=== PATIENT | male | born 1950 | race Caucasian/White ===

== ENCOUNTER 2016-12-16 10:12 | Inpatient (IN) ==
[~2016-12-16 10:12] MED LIST: fentaNYL 100 MCG PATCH TD SCH
[2016-12-16] MEDS ORDERED: ZOLPIDEM 5 MG TABLET PO PRN (10:14)
[2016-12-16] MEDS ORDERED: ACETAMINOPHEN 325 MG TABLET PO PRN (10:14)
[2016-12-16] MEDS ORDERED: HYDROmorphone 2 MG/ML SYRINGE IV PRN (10:14)
[2016-12-16] MEDS ORDERED: PROMETHAZINE 25 MG/ML VIAL IV PRN (10:14)
[2016-12-16] MEDS ORDERED: IMIPENEM/CILASTATIN SODIUM 1,000 MG in 0.9 % SODIUM CHLORIDE 250 ML IV SCH (10:45)
[2016-12-16] MEDS: 0.9 % SODIUM CHLORIDE 1,000 ML IV SCH ×2 (14:10→21:51)
[2016-12-16] MEDS: metroNIDAZOLE 500 MG/100 ML BAG IV SCH ×3 (14:10→23:56)
[2016-12-16] MEDS: 0.9 % SODIUM CHLORIDE 10 ML SYRINGE IV SCH ×2 (14:11→23:50)
[2016-12-16 14:41] LABS: ALT/SGPT < 5 U/l (0-40); Albumin 2.7 gm/dL (3.2-5.2); Albumin/Globulin Ratio 0.8 (1.0-2.3); Alkaline Phosphatase 94 U/L (39-117); Blood Urea Nitrogen 60 mg/dl (8-23); Magnesium 2.5 mg/dL (1.6-2.5); Phosphorous 3.6 mg/dL (2.7-4.5)
[2016-12-16] MEDS: IMIPENEM/CILASTATIN SODIUM 500 MG in 0.9 % SODIUM CHLORIDE 100 ML IV SCH ×2 (15:19→22:20)
[2016-12-16] MEDS ORDERED: POTASSIUM CHLORIDE 20 MEQ TABLET PO SCH (17:30)
[2016-12-16] MEDS ORDERED: 0.9 % SODIUM CHLORIDE 10 ML SYRINGE IV PRN (18:06)
[2016-12-16 18:42] LABS: Basophils # (Auto) 0 K/mcL (0.0-0.3); Basophils % (Auto) 0 % (0.0-2.0); Eosinophils # (Auto) 0.4 K/mcL (0.0-0.7); Eosinophils % (Auto) 1.8 % (0.0-7.0); Granulocytes % (Auto) 90.9 % (38.0-78.0); Lymphocytes # (Auto) 1.1 K/mcL (1.5-4.8); Lymphocytes % (Auto) 4.8 % (15.5-49.0); Mean Cell Volume 80.2 fL (80.0-100.0); Mean Corpuscular HGB Conc 30.8 g/dL (31.0-36.0); Mean Corpuscular Hemoglobin 24.7 pg (26.0-34.0); Monocytes # (Auto) 0.5 K/mcL (0.1-0.9); Monocytes % (Auto) 2.5 % (1.0-9.0); Platelet Count 481 K/mcL (140-440); RBC 2.65 M/mcL (4.50-5.90); Red Cell Distribution Width 21.1 % (11.5-14.5)
[2016-12-16] MEDS ORDERED: 0.9 % SODIUM CHLORIDE 250 ML IV SCH (18:45)
[2016-12-16] MEDS: CYCLOBENZAPRINE 10 MG TABLET PO SCH (19:51)
[2016-12-16] MEDS: CARBIDOPA/LEVODOPA 25/100 TABLET PO SCH (19:52)
[2016-12-16] MEDS: GABAPENTIN 300 MG CAPSULE PO SCH (19:53)
[2016-12-16] MEDS ORDERED: [UNRECOGNIZED DRUG - OTHER] SC PRN (20:00)
[2016-12-16] MEDS ORDERED: MIRTAZAPINE 15 MG TABLET PO SCH (21:00)
[2016-12-16] MEDS ORDERED: TOPIRAMATE 100 MG TABLET PO SCH (21:00)
[2016-12-16] MEDS ORDERED: ATENOLOL 50 MG TABLET PO SCH (21:00)
[2016-12-16] MEDS ORDERED: clonazePAM 1 MG TABLET PO SCH (21:00)
[2016-12-16] MEDS: AMANTADINE HCL 100 MG CAPSULE PO SCH (21:53)
[2016-12-16] MEDS ORDERED: POTASSIUM CHLORIDE 40 MEQ in DEXTROSE 5% IN WATER 500 ML IV ONE (22:29)
[2016-12-16] MEDS: DEXTROSE 5%-1/2NS W/20MEQ KCL 1,000 ML IV SCH (22:55)
[2016-12-16] MEDS: POTASSIUM CHLORIDE 20 MEQ TABLET PO SCH (23:50)
[2016-12-17] MEDS ORDERED: POTASSIUM CHLORIDE 20 MEQ/10 ML VIAL IV ONE (01:16)
[2016-12-17] MEDS ORDERED: POTASSIUM CHLORIDE IV SCH (06:28)
[2016-12-17] MEDS ORDERED: SODIUM CHLORIDE 0.9% IV SCH (06:28)
[2016-12-17] MEDS: DEXTROSE 5%-1/2NS W/20MEQ KCL 1,000 ML IV SCH ×2 (06:53→13:07)
--- NOTE | 2016-12-17 07:15 | Internal Medicine Consult Note ---
Medical - CN: HPI - Data of Consult Patient: new to practice Consult date: 12/17/16 Requesting Physician: [Dr. Herve Azul, general surgery] Primary Care Provider: [Leta Azul, nurse practitioner] Family Provider: [f_Tin Family Provider] - Consult Narrative Reason for consult: preop evaluation, hypokalemia,multiple medical problems History of present illness: Mr. 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 the patient reports he has had a steady decline for about one year now. He has been suffering with fatigue and weight loss of about 30-40 pounds over the last 3-6 months. He said about 6 months ago he was treated for melanoma on his face and had follow-up for that During that follow- up they found that he was anemic, and then found that he had guaiac positive stool. He then underwent colonoscopy and endoscopythat were apparently unrevealing. He has noticed gradually worsening dyspnea with exertion over the last several months, and in October said he had gross hematuria. That apparently triggered a referral which led to a cystoscopy at which time they found that he had not only blood but also stool in his urine Subsequent testing did confirm that he had a small bowel abscess, which had eroded into thebladder so that he now has a fistula. He was seen for follow-up in Dr. Azul' s office yesterday, and looked terrible and pale and weak, so was admitted for further workup and treatment. laboratory evaluation last night did show severe hypokalemia. he patient believes he was taking daily hydrochlorothiazide at home. He admits his diet is been very poor and that he has not had much of an appetite lately. However, he also admits that he generally has a very poor diet, and much prefers foods such as hot dogs and chili to anything even remotely involving fruits or vegetables or healthy proteins. Otherwise, the patient denies recent fever or chills, headaches or dizziness, new eye or ear symptoms. He has not had a sore throat or cough.he denies chest pain or palpitations, significant abdominal pain, heartburn, nausea or vomiting , and initially denied any diarrhea or constipation However,he then admitted that he has been having bloody stools for the last several days at home. Nursing staff also notes bloody stools since arrival here. -He did receive 3 units of packed red blood cells last night, as he is also quite severely anemic. -he has had Parkinson's disease for about 16 years and is managed by a neurologist. He is on a very complicated regimen for that. 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 To control that pain he does take both a fentanyl patch and subcutaneous morphine. -He also has chronic migraines, which appear to be treated with Topamax and Frova. -He also was previously diagnosed with sleep apnea, but refuses to wear CPAP. He used to be a heavy snorer, but notes he does not snore anymore since he has lost all the weight. [facility] Medical History melanoma, 2016. 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 Hypersomnia (Chronic) Insomnia (Chronic) Migraine (Chronic) Parkinson disease since about 1999 Restless leg syndrome (Chronic) Right carpal tunnel syndrome (Chronic) Shortness of breath (Chronic) Sleep apnea (Chronic) Sleep apnea, obstructive which is not currently treated. Testosterone deficiency (Chronic) Tremor (Chronic) Urgency incontinence (Chronic) Surgical History Amputation of left hand (Chronic) H/O hand surgery (Chronic) History of appendectomy (Chronic) History of back surgery (Chronic) History of carpal tunnel surgery of right wrist (Chronic) History of lumbar surgery (Chronic) L4-5 - 2011, Dr. Garcia History of mandibular surgery (Chronic) Hx of colonoscopy (Chronic 05/05/09) Dr. Shoemaker Hx of hernia repair (Chronic) Hx of surgical procedure (Chronic) Right femur cadaver graft Hx of tonsillectomy (Chronic) Malignant melanoma (Chronic) Left scalp - 2012 S/P Botox injection (Chronic) Dr. Demattos home Medication List: amantadine HCl 100 mg PO BID apomorphine (APOKYN) 0.3 mL Sub-Q Q2H PRN atenolol 25 mg PO QHS carbidopa-levodopa 25-100 mg (Sinemet) 2 tabs PO QID cephalexin (Keflex) 500 mg PO Q12H 10 days clonazepam 1 mg PO QHS cyanocobalamin (vitamin B-12) Sub-Q cyclobenzaprine 10 mg PO BID fenofibrate micronized 134 mg PO QHS fentanyl (Duragesic) 1 patch Transdermal Q48H ferrous sulfate (FeroSul) 325 mg PO QDAY frovatriptan (Frova) 2.5 mg PO ONCE gabapentin 300 mg PO QID hydrochlorothiazide PO .QD levothyroxine (Levoxyl) 100 mcg PO QAM lubiprostone (Amitiza) 24 mcg PO BID methylnaltrexone (Relistor) mg PO mirabegron ER (Myrbetriq) 50 mg (2 x 25 mg) PO Q24H mirtazapine 15 mg PO QHS omeprazole 20 mg PO BID oxycodone-acetaminophen 5-325 mg (Percocet) 1 tab PO .Q6-8H PRN potassium chloride ER 10 mEq PO QDAY rasagiline (Azilect) 1 mg PO QDAY rotigotine (Neupro) 4 mg Transdermal Q24H tadalafil (Cialis) 5 mg PO ONCE tamsulosin (Flomax) 0.8 mg PO QDAY testosterone (Androderm) 4 mg Transdermal QDAY topiramate (Topamax) 100 mg PO QPM current medication list: flagyl 500 mg IV every 6 hours, mipenemIV every 8 hours , Tylenol, amantadine,morphine, atenolol, Sinemet, Klonopin, Flexeril, IV fluids , Lovenox, Duragesic patch, gabapentin, IV heparin flush, Dilaudid, Synthroid Myrbetriq, Protonix, potassium by mouth and IV, Phenergan, Azilect, neupro patch , Topamax, Ambien Allergies/Adverse Reactions Penicillins Adverse Reaction (Mild, Verified 12/16/16 11:23) Nausea Family History Mother , 09/27 Pneumonia Other Heart problem Social History marital status: occupational status: disabled smoking status: Never smoker alcohol intake frequency: does not drink CC: [f_Reg Attending Provider] Medical - CN: Meds Home Medications Medication Instructions Recorded Confirmed Type amantadine HCl 100 mg tablet 100 mg PO BID tab 01/22/16 12/16/16 History atenolol 25 mg tablet 25 mg PO QHS tab 01/22/16 12/16/16 History carbidopa 25 mg-levodopa 100 mg 2 tab PO QID 01/22/16 12/16/16 History tablet clonazepam 1 mg tablet 1 mg PO QHS 01/22/16 12/16/16 History fenofibrate micronized 134 mg 134 mg PO QHS cap 01/22/16 12/16/16 History capsule fentanyl 100 mcg/hr transdermal 1 patch TRANSDERMA Q48H patch 01/22/16 History patch frovatriptan 2.5 mg tablet 2.5 mg PO ONCE 01/22/16 12/16/16 History gabapentin 300 mg capsule 300 mg PO QID cap 01/22/16 12/16/16 History levothyroxine 100 mcg tablet 100 mcg PO QAM tab 01/22/16 12/16/16 History lubiprostone 24 mcg capsule 24 mcg PO BID 01/22/16 12/16/16 History oxycodone-acetaminophen 5 mg-325 1 tab PO .Q6-8H PRN tab 01/22/16 12/16/16 History mg tablet rasagiline 1 mg tablet 1 mg PO QDAY 01/22/16 12/16/16 History rotigotine 4 mg/24 hour 4 mg TRANSDERMA Q24H patch 01/22/16 12/16/16 History transdermal 24 hour patch topiramate 100 mg tablet 100 mg PO QPM tab 01/22/16 12/16/16 History hydrochlorothiazide PO .QD 10/30/16 12/16/16 History Omeprazole 20 mg PO BID 12/16/16 12/16/16 History apomorphine 10 mg/mL subcutaneous 0.3 ml SUB-Q Q2H PRN ml 12/16/16 12/16/16 History cartridge cyanocobalamin (vitamin B-12) SUB-Q 12/16/16 12/16/16 History cyclobenzaprine 10 mg tablet 10 mg PO BID tab 12/16/16 12/16/16 History ferrous sulfate 325 mg (65 mg 325 mg PO QDAY 12/16/16 12/16/16 History iron) tablet methylnaltrexone 150 mg tablet mg PO 12/16/16 12/16/16 History mirtazapine 15 mg tablet 15 mg PO QHS 12/16/16 12/16/16 History potassium chloride ER 10 mEq 10 meq PO QDAY 12/16/16 12/16/16 History capsule,extended release tamsulosin 0.4 mg capsule 0.8 mg PO QDAY 12/16/16 12/16/16 History testosterone 4 mg/24 hr 4 mg TRANSDERMA QDAY 12/16/16 12/16/16 History transdermal 24 hour patch Allergies Allergy/AdvReac Type Severity Reaction Status Date / Time Penicillins AdvReac Mild Nausea Verified 12/16/16 11:23 Medical - CN: Exam - Constitutional Vitals: Temp Pulse Resp BP Pulse Ox 98.4 F 62 18 130/67 95 12/17/16 04:50 12/17/16 04:50 12/17/16 03:15 12/17/16 04:50 12/17/16 02:59 Exam: on exam, he is a rather frail-appearing white male in no acute distress, but appearing somewhat older than his stated age. Head: Normocephalic, atraumatic. eyes: Pupils are pinpoint, EOMI, anicteric. ears: TMs and canals are clear. Pharynx:Teeth are in fair condition, he does have upper and lower bridges in place. Pharynx is clear. Neck:Appears fairly supple, without obvious lymphadenopathy, thyromegaly JVD. He does have a soft bruit over the right carotid artery system.Cardiac exam: Shows regular rate and rhythm, without obvious murmurs, rubs, gallops. Lungs: Are clear to auscultation, without obvious rales, rhonchi, wheezes. Abdomen: Is soft, without obvious masses. Bowel sounds are active. Abdomen is not particularly tender.Pierce catheter is in place, and draining brownish urine with at least one visible blood clot. Extremities: Show no significant cyanosis, clubbing, edema.Neurologic: The patient does have a notable resting tremor, but otherwise voice is fairly normal , and he seems to have minimal rigidity today. he appears alert and oriented, and otherwise neuro exam is grossly nonfocal. Medical - CN: Result - Labs CBC & Chem 7: 12/17/16 08:27 12/17/16 10:45 Labs: Short CBC 12/16/16 Range/Units 17:55 WBC 22.1 H (4.5-11.0) K/mcL Hgb 6.6 L* (13.5-16.5) g/dL Hct 21.3 L (41.0-55.0) % Plt Count 481 H (140-440) K/mcL BMP 12/16/16 13:10 Sodium 147 H Potassium 2.0 L* Chloride 113 H Carbon Dioxide 15 L BUN 60 H Creatinine 1.2 Glucose 82 Calcium 8.6 Liver Function 12/16/16 Range/Units 13:10 Total Bilirubin 0.3 (0.0-1.0) mg/dL AST 7 (0-37) U/l ALT < 5 (0-40) U/l Alkaline Phosphatase 94 (39-117) U/L Albumin 2.7 L (3.2-5.2) gm/dL Follow-up CBC this morning, shows white blood cell count of 20,000, hemoglobin 8.9, hematocrit 28, platelets 419,000.CBC differential shows91% granulocytes, with absolute granulocyte count of 18,000 which is down from 20 yesterday. hemistry panel from this morning shows potassium has risen to 2.6, with elevated chloride of 116, low serum bicarbonate of 14, improved to be when of 48 , with creatinine of 1.2 glucose 127, calcium 8.1, phosphorus low at 2.3 LDH is elevated at 253, albumin is low at 2.5 next TSH was normal at 1.6 Lactic acid was normal at 0.9. urinalysis from Novemberhowed color green, pH 6, specific gravity 1.020, 300 mg of protein, trace ketones, large leukocyte esterase, negative nitrites, large RBCs blood culture from last night showing no growth so far chest x-ray from this morning shows mild cardiomegaly without signs of CHF. There is also prominent hiatal hernia. echocardiogram is pending. CT scan from December 12, 2016: Shows an enterovesical fistula with possible 8 cm abscess in the right false pelvis which communicates with the right dome of the bladder. Also noted was a solitary 5 mm stone in the gallbladder. There are also tiny stones noted in the right kidney. Follow-up images with oral contrast did show a large 12 cm thick-walled cavity in the right false pelvis communicating with the urinary bladder dome, with a 3 cm fistula opening. This cavity also communicates with multiple loops of small bowel. Medical - CN: A/P (1) Hypokalemia due to loss of potassium Status: Acute (2) Iron deficiency anemia Status: Acute (3) Dehydration Status: Acute (4) Enterovesical fistula Status: Acute (5) History of sarcoma Problem details: Right femur, 1993 Status: Resolved (6) Insomnia Status: Chronic (7) Malignant melanoma Problem details: Left scalp - 2011 Status: Resolved (8) Migraine Status: Chronic (9) Restless leg syndrome Status: Chronic (10) Sleep apnea Status: Chronic (11) Testosterone deficiency Status: Chronic - Narrative A/P Narrative: #1. GI. -small bowel-bladder abscess with fistula. etiology of this is currently uncertain. Surgical correction by Dr. Azul is planned sometime in the next day or 2. -continue with current empiric IV antibiotics. -GERD. Protonix IV started. #2. Ongoing fatigue and weight loss, -this may be multifactorial, including his ongoing Parkinson'sissues, but the majority of his symptoms are almost certainly related to his current bowel and bladder issues. -he also has a history of 2 different malignancies so there is certainly concern for underlying malignancy with this process as well. -is nutritional status appears very poor, and I've asked the area mechanic to visit with the patient and make recommendations. #3. Fluids and nutrition. Severe hypokalemia. This is most likely due to recent poor by mouth intake in addition to ongoing ingestion of HCTZ. -HCTZ has been held. Patient is receiving both IV and oral potassium replacement. -it would probably be prudent to place him on telemetry, just to monitor for any cardiac arrhythmias. -continue IV fluid hydration for apparent dehydration. Work on improving his oral nutrition. #4. neurologic. - Parkinson's disease. e is on a very complicated medical regimen. I will try to touch base with his neurologist, to see if his regimen could be simplified at all during the perioperative period. -history of migraines. continue with Topamax and when necessary Frova. -Restless leg syndrome. continue Klonopin and gabapentin. at some point he might also need an iron supplement, given his anemia, as I deficiency can definitely aggravate this syndrome. #4.obstructive sleep apnea.patient reports this as a previous diagnosis, but it is likely that this is either much improved or resolved since his significant weight loss. We can certainly monitor her overnight oximetry. #5. History of generalized anxiety disorder. -Continue Klonopin, and use when necessary Ativan as needed. #6. . -It sounds like the patient has a long history of urinary symptoms, and is currently maintained on Flomax as well as Myrbetriq. We could touch base with Dr. Hawkins to see if these could be held while the patient has a Pierce catheter in place, during the perioperative period, again to simplify his medical regimen. #7.reported testosterone deficiency. He is maintained on testosterone transdermal patch. This increases his risk of cardiac events and stroke and DVT. however, since he is on this chronically, it might help during the rehabilitation period to help him rebuild his muscle mass. 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 Continuefentanyl patch and supplemental morphine. #9. Hypothyroidism. Continue levothyroxine. #10. Hyperlipidemia. I think the fenofibrate could be held during the perioperative period. #11. Surgical risk. This patient is certainly at moderate to high risk of complications during the perioperative period, given hiscomplicated underlying disease processes and complicated medical regimen. Fortunately, he has no documented history of coronary disease Echocardiogram was ordered by Dr. Azul and we can certainly review that preop as well. -continue with DVT prophylaxis with heparin or Lovenox, and encourage ambulation as he is able. -continue atenolol during the perioperative period. 312. Hematologic. This patient does present with severe anemia, presumably due to his current GI process. He has been transfused, and this will need to be monitored closely. So far this visit has taken approximately 80 minutes, to review the patient's extensive past medical records,review his case with staff, interview and examine him, and write his notes and orders.
[2016-12-17] MEDS ORDERED: PANTOPRAZOLE 40 MG VIAL IV SCH (07:30)
[2016-12-17] MEDS: metroNIDAZOLE 500 MG/100 ML BAG IV SCH ×4 (07:57→23:24)
[2016-12-17] MEDS: 0.9 % SODIUM CHLORIDE 10 ML SYRINGE IV SCH ×4 (08:00→22:08)
--- NOTE | 2016-12-17 08:23 | XRay Report ---
CLINICAL INFORMATION: Hypoxia TECHNIQUE: AP portable upright chest x-ray COMPARISON: Previous examination dated 05/01/2015 FINDINGS: No acute or focal pulmonary parenchymal infiltrate. No parenchymal mass. There is cardiomegaly. No pulmonary congestion or pulmonary edema. There is a prominent hiatal hernia. No acute abnormality or significant interval change IMPRESSION: No acute abnormality. Interpreted and Authenticated by: Miguel Angel Solis 12/17/16
[2016-12-17] MEDS ORDERED: ENOXAPARIN 40 MG/0.4 ML SYRINGE SQ SCH (09:00)
[2016-12-17] MEDS ORDERED: ROTIGOTINE 8 MG TOPICAL SCH (09:00)
[2016-12-17] MEDS ORDERED: LEVOTHYROXINE 100 MCG TABLET PO SCH (09:00)
[2016-12-17] MEDS ORDERED: ROTIGOTINE 4 MG TOPICAL SCH (09:00)
[2016-12-17] MEDS: POTASSIUM CHLORIDE 20 MEQ TABLET PO SCH ×3 (09:07→17:03)
[2016-12-17] MEDS: CYCLOBENZAPRINE 10 MG TABLET PO SCH (09:08)
[2016-12-17] MEDS: CARBIDOPA/LEVODOPA 25/100 TABLET PO SCH ×4 (09:08→21:30)
[2016-12-17] MEDS: GABAPENTIN 300 MG CAPSULE PO SCH ×4 (09:08→21:29)
[2016-12-17] MEDS: IMIPENEM/CILASTATIN SODIUM 500 MG in 0.9 % SODIUM CHLORIDE 100 ML IV SCH ×3 (09:10→21:32)
[2016-12-17 09:48] LABS: Basophils # (Auto) 0 K/mcL (0.0-0.3); Basophils % (Auto) 0 % (0.0-2.0); Eosinophils # (Auto) 0.2 K/mcL (0.0-0.7); Eosinophils % (Auto) 1.2 % (0.0-7.0); Granulocytes % (Auto) 91.9 % (38.0-78.0); Lymphocytes # (Auto) 0.8 K/mcL (1.5-4.8); Lymphocytes % (Auto) 3.9 % (15.5-49.0); Mean Cell Volume 83.4 fL (80.0-100.0); Mean Corpuscular HGB Conc 31.7 g/dL (31.0-36.0); Mean Corpuscular Hemoglobin 26.4 pg (26.0-34.0); Monocytes # (Auto) 0.6 K/mcL (0.1-0.9); Platelet Count 419 K/mcL (140-440); RBC 3.36 M/mcL (4.50-5.90); Red Cell Distribution Width 19.5 % (11.5-14.5)
[2016-12-17] MEDS ORDERED: 0.9 % SODIUM CHLORIDE 250 ML IV SCH ×2 (11:30→19:23)
[2016-12-17 11:59] LABS: ALT/SGPT < 5 U/l (0-40); Albumin 2.5 gm/dL (3.2-5.2); Albumin/Globulin Ratio 0.8 (1.0-2.3); Alkaline Phosphatase 98 U/L (39-117); Bilirubin,Direct 0.3 mg/dL (0.0-0.3); Blood Urea Nitrogen 48 mg/dl (8-23); Gamma Glutamyl Transpeptidase 25 U/L (8-61); Magnesium 2.3 mg/dL (1.6-2.5); Phosphorous 2.3 mg/dL (2.7-4.5); Uric Acid 3.2 mg/dL (2.5-8.0)
[2016-12-17] MEDS ORDERED: POTASSIUM CHLORIDE 40 MEQ in DEXTROSE 5% IN WATER 500 ML IV ONE (12:08)
[2016-12-17] MEDS: AMANTADINE HCL 100 MG CAPSULE PO SCH ×3 (12:11→21:27)
[2016-12-17] MEDS: Mirabegron [Myrbetriq] 50 MG PO SCH ×2 (12:14→13:17)
[2016-12-17] MEDS: Rasagiline Mesylate [Azilect] 1 MG PO SCH ×2 (12:14→13:16)
--- NOTE | 2016-12-17 15:54 | General Surgery Progress Note ---
Subjective Patient reports: feels better, still having pain, tolerating liquids well, bowel movement, diarrhea, nausea, afebrile Narrative: Note initiated : 12/17/16 at 3:52 pm Service Date, if different from initiated Date: [] Patient: Tripp Melo 66 y/o M admitted on 12/16/16 for Bowel Abscess, Bladder Fistula. Chief Complaint: [patient states that he feels better and stronger. He still has suprapubic and right lower quadrant pain. He still has large volume diarrhea and bloody urine. His posttransfusion hemoglobin was 8.9. His PICC line has not been placed but should be done today. We'll plan on TPN S institution prior to operative therapy.] Objective Temp Pulse Resp BP Pulse Ox 97.7 F 59 L 20 120/70 97 12/17/16 12:15 12/17/16 12:15 12/17/16 12:15 12/17/16 12:15 12/17/16 12:15 - Additional Data Intake & Output - Last 24 hours: Intake & Output 12/15/16 12/16/16 12/17/16 12/18/16 05:59 05:59 05:59 05:59 Intake Total 1400 / 1400 1525 / 1525 Output Total 351 / 351 Balance 1049 / 1049 1525 / 1525 Weight 145 lb 145 lb - General physical appearance moderate distress, moderate pain, chronically ill - Eyes PERRL - ENT no congestion - Neck no venous distension - Respiratory clear to auscultation - Cardiovascular Cardiovascular exam: Present: normal rate and rhythm, RRR, +S1, +S2 - Abdomen tender, bowel sounds, distended (leisa distended abdomen with fullness in the suprapubic and right lower quadrant; good active bowel sounds) - Integumentary no rash, no growths, no abnormal pigmentation - Neurologic normal sensation - Psychiatric oriented to time, oriented to person, oriented to place, speech is normal, memory intact - Labs 12/17/16 08:27 12/17/16 10:45 Diabetes panel 12/17/16 Range/Units 10:45 Sodium 145 (133-145) mmol/L Potassium 2.6 L* (3.3-5.1) mmol/L Chloride 116 H (96-108) mmol/L Carbon Dioxide 14 L (22-30) mmol/L BUN 48 H (8-23) mg/dl Creatinine 1.2 (0.7-1.2) mg/dl Glucose 127 H (70-105) mg/dL Calcium 8.1 L (8.6-10.4) mg/dl AST 7 (0-37) U/l ALT < 5 (0-40) U/l Alkaline Phosphatase 98 (39-117) U/L Total Protein 5.5 L (5.9-8.4) gm/dL Albumin 2.5 L (3.2-5.2) gm/dL Triglycerides 111 (<150) mg/dl Calcium panel 12/17/16 Range/Units 10:45 Calcium 8.1 L (8.6-10.4) mg/dl Phosphorus 2.3 L (2.7-4.5) mg/dL Albumin 2.5 L (3.2-5.2) gm/dL Pituitary panel 12/17/16 Range/Units 10:45 Sodium 145 (133-145) mmol/L Potassium 2.6 L* (3.3-5.1) mmol/L Chloride 116 H (96-108) mmol/L Carbon Dioxide 14 L (22-30) mmol/L BUN 48 H (8-23) mg/dl Creatinine 1.2 (0.7-1.2) mg/dl Glucose 127 H (70-105) mg/dL Calcium 8.1 L (8.6-10.4) mg/dl Adrenal panel 12/17/16 Range/Units 10:45 Sodium 145 (133-145) mmol/L Potassium 2.6 L* (3.3-5.1) mmol/L Chloride 116 H (96-108) mmol/L Carbon Dioxide 14 L (22-30) mmol/L BUN 48 H (8-23) mg/dl Creatinine 1.2 (0.7-1.2) mg/dl Glucose 127 H (70-105) mg/dL Calcium 8.1 L (8.6-10.4) mg/dl Total Bilirubin 0.6 (0.0-1.0) mg/dL AST 7 (0-37) U/l ALT < 5 (0-40) U/l Alkaline Phosphatase 98 (39-117) U/L Total Protein 5.5 L (5.9-8.4) gm/dL Albumin 2.5 L (3.2-5.2) gm/dL Medical - PN: A/P - Time Spent With Patient Total time spent is greater than 50% in coordination of care (as documented) at patient's floor/unit and/or counseling patient: (1) Enterovesical fistula Status: Acute Assessment and plan: we'll continue to correct potassium transfusion will continue TPN will be instituted tomorrow Current Visit: No (2) Dehydration Status: Acute Current Visit: Yes (3) Hypokalemia due to loss of potassium Status: Acute Current Visit: Yes (4) Iron deficiency anemia Status: Acute Current Visit: Yes (5) Anemia Status: Chronic Current Visit: No (6) Parkinson disease Status: Chronic Current Visit: No (7) Sleep apnea, obstructive Status: Chronic Current Visit: No
--- NOTE | 2016-12-17 16:58 | XRay Report ---
CLINICAL INFORMATION: Right-sided PICC line placement TECHNIQUE: Upright AP portable chest x-ray COMPARISON: Previous examination dated 12/17/2016 FINDINGS: Right-sided PICC line with its tip in the proximal right atrium. Mild cardiomegaly, unchanged. No evidence for congestive heart failure. No focal infiltrate. IMPRESSION: Right-sided PICC line with its tip in the proximal right atrium. Interpreted and Authenticated by: Miguel Angel Solis 12/17/16
[2016-12-17] MEDS ORDERED: 0.9 % SODIUM CHLORIDE 10 ML SYRINGE IV PRN ×3 (17:13→19:23)
[2016-12-17] MEDS ORDERED: ACETAMINOPHEN 325 MG TABLET PO PRN (19:23)
[2016-12-17] MEDS ORDERED: LORazepam 2 MG/ML VIAL IV PRN (19:23)
[2016-12-17] MEDS ORDERED: [UNRECOGNIZED DRUG - OTHER] SC PRN (19:23)
[2016-12-17] MEDS ORDERED: HYDROmorphone 2 MG/ML SYRINGE ONE (20:30)
[2016-12-17] MEDS: clonazePAM 1 MG TABLET PO SCH (21:28)
[2016-12-17] MEDS: MIRTAZAPINE 15 MG TABLET PO SCH (21:29)
[2016-12-17] MEDS: ATENOLOL 50 MG TABLET PO SCH (21:30)
[2016-12-17] MEDS: TOPIRAMATE 100 MG TABLET PO SCH (21:31)
[2016-12-17 23:00] LABS: Basophils # (Auto) 0 K/mcL (0.0-0.3); Basophils % (Auto) 0.2 % (0.0-2.0); Eosinophils # (Auto) 0 K/mcL (0.0-0.7); Eosinophils % (Auto) 0.2 % (0.0-7.0); Granulocytes % (Auto) 91.8 % (38.0-78.0); Lymphocytes % (Auto) 5.3 % (15.5-49.0); Mean Cell Volume 82.5 fL (80.0-100.0); Mean Corpuscular HGB Conc 32.4 g/dL (31.0-36.0); Mean Corpuscular Hemoglobin 26.7 pg (26.0-34.0); Monocytes # (Auto) 0.5 K/mcL (0.1-0.9); Monocytes % (Auto) 2.5 % (1.0-9.0); Platelet Count 438 K/mcL (140-440); RBC 3.88 M/mcL (4.50-5.90); Red Cell Distribution Width 18.1 % (11.5-14.5)
[2016-12-17 23:23] LABS: Blood Urea Nitrogen 33 mg/dl (8-23)
[2016-12-18] MEDS: DEXTROSE 5%-1/2NS W/20MEQ KCL 1,000 ML IV SCH ×4 (01:42→17:47)
[2016-12-18] MEDS: HYDROmorphone 2 MG/ML SYRINGE IV PRN ×3 (04:28→17:18)
[2016-12-18] MEDS: 0.9 % SODIUM CHLORIDE 10 ML SYRINGE IV SCH ×5 (04:29→23:29)
[2016-12-18] MEDS: IMIPENEM/CILASTATIN SODIUM 500 MG in 0.9 % SODIUM CHLORIDE 100 ML IV SCH ×3 (05:03→22:00)
[2016-12-18] MEDS: metroNIDAZOLE 500 MG/100 ML BAG IV SCH ×4 (05:03→23:30)
[2016-12-18 06:34] LABS: Basophils # (Auto) 0 K/mcL (0.0-0.3); Basophils % (Auto) 0 % (0.0-2.0); Eosinophils # (Auto) 0.2 K/mcL (0.0-0.7); Eosinophils % (Auto) 1.2 % (0.0-7.0); Granulocytes % (Auto) 92.2 % (38.0-78.0); Lymphocytes # (Auto) 0.7 K/mcL (1.5-4.8); Lymphocytes % (Auto) 4.2 % (15.5-49.0); Mean Cell Volume 83.6 fL (80.0-100.0); Mean Corpuscular HGB Conc 31.9 g/dL (31.0-36.0); Mean Corpuscular Hemoglobin 26.6 pg (26.0-34.0); Monocytes # (Auto) 0.4 K/mcL (0.1-0.9); Monocytes % (Auto) 2.4 % (1.0-9.0); Platelet Count 378 K/mcL (140-440); RBC 3.67 M/mcL (4.50-5.90)
[2016-12-18 07:12] LABS: ALT/SGPT < 5 U/l (0-40); Albumin 2.6 gm/dL (3.2-5.2); Albumin/Globulin Ratio 1.1 (1.0-2.3); Alkaline Phosphatase 89 U/L (39-117); Bilirubin,Direct 0.4 mg/dL (0.0-0.3); Blood Urea Nitrogen 28 mg/dl (8-23); Gamma Glutamyl Transpeptidase 28 U/L (8-61); Magnesium 2.2 mg/dL (1.6-2.5); Uric Acid 2.5 mg/dL (2.5-8.0)
[2016-12-18] MEDS ORDERED: POTASSIUM CHLORIDE 20 MEQ TABLET PO SCH (08:00)
[2016-12-18] MEDS: CYCLOBENZAPRINE 10 MG TABLET PO PRN (08:07)
[2016-12-18] MEDS: PANTOPRAZOLE 40 MG VIAL IV SCH (08:08)
[2016-12-18] MEDS: CARBIDOPA/LEVODOPA 25/100 TABLET PO SCH ×4 (08:08→20:45)
[2016-12-18] MEDS: AMANTADINE HCL 100 MG CAPSULE PO SCH ×2 (08:09→20:43)
[2016-12-18] MEDS: Rasagiline Mesylate [Azilect] 1 MG PO SCH (08:09)
[2016-12-18] MEDS: GABAPENTIN 300 MG CAPSULE PO SCH ×4 (08:10→20:44)
[2016-12-18] MEDS: LEVOTHYROXINE 100 MCG TABLET PO SCH (08:11)
[2016-12-18] MEDS: ROTIGOTINE 8 MG TOPICAL SCH (08:11)
[2016-12-18] MEDS: ROTIGOTINE 4 MG TOPICAL SCH (08:16)
[2016-12-18] MEDS ORDERED: ENOXAPARIN 40 MG/0.4 ML SYRINGE SQ SCH (09:00)
[2016-12-18] MEDS: POTASSIUM CHLORIDE 10 MEQ TABLET PO SCH ×2 (09:31→13:09)
[2016-12-18] MEDS ORDERED: fentaNYL 100 MCG PATCH TD SCH (10:00)
--- NOTE | 2016-12-18 10:40 | Internal Med Progress Note ---
Medical - PN: Subj Patient information: Note initiated : 12/18/16 at 10:40 am Service Date, if different from initiated Date: [] Patient: Tripp Melo 66 y/o M admitted on 12/16/16 for Bowel Abscess, Bladder Fistula. Interval history: December 17, 2016:Reason for consult: preop evaluation, hypokalemia,multiple medical problems History of present illness: Mr. 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 the patient reports he has had a steady decline for about one year now. He has been suffering with fatigue and weight loss of about 30-40 pounds over the last 3-6 months. He said about 6 months ago he was treated for melanoma on his face and had follow-up for that During that follow- up they found that he was anemic, and then found that he had guaiac positive stool. He then underwent colonoscopy and endoscopy that were apparently unrevealing. He has noticed gradually worsening dyspnea with exertion over the last several months, and in October said he had gross hematuria. That apparently triggered a referral which led to a cystoscopy at which time they found that he had not only blood but also stool in his urine Subsequent testing did confirm that he had a small bowel abscess, which had eroded into thebladder so that he now has a fistula. He was seen for follow-up in Dr. Azul' s office yesterday, and looked terrible and pale and weak, so was admitted for further workup and treatment. laboratory evaluation last night did show severe hypokalemia. he patient believes he was taking daily hydrochlorothiazide at home. He admits his diet is been very poor and that he has not had much of an appetite lately. However, he also admits that he generally has a very poor diet, and much prefers foods such as hot dogs and chili to anything even remotely involving fruits or vegetables or healthy proteins. Otherwise, the patient denies recent fever or chills, headaches or dizziness, new eye or ear symptoms. He has not had a sore throat or cough.he denies chest pain or palpitations, significant abdominal pain, heartburn, nausea or vomiting , and initially denied any diarrhea or constipation However,he then admitted that he has been having bloody stools for the last several days at home. Nursing staff also notes bloody stools since arrival here. -He did receive 3 units of packed red blood cells last night, as he is also quite severely anemic. -he has had Parkinson's disease for about 16 years and is managed by a neurologist. He is on a very complicated regimen for that. 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 To control that pain he does take both a fentanyl patch and subcutaneous morphine. -He also has chronic migraines, which appear to be treated with Topamax and Frova. -He also was previously diagnosed with sleep apnea, but refuses to wear CPAP. He used to be a heavy snorer, but notes he does not snore anymore since he has lost all the weight. December 18, 2016: Today,the patient notes that he seems to be having more abdominal cramping and discomfort. He feels like he has more gas.e have started him on breeze nutritional supplements, but he says he just does not like the taste at this point. Dr. Azul has asked for a PICC line to be placed, and would like to start TPN during the period. otherwise, the patient denies fever or chills, chest pain or palpitations or shortness of breath, nausea or vomiting. He continues to have blood-tinged stools and dark urine - Constitutional Vitals: Vital Signs Temp Pulse Resp BP Pulse Ox 98.4 F 70 20 163/79 98 12/18/16 07:10 12/18/16 08:00 12/18/16 08:00 12/18/16 07:10 12/18/16 07:10 Period Temp Pulse Resp BP Sys/Lerma Pulse Ox Last 24 Hr 97.5 F-98.8 F 59-70 16-20 120-163/70-99 94-100 Intake and Output 12/17/16 12/18/16 12/18/16 21:59 05:59 13:59 Intake Total 1365 / 1365 1600 / 1600 1200 / 1200 Output Total 1350 / 1350 1225 / 1225 Balance 375 / 375 1200 / 1200 Weight 146 lb 12.8 oz Intake & Output: Intake & Output 12/17/16 12/18/16 12/18/16 21:59 05:59 13:59 Intake Total 1365 / 1365 1600 / 1600 1200 / 1200 Output Total 1350 / 1350 1225 / 1225 Balance 15 / 15 375 / 375 1200 / 1200 Weight 146 lb 12.8 oz Intake: IV 1400 / 1400 960 / 960 Dextrose 5%-1/2Ns W/20Meq 1000 / 1000 960 / 960 KCl 1,000 ml @ 125 mls/ hr IV .Q8H [facility] Rx#: [id number] Sodium Chloride 0.9% 100 200 / 200 ml @ 100 mls/hr IV Q8H [facility] with Primaxin 500 mg Rx#:[id number] Oral 390 / 390 200 / 200 240 / 240 Blood Product 325 / 325 Packed Cells 650 / 650 Output: Urine Catheter Amount 1350 / 1350 1075 / 1075 Stool 150 / 150 Other: # Bowel Movements 1 1 Exam: on exam, he is sitting up in a chair. He grimaces a bit on his abdomen is touched. Otherwise he is in no acute distress. Neck is supple without obvious JVD. Cardiac exam shows regular rate and rhythm. Lungs: Clear to auscultation. Abdomen:Somewhat distended, and quite tender. There is some guarding. Bowel sounds are active. Pierce continues to drain dark, stool-stained urine. Extremities show no significant edema. Neurologic: The patient does have a mild resting tremor, but otherwise his exam is grossly nonfocal. Medical - PN: Obj Da - Labs CBC & Chem 7: 12/18/16 04:10 12/18/16 04:10 Labs: Abnormal Lab Results 12/18/16 12/18/16 12/17/16 04:10 04:10 22:35 WBC 17.2 H RBC 3.67 L Hgb 9.8 L Hct 30.7 L MCH MCHC RDW 19.0 H Plt Count Gran % 92.2 H Lymph % (Auto) 4.2 L Gran # 15.9 H Lymph # 0.7 L ESR Sodium 149 H Potassium Chloride 119 H 116 H Carbon Dioxide 16 L 14 L Anion Gap BUN 28 H 33 H Glucose Calcium 7.9 L 8.1 L Phosphorus 2.0 L Direct Bilirubin 0.4 H Lactate Dehydrogenase NT-Pro-B Natriuret Pep Total Protein 4.9 L Albumin 2.6 L Albumin/Globulin Ratio 12/17/16 12/17/16 12/17/16 22:35 10:45 08:27 WBC 18.8 H 20.2 H RBC 3.88 L 3.36 L Hgb 10.4 L 8.9 L Hct 32.0 L 28.0 L MCH MCHC RDW 18.1 H 19.5 H Plt Count Gran % 91.8 H 91.9 H Lymph % (Auto) 5.3 L 3.9 L Gran # 17.2 H 18.5 H Lymph # 1.0 L 0.8 L ESR Sodium Potassium 2.6 L* Chloride 116 H Carbon Dioxide 14 L Anion Gap BUN 48 H Glucose 127 H Calcium 8.1 L Phosphorus 2.3 L Direct Bilirubin Lactate Dehydrogenase 253 H NT-Pro-B Natriuret Pep Total Protein 5.5 L Albumin 2.5 L Albumin/Globulin Ratio 0.8 L 12/16/16 12/16/16 12/16/16 17:55 13:10 13:10 WBC 22.1 H RBC 2.65 L Hgb 6.6 L* Hct 21.3 L MCH 24.7 L MCHC 30.8 L RDW 21.1 H Plt Count 481 H Gran % 90.9 H Lymph % (Auto) 4.8 L Gran # 20.1 H Lymph # 1.1 L ESR > 120 H Sodium 147 H Potassium 2.0 L* Chloride 113 H Carbon Dioxide 15 L Anion Gap 19.0 H BUN 60 H Glucose Calcium Phosphorus Direct Bilirubin Lactate Dehydrogenase NT-Pro-B Natriuret Pep 2133.0 H Total Protein Albumin 2.7 L Albumin/Globulin Ratio 0.8 L December 162016: TSH was normal at 1.6 Lactic acid was normal at 0.9. urinalysis from Novemberhowed color green, pH 6, specific gravity 1.020, 300 mg of protein, trace ketones, large leukocyte esterase, negative nitrites, large RBCs blood culture from last night showing no growth so far chest x-ray from this morning shows mild cardiomegaly without signs of CHF. There is also prominent hiatal hernia. echocardiogram is pending. EKG shows sinus rhythm at a rate of 65, with left ventricular strain pattern, but no acute ST-T changes. CT scan from December 12, 2016: Shows an enterovesical fistula with possible 8 cm abscess in the right false pelvis which communicates with the right dome of the bladder. Also noted was a solitary 5 mm stone in the gallbladder. There are also tiny stones noted in the right kidney. Follow-up images with oral contrast did show a large 12 cm thick-walled cavity in the right false pelvis communicating with the urinary bladder dome, with a 3 cm fistula opening. This cavity also communicates with multiple loops of small bowel. Meds: Medications Acetaminophen (Tylenol) 650 mg PO Q6HP PRN PRN Reason: PAIN/FEVER > 101 Amantadine HCl (Amantadine) 100 mg PO BID [facility] Last Admin: 12/18/16 08:09 Dose: 100 mg Atenolol (Tenormin) 25 mg PO QHS [facility] Last Admin: 12/17/16 21:30 Dose: 25 mg Carbidopa/Levodopa (Sinemet 25/100) 2 tab PO QID [facility] Last Admin: 12/18/16 08:08 Dose: 2 tab Clonazepam (Klonopin) 1 mg PO QHS [facility] Last Admin: 12/17/16 21:28 Dose: 1 mg Cyclobenzaprine HCl (Flexeril) 10 mg PO BIDP PRN PRN Reason: Muscle Spasm Last Admin: 12/18/16 08:07 Dose: 10 mg Enoxaparin Sodium (Lovenox) 40 mg SQ DAILY [facility] Last Admin: 12/18/16 08:05 Dose: 40 mg Fentanyl (Duragesic) 100 mcg TD Q48H [facility] Last Admin: 12/18/16 08:28 Dose: 100 mcg Gabapentin (Neurontin) 300 mg PO QID [facility] Last Admin: 12/18/16 08:10 Dose: 300 mg Heparin Sodium (Porcine) (Heparin Flush) 2 ml IV Q12 [facility] Last Admin: 12/18/16 08:27 Dose: 2 ml Hydromorphone HCl (Dilaudid) 1 mg IV Q2HP PRN PRN Reason: Pain Last Admin: 12/18/16 10:22 Dose: 1 mg Potassium Chloride/Dextrose/Sod Cl (Dextrose 5%-1/2ns W/20meq Kcl) 1,000 mls @ 125 mls/hr IV .Q8H [facility] Last Admin: 12/18/16 09:23 Dose: 125 mls/hr Imipenem/Cilastatin Sodium 500 (mg/ Sodium Chloride) 100 mls @ 100 mls/hr IV Q8H [facility] Last Infusion: 12/18/16 05:56 Dose: Infused Metronidazole (Flagyl) 500 mg in 100 mls @ 100 mls/hr IV Q6H [facility] Last Infusion: 12/18/16 05:55 Dose: Infused Levothyroxine Sodium (Synthroid) 100 mcg PO QAMAC [facility] Last Admin: 12/18/16 08:11 Dose: 100 mcg Lorazepam (Ativan) 0.5 mg IV Q4-6HP PRN PRN Reason: ANXIETY/SEDATION Mirtazapine (Remeron) 15 mg PO QHS [facility] Last Admin: 12/17/16 21:29 Dose: 15 mg Pantoprazole Sodium (Protonix) [facility] Last Admin: 12/18/16 08:08 Dose: 40 mg Apomorphine (Apokyn) (10mg/Ml) 0.3 dose SC Q2HP PRN PRN Reason: Tremors Rasagiline Mesylate ([Azilect] 1 Mg) 1 dose PO DAILY [facility] Last Admin: 12/18/16 08:09 Dose: 1 dose Rotigotine [Neupro] (4 Mg Patch) 1 dose TOPICAL DAILY [facility] Last Admin: 12/18/16 08:16 Dose: 1 dose Rotigotine [Neupro] (8 Mg Patch) 1 dose TOPICAL DAILY [facility] Last Admin: 12/18/16 08:11 Dose: 1 dose Potassium Chloride (Kdur) 40 meq PO TIDCC [facility] Stop: 12/18/16 13:01 Last Admin: 12/18/16 09:31 Dose: 40 meq Sodium Chloride (Saline Flush) 10 ml IV UD PRN PRN Reason: FLUSH Sodium Chloride (Saline Flush) 10 ml IV UD PRN PRN Reason: FLUSH Sodium Chloride (Saline Flush) 10 ml IV Q8 [facility] Last Admin: 12/18/16 04:29 Dose: 10 ml Topiramate (Topamax) 100 mg PO QPM [facility] Last Admin: 12/17/16 21:31 Dose: 100 mg Medical - PN: A/P - Time Spent With Patient Total time spent is greater than 50% in coordination of care (as documented) at patient's floor/unit and/or counseling patient: (1) Hypokalemia due to loss of potassium Status: Acute Current Visit: Yes (2) Iron deficiency anemia Status: Acute Current Visit: Yes (3) Dehydration Status: Acute Current Visit: Yes (4) Enterovesical fistula Status: Acute Current Visit: No (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 GI. -small bowel-bladder abscess with fistula. etiology of this is currently uncertain. Surgical correction by Dr. Azul is planned sometime in the next day or 2. -continue with current empiric IV antibiotics. -GERD. Protonix IV started. #2. Ongoing fatigue and weight loss, -this may be multifactorial, including his ongoing Parkinson's issues, but the majority of his symptoms are almost certainly related to his current bowel and bladder issues. -he also has a history of 2 different malignancies so there is certainly concern for underlying malignancy with this process as well. -his nutritional status appears very poor, and I've asked the customer advisor to visit with the patient and make recommendations. it is not clear if the patient is able to take in enough calories to support his needs at this time. -I spoke with the customer advisor again this afternoon,and she tried a different supplement with him, but the patient is really reluctant to take in much of that either. I did go ahead and put in orders for TPN, and the customer advisor is aware. He will need nutritional support either way, postop, given his very poor nutritional status #3. Fluids and nutrition. Severe hypokalemia. This is most likely due to recent poor by mouth intake in addition to ongoing ingestion of HCTZ. -this has improved. -continue IV fluid hydration for apparent dehydration. Work on improving his nutrition. #4. neurologic. - Parkinson's disease. e is on a very complicated medical regimen. I spoke with his neurologist, Dr. Sylvia Basilio, nd reviewed his Parkinson's meds. She would like him to continue with the neupro patch, and says that he can certainly use the subcutaneous apomorphine up to 5 times a day for any uncontrolled Parkinson symptoms. We should resume his oral Sinemet as soon as he is able to take by mouth meds. Other than these, if he is not taking oral meds, we will have to hold his rasagiline, mirtazapine, Flexeril, Sinemet, amantadine. -history of migraines. continue with Topamax and when necessary Frova, but these will also need to be held when he is nothing by mouth. . -Restless leg syndrome. continue Klonopin and gabapentin. at some point he might also need an iron supplement, given his anemia, as I deficiency can definitely aggravate this syndrome.If he cannot take these oral meds, we can use IV Ativan to help bridge the gap. #4.obstructive sleep apnea.patient reports this as a previous diagnosis, but it is likely that this is either much improved or resolved since his significant weight loss. We can certainly monitor her overnight oximetry. #5. History of generalized anxiety disorder. -Continue Klonopin, and use when necessary Ativan as needed. #6. . -It sounds like the patient has a long history of urinary symptoms, and is currently maintained on Flomax as well as Myrbetriq. -Dr. Hawkins did okay holding these 2 medications. #7.reported testosterone deficiency. He is maintained on testosterone transdermal patch. This increases his risk of cardiac events and stroke and DVT. however, since he is on this chronically, it might help during the rehabilitation period to help him rebuild his muscle mass. 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 Continue fentanyl patch and supplemental morphine, Dilaudid, or oxycodone.. #9. Hypothyroidism. Continue levothyroxine. #10. Hyperlipidemia. I think the fenofibrate could be held during the perioperative period. #11. Surgical risk. This patient is certainly at moderate to high risk of complications during the perioperative period, given his complicated underlying disease processes and complicated medical regimen. Fortunately, he has no documented history of coronary disease Echocardiogram was ordered by Dr. Azul and we can certainly review that preop as well. -continue with DVT prophylaxis with heparin or Lovenox, and encourage ambulation as he is able. -continue atenolol during the perioperative period. #12. Hematologic. This patient does present with severe anemia, presumably due to his current GI process. He has been transfused, and this will need to be monitored closely. approximately 35 minutes is spent so far today, reviewing test results, interviewing and examining the patient, reviewing his case with staff and with neurology and the customer advisor, and writing orders. Medical - PN: Qual - Stroke Symptom Onset Unknown: No - VTE Deep Vein Thrombosis/Pulmonary Embolism Present on Admission: No
[2016-12-18] MEDS ORDERED: TPN PER PHARMACY PO ONE (14:48)
--- NOTE | 2016-12-18 15:40 | General Surgery Progress Note ---
Subjective Patient reports: feels better, pain is less, tolerating liquids well, flatus, bowel movement, diarrhea, afebrile Narrative: Note initiated : 12/18/16 at 3:35 pm Service Date, if different from initiated Date: [] Patient: Tripp Melo 66 y/o M admitted on 12/16/16 for Bowel Abscess, Bladder Fistula. Chief Complaint: [the patient is doing much better. He looks strongerand is more alert. Hehad some pain this morningbut has less pain at this time. He still has diarrhea but this is less since his Pierce catheter was inserted. He still has significant stool in his urine. His potassium is stable at 3.7 his BUN is 28 AND HIS CREATININE IS 1. His hemoglobin remains stable. Hopefully his TPN will be started today.] Objective Temp Pulse Resp BP Pulse Ox 98.4 F 70 16 163/79 97 12/18/16 07:10 12/18/16 08:00 12/18/16 12:12 12/18/16 07:10 12/18/16 12:12 - Additional Data Intake & Output - Last 24 hours: Intake & Output 12/16/16 12/17/16 12/18/16 12/19/16 05:59 05:59 05:59 05:59 Intake Total 1400 / 1400 4590 / 4590 1480 / 1480 Output Total 351 / 351 2575 / 2575 Balance 1049 / 1049 2014 1480 / 1480 Weight 145 lb 146 lb 12.8 oz 146 lb 12.8 oz - General physical appearance no distress, moderate pain, chronically ill - Eyes PERRL - ENT no congestion - Neck no venous distension - Respiratory normal expansion, normal respiratory effort, clear to auscultation - Cardiovascular Cardiovascular exam: Present: normal rate and rhythm, RRR, +S1, +S2. Absent: JVD - Abdomen tender, bowel sounds, guarding, distended (abdomen is distended but he has good active bowel sounds and is passing flatus. He has tenderness in the right lower quadrant and suprapubic area with guarding) - Integumentary no rash, no growths, no abnormal pigmentation - Psychiatric oriented to time, oriented to person, oriented to place, speech is normal, memory intact - Labs 12/18/16 04:10 12/18/16 04:10 Diabetes panel 12/17/16 12/18/16 Range/Units 22:35 04:10 Sodium 144 149 H (133-145) mmol/L Potassium 3.7 3.7 (3.3-5.1) mmol/L Chloride 116 H 119 H (96-108) mmol/L Carbon Dioxide 14 L 16 L (22-30) mmol/L BUN 33 H 28 H (8-23) mg/dl Creatinine 1.0 1.0 (0.7-1.2) mg/dl Glucose 104 105 (70-105) mg/dL Calcium 8.1 L 7.9 L (8.6-10.4) mg/dl AST < 5 (0-37) U/l ALT < 5 (0-40) U/l Alkaline Phosphatase 89 (39-117) U/L Total Protein 4.9 L (5.9-8.4) gm/dL Albumin 2.6 L (3.2-5.2) gm/dL Triglycerides 89 (<150) mg/dl Calcium panel 12/17/16 12/18/16 Range/Units 22:35 04:10 Calcium 8.1 L 7.9 L (8.6-10.4) mg/dl Phosphorus 2.0 L (2.7-4.5) mg/dL Albumin 2.6 L (3.2-5.2) gm/dL Pituitary panel 12/17/16 12/18/16 Range/Units 22:35 04:10 Sodium 144 149 H (133-145) mmol/L Potassium 3.7 3.7 (3.3-5.1) mmol/L Chloride 116 H 119 H (96-108) mmol/L Carbon Dioxide 14 L 16 L (22-30) mmol/L BUN 33 H 28 H (8-23) mg/dl Creatinine 1.0 1.0 (0.7-1.2) mg/dl Glucose 104 105 (70-105) mg/dL Calcium 8.1 L 7.9 L (8.6-10.4) mg/dl Adrenal panel 12/17/16 12/18/16 Range/Units 22:35 04:10 Sodium 144 149 H (133-145) mmol/L Potassium 3.7 3.7 (3.3-5.1) mmol/L Chloride 116 H 119 H (96-108) mmol/L Carbon Dioxide 14 L 16 L (22-30) mmol/L BUN 33 H 28 H (8-23) mg/dl Creatinine 1.0 1.0 (0.7-1.2) mg/dl Glucose 104 105 (70-105) mg/dL Calcium 8.1 L 7.9 L (8.6-10.4) mg/dl Total Bilirubin 0.7 (0.0-1.0) mg/dL AST < 5 (0-37) U/l ALT < 5 (0-40) U/l Alkaline Phosphatase 89 (39-117) U/L Total Protein 4.9 L (5.9-8.4) gm/dL Albumin 2.6 L (3.2-5.2) gm/dL Medical - PN: A/P - Time Spent With Patient Total time spent is greater than 50% in coordination of care (as documented) at patient's floor/unit and/or counseling patient: (1) Enterovesical fistula Status: Acute Assessment and plan: tPN will be instituted We'll continue antibiotic support We'll make plans for operative therapy tentatively on Friday. Current Visit: No (2) Dehydration Status: Acute Current Visit: Yes (3) Hypokalemia due to loss of potassium Status: Acute Current Visit: Yes (4) Iron deficiency anemia Status: Acute Current Visit: Yes (5) Anemia Status: Chronic Current Visit: No (6) Parkinson disease Status: Chronic Current Visit: No (7) Sleep apnea, obstructive Status: Chronic Current Visit: No
[2016-12-18] MEDS ORDERED: FAT EMULSION 20% 250 ML IV SCH (16:00)
[2016-12-18] MEDS ORDERED: CALCIUM GLUCONATE 5 MEQ, MAGNESIUM SULFATE 8.12 MEQ, SODIUM CHLORIDE 20 MEQ, POTASSIUM ... IV SCH (17:00)
[2016-12-18 18:03] LABS: ALT/SGPT < 5 U/l (0-40); Albumin 2.6 gm/dL (3.2-5.2); Albumin/Globulin Ratio 0.9 (1.0-2.3); Alkaline Phosphatase 106 U/L (39-117); Bilirubin,Direct 0.3 mg/dL (0.0-0.3); Blood Urea Nitrogen 22 mg/dl (8-23); Gamma Glutamyl Transpeptidase 35 U/L (8-61); Magnesium 2.1 mg/dL (1.6-2.5); Phosphorous 1.6 mg/dL (2.7-4.5); Uric Acid 2.2 mg/dL (2.5-8.0)
[2016-12-18] MEDS: clonazePAM 1 MG TABLET PO SCH (20:44)
[2016-12-18] MEDS: MIRTAZAPINE 15 MG TABLET PO SCH (20:45)
[2016-12-18] MEDS: TOPIRAMATE 100 MG TABLET PO SCH (20:45)
[2016-12-18] MEDS: ATENOLOL 50 MG TABLET PO SCH (20:45)
[2016-12-18] MEDS: NEUTRA PHOS 1 PACKET PO SCH (20:45)
[2016-12-19] MEDS: HYDROmorphone 2 MG/ML SYRINGE IV PRN ×3 (02:53→22:52)
[2016-12-19] MEDS: DEXTROSE 5%-1/2NS W/20MEQ KCL 1,000 ML IV SCH (02:57)
[2016-12-19] MEDS: IMIPENEM/CILASTATIN SODIUM 500 MG in 0.9 % SODIUM CHLORIDE 100 ML IV SCH ×3 (05:10→22:29)
[2016-12-19] MEDS: metroNIDAZOLE 500 MG/100 ML BAG IV SCH ×4 (05:11→23:58)
[2016-12-19] MEDS: 0.9 % SODIUM CHLORIDE 10 ML SYRINGE IV SCH ×3 (05:11→21:27)
[2016-12-19 06:57] LABS: Basophils # (Auto) 0 K/mcL (0.0-0.3); Basophils % (Auto) 0.1 % (0.0-2.0); Eosinophils # (Auto) 0.3 K/mcL (0.0-0.7); Eosinophils % (Auto) 1.5 % (0.0-7.0); Granulocytes % (Auto) 90.5 % (38.0-78.0); Lymphocytes % (Auto) 5.7 % (15.5-49.0); Mean Cell Volume 84.1 fL (80.0-100.0); Mean Corpuscular HGB Conc 31.4 g/dL (31.0-36.0); Mean Corpuscular Hemoglobin 26.4 pg (26.0-34.0); Monocytes # (Auto) 0.4 K/mcL (0.1-0.9); Monocytes % (Auto) 2.2 % (1.0-9.0); Platelet Count 338 K/mcL (140-440); RBC 3.69 M/mcL (4.50-5.90)
[2016-12-19] MEDS: CYCLOBENZAPRINE 10 MG TABLET PO PRN (07:00)
[2016-12-19] MEDS: PANTOPRAZOLE 40 MG VIAL IV SCH (07:00)
[2016-12-19] MEDS: CARBIDOPA/LEVODOPA 25/100 TABLET PO SCH ×4 (07:01→21:29)
[2016-12-19] MEDS: LEVOTHYROXINE 100 MCG TABLET PO SCH (07:04)
[2016-12-19] MEDS ORDERED: PANTOPRAZOLE 40 MG VIAL IV SCH (07:30)
[2016-12-19 07:45] LABS: ALT/SGPT < 5 U/l (0-40); Albumin 2.6 gm/dL (3.2-5.2); Albumin/Globulin Ratio 1.2 (1.0-2.3); Alkaline Phosphatase 98 U/L (39-117); Bilirubin,Direct 0.3 mg/dL (0.0-0.3); Blood Urea Nitrogen 20 mg/dl (8-23); Gamma Glutamyl Transpeptidase 41 U/L (8-61); Magnesium 2.1 mg/dL (1.6-2.5); Uric Acid 1.7 mg/dL (2.5-8.0)
[2016-12-19] MEDS: Rasagiline Mesylate [Azilect] 1 MG PO SCH (07:45)
[2016-12-19] MEDS: ROTIGOTINE 8 MG TOPICAL SCH (07:45)
[2016-12-19] MEDS: ROTIGOTINE 4 MG TOPICAL SCH (07:45)
[2016-12-19] MEDS: AMANTADINE HCL 100 MG CAPSULE PO SCH ×2 (07:46→21:29)
[2016-12-19] MEDS: NEUTRA PHOS 1 PACKET PO SCH ×2 (07:55→21:28)
[2016-12-19] MEDS: GABAPENTIN 300 MG CAPSULE PO SCH ×3 (07:55→21:29)
[2016-12-19] MEDS ORDERED: DEXTROSE 5%-1/2NS W/20MEQ KCL 1,000 ML IV SCH (09:09)
--- NOTE | 2016-12-19 09:27 | XRay Report ---
CLINICAL INFORMATION: Dyspnea TECHNIQUE: AP portable semiupright chest x-ray COMPARISON: 12/17/2016, 05/01/2015 FINDINGS: No change in right-sided PICC line with its tip in the right atrium. There is cardiomegaly. Pulmonary vascularity is prominent, consistent with pulmonary congestion. No definite pulmonary edema. No focal parenchymal infiltrate or consolidation. No detectable pleural effusion. IMPRESSION: Cardiomegaly and probable pulmonary congestion Interpreted and Authenticated by: Miguel Angel Solis 12/19/16
--- NOTE | 2016-12-19 11:08 | Internal Med Progress Note ---
Medical - PN: Subj Patient information: Note initiated : 12/19/16 at 11:08 am Service Date, if different from initiated Date: [] Patient: Tripp Melo 66 y/o M admitted on 12/16/16 for Bowel Abscess, Bladder Fistula. Chief Complaint: [] Interval history: December 17, 2016:Reason for consult: preop evaluation, hypokalemia,multiple medical problems History of present illness: Mr. 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 the patient reports he has had a steady decline for about one year now. He has been suffering with fatigue and weight loss of about 30-40 pounds over the last 3-6 months. He said about 6 months ago he was treated for melanoma on his face and had follow-up for that During that follow- up they found that he was anemic, and then found that he had guaiac positive stool. He then underwent colonoscopy and endoscopy that were apparently unrevealing. He has noticed gradually worsening dyspnea with exertion over the last several months, and in October said he had gross hematuria. That apparently triggered a referral which led to a cystoscopy at which time they found that he had not only blood but also stool in his urine Subsequent testing did confirm that he had a small bowel abscess, which had eroded into thebladder so that he now has a fistula. He was seen for follow-up in Dr. Azul' s office yesterday, and looked terrible and pale and weak, so was admitted for further workup and treatment. laboratory evaluation last night did show severe hypokalemia. he patient believes he was taking daily hydrochlorothiazide at home. He admits his diet is been very poor and that he has not had much of an appetite lately. However, he also admits that he generally has a very poor diet, and much prefers foods such as hot dogs and chili to anything even remotely involving fruits or vegetables or healthy proteins. Otherwise, the patient denies recent fever or chills, headaches or dizziness, new eye or ear symptoms. He has not had a sore throat or cough.he denies chest pain or palpitations, significant abdominal pain, heartburn, nausea or vomiting , and initially denied any diarrhea or constipation However,he then admitted that he has been having bloody stools for the last several days at home. Nursing staff also notes bloody stools since arrival here. -He did receive 3 units of packed red blood cells last night, as he is also quite severely anemic. -he has had Parkinson's disease for about 16 years and is managed by a neurologist. He is on a very complicated regimen for that. 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 To control that pain he does take both a fentanyl patch and subcutaneous morphine. -He also has chronic migraines, which appear to be treated with Topamax and Frova. -He also was previously diagnosed with sleep apnea, but refuses to wear CPAP. He used to be a heavy snorer, but notes he does not snore anymore since he has lost all the weight. December 18, 2016: Today,the patient notes that he seems to be having more abdominal cramping and discomfort. He feels like he has more gas.e have started him on breeze nutritional supplements, but he says he just does not like the taste at this point. Dr. Azul has asked for a PICC line to be placed, and would like to start TPN during the period. otherwise, the patient denies fever or chills, chest pain or palpitations or shortness of breath, nausea or vomiting. He continues to have blood-tinged stools and dark urine December 19: today,the patient notes he is still having abdominal pain, mainly towards the right groin area. This is crampy in nature. Nursing staff also called me earlier today to say that the patient was starting to sound a little bit wet,and he had a congested cough, and O2 saturations were a bit lower.he did feel a bit short of breath. chest x-ray did suggest pulmonary vascular congestion. otherwise, he states he is just tired. He denies overt fever or chills, chest pain or palpitations,nausea or vomiting. He continues to have loose blood and mucous stools at times, and continues to have stool contaminating his urine in his Pierce catheter. TPN was started last night. ursing also reports that he has had nonsustained runs of V. tach with activity.May also feel he is getting a bit discouraged by his condition. - Constitutional Vitals: Vital Signs Temp Pulse Resp BP Pulse Ox 98.7 F 65 24 177/83 94 12/19/16 07:56 12/19/16 08:00 12/19/16 08:00 12/19/16 07:56 12/19/16 11:08 Period Temp Pulse Resp BP Sys/Lerma Pulse Ox Last 24 Hr 98.4 F-99.5 F 65-79 14-24 110-177/77-85 94-98 Intake and Output 12/18/16 12/19/16 12/19/16 21:59 05:59 13:59 Intake Total 1580 / 1580 1910 / 1910 230 / 230 Output Total 800 / 800 1300 / 1300 300 / 300 Balance 780 / 780 610 / 610 -70 / -70 Weight 154 lb 12.8 oz Intake & Output: Intake & Output 12/18/16 12/19/16 12/19/16 21:59 05:59 13:59 Intake Total 1580 / 1580 1910 / 1910 230 / 230 Output Total 800 / 800 1300 / 1300 300 / 300 Balance 780 / 780 610 / 610 -70 / -70 Weight 154 lb 12.8 oz Intake: IV 1200 / 1200 1550 / 1550 200 / 200 Dextrose 5%-1/2Ns W/20Meq 1000 / 1000 1000 / 1000 KCl 1,000 ml @ 125 mls/ hr IV .Q8H [facility] Rx#: [id number] Intralipid 20% 250 ml @ 250 / 250 25 mls/hr IV MoWeFr@1600 [facility] Rx#:[id number] Sodium Chloride 0.9% 100 100 / 100 100 / 100 100 / 100 ml @ 100 mls/hr IV Q8H [facility] with Primaxin 500 mg Rx#:[id number] Oral 380 / 380 360 / 360 30 / 30 Output: Urine Catheter Amount 800 / 800 700 / 700 Stool 600 / 600 300 / 300 Other: Meal Breakfast Percent of Meal Consumed Refused Feeding Ability Independent # Bowel Movements 3 Exam: n exam, he is lying in bed nearly flat, and does not appear dyspneic. cardiac exam shows regular rate and rhythm. Lung exam does show few scattered crackles, without significant wheezing. There is no sensory muscle use. Abdomen is soft, but still quite tender, especially in the right lower quadrant area. There is some guarding, but no obvious rebound. Extremities: Show no significant edema. Medical - PN: Obj Da - Labs CBC & Chem 7: 01/26/17 04:20 12/19/16 04:20 Labs: Abnormal Lab Results 12/19/16 12/19/16 12/18/16 04:20 04:20 18:54 WBC 16.9 H RBC 3.69 L Hgb 9.8 L Hct 31.0 L MCH MCHC RDW 19.0 H Plt Count Gran % 90.5 H Lymph % (Auto) 5.7 L Gran # 15.3 H Lymph # 1.0 L ESR Sodium 148 H Potassium Chloride 120 H Carbon Dioxide 16 L Anion Gap BUN Glucose Uric Acid 1.7 L Calcium 7.8 L Phosphorus 2.0 L Direct Bilirubin Lactate Dehydrogenase 253 H NT-Pro-B Natriuret Pep Total Protein 4.7 L Albumin 2.6 L Globulin 2.1 L Albumin/Globulin Ratio Prealbumin 10.2 L 12/18/16 12/18/16 12/18/16 15:02 04:10 04:10 WBC 17.2 H RBC 3.67 L Hgb 9.8 L Hct 30.7 L MCH MCHC RDW 19.0 H Plt Count Gran % 92.2 H Lymph % (Auto) 4.2 L Gran # 15.9 H Lymph # 0.7 L ESR Sodium 149 H Potassium Chloride 116 H 119 H Carbon Dioxide 16 L 16 L Anion Gap BUN 28 H Glucose 113 H Uric Acid 2.2 L Calcium 8.0 L 7.9 L Phosphorus 1.6 L 2.0 L Direct Bilirubin 0.4 H Lactate Dehydrogenase 254 H NT-Pro-B Natriuret Pep Total Protein 5.5 L 4.9 L Albumin 2.6 L 2.6 L Globulin Albumin/Globulin Ratio 0.9 L Prealbumin 12/17/16 12/17/16 12/17/16 22:35 22:35 10:45 WBC 18.8 H RBC 3.88 L Hgb 10.4 L Hct 32.0 L MCH MCHC RDW 18.1 H Plt Count Gran % 91.8 H Lymph % (Auto) 5.3 L Gran # 17.2 H Lymph # 1.0 L ESR Sodium Potassium 2.6 L* Chloride 116 H 116 H Carbon Dioxide 14 L 14 L Anion Gap BUN 33 H 48 H Glucose 127 H Uric Acid Calcium 8.1 L 8.1 L Phosphorus 2.3 L Direct Bilirubin Lactate Dehydrogenase 253 H NT-Pro-B Natriuret Pep Total Protein 5.5 L Albumin 2.5 L Globulin Albumin/Globulin Ratio 0.8 L Prealbumin 12/17/16 12/16/16 12/16/16 08:27 17:55 13:10 WBC 20.2 H 22.1 H RBC 3.36 L 2.65 L Hgb 8.9 L 6.6 L* Hct 28.0 L 21.3 L MCH 24.7 L MCHC 30.8 L RDW 19.5 H 21.1 H Plt Count 481 H Gran % 91.9 H 90.9 H Lymph % (Auto) 3.9 L 4.8 L Gran # 18.5 H 20.1 H Lymph # 0.8 L 1.1 L ESR Sodium 147 H Potassium 2.0 L* Chloride 113 H Carbon Dioxide 15 L Anion Gap 19.0 H BUN 60 H Glucose Uric Acid Calcium Phosphorus Direct Bilirubin Lactate Dehydrogenase NT-Pro-B Natriuret Pep 2133.0 H Total Protein Albumin 2.7 L Globulin Albumin/Globulin Ratio 0.8 L Prealbumin 12/16/16 13:10 WBC RBC Hgb Hct MCH MCHC RDW Plt Count Gran % Lymph % (Auto) Gran # Lymph # ESR > 120 H Sodium Potassium Chloride Carbon Dioxide Anion Gap BUN Glucose Uric Acid Calcium Phosphorus Direct Bilirubin Lactate Dehydrogenase NT-Pro-B Natriuret Pep Total Protein Albumin Globulin Albumin/Globulin Ratio Prealbumin December 19: Chest x-ray shows cardiomegaly with prominent pulmonary vasculature consistent with congestion. December 16-2016: TSH was normal at 1.6 Lactic acid was normal at 0.9. urinalysis from Novemberhowed color green, pH 6, specific gravity 1.020, 300 mg of protein, trace ketones, large leukocyte esterase, negative nitrites, large RBCs blood culture from last night showing no growth so far chest x-ray from this morning shows mild cardiomegaly without signs of CHF. There is also prominent hiatal hernia. echocardiogram is pending. EKG shows sinus rhythm at a rate of 65, with left ventricular strain pattern, but no acute ST-T changes. CT scan from December 12, 2016: Shows an enterovesical fistula with possible 8 cm abscess in the right false pelvis which communicates with the right dome of the bladder. Also noted was a solitary 5 mm stone in the gallbladder. There are also tiny stones noted in the right kidney. Follow-up images with oral contrast did show a large 12 cm thick-walled cavity in the right false pelvis communicating with the urinary bladder dome, with a 3 cm fistula opening. This cavity also communicates with multiple loops of small bowel. Meds: Medications Acetaminophen (Tylenol) 650 mg PO Q6HP PRN PRN Reason: PAIN/FEVER > 101 Amantadine HCl (Amantadine) 100 mg PO BID [facility] Last Admin: 12/19/16 07:46 Dose: 100 mg Atenolol (Tenormin) 25 mg PO QHS [facility] Last Admin: 12/18/16 20:45 Dose: 25 mg Carbidopa/Levodopa (Sinemet 25/100) 2 tab PO QID [facility] Last Admin: 12/19/16 07:01 Dose: 2 tab Clonazepam (Klonopin) 1 mg PO QHS [facility] Last Admin: 12/18/16 20:44 Dose: 1 mg Cyclobenzaprine HCl (Flexeril) 10 mg PO BIDP PRN PRN Reason: Muscle Spasm Last Admin: 12/19/16 07:00 Dose: 10 mg Diagnostic Test (Pha) (Accu-Chek) 1 each FS Q6 [facility] PRN Reason: Protocol Stop: 12/19/16 12:01 Last Admin: 12/19/16 05:34 Dose: 1 each Diagnostic Test (Pha) (Accu-Chek) 1 each FS DAILY [facility] PRN Reason: Protocol Fentanyl (Duragesic) 100 mcg TD Q48H [facility] Last Admin: 12/18/16 08:28 Dose: 100 mcg Gabapentin (Neurontin) 300 mg PO QID [facility] Last Admin: 12/19/16 07:55 Dose: 300 mg Heparin Sodium (Porcine) (Heparin Flush) 2 ml IV Q12 [facility] Last Admin: 12/19/16 08:01 Dose: 2 ml Hydromorphone HCl (Dilaudid) 1 mg IV Q2HP PRN PRN Reason: Pain Last Admin: 12/19/16 07:52 Dose: 1 mg Imipenem/Cilastatin Sodium 500 (mg/ Sodium Chloride) 100 mls @ 100 mls/hr IV Q8H [facility] Last Infusion: 12/19/16 06:05 Dose: Infused Metronidazole (Flagyl) 500 mg in 100 mls @ 100 mls/hr IV Q6H [facility] Last Infusion: 12/19/16 06:06 Dose: Infused Fat Emulsion Intravenous (Intralipid 20%) 250 mls @ 25 mls/hr IV MoWeFr@1600 [facility] Last Infusion: 12/19/16 03:30 Dose: Infused Calcium Gluconate 5 meq/Magnesium Sulfate 8.12 meq/Sodium Chloride 20 meq/ Potassium Phosphate 20 meq/Multivitamins/Minerals 10 ml/Selenium 60 mcg/ Amino Acids 1,033.7981 mls @ 50 mls/hr IV DAILY@1700 [facility] Last Admin: 12/18/16 17:33 Dose: 25 mls/hr Potassium Chloride/Dextrose/Sod Cl (Dextrose 5%-1/2ns W/20meq Kcl) 1,000 mls @ 50 mls/hr IV .Q20H [facility] Levothyroxine Sodium (Synthroid) 100 mcg PO QAMAC [facility] Last Admin: 12/19/16 07:04 Dose: 100 mcg Lorazepam (Ativan) 0.5 mg IV Q4-6HP PRN PRN Reason: ANXIETY/SEDATION Mirtazapine (Remeron) 15 mg PO QHS [facility] Last Admin: 12/18/16 20:45 Dose: 15 mg Pantoprazole Sodium (Protonix) 40 mg IV QAMAC [facility] Last Admin: 12/19/16 08:01 Dose: 40 mg Apomorphine (Apokyn) (10mg/Ml) 0.3 dose SC Q2HP PRN PRN Reason: Tremors Rasagiline Mesylate ([Azilect] 1 Mg) 1 dose PO DAILY [facility] Last Admin: 12/19/16 07:45 Dose: 1 dose Rotigotine [Neupro] (4 Mg Patch) 1 dose TOPICAL DAILY [facility] Last Admin: 12/19/16 07:45 Dose: 1 dose Rotigotine [Neupro] (8 Mg Patch) 1 dose TOPICAL DAILY [facility] Last Admin: 12/19/16 07:45 Dose: 1 dose Potassium/Phosphorus/Sodium (Neutra Phos) 1 packet PO BID [facility] Last Admin: 12/19/16 07:55 Dose: 1 packet Sodium Chloride (Saline Flush) 10 ml IV UD PRN PRN Reason: FLUSH Sodium Chloride (Saline Flush) 10 ml IV UD PRN PRN Reason: FLUSH Sodium Chloride (Saline Flush) 10 ml IV Q8 [facility] Last Admin: 12/19/16 05:11 Dose: 10 ml Topiramate (Topamax) 100 mg PO QPM [facility] Last Admin: 12/18/16 20:45 Dose: 100 mg Medical - PN: A/P - Time Spent With Patient Total time spent is greater than 50% in coordination of care (as documented) at patient's floor/unit and/or counseling patient: (1) Hypokalemia due to loss of potassium Status: Acute Current Visit: Yes (2) Iron deficiency anemia Status: Acute Current Visit: Yes (3) Dehydration Status: Acute Current Visit: Yes (4) Enterovesical fistula Status: Acute Current Visit: No (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 GI. -small bowel-bladder abscess with fistula. etiology of this is currently uncertain. Surgical correction by Dr. Azul is planned sometime in the next A few days. -continue with current empiric IV antibiotics. -GERD. Protonix IV started. #2. Pulmonary. -Patient did develop a bit of respiratory distress today. He may be getting a bit volume overloaded. Now that he is on TPN, and is still on a clear liquid diet, I will discontinue his other IV fluids. -echocardiogram report is still pending. #3. Ongoing fatigue and weight loss, -this may be multifactorial, including his ongoing Parkinson's issues, but the majority of his symptoms are almost certainly related to his current bowel and bladder issues. -he also has a history of 2 different malignancies so there is certainly concern for underlying malignancy with this process as well. -his nutritional status appears very poor, and he is now started on TPN, with the help of nutrition and pharmacy. #4. Fluids and nutrition. Severe hypokalemia. This is most likely due to recent poor by mouth intake in addition to ongoing ingestion of HCTZ. Resolved. #5. neurologic. - Parkinson's disease. he is on a very complicated medical regimen. I spoke with his neurologist, Dr. Sylvia Basilio, . She would like him to continue with the neupro patch, and says that he can certainly use the subcutaneous apomorphine up to 5 times a day for any uncontrolled Parkinson symptoms. We should resume his oral Sinemet as soon as he is able to take by mouth meds. Other than these, if he is not taking oral meds, we will have to hold his rasagiline, mirtazapine, Flexeril, Sinemet, amantadine. -history of migraines. continue with Topamax and when necessary Frova, but these will also need to be held when he is nothing by mouth. . -Restless leg syndrome. continue Klonopin and gabapentin. at some point he might also need an iron supplement, given his anemia, as I deficiency can definitely aggravate this syndrome.If he cannot take these oral meds, we can use IV Ativan to help bridge the gap. #6.obstructive sleep apnea.patient reports this as a previous diagnosis, but it is likely that this is either much improved or resolved since his significant weight loss. We can certainly monitor her overnight oximetry. #7. History of generalized anxiety disorder. -Continue Klonopin, and use when necessary Ativan as needed. #8. . -It sounds like the patient has a long history of urinary symptoms, and is currently maintained on Flomax as well as Myrbetriq. -Dr. Hawkins did okay holding these 2 medications. #9.reported testosterone deficiency. He is maintained on testosterone transdermal patch. This increases his risk of cardiac events and stroke and DVT. however, since he is on this chronically, it might help during the rehabilitation period to help him rebuild his muscle mass. 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 Continue fentanyl patch and supplemental morphine, Dilaudid, or oxycodone.. #11. Hypothyroidism. Continue levothyroxine. #12. Hyperlipidemia. I think the fenofibrate could be held during the perioperative period. #13. Surgical risk. This patient is certainly at moderate to high risk of complications during the perioperative period, given his complicated underlying disease processes and complicated medical regimen. Fortunately, he has no documented history of coronary disease Echocardiogram was ordered by Dr. Azul and we can certainly review that preop as well. -continue with DVT prophylaxis with heparin or Lovenox, and encourage ambulation as he is able. -continue atenolol during the perioperative period. #14. Hematologic. This patient does present with severe anemia, presumably due to his current GI process. He has been transfused, and this will need to be monitored closely. approximately 35 minutes has been spent so far today, reviewing patient's test results, interviewing and examining him, reviewing plan of care with nursing staff, and then following up on his shortness of breath. Medical - PN: Qual - Stroke Symptom Onset Unknown: No - VTE Deep Vein Thrombosis/Pulmonary Embolism Present on Admission: No
[2016-12-19] MEDS ORDERED: POTASSIUM PHOSPHATE IV SCH (16:00)
[2016-12-19] MEDS ORDERED: MAGNESIUM SULFATE IV SCH (16:00)
[2016-12-19] MEDS ORDERED: CALCIUM GLUCONATE IV SCH (16:00)
[2016-12-19] MEDS ORDERED: MVI IV SCH (16:00)
[2016-12-19] MEDS ORDERED: [UNRECOGNIZED DRUG - OTHER] IV SCH (16:00)
[2016-12-19] MEDS ORDERED: POTASSIUM PHOSPHATE 40 MEQ in DEXTROSE 5% IN WATER 500 ML IV ONE ×2 (16:44→17:31)
[2016-12-19] MEDS ORDERED: MAGNESIUM SULFATE 32.48 MEQ in DEXTROSE 5% IN WATER 50 ML IV ONE ×2 (16:45→17:31)
--- NOTE | 2016-12-19 17:03 | General Surgery Progress Note ---
Subjective Patient reports: feels better, still having pain, pain is less, tolerating liquids well, flatus, bowel movement, diarrhea, afebrile Narrative: Note initiated : 12/19/16 at 5:00 pm Service Date, if different from initiated Date: [] Patient: Tripp Melo 66 y/o M admitted on 12/16/16 for Bowel Abscess, Bladder Fistula. Chief Complaint: [patient looks clinically better. He states that he feels better but still has suprapubic pain and pain in his right lower quadrant. This is not unanticipated. He has some shortness of breath earlier but that has resolved. He is having multiple liquid bowel movements which is related to his connection of his GI tract to his bowel. He does not have nausea or vomiting. His white count is slowly resolving. His electrolytes have almost normalized. TPN has been instituted and is now running at 50 cc an hour with intralipids every other day.] Objective Temp Pulse Resp BP Pulse Ox 98.1 F 64 20 165/79 98 12/19/16 16:53 12/19/16 12:00 12/19/16 16:53 12/19/16 16:53 12/19/16 16:53 - Additional Data Intake & Output - Last 24 hours: Intake & Output 12/17/16 12/18/16 12/19/16 12/20/16 05:59 05:59 05:59 05:59 Intake Total 1400 / 1400 4590 / 4590 4690 / 4690 430 / 430 Output Total 351 / 351 2575 / 2575 2100 / 2100 875 / 875 Balance 1049 / 1049 2014 / 2014 2590 / 2590 -445 / -445 Weight 145 lb 146 lb 12.8 oz 154 lb 12.8 oz - General physical appearance moderate distress - Eyes PERRL - ENT no congestion - Neck no venous distension - Respiratory clear to auscultation (no rales or wheezes hear) - Cardiovascular Cardiovascular exam: Present: normal rate and rhythm, +S1, +S2, tachycardia. Absent: JVD - Abdomen tender, guarding, distended (distended abdomen with tenderness and right lower quadrant and suprapubic region unchanged from previous exam.) - Neurologic other (movement is slightly more rigid abdomen on previous days but this is not unanticipated) - Psychiatric oriented to time, oriented to person, oriented to place, speech is normal, memory intact - Labs 12/19/16 04:20 12/19/16 04:20 Diabetes panel 12/18/16 12/19/16 Range/Units 15:02 04:20 Sodium 144 148 H (133-145) mmol/L Potassium 4.5 4.2 (3.3-5.1) mmol/L Chloride 116 H 120 H (96-108) mmol/L Carbon Dioxide 16 L 16 L (22-30) mmol/L BUN 22 20 (8-23) mg/dl Creatinine 0.9 0.9 (0.7-1.2) mg/dl Glucose 113 H 104 (70-105) mg/dL Calcium 8.0 L 7.8 L (8.6-10.4) mg/dl AST 7 8 (0-37) U/l ALT < 5 < 5 (0-40) U/l Alkaline Phosphatase 106 98 (39-117) U/L Total Protein 5.5 L 4.7 L (5.9-8.4) gm/dL Albumin 2.6 L 2.6 L (3.2-5.2) gm/dL Triglycerides 75 84 (<150) mg/dl Calcium panel 12/18/16 12/19/16 Range/Units 15:02 04:20 Calcium 8.0 L 7.8 L (8.6-10.4) mg/dl Phosphorus 1.6 L 2.0 L (2.7-4.5) mg/dL Albumin 2.6 L 2.6 L (3.2-5.2) gm/dL Pituitary panel 12/18/16 12/19/16 Range/Units 15:02 04:20 Sodium 144 148 H (133-145) mmol/L Potassium 4.5 4.2 (3.3-5.1) mmol/L Chloride 116 H 120 H (96-108) mmol/L Carbon Dioxide 16 L 16 L (22-30) mmol/L BUN 22 20 (8-23) mg/dl Creatinine 0.9 0.9 (0.7-1.2) mg/dl Glucose 113 H 104 (70-105) mg/dL Calcium 8.0 L 7.8 L (8.6-10.4) mg/dl Adrenal panel 12/18/16 12/19/16 Range/Units 15:02 04:20 Sodium 144 148 H (133-145) mmol/L Potassium 4.5 4.2 (3.3-5.1) mmol/L Chloride 116 H 120 H (96-108) mmol/L Carbon Dioxide 16 L 16 L (22-30) mmol/L BUN 22 20 (8-23) mg/dl Creatinine 0.9 0.9 (0.7-1.2) mg/dl Glucose 113 H 104 (70-105) mg/dL Calcium 8.0 L 7.8 L (8.6-10.4) mg/dl Total Bilirubin 0.6 0.5 (0.0-1.0) mg/dL AST 7 8 (0-37) U/l ALT < 5 < 5 (0-40) U/l Alkaline Phosphatase 106 98 (39-117) U/L Total Protein 5.5 L 4.7 L (5.9-8.4) gm/dL Albumin 2.6 L 2.6 L (3.2-5.2) gm/dL Medical - PN: A/P - Time Spent With Patient Total time spent is greater than 50% in coordination of care (as documented) at patient's floor/unit and/or counseling patient: (1) Enterovesical fistula Status: Acute Assessment and plan: tPN has been instituted Hematocrit is stable White blood count is trending down Electrolytes have essentially been corrected Still anticipate operative therapy on Friday if he continues to improve.. Current Visit: No (2) Dehydration Status: Acute Current Visit: Yes (3) Hypokalemia due to loss of potassium Status: Acute Current Visit: Yes (4) Iron deficiency anemia Status: Acute Current Visit: Yes (5) Anemia Status: Chronic Current Visit: No (6) Parkinson disease Status: Chronic Current Visit: No (7) Sleep apnea, obstructive Status: Chronic Current Visit: No
[2016-12-19] MEDS ORDERED: CYCLOBENZAPRINE 10 MG TABLET PO PRN (17:31)
[2016-12-19] MEDS ORDERED: LORazepam 2 MG/ML VIAL IV PRN (17:31)
[2016-12-19] MEDS ORDERED: [UNRECOGNIZED DRUG - OTHER] SC PRN (17:31)
[2016-12-19] MEDS ORDERED: ACETAMINOPHEN 325 MG TABLET PO PRN (17:31)
[2016-12-19] MEDS ORDERED: 0.9 % SODIUM CHLORIDE 10 ML SYRINGE IV PRN ×2 (17:31)
[2016-12-19] MEDS ORDERED: TPN PER PHARMACY PO ONE (17:31)
[2016-12-19] MEDS: TOPIRAMATE 100 MG TABLET PO SCH (21:30)
[2016-12-19] MEDS: ATENOLOL 50 MG TABLET PO SCH (21:30)
[2016-12-19] MEDS: clonazePAM 1 MG TABLET PO SCH (21:31)
[2016-12-19] MEDS: MIRTAZAPINE 15 MG TABLET PO SCH (21:31)
[2016-12-20] MEDS: CARBIDOPA/LEVODOPA 25/100 TABLET PO SCH ×5 (02:31→21:19)
[2016-12-20] MEDS: GABAPENTIN 300 MG CAPSULE PO SCH ×5 (02:31→21:17)
[2016-12-20] MEDS: IMIPENEM/CILASTATIN SODIUM 500 MG in 0.9 % SODIUM CHLORIDE 100 ML IV SCH ×3 (05:11→21:26)
[2016-12-20] MEDS: 0.9 % SODIUM CHLORIDE 10 ML SYRINGE IV SCH ×3 (05:42→21:27)
[2016-12-20] MEDS: metroNIDAZOLE 500 MG/100 ML BAG IV SCH ×3 (05:51→18:01)
[2016-12-20] MEDS: HYDROmorphone 2 MG/ML SYRINGE IV PRN ×4 (06:57→21:15)
[2016-12-20] MEDS: LEVOTHYROXINE 100 MCG TABLET PO SCH (07:03)
[2016-12-20] MEDS: PANTOPRAZOLE 40 MG VIAL IV SCH (07:03)
[2016-12-20 07:12] LABS: Basophils # (Auto) 0 K/mcL (0.0-0.3); Basophils % (Auto) 0.2 % (0.0-2.0); Eosinophils # (Auto) 0.2 K/mcL (0.0-0.7); Eosinophils % (Auto) 1.2 % (0.0-7.0); Granulocytes % (Auto) 90.5 % (38.0-78.0); Lymphocytes # (Auto) 0.9 K/mcL (1.5-4.8); Lymphocytes % (Auto) 5.7 % (15.5-49.0); Mean Cell Volume 83.6 fL (80.0-100.0); Mean Corpuscular Hemoglobin 26.8 pg (26.0-34.0); Monocytes # (Auto) 0.4 K/mcL (0.1-0.9); Monocytes % (Auto) 2.4 % (1.0-9.0); Platelet Count 277 K/mcL (140-440); RBC 3.96 M/mcL (4.50-5.90); Red Cell Distribution Width 20.3 % (11.5-14.5)
--- NOTE | 2016-12-20 07:47 | XRay Report ---
CLINICAL INFORMATION: Abdominal abscess TECHNIQUE: AP portable semiupright chest x-ray COMPARISON: 12/18/2016, 12/17/2016, 05/01/2015 FINDINGS: No change in right-sided PICC line with its tip in the right atrium. Persistent mild cardiomegaly. Pulmonary vascularity remains prominent consistent with pulmonary congestion. No pulmonary edema. There is mild density in the left retrocardiac region. This is probably related to hiatal hernia. Mild left lower lobe atelectasis or infiltrate is possible. IMPRESSION: 1. Mild cardiomegaly and probable pulmonary congestion. 2. No definite pulmonary edema. No acute infiltrate. Interpreted and Authenticated by: Miguel Angel Solis 12/20/16
[2016-12-20 07:51] LABS: ALT/SGPT < 5 U/l (0-40); Albumin 2.7 gm/dL (3.2-5.2); Albumin/Globulin Ratio 1.2 (1.0-2.3); Alkaline Phosphatase 104 U/L (39-117); Bilirubin,Direct 0.4 mg/dL (0.0-0.3); Blood Urea Nitrogen 17 mg/dl (8-23); Gamma Glutamyl Transpeptidase 47 U/L (8-61); Magnesium 2.2 mg/dL (1.6-2.5); Phosphorous 2.2 mg/dL (2.7-4.5); Uric Acid 1.1 mg/dL (2.5-8.0)
[2016-12-20 08:40] LABS: Creatine Kinase MB 6.2 ng/ml (0-4.9)
[2016-12-20 08:45] LABS: Creatine Kinase 58 IU/L (24-195)
[2016-12-20] MEDS: RASAGILINE MESYLATE 1 MG PO SCH (09:21)
[2016-12-20] MEDS: AMANTADINE HCL 100 MG CAPSULE PO SCH ×2 (09:21→21:16)
[2016-12-20] MEDS: ROTIGOTINE 4 MG TOPICAL SCH (09:22)
[2016-12-20] MEDS: ROTIGOTINE 8 MG TOPICAL SCH (09:23)
[2016-12-20] MEDS: NEUTRA PHOS 1 PACKET PO SCH ×2 (09:23→21:16)
[2016-12-20] MEDS: fentaNYL 100 MCG PATCH TD SCH (09:23)
--- NOTE | 2016-12-20 11:36 | Internal Med Progress Note ---
Medical - PN: Subj Patient information: Note initiated : 12/20/16 at 11:36 am Service Date, if different from initiated Date: [] Patient: Tripp Melo 66 y/o M admitted on 12/16/16 for Bowel Abscess, Bladder Fistula. Chief Complaint: [] Interval history: December 17, 2016:Reason for consult: preop evaluation, hypokalemia,multiple medical problems History of present illness: Mr. 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 the patient reports he has had a steady decline for about one year now. He has been suffering with fatigue and weight loss of about 30-40 pounds over the last 3-6 months. He said about 6 months ago he was treated for melanoma on his face and had follow-up for that During that follow- up they found that he was anemic, and then found that he had guaiac positive stool. He then underwent colonoscopy and endoscopy that were apparently unrevealing. He has noticed gradually worsening dyspnea with exertion over the last several months, and in October said he had gross hematuria. That apparently triggered a referral which led to a cystoscopy at which time they found that he had not only blood but also stool in his urine Subsequent testing did confirm that he had a small bowel abscess, which had eroded into thebladder so that he now has a fistula. He was seen for follow-up in Dr. Azul' s office yesterday, and looked terrible and pale and weak, so was admitted for further workup and treatment. laboratory evaluation last night did show severe hypokalemia. he patient believes he was taking daily hydrochlorothiazide at home. He admits his diet is been very poor and that he has not had much of an appetite lately. However, he also admits that he generally has a very poor diet, and much prefers foods such as hot dogs and chili to anything even remotely involving fruits or vegetables or healthy proteins. Otherwise, the patient denies recent fever or chills, headaches or dizziness, new eye or ear symptoms. He has not had a sore throat or cough.he denies chest pain or palpitations, significant abdominal pain, heartburn, nausea or vomiting , and initially denied any diarrhea or constipation However,he then admitted that he has been having bloody stools for the last several days at home. Nursing staff also notes bloody stools since arrival here. -He did receive 3 units of packed red blood cells last night, as he is also quite severely anemic. -he has had Parkinson's disease for about 16 years and is managed by a neurologist. He is on a very complicated regimen for that. 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 To control that pain he does take both a fentanyl patch and subcutaneous morphine. -He also has chronic migraines, which appear to be treated with Topamax and Frova. -He also was previously diagnosed with sleep apnea, but refuses to wear CPAP. He used to be a heavy snorer, but notes he does not snore anymore since he has lost all the weight. December 18, 2016: Today,the patient notes that he seems to be having more abdominal cramping and discomfort. He feels like he has more gas.e have started him on breeze nutritional supplements, but he says he just does not like the taste at this point. Dr. Azul has asked for a PICC line to be placed, and would like to start TPN during the period. otherwise, the patient denies fever or chills, chest pain or palpitations or shortness of breath, nausea or vomiting. He continues to have blood-tinged stools and dark urine December 19: today,the patient notes he is still having abdominal pain, mainly towards the right groin area. This is crampy in nature. Nursing staff also called me earlier today to say that the patient was starting to sound a little bit wet,and he had a congested cough, and O2 saturations were a bit lower.he did feel a bit short of breath. chest x-ray did suggest pulmonary vascular congestion. otherwise, he states he is just tired. He denies overt fever or chills, chest pain or palpitations,nausea or vomiting. He continues to have loose blood and mucous stools at times, and continues to have stool contaminating his urine in his Pierce catheter. TPN was started last night. ursing also reports that he has had nonsustained runs of V. tach with activity.May also feel he is getting a bit discouraged by his condition. December 20: his morning, I was called to see the patient because he was complaining of left-sided chest pain. He did not appear to be in any acute distress, and denied any radiation of the pain, nausea or diaphoresis, shortness of breath. On exam he actually had fairly pinpoint tenderness next to the left nipple. He describes the pain as sharp and pinching in nature. EKG did not show any acute changes. Troponin was negative. Later in the morning, he said he was feeling fine again. He denies fever or chills,recurrent chest pain or palpitations. He continues to have moderate abdominal discomfort, which is positional. He continues to have mild dyspnea with any exertion, but is mostly staying in bed. He still has his Pirece catheter in, which is still draining fecal stained urine. - Constitutional Vitals: Vital Signs Temp Pulse Resp BP Pulse Ox 98.1 F 68 28 H 159/82 96 12/20/16 06:49 12/20/16 07:17 12/20/16 07:17 12/20/16 06:49 12/20/16 07:17 Period Temp Pulse Resp BP Sys/Lerma Pulse Ox Last 24 Hr 98.1 F-99.4 F 59-68 18-28 136-173/77-88 95-100 Intake and Output 12/19/16 12/20/16 12/20/16 21:59 05:59 13:59 Intake Total 420 / 420 300 / 300 Output Total 725 / 725 2024 1000 / 1000 Balance -305 / -305 -1725 / -1725 -1000 / -1000 Weight 149 lb 8 oz 149 lb 8 oz Patient Weight 12/21/16 05:59 Weight 149 lb 8 oz Intake & Output: Intake & Output 12/19/16 12/20/16 12/20/16 21:59 05:59 13:59 Intake Total 420 / 420 300 / 300 Output Total 725 / 725 2024 1000 / 1000 Balance -305 / -305 -1725 / -1725 -1000 / -1000 Weight 149 lb 8 oz 149 lb 8 oz Intake: IV 100 / 100 200 / 200 Sodium Chloride 0.9% 100 100 / 100 ml @ 100 mls/hr IV Q8H DARWIN with Primaxin 500 mg Rx#:[id number] Oral 320 / 320 100 / 100 Output: Urine Catheter Amount 275 / 275 1925 / 1925 1000 / 1000 Stool 450 / 450 100 / 100 Other: # Bowel Movements 1 Exam: on exam,he is in no acute distress. Neck is supple without obvious JVD. Cardiac exam shows regular rate and rhythm. lungs: Are fairly clear, a few scattered crackles. No wheezing is noted. Abdomen: Is soft, but continues to be moderately tender. Bowel sounds are active. Extremities: Show no significant edema. Neurologic exam is grossly nonfocal. Medical - PN: Obj Da - Labs CBC & Chem 7: 12/20/16 05:46 12/20/16 05:46 Labs: Abnormal Lab Results 12/20/16 12/20/16 12/20/16 07:35 07:35 05:46 WBC RBC Hgb Hct RDW Gran % Lymph % (Auto) Gran # Lymph # D-Dimer 1.72 H Sodium 146 H Potassium Chloride 117 H Carbon Dioxide 16 L BUN Glucose Uric Acid 1.1 L Calcium 7.9 L Phosphorus 2.2 L Direct Bilirubin 0.4 H Lactate Dehydrogenase 313 H CK-MB (CK-2) 6.2 H Total Protein 5.0 L Albumin 2.7 L Globulin Albumin/Globulin Ratio Prealbumin 12/20/16 12/19/16 12/19/16 05:46 04:20 04:20 WBC 16.0 H 16.9 H RBC 3.96 L 3.69 L Hgb 10.6 L 9.8 L Hct 33.1 L 31.0 L RDW 20.3 H 19.0 H Gran % 90.5 H 90.5 H Lymph % (Auto) 5.7 L 5.7 L Gran # 14.5 H 15.3 H Lymph # 0.9 L 1.0 L D-Dimer Sodium 148 H Potassium Chloride 120 H Carbon Dioxide 16 L BUN Glucose Uric Acid 1.7 L Calcium 7.8 L Phosphorus 2.0 L Direct Bilirubin Lactate Dehydrogenase 253 H CK-MB (CK-2) Total Protein 4.7 L Albumin 2.6 L Globulin 2.1 L Albumin/Globulin Ratio Prealbumin 12/18/16 12/18/16 12/18/16 18:54 15:02 04:10 WBC RBC Hgb Hct RDW Gran % Lymph % (Auto) Gran # Lymph # D-Dimer Sodium 149 H Potassium Chloride 116 H 119 H Carbon Dioxide 16 L 16 L BUN 28 H Glucose 113 H Uric Acid 2.2 L Calcium 8.0 L 7.9 L Phosphorus 1.6 L 2.0 L Direct Bilirubin 0.4 H Lactate Dehydrogenase 254 H CK-MB (CK-2) Total Protein 5.5 L 4.9 L Albumin 2.6 L 2.6 L Globulin Albumin/Globulin Ratio 0.9 L Prealbumin 10.2 L 12/18/16 12/17/16 12/17/16 04:10 22:35 22:35 WBC 17.2 H 18.8 H RBC 3.67 L 3.88 L Hgb 9.8 L 10.4 L Hct 30.7 L 32.0 L RDW 19.0 H 18.1 H Gran % 92.2 H 91.8 H Lymph % (Auto) 4.2 L 5.3 L Gran # 15.9 H 17.2 H Lymph # 0.7 L 1.0 L D-Dimer Sodium Potassium Chloride 116 H Carbon Dioxide 14 L BUN 33 H Glucose Uric Acid Calcium 8.1 L Phosphorus Direct Bilirubin Lactate Dehydrogenase CK-MB (CK-2) Total Protein Albumin Globulin Albumin/Globulin Ratio Prealbumin 12/17/16 10:45 WBC RBC Hgb Hct RDW Gran % Lymph % (Auto) Gran # Lymph # D-Dimer Sodium Potassium 2.6 L* Chloride 116 H Carbon Dioxide 14 L BUN 48 H Glucose 127 H Uric Acid Calcium 8.1 L Phosphorus 2.3 L Direct Bilirubin Lactate Dehydrogenase 253 H CK-MB (CK-2) Total Protein 5.5 L Albumin 2.5 L Globulin Albumin/Globulin Ratio 0.8 L Prealbumin December 20: CT angiogram of the chest, was negative for PE. There are bilateral patchy pulmonary infiltrates consistent with pneumonia. There are also bilateral pleural effusions, and a large hiatal hernia. eKG shows sinus rhythm at a rate of 65, with somewhat low voltage. Otherwise, there are no acute appearing ST T changes. troponin is normal at less than 0.01. December 19: Chest x-ray shows cardiomegaly with prominent pulmonary vasculature consistent with congestion. December 162016: TSH was normal at 1.6 Lactic acid was normal at 0.9. urinalysis from Novemberhowed color green, pH 6, specific gravity 1.020, 300 mg of protein, trace ketones, large leukocyte esterase, negative nitrites, large RBCs blood culture from last night showing no growth so far chest x-ray from this morning shows mild cardiomegaly without signs of CHF. There is also prominent hiatal hernia. echocardiogram is pending. EKG shows sinus rhythm at a rate of 65, with left ventricular strain pattern, but no acute ST-T changes. CT scan from December 12, 2016: Shows an enterovesical fistula with possible 8 cm abscess in the right false pelvis which communicates with the right dome of the bladder. Also noted was a solitary 5 mm stone in the gallbladder. There are also tiny stones noted in the right kidney. Follow-up images with oral contrast did show a large 12 cm thick-walled cavity in the right false pelvis communicating with the urinary bladder dome, with a 3 cm fistula opening. This cavity also communicates with multiple loops of small bowel. Meds: Medications Acetaminophen (Tylenol) 650 mg PO Q6HP PRN PRN Reason: PAIN/FEVER > 101 Amantadine HCl (Amantadine) 100 mg PO BID [facility] Last Admin: 12/20/16 09:21 Dose: 100 mg Atenolol (Tenormin) 25 mg PO QHS [facility] Last Admin: 12/19/16 21:30 Dose: 25 mg Carbidopa/Levodopa (Sinemet 25/100) 2 tab PO QID [facility] Last Admin: 12/20/16 09:21 Dose: 2 tab Clonazepam (Klonopin) 1 mg PO QHS [facility] Last Admin: 12/19/16 21:31 Dose: 1 mg Cyclobenzaprine HCl (Flexeril) 10 mg PO BIDP PRN PRN Reason: Muscle Spasm Diagnostic Test (Pha) (Accu-Chek) 1 each FS DAILY [facility] PRN Reason: Protocol Last Admin: 12/20/16 09:22 Dose: 1 each Fentanyl (Duragesic) 100 mcg TD Q48H [facility] Last Admin: 12/20/16 09:23 Dose: 100 mcg Gabapentin (Neurontin) 300 mg PO QID [facility] Last Admin: 12/20/16 09:22 Dose: 300 mg Heparin Sodium (Porcine) (Heparin Flush) 2 ml IV Q12 [facility] Last Admin: 12/20/16 10:01 Dose: 2 ml Hydromorphone HCl (Dilaudid) 1 mg IV Q2HP PRN PRN Reason: Pain Last Admin: 12/20/16 10:08 Dose: 1 mg Fat Emulsion Intravenous (Intralipid 20%) 250 mls @ 25 mls/hr IV [id number] [facility] Imipenem/Cilastatin Sodium 500 (mg/ Sodium Chloride) 100 mls @ 100 mls/hr IV Q8H [facility] Last Admin: 12/20/16 05:11 Dose: 100 mls/hr Metronidazole (Flagyl) 500 mg in 100 mls @ 100 mls/hr IV Q6H [facility] Last Admin: 12/20/16 05:51 Dose: 100 mls/hr Calcium Gluconate 10 meq/Magnesium Sulfate 16.24 meq/Potassium Phosphate 60 meq/ Multivitamins/Minerals 10 ml/Selenium 60 mcg/ Amino Acids 2,050.6417 mls @ 70 mls/hr IV Q24H [facility] Levothyroxine Sodium (Synthroid) 100 mcg PO QAMAC [facility] Last Admin: 12/20/16 07:03 Dose: 100 mcg Lorazepam (Ativan) 0.5 mg IV Q4-6HP PRN PRN Reason: ANXIETY/SEDATION Mirtazapine (Remeron) 15 mg PO QHS [facility] Last Admin: 12/19/16 21:31 Dose: 15 mg Pantoprazole Sodium (Protonix) 40 mg IV QAMAC [facility] Last Admin: 12/20/16 07:03 Dose: 40 mg Apomorphine (Apokyn) (10mg/Ml) 0.3 dose SC Q2HP PRN PRN Reason: Tremors Rasagiline Mesylate ([Azilect] 1 Mg Tab) 1 dose PO DAILY [facility] Last Admin: 12/20/16 09:21 Dose: 1 dose Rotigotine [Neupro] (4 Mg Patch) 1 dose TOPICAL DAILY [facility] Last Admin: 12/20/16 09:22 Dose: 1 dose Rotigotine [Neupro] (8 Mg Patch) 1 dose TOPICAL DAILY [facility] Last Admin: 12/20/16 09:23 Dose: 1 dose Potassium/Phosphorus/Sodium (Neutra Phos) 1 packet PO BID [facility] Last Admin: 12/20/16 09:23 Dose: 1 packet Sodium Chloride (Saline Flush) 10 ml IV UD PRN PRN Reason: FLUSH Sodium Chloride (Saline Flush) 10 ml IV Q8 [facility] Last Admin: 12/20/16 05:42 Dose: 10 ml Topiramate (Topamax) 100 mg PO QPM [facility] Last Admin: 12/19/16 21:30 Dose: 100 mg Medical - PN: A/P - Time Spent With Patient Total time spent is greater than 50% in coordination of care (as documented) at patient's floor/unit and/or counseling patient: (1) Hypokalemia due to loss of potassium Status: Acute Current Visit: Yes (2) Iron deficiency anemia Status: Acute Current Visit: Yes (3) Dehydration Status: Acute Current Visit: Yes (4) Enterovesical fistula Status: Acute Current Visit: No (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 GI. -small bowel-bladder abscess with fistula. etiology of this is currently uncertain. Surgical correction by Dr. Azul is planned sometime in the next A few days. -continue with current empiric IV antibiotics. -GERD. Protonix IV started. #2. Pulmonary. -Patient did develop a bit of respiratory distress yesterday. He may have been getting a bit volume overloaded. TPN was continued, but other IV fluids were stopped. -patient did have an episode of chest pain today, which appears noncardiac. CT of the chest is more suggestive of pneumonia than of PE. . The patient may be having some episodes of silent aspiration. He is currently taking in very little by mouth. -continue imipenem plus metronidazole. I think I will add vancomycin, just to be sure we are not missing a community-acquired MRSA-type pneumonia, given his debilitated state.. -echocardiogram report is still pending. #3. Ongoing fatigue and weight loss, -this may be multifactorial, including his ongoing Parkinson's issues, but the majority of his symptoms are almost certainly related to his current bowel and bladder issues. -he also has a history of 2 different malignancies so there is certainly concern for underlying malignancy with this process as well. -his nutritional status appears very poor, and he is now started on TPN, with the help of nutrition and pharmacy. #4. Fluids and nutrition. Severe hypokalemia. This is most likely due to recent poor by mouth intake in addition to ongoing ingestion of HCTZ. Resolved. #5. neurologic. - Parkinson's disease. he is on a very complicated medical regimen. I spoke with his neurologist, Dr. Sylvia Basilio, . She would like him to continue with the neupro patch, and says that he can certainly use the subcutaneous apomorphine up to 5 times a day for any uncontrolled Parkinson symptoms. We should resume his oral Sinemet as soon as he is able to take by mouth meds. Other than these, if he is not taking oral meds, we will have to hold his rasagiline, mirtazapine, Flexeril, Sinemet, amantadine. -history of migraines. continue with Topamax and when necessary Frova, but these will also need to be held when he is nothing by mouth. . -Restless leg syndrome. continue Klonopin and gabapentin. at some point he might also need an iron supplement, given his anemia, as I deficiency can definitely aggravate this syndrome.If he cannot take these oral meds, we can use IV Ativan to help bridge the gap. #6.obstructive sleep apnea.patient reports this as a previous diagnosis, but it is likely that this is either much improved or resolved since his significant weight loss. We can certainly monitor her overnight oximetry. #7. History of generalized anxiety disorder. -Continue Klonopin, and use when necessary Ativan as needed. #8. . -It sounds like the patient has a long history of urinary symptoms, and is currently maintained on Flomax as well as Myrbetriq. -Dr. Hawkins did okay holding these 2 medications. #9.reported testosterone deficiency. He is maintained on testosterone transdermal patch. This increases his risk of cardiac events and stroke and DVT. however, since he is on this chronically, it might help during the rehabilitation period to help him rebuild his muscle mass. 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 Continue fentanyl patch and supplemental morphine, Dilaudid, or oxycodone.. #11. Hypothyroidism. Continue levothyroxine. #12. Hyperlipidemia. I think the fenofibrate could be held during the perioperative period. #13. Surgical risk. This patient is certainly at moderate to high risk of complications during the perioperative period, given his complicated underlying disease processes and complicated medical regimen. Fortunately, he has no documented history of coronary disease Echocardiogram was ordered by Dr. Azul and we can certainly review that preop as well. -continue with DVT prophylaxis with heparin or Lovenox, and encourage ambulation as he is able. -continue atenolol during the perioperative period. #14. Hematologic. This patient does present with severe anemia, presumably due to his current GI process. He has been transfused, and this will need to be monitored closely. approximately 35 minutes has been spent so far today, reviewing patient's test results, interviewing and examining him, reviewing plan of care with nursing staff, and then following up on his shortness of breath. Medical - PN: Qual - Stroke Symptom Onset Unknown: No - VTE Deep Vein Thrombosis/Pulmonary Embolism Present on Admission: No
[2016-12-20] MEDS ORDERED: MVI IV SCH (12:00)
[2016-12-20] MEDS ORDERED: CALCIUM GLUCONATE IV SCH ×2 (12:00)
[2016-12-20] MEDS ORDERED: POTASSIUM PHOSPHATE IV SCH ×2 (12:00)
[2016-12-20] MEDS ORDERED: [UNRECOGNIZED DRUG - OTHER] IV SCH (12:00)
[2016-12-20] MEDS ORDERED: [UNRECOGNIZED DRUG - OTHER] IV SCH (12:00)
[2016-12-20] MEDS ORDERED: MAGNESIUM SULFATE IV SCH ×2 (12:00)
[2016-12-20] MEDS ORDERED: IOPAMIDOL 100 ML BOTTLE IV ONE (14:02)
--- NOTE | 2016-12-20 14:10 | General Surgery Progress Note ---
Subjective Patient reports: feels better, pain is less, tolerating liquids well, flatus, bowel movement, diarrhea Narrative: Note initiated : 12/20/16 at 2:07 pm Service Date, if different from initiated Date: [] Patient: Tripp Melo 66 y/o M admitted on 12/16/16 for Bowel Abscess, Bladder Fistula. Chief Complaint: [PATIENT CONTINUES TO IMPROVE. hE IS MUCH MORE JOVIAL TODAY AND IS QUITE TALKATIVE. hE HAD SOME LEFT SIDED PECTORAL PINCHING TYPE PAIN EARLIER TODAY. hE HAS HAD CARDIAC PANEL DONE WHICH IS NEGATIVE AND HE JUST COMPLETED A CTA OF HIS CHEST AND THE RESULTS ARE PENDING. hE HAS NOT HAD ANY SHORTNESS OF BREATH AND HIS o2 SATS ON ROOM [id number] hIS ABDOMINAL PAIN IS [place] HE DOES HAVE SOME GASEOUS DISTENTION. tHERE HAS CHANGE IN THE FECULENT DRAINAGE IN HIS URINE AND HE IS STILL HAVING DIARRHEA. hIS ELECTROLYTES ARE NORMAL EXCEPT FOR LOW PHOSPHORUS. hIS WHITE BLOOD COUNT CONTINUES TO TREND DOWNWARD.] Objective Temp Pulse Resp BP Pulse Ox 98.1 F 58 L 24 153/77 94 12/20/16 11:52 12/20/16 11:52 12/20/16 11:52 12/20/16 11:52 12/20/16 11:52 - Additional Data Intake & Output - Last 24 hours: Intake & Output 12/18/16 12/19/16 12/20/16 12/21/16 05:59 05:59 05:59 05:59 Intake Total 4590 / 4590 4690 / 4690 950 / 950 100 / 100 Output Total 2575 / 2575 2099 / 2099 3050 / 3050 1000 / 1000 Balance 2014 2590 / 2590 -2100 / -2100 -900 / -900 Weight 146 lb 12.8 oz 154 lb 12.8 oz 149 lb 8 oz 149 lb 8 oz - General physical appearance moderate distress, moderate pain, chronically ill - Eyes PERRL - ENT no congestion - Neck no venous distension - Respiratory normal respiratory effort, clear to auscultation - Cardiovascular Cardiovascular exam: Present: normal rate and rhythm, RRR, +S1, +S2 (20). Absent: JVD - Abdomen tender, bowel sounds, distended (MILD DISTENTION WITH LESS TENDERNESS THAN ON YESTERDAY ESPECIALLY IN THE RIGHT LOWER QUADRANT AND SUPRAPUBIC AREA. fULLNESS IN THE RIGHT LOWER QUADRANT IS LESS.) - Integumentary no rash, no growths, no abnormal pigmentation - Psychiatric oriented to time, oriented to person, oriented to place, speech is normal, memory intact - Labs 12/20/16 05:46 12/20/16 05:46 Diabetes panel 12/20/16 Range/Units 05:46 Sodium 146 H (133-145) mmol/L Potassium 4.0 (3.3-5.1) mmol/L Chloride 117 H (96-108) mmol/L Carbon Dioxide 16 L (22-30) mmol/L BUN 17 (8-23) mg/dl Creatinine 0.8 (0.7-1.2) mg/dl Glucose 101 (70-105) mg/dL Calcium 7.9 L (8.6-10.4) mg/dl AST 10 (0-37) U/l ALT < 5 (0-40) U/l Alkaline Phosphatase 104 (39-117) U/L Total Protein 5.0 L (5.9-8.4) gm/dL Albumin 2.7 L (3.2-5.2) gm/dL Triglycerides 61 (<150) mg/dl Calcium panel 12/20/16 Range/Units 05:46 Calcium 7.9 L (8.6-10.4) mg/dl Phosphorus 2.2 L (2.7-4.5) mg/dL Albumin 2.7 L (3.2-5.2) gm/dL Pituitary panel 12/20/16 Range/Units 05:46 Sodium 146 H (133-145) mmol/L Potassium 4.0 (3.3-5.1) mmol/L Chloride 117 H (96-108) mmol/L Carbon Dioxide 16 L (22-30) mmol/L BUN 17 (8-23) mg/dl Creatinine 0.8 (0.7-1.2) mg/dl Glucose 101 (70-105) mg/dL Calcium 7.9 L (8.6-10.4) mg/dl Adrenal panel 12/20/16 Range/Units 05:46 Sodium 146 H (133-145) mmol/L Potassium 4.0 (3.3-5.1) mmol/L Chloride 117 H (96-108) mmol/L Carbon Dioxide 16 L (22-30) mmol/L BUN 17 (8-23) mg/dl Creatinine 0.8 (0.7-1.2) mg/dl Glucose 101 (70-105) mg/dL Calcium 7.9 L (8.6-10.4) mg/dl Total Bilirubin 0.7 (0.0-1.0) mg/dL AST 10 (0-37) U/l ALT < 5 (0-40) U/l Alkaline Phosphatase 104 (39-117) U/L Total Protein 5.0 L (5.9-8.4) gm/dL Albumin 2.7 L (3.2-5.2) gm/dL Medical - PN: A/P - Time Spent With Patient Total time spent is greater than 50% in coordination of care (as documented) at patient's floor/unit and/or counseling patient: (1) Enterovesical fistula Status: Acute Assessment and plan: tPN has been instituted Hematocrit is stable White blood count is trending down Electrolytes have essentially been corrected Still anticipate operative therapy on Friday if he continues to improve.. Current Visit: No (2) Dehydration Status: Acute Current Visit: Yes (3) Hypokalemia due to loss of potassium Status: Acute Current Visit: Yes (4) Iron deficiency anemia Status: Acute Current Visit: Yes (5) Anemia Status: Chronic Current Visit: No (6) Parkinson disease Status: Chronic Current Visit: No (7) Sleep apnea, obstructive Status: Chronic Current Visit: No
--- NOTE | 2016-12-20 14:15 | Cat Scan Report ---
CLINICAL INFORMATION: Abdominal abscess. Fever. COMPARISON: Chest x-rays dated 12/20/2015, 12/19/2015, 12/17/2015 TECHNIQUE: Axial images obtained through the chest. 80 mL intravenous contrast administration was administered, and scanning was performed during pulmonary arterial phase. Sagittally and coronally reformatted images were obtained. MIP reformatted images. FINDINGS: Moderate bilateral pleural effusions. These appear to be largely free flowing effusions. No definite loculation. Bilateral dependent lower lobe parenchymal density which is probably atelectasis. There are patchy infiltrates bilaterally. These are predominantly the upper lobes. Some small densities are peripherally based but without cavitation. There are some central focal patchy infiltrates as well. Appearance is consistent with pneumonia. Main pulmonary artery, right pulmonary artery, left pulmonary artery are negative. No lobar, segmental, or subsegmental abnormalities. Negative examination for pulmonary embolism. No hilar or mediastinal pathologic adenopathy. There are small nonspecific mediastinal lymph nodes. No axillary or supraclavicular adenopathy. Images to the upper abdomen are negative. There is a large everett hernia. No pericardial fluid. No thoracic compression deformities. IMPRESSION: 1. Negative pulmonary CTA 2. Bilateral patchy pulmonary parenchymal infiltrates consistent with pneumonia. 3. Bilateral pleural effusions 4. Large hiatal hernia. Interpreted and Authenticated by: Miguel Angel Solis 12/20/16
[2016-12-20] MEDS ORDERED: FAT EMULSION 20% 250 ML IV SCH (16:00)
[2016-12-20] MEDS ORDERED: VANCOMYCIN PER PHARMACY IV ONE (19:37)
[2016-12-20] MEDS ORDERED: VANCOMYCIN 500 MG VIAL ONE (20:52)
[2016-12-20] MEDS: MIRTAZAPINE 15 MG TABLET PO SCH (21:17)
[2016-12-20] MEDS: ATENOLOL 50 MG TABLET PO SCH (21:17)
[2016-12-20] MEDS: clonazePAM 1 MG TABLET PO SCH (21:19)
[2016-12-20] MEDS: VANCOMYCIN 1,000 MG in 0.9 % SODIUM CHLORIDE 250 ML IV SCH (21:20)
[2016-12-20] MEDS: TOPIRAMATE 100 MG TABLET PO SCH (21:26)
[2016-12-21] MEDS: metroNIDAZOLE 500 MG/100 ML BAG IV SCH ×5 (00:08→23:54)
[2016-12-21] MEDS: IMIPENEM/CILASTATIN SODIUM 500 MG in 0.9 % SODIUM CHLORIDE 100 ML IV SCH ×3 (05:15→22:30)
[2016-12-21] MEDS: 0.9 % SODIUM CHLORIDE 10 ML SYRINGE IV SCH ×3 (05:15→20:36)
[2016-12-21 06:54] LABS: Basophils # (Auto) 0 K/mcL (0.0-0.3); Basophils % (Auto) 0.1 % (0.0-2.0); Eosinophils # (Auto) 0.4 K/mcL (0.0-0.7); Eosinophils % (Auto) 2.5 % (0.0-7.0); Granulocytes % (Auto) 87.4 % (38.0-78.0); Lymphocytes # (Auto) 0.9 K/mcL (1.5-4.8); Mean Cell Volume 83.7 fL (80.0-100.0); Mean Corpuscular HGB Conc 31.9 g/dL (31.0-36.0); Mean Corpuscular Hemoglobin 26.7 pg (26.0-34.0); Monocytes # (Auto) 0.6 K/mcL (0.1-0.9); Platelet Count 248 K/mcL (140-440); RBC 3.99 M/mcL (4.50-5.90); Red Cell Distribution Width 20.3 % (11.5-14.5)
[2016-12-21 07:04] LABS: ALT/SGPT < 5 U/l (0-40); Albumin 2.6 gm/dL (3.2-5.2); Albumin/Globulin Ratio 1.1 (1.0-2.3); Alkaline Phosphatase 104 U/L (39-117); Bilirubin,Direct 0.3 mg/dL (0.0-0.3); Blood Urea Nitrogen 14 mg/dl (8-23); Gamma Glutamyl Transpeptidase 56 U/L (8-61); Magnesium 2.3 mg/dL (1.6-2.5); Phosphorous 2.4 mg/dL (2.7-4.5); Uric Acid 0.9 mg/dL (2.5-8.0)
[2016-12-21] MEDS: PANTOPRAZOLE 40 MG VIAL IV SCH (07:53)
[2016-12-21] MEDS: LEVOTHYROXINE 100 MCG TABLET PO SCH (07:53)
[2016-12-21] MEDS: NEUTRA PHOS 1 PACKET PO SCH ×2 (10:24→20:33)
[2016-12-21] MEDS: GABAPENTIN 300 MG CAPSULE PO SCH ×4 (10:24→20:33)
[2016-12-21] MEDS: VANCOMYCIN 1,000 MG in 0.9 % SODIUM CHLORIDE 250 ML IV SCH ×2 (10:25→20:33)
[2016-12-21] MEDS: RASAGILINE MESYLATE 1 MG PO SCH (10:25)
[2016-12-21] MEDS: ROTIGOTINE 4 MG TOPICAL SCH (10:25)
[2016-12-21] MEDS: ROTIGOTINE 8 MG TOPICAL SCH (10:25)
[2016-12-21] MEDS: CARBIDOPA/LEVODOPA 25/100 TABLET PO SCH ×4 (10:25→20:34)
[2016-12-21] MEDS ORDERED: POTASSIUM PHOSPHATE 40 MEQ in DEXTROSE 5% IN WATER 500 ML IV ONE (11:00)
--- NOTE | 2016-12-21 11:54 | General Surgery Progress Note ---
Subjective Patient reports: feels better, pain is less, tolerating liquids well, flatus, bowel movement, diarrhea, afebrile Narrative: Note initiated : 12/21/16 at 11:51 am Service Date, if different from initiated Date: [] Patient: Tripp Melo 66 y/o M admitted on 12/16/16 for Bowel Abscess, Bladder Fistula. Chief Complaint: [patient continues to do well. He does not have any shortness of breath chest pain or cough. He does not have any dyspnea. He is able to lie flat without difficulty. He states that he feels stronger. He does not have nausea or vomiting. His pain is much better and he has not required as much narcotics. The CTA of the chest was negative for pulmonary embolus. I discussed the need for operative therapy on Friday and at this time I will proceed.] Objective Temp Pulse Resp BP Pulse Ox 98.1 F 75 20 145/85 98 12/21/16 08:24 12/21/16 08:24 12/21/16 08:24 12/21/16 08:24 12/21/16 08:24 - Additional Data Intake & Output - Last 24 hours: Intake & Output 12/19/16 12/20/16 12/21/16 12/22/16 05:59 05:59 05:59 05:59 Intake Total 4690 / 4690 950 / 950 1037 / 1037 Output Total 2099 / 2099 3050 / 3050 3575 / 3575 Balance 2590 / 2590 -2100 / -2100 -2538 / -2538 Weight 154 lb 12.8 oz 149 lb 8 oz 153 lb 8 oz - General physical appearance no distress, moderate pain, chronically ill - Eyes PERRL - ENT no congestion - Neck no venous distension - Respiratory normal expansion, normal respiratory effort, clear to auscultation - Cardiovascular Cardiovascular exam: Present: normal rate and rhythm, RRR, +S1, +S2. Absent: JVD, tachycardia - Abdomen tender, bowel sounds, guarding, distended (abdomen is soft, mildly distended. Tenderness in right lower quadrantand suprapubic area is much less. He has less guarding. He has good active bowel sounds.) - Integumentary no rash - Psychiatric oriented to time, oriented to person, oriented to place, speech is normal, memory intact - Labs 12/21/16 05:16 12/21/16 05:15 Diabetes panel 12/21/16 Range/Units 05:15 Sodium 143 (133-145) mmol/L Potassium 3.7 (3.3-5.1) mmol/L Chloride 111 H (96-108) mmol/L Carbon Dioxide 17 L (22-30) mmol/L BUN 14 (8-23) mg/dl Creatinine 0.7 (0.7-1.2) mg/dl Glucose 106 H (70-105) mg/dL Calcium 7.6 L (8.6-10.4) mg/dl AST 11 (0-37) U/l ALT < 5 (0-40) U/l Alkaline Phosphatase 104 (39-117) U/L Total Protein 4.9 L (5.9-8.4) gm/dL Albumin 2.6 L (3.2-5.2) gm/dL Triglycerides 82 (<150) mg/dl Calcium panel 12/21/16 Range/Units 05:15 Calcium 7.6 L (8.6-10.4) mg/dl Phosphorus 2.4 L (2.7-4.5) mg/dL Albumin 2.6 L (3.2-5.2) gm/dL Pituitary panel 12/21/16 Range/Units 05:15 Sodium 143 (133-145) mmol/L Potassium 3.7 (3.3-5.1) mmol/L Chloride 111 H (96-108) mmol/L Carbon Dioxide 17 L (22-30) mmol/L BUN 14 (8-23) mg/dl Creatinine 0.7 (0.7-1.2) mg/dl Glucose 106 H (70-105) mg/dL Calcium 7.6 L (8.6-10.4) mg/dl Adrenal panel 12/21/16 Range/Units 05:15 Sodium 143 (133-145) mmol/L Potassium 3.7 (3.3-5.1) mmol/L Chloride 111 H (96-108) mmol/L Carbon Dioxide 17 L (22-30) mmol/L BUN 14 (8-23) mg/dl Creatinine 0.7 (0.7-1.2) mg/dl Glucose 106 H (70-105) mg/dL Calcium 7.6 L (8.6-10.4) mg/dl Total Bilirubin 0.5 (0.0-1.0) mg/dL AST 11 (0-37) U/l ALT < 5 (0-40) U/l Alkaline Phosphatase 104 (39-117) U/L Total Protein 4.9 L (5.9-8.4) gm/dL Albumin 2.6 L (3.2-5.2) gm/dL Medical - PN: A/P - Time Spent With Patient Total time spent is greater than 50% in coordination of care (as documented) at patient's floor/unit and/or counseling patient: (1) Enterovesical fistula Status: Acute Assessment and plan: Hematocrit is stable White blood count is trending down Electrolytes have essentially been corrected Still anticipate operative therapy on Friday if he continues to improve.. Current Visit: No (2) Dehydration Status: Acute Current Visit: Yes (3) Hypokalemia due to loss of potassium Status: Acute Current Visit: Yes (4) Iron deficiency anemia Status: Acute Current Visit: Yes (5) Anemia Status: Chronic Current Visit: No (6) Parkinson disease Status: Chronic Current Visit: No (7) Sleep apnea, obstructive Status: Chronic Current Visit: No
[2016-12-21] MEDS ORDERED: [UNRECOGNIZED DRUG - OTHER] IV SCH (12:00)
[2016-12-21] MEDS ORDERED: MAGNESIUM SULFATE IV SCH (12:00)
[2016-12-21] MEDS ORDERED: POTASSIUM PHOSPHATE IV SCH (12:00)
[2016-12-21] MEDS ORDERED: CALCIUM GLUCONATE IV SCH (12:00)
[2016-12-21] MEDS: AMANTADINE HCL 100 MG CAPSULE PO SCH ×2 (13:21→15:18)
--- NOTE | 2016-12-21 13:49 | Internal Med Progress Note ---
Medical - PN: Subj Patient information: Note initiated : 12/21/16 at 1:49 pm Service Date, if different from initiated Date: [] Patient: Tripp Melo 66 y/o M admitted on 12/16/16 for Bowel Abscess, Bladder Fistula. Chief Complaint: [] Interval history: December 17, 2016:Reason for consult: preop evaluation, hypokalemia,multiple medical problems History of present illness: Mr. 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 the patient reports he has had a steady decline for about one year now. He has been suffering with fatigue and weight loss of about 30-40 pounds over the last 3-6 months. He said about 6 months ago he was treated for melanoma on his face and had follow-up for that During that follow- up they found that he was anemic, and then found that he had guaiac positive stool. He then underwent colonoscopy and endoscopy that were apparently unrevealing. He has noticed gradually worsening dyspnea with exertion over the last several months, and in October said he had gross hematuria. That apparently triggered a referral which led to a cystoscopy at which time they found that he had not only blood but also stool in his urine Subsequent testing did confirm that he had a small bowel abscess, which had eroded into the bladder so that he now has a fistula. He was seen for follow-up in Dr. Azul 's office yesterday, and looked terrible and pale and weak, so was admitted for further workup and treatment. laboratory evaluation last night did show severe hypokalemia. he patient believes he was taking daily hydrochlorothiazide at home. He admits his diet is been very poor and that he has not had much of an appetite lately. However, he also admits that he generally has a very poor diet, and much prefers foods such as hot dogs and chili to anything even remotely involving fruits or vegetables or healthy proteins. Otherwise, the patient denies recent fever or chills, headaches or dizziness, new eye or ear symptoms. He has not had a sore throat or cough.he denies chest pain or palpitations, significant abdominal pain, heartburn, nausea or vomiting , and initially denied any diarrhea or constipation However,he then admitted that he has been having bloody stools for the last several days at home. Nursing staff also notes bloody stools since arrival here. -He did receive 3 units of packed red blood cells last night, as he is also quite severely anemic. -he has had Parkinson's disease for about 16 years and is managed by a neurologist. He is on a very complicated regimen for that. 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 To control that pain he does take both a fentanyl patch and subcutaneous morphine. -He also has chronic migraines, which appear to be treated with Topamax and Frova. -He also was previously diagnosed with sleep apnea, but refuses to wear CPAP. He used to be a heavy snorer, but notes he does not snore anymore since he has lost all the weight. December 18, 2016: Today,the patient notes that he seems to be having more abdominal cramping and discomfort. He feels like he has more gas.e have started him on breeze nutritional supplements, but he says he just does not like the taste at this point. Dr. Azul has asked for a PICC line to be placed, and would like to start TPN during the period. otherwise, the patient denies fever or chills, chest pain or palpitations or shortness of breath, nausea or vomiting. He continues to have blood-tinged stools and dark urine December 19: today,the patient notes he is still having abdominal pain, mainly towards the right groin area. This is crampy in nature. Nursing staff also called me earlier today to say that the patient was starting to sound a little bit wet,and he had a congested cough, and O2 saturations were a bit lower.he did feel a bit short of breath. chest x-ray did suggest pulmonary vascular congestion. otherwise, he states he is just tired. He denies overt fever or chills, chest pain or palpitations,nausea or vomiting. He continues to have loose blood and mucous stools at times, and continues to have stool contaminating his urine in his Pierce catheter. TPN was started last night. ursing also reports that he has had nonsustained runs of V. tach with activity.May also feel he is getting a bit discouraged by his condition. December 20: his morning, I was called to see the patient because he was complaining of left-sided chest pain. He did not appear to be in any acute distress, and denied any radiation of the pain, nausea or diaphoresis, shortness of breath. On exam he actually had fairly pinpoint tenderness next to the left nipple. He describes the pain as sharp and pinching in nature. EKG did not show any acute changes. Troponin was negative. Later in the morning, he said he was feeling fine again. He denies fever or chills,recurrent chest pain or palpitations. He continues to have moderate abdominal discomfort, which is positional. He continues to have mild dyspnea with any exertion, but is mostly staying in bed. He still has his Pierce catheter in, which is still draining fecal stained urine. December 21: Today, the patient notes she is feeling okay. He is having less abdominal pain. he does admit, though, that he is feeling quite discouraged, by feeling so poorly for so long. He worries about how the surgery will go. Otherwise, he denies subjective fever or chills, chest pain or shortness of breath, nausea or vomiting constipation, dysuria. - Constitutional Vitals: Vital Signs Temp Pulse Resp BP Pulse Ox 973.7 F H 67 19 160/91 97 12/21/16 12:00 12/21/16 12:00 12/21/16 12:00 12/21/16 12:00 12/21/16 12:00 Period Temp Pulse Resp BP Sys/Lerma Pulse Ox Last 24 Hr 97.7 F-973.7 F 60-75 19-20 145-168/78-91 94-100 Intake and Output 12/20/16 12/21/16 12/21/16 21:59 05:59 13:59 Intake Total 437 / 437 300 / 300 Output Total 1350 / 1350 1225 / 1225 Balance -913 / -913 -925 / -925 Weight 153 lb 8 oz Intake & Output: Intake & Output 12/20/16 12/21/16 12/21/16 21:59 05:59 13:59 Intake Total 437 / 437 300 / 300 Output Total 1350 / 1350 1225 / 1225 Balance -913 / -913 -925 / -925 Weight 153 lb 8 oz Intake: IV 200 / 200 200 / 200 Sodium Chloride 0.9% 100 100 / 100 100 / 100 ml @ 100 mls/hr IV Q8H DARWIN with Primaxin 500 mg Rx#:[id number] Oral 237 / 237 100 / 100 Output: Urine Catheter Amount 1350 / 1350 1225 / 1225 Other: Meal Dinner Percent of Meal Consumed 50% Feeding Ability Assist with Tray Set Up # Bowel Movements 1 Exam: on exam, he is in no acute distress, but he does have a rather depressed affect. Neck is supple, without obvious JVD. Cardiac exam shows regular rate and rhythm. Lungs are clear to auscultation. Abdomen is soft with minimal tenderness. Extremities show no edema. Medical - PN: Obj Da - Labs CBC & Chem 7: 12/21/16 05:16 12/21/16 05:15 Labs: Abnormal Lab Results 12/21/16 12/21/16 12/21/16 05:16 05:15 05:15 WBC 15.5 H RBC 3.99 L Hgb 10.6 L Hct 33.4 L RDW 20.3 H Gran % 87.4 H Lymph % (Auto) 6.0 L Gran # 13.5 H Lymph # 0.9 L D-Dimer Sodium Chloride 111 H Carbon Dioxide 17 L Glucose 106 H Uric Acid 0.9 L Calcium 7.6 L Phosphorus 2.4 L Direct Bilirubin Lactate Dehydrogenase 276 H CK-MB (CK-2) Total Protein 4.9 L Albumin 2.6 L Globulin Albumin/Globulin Ratio Prealbumin 12.0 L 12/20/16 12/20/16 12/20/16 07:35 07:35 05:46 WBC RBC Hgb Hct RDW Gran % Lymph % (Auto) Gran # Lymph # D-Dimer 1.72 H Sodium 146 H Chloride 117 H Carbon Dioxide 16 L Glucose Uric Acid 1.1 L Calcium 7.9 L Phosphorus 2.2 L Direct Bilirubin 0.4 H Lactate Dehydrogenase 313 H CK-MB (CK-2) 6.2 H Total Protein 5.0 L Albumin 2.7 L Globulin Albumin/Globulin Ratio Prealbumin 12/20/16 12/19/16 12/19/16 05:46 04:20 04:20 WBC 16.0 H 16.9 H RBC 3.96 L 3.69 L Hgb 10.6 L 9.8 L Hct 33.1 L 31.0 L RDW 20.3 H 19.0 H Gran % 90.5 H 90.5 H Lymph % (Auto) 5.7 L 5.7 L Gran # 14.5 H 15.3 H Lymph # 0.9 L 1.0 L D-Dimer Sodium 148 H Chloride 120 H Carbon Dioxide 16 L Glucose Uric Acid 1.7 L Calcium 7.8 L Phosphorus 2.0 L Direct Bilirubin Lactate Dehydrogenase 253 H CK-MB (CK-2) Total Protein 4.7 L Albumin 2.6 L Globulin 2.1 L Albumin/Globulin Ratio Prealbumin 12/18/16 12/18/16 18:54 15:02 WBC RBC Hgb Hct RDW Gran % Lymph % (Auto) Gran # Lymph # D-Dimer Sodium Chloride 116 H Carbon Dioxide 16 L Glucose 113 H Uric Acid 2.2 L Calcium 8.0 L Phosphorus 1.6 L Direct Bilirubin Lactate Dehydrogenase 254 H CK-MB (CK-2) Total Protein 5.5 L Albumin 2.6 L Globulin Albumin/Globulin Ratio 0.9 L Prealbumin 10.2 L December 20: CT angiogram of the chest, was negative for PE. There are bilateral patchy pulmonary infiltrates consistent with pneumonia. There are also bilateral pleural effusions, and a large hiatal hernia. eKG shows sinus rhythm at a rate of 65, with somewhat low voltage. Otherwise, there are no acute appearing ST T changes. troponin is normal at less than 0.01. December 19: Chest x-ray shows cardiomegaly with prominent pulmonary vasculature consistent with congestion. December 162016: TSH was normal at 1.6 Lactic acid was normal at 0.9. urinalysis from Novemberhowed color green, pH 6, specific gravity 1.020, 300 mg of protein, trace ketones, large leukocyte esterase, negative nitrites, large RBCs blood culture from last night showing no growth so far chest x-ray from this morning shows mild cardiomegaly without signs of CHF. There is also prominent hiatal hernia. echocardiogram is pending. EKG shows sinus rhythm at a rate of 65, with left ventricular strain pattern, but no acute ST-T changes. CT scan from December 12, 2016: Shows an enterovesical fistula with possible 8 cm abscess in the right false pelvis which communicates with the right dome of the bladder. Also noted was a solitary 5 mm stone in the gallbladder. There are also tiny stones noted in the right kidney. Follow-up images with oral contrast did show a large 12 cm thick-walled cavity in the right false pelvis communicating with the urinary bladder dome, with a 3 cm fistula opening. This cavity also communicates with multiple loops of small bowel. Meds: Medications Acetaminophen (Tylenol) 650 mg PO Q6HP PRN PRN Reason: PAIN/FEVER > 101 Amantadine HCl (Amantadine) 100 mg PO BID [facility] Last Admin: 12/20/16 21:16 Dose: 100 mg Atenolol (Tenormin) 25 mg PO QHS [facility] Last Admin: 12/20/16 21:17 Dose: 25 mg Carbidopa/Levodopa (Sinemet 25/100) 2 tab PO QID [facility] Last Admin: 12/21/16 13:21 Dose: 2 tab Clonazepam (Klonopin) 1 mg PO QHS [facility] Last Admin: 12/20/16 21:19 Dose: 1 mg Cyclobenzaprine HCl (Flexeril) 10 mg PO BIDP PRN PRN Reason: Muscle Spasm Diagnostic Test (Pha) (Accu-Chek) 1 each FS DAILY [facility] PRN Reason: Protocol Last Admin: 12/21/16 10:24 Dose: 1 each Fentanyl (Duragesic) 100 mcg TD Q48H [facility] Last Admin: 12/20/16 09:23 Dose: 100 mcg Gabapentin (Neurontin) 300 mg PO QID [facility] Last Admin: 12/21/16 13:21 Dose: 300 mg Heparin Sodium (Porcine) (Heparin Flush) 2 ml IV Q12 [facility] Last Admin: 12/21/16 08:00 Dose: 2 ml Hydromorphone HCl (Dilaudid) 1 mg IV Q2HP PRN PRN Reason: Pain Last Admin: 12/20/16 21:15 Dose: 1 mg Fat Emulsion Intravenous (Intralipid 20%) 250 mls @ 25 mls/hr IV [id number] [facility] Last Admin: 12/20/16 16:51 Dose: 25 mls/hr Imipenem/Cilastatin Sodium 500 (mg/ Sodium Chloride) 100 mls @ 100 mls/hr IV Q8H [facility] Last Admin: 12/21/16 05:15 Dose: 100 mls/hr Metronidazole (Flagyl) 500 mg in 100 mls @ 100 mls/hr IV Q6H [facility] Last Admin: 12/21/16 05:14 Dose: 100 mls/hr Vancomycin HCl 1,000 mg/ (Sodium Chloride) 250 mls @ 250 mls/hr IV Q12 [facility] Last Admin: 12/21/16 10:25 Dose: 250 mls/hr Potassium Phosphate 40 meq/ (Dextrose) 509.0909 mls @ 127.273 mls/hr IV ONCE ONE Stop: 12/21/16 14:59 Last Admin: 12/21/16 11:26 Dose: 127.273 mls/hr Calcium Gluconate 10 meq/Magnesium Sulfate 16.24 meq/Potassium Phosphate 40 meq/ Multivitamins/Minerals 10 ml/Selenium 60 mcg/ Amino Acids 2,046.0962 mls @ 70 mls/hr IV Q24H [facility] Last Admin: 12/21/16 13:18 Dose: 70 mls/hr Levothyroxine Sodium (Synthroid) 100 mcg PO QAMAC [facility] Last Admin: 12/21/16 07:53 Dose: 100 mcg Lorazepam (Ativan) 0.5 mg IV Q4-6HP PRN PRN Reason: ANXIETY/SEDATION Mirtazapine (Remeron) 15 mg PO QHS [facility] Last Admin: 12/20/16 21:17 Dose: 15 mg Pantoprazole Sodium (Protonix) 40 mg IV QAMAC [facility] Last Admin: 12/21/16 07:53 Dose: 40 mg Apomorphine (Apokyn) (10mg/Ml) 0.3 dose SC Q2HP PRN PRN Reason: Tremors Rasagiline Mesylate ([Azilect] 1 Mg Tab) 1 dose PO DAILY [facility] Last Admin: 12/21/16 10:25 Dose: 1 dose Rotigotine [Neupro] (4 Mg Patch) 1 dose TOPICAL DAILY [facility] Last Admin: 12/21/16 10:25 Dose: 1 dose Rotigotine [Neupro] (8 Mg Patch) 1 dose TOPICAL DAILY [facility] Last Admin: 12/21/16 10:25 Dose: 1 dose Potassium/Phosphorus/Sodium (Neutra Phos) 1 packet PO BID [facility] Last Admin: 12/21/16 10:24 Dose: 1 packet Sodium Chloride (Saline Flush) 10 ml IV UD PRN PRN Reason: FLUSH Sodium Chloride (Saline Flush) 10 ml IV Q8 [facility] Last Admin: 12/21/16 05:15 Dose: 10 ml Topiramate (Topamax) 100 mg PO QPM [facility] Last Admin: 12/20/16 21:26 Dose: 100 mg Vancomycin HCl (Vancomycin Per Pharmacy) 1 order IV ONCE ONE Stop: 12/20/16 19:38 Last Admin: 12/20/16 20:29 Dose: Not Given Medical - PN: A/P - Time Spent With Patient Total time spent is greater than 50% in coordination of care (as documented) at patient's floor/unit and/or counseling patient: (1) Hypokalemia due to loss of potassium Status: Acute Current Visit: Yes (2) Iron deficiency anemia Status: Acute Current Visit: Yes (3) Dehydration Status: Acute Current Visit: Yes (4) Enterovesical fistula Status: Acute Current Visit: No (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 GI. -small bowel-bladder abscess with fistula. etiology of this is currently uncertain. Surgical correction by Dr. Azul is planned sometime in the next few days. -continue with current empiric IV antibiotics. -GERD. Protonix IV started. #2. Pulmonary. -Patient did develop a bit of respiratory distress yesterday. He may have been getting a bit volume overloaded. TPN was continued, but other IV fluids were stopped. -patient did have an episode of chest pain , which appears noncardiac. CT of the chest is more suggestive of pneumonia than of PE. . The patient may be having some episodes of silent aspiration. He is currently taking in very little by mouth. -continue imipenem plus metronidazole. vancomycin was added, just to be sure we are not missing a community-acquired MRSA-type pneumonia, given his debilitated state.. -echocardiogram report is still pending. #3. Ongoing fatigue and weight loss, -this may be multifactorial, including his ongoing Parkinson's issues, but the majority of his symptoms are almost certainly related to his current bowel and bladder issues. -he also has a history of 2 different malignancies so there is certainly concern for underlying malignancy with this process as well. -his nutritional status appears very poor, and he is now started on TPN, with the help of nutrition and pharmacy. #4. Fluids and nutrition. Severe hypokalemia. This is most likely due to recent poor by mouth intake in addition to ongoing ingestion of HCTZ. Resolved. #5. neurologic. - Parkinson's disease. he is on a very complicated medical regimen. I spoke with his neurologist, Dr. Sylvia Basilio, . She would like him to continue with the neupro patch, and says that he can certainly use the subcutaneous apomorphine up to 5 times a day for any uncontrolled Parkinson symptoms. We should resume his oral Sinemet as soon as he is able to take by mouth meds. Other than these, if he is not taking oral meds, we will have to hold his rasagiline, mirtazapine, Flexeril, Sinemet, amantadine. -history of migraines. continue with Topamax and when necessary Frova, but these will also need to be held when he is nothing by mouth. . -Restless leg syndrome. continue Klonopin and gabapentin. at some point he might also need an iron supplement, given his anemia, as I deficiency can definitely aggravate this syndrome.If he cannot take these oral meds, we can use IV Ativan to help bridge the gap. #6.obstructive sleep apnea.patient reports this as a previous diagnosis, but it is likely that this is either much improved or resolved since his significant weight loss. We can certainly monitor her overnight oximetry. #7. History of generalized anxiety disorder. -Continue Klonopin, and use when necessary Ativan as needed. -i do think he is showing signs of depression as well. It might be worthwhile adding an SSRI to his regimen. #8. . -It sounds like the patient has a long history of urinary symptoms, and is currently maintained on Flomax as well as Myrbetriq. -Dr. Hawkins did okay holding these 2 medications. #9.reported testosterone deficiency. He is maintained on testosterone transdermal patch. This increases his risk of cardiac events and stroke and DVT. however, since he is on this chronically, it might help during the rehabilitation period to help him rebuild his muscle mass. 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 Continue fentanyl patch and supplemental morphine, Dilaudid, or oxycodone.. #11. Hypothyroidism. Continue levothyroxine. #12. Hyperlipidemia. I think the fenofibrate could be held during the perioperative period. #13. Surgical risk. This patient is certainly at moderate to high risk of complications during the perioperative period, given his complicated underlying disease processes and complicated medical regimen. Fortunately, he has no documented history of coronary disease Echocardiogram was ordered by Dr. Azul and we can certainly review that preop as well. -continue with DVT prophylaxis with heparin or Lovenox, and encourage ambulation as he is able. -continue atenolol during the perioperative period. #14. Hematologic. This patient does present with severe anemia, presumably due to his current GI process. He has been transfused, and this will need to be monitored closely. approximately 25 minutes was spent today, meeting with the patient, reviewing test results, examining him, and writing orders. Medical - PN: Qual - Stroke Symptom Onset Unknown: No - VTE Deep Vein Thrombosis/Pulmonary Embolism Present on Admission: No
[2016-12-21] MEDS: ATENOLOL 50 MG TABLET PO SCH (20:33)
[2016-12-21] MEDS: TOPIRAMATE 100 MG TABLET PO SCH (20:34)
[2016-12-21] MEDS: clonazePAM 1 MG TABLET PO SCH (20:34)
[2016-12-21] MEDS: MIRTAZAPINE 15 MG TABLET PO SCH (20:34)
[2016-12-22] MEDS: AMANTADINE HCL 100 MG CAPSULE PO SCH ×3 (00:23→21:22)
[2016-12-22] MEDS: HYDROmorphone 2 MG/ML SYRINGE IV PRN (04:09)
[2016-12-22] MEDS: 0.9 % SODIUM CHLORIDE 10 ML SYRINGE IV SCH ×3 (04:09→21:34)
[2016-12-22] MEDS: metroNIDAZOLE 500 MG/100 ML BAG IV SCH ×4 (05:29→23:46)
[2016-12-22 06:44] LABS: ALT/SGPT < 5 U/l (0-40); Albumin 2.2 gm/dL (3.2-5.2); Albumin/Globulin Ratio 0.7 (1.0-2.3); Alkaline Phosphatase 121 U/L (39-117); Bilirubin,Direct 0.2 mg/dL (0.0-0.3); Blood Urea Nitrogen 24 mg/dl (8-23); Gamma Glutamyl Transpeptidase 69 U/L (8-61); Magnesium 2.3 mg/dL (1.6-2.5); Uric Acid 0.9 mg/dL (2.5-8.0)
[2016-12-22] MEDS: IMIPENEM/CILASTATIN SODIUM 500 MG in 0.9 % SODIUM CHLORIDE 100 ML IV SCH ×3 (06:57→21:20)
[2016-12-22] MEDS: LEVOTHYROXINE 100 MCG TABLET PO SCH (08:09)
[2016-12-22] MEDS: PANTOPRAZOLE 40 MG VIAL IV SCH (08:09)
[2016-12-22] MEDS ORDERED: MAGNESIUM CITRATE 300 ML ORAL.SOL PO SCH (09:00)
[2016-12-22] MEDS: fentaNYL 100 MCG PATCH TD SCH (10:00)
[2016-12-22] MEDS: NEUTRA PHOS 1 PACKET PO SCH ×2 (10:01→21:20)
[2016-12-22] MEDS: VANCOMYCIN 1,000 MG in 0.9 % SODIUM CHLORIDE 250 ML IV SCH ×2 (10:01→21:20)
[2016-12-22] MEDS: GABAPENTIN 300 MG CAPSULE PO SCH ×4 (10:01→21:22)
[2016-12-22] MEDS: CARBIDOPA/LEVODOPA 25/100 TABLET PO SCH ×4 (10:02→21:22)
[2016-12-22] MEDS: ROTIGOTINE 8 MG TOPICAL SCH (10:02)
[2016-12-22] MEDS: ROTIGOTINE 4 MG TOPICAL SCH (10:02)
[2016-12-22] MEDS: RASAGILINE MESYLATE 1 MG PO SCH (10:03)
[2016-12-22] MEDS ORDERED: 0.9 % SODIUM CHLORIDE 250 ML IV SCH (10:45)
--- NOTE | 2016-12-22 10:46 | General Surgery Progress Note ---
Subjective Patient reports: feels better, pain is less, tolerating liquids well, flatus, bowel movement, afebrile Narrative: Note initiated : 12/22/16 at 10:43 am Service Date, if different from initiated Date: [] Patient: Tripp Melo 66 y/o M admitted on 12/16/16 for Bowel Abscess, Bladder Fistula. Chief Complaint: [ patient feels much better. he has less pain. no nausea or vomiting. he is afebrile. he is having less pain. ] Objective Temp Pulse Resp BP Pulse Ox 97.8 F 60 20 142/78 92 12/22/16 08:00 12/22/16 09:25 12/22/16 09:25 12/22/16 08:00 12/22/16 09:25 - Additional Data Intake & Output - Last 24 hours: Intake & Output 12/20/16 12/21/16 12/22/16 12/23/16 05:59 05:59 05:59 05:59 Intake Total 950 / 950 1037 / 1037 1580 / 1580 Output Total 3050 / 3050 3575 / 3575 875 / 875 Balance -2100 / -2100 -2538 / -2538 705 / 705 Weight 149 lb 8 oz 153 lb 8 oz 153 lb 8 oz - General physical appearance no distress - Eyes PERRL - ENT no congestion - Neck no venous distension - Respiratory clear to auscultation - Cardiovascular Cardiovascular exam: Present: normal rate and rhythm, RRR, +S1, +S2. Absent: JVD, tachycardia - Abdomen soft, non tender, bowel sounds, distended (abdomen is much softer; he has good active bowel sounds; there is no tenderness in suprapubic or right upper quadrant today. He has much less guarding..) - Integumentary no rash, no growths, no abnormal pigmentation - Psychiatric oriented to time, oriented to person, oriented to place, speech is normal, memory intact - Labs 12/21/16 05:16 12/22/16 03:57 Diabetes panel 12/22/16 Range/Units 03:57 Sodium 142 (133-145) mmol/L Potassium 3.7 (3.3-5.1) mmol/L Chloride 113 H (96-108) mmol/L Carbon Dioxide 16 L (22-30) mmol/L BUN 24 H (8-23) mg/dl Creatinine 0.7 (0.7-1.2) mg/dl Glucose 91 (70-105) mg/dL Calcium 7.9 L (8.6-10.4) mg/dl AST 14 (0-37) U/l ALT < 5 (0-40) U/l Alkaline Phosphatase 121 H (39-117) U/L Total Protein 5.4 L (5.9-8.4) gm/dL Albumin 2.2 L (3.2-5.2) gm/dL Triglycerides 38 (<150) mg/dl Calcium panel 12/22/16 Range/Units 03:57 Calcium 7.9 L (8.6-10.4) mg/dl Phosphorus 3.0 (2.7-4.5) mg/dL Albumin 2.2 L (3.2-5.2) gm/dL Pituitary panel 12/22/16 Range/Units 03:57 Sodium 142 (133-145) mmol/L Potassium 3.7 (3.3-5.1) mmol/L Chloride 113 H (96-108) mmol/L Carbon Dioxide 16 L (22-30) mmol/L BUN 24 H (8-23) mg/dl Creatinine 0.7 (0.7-1.2) mg/dl Glucose 91 (70-105) mg/dL Calcium 7.9 L (8.6-10.4) mg/dl Adrenal panel 12/22/16 Range/Units 03:57 Sodium 142 (133-145) mmol/L Potassium 3.7 (3.3-5.1) mmol/L Chloride 113 H (96-108) mmol/L Carbon Dioxide 16 L (22-30) mmol/L BUN 24 H (8-23) mg/dl Creatinine 0.7 (0.7-1.2) mg/dl Glucose 91 (70-105) mg/dL Calcium 7.9 L (8.6-10.4) mg/dl Total Bilirubin 0.5 (0.0-1.0) mg/dL AST 14 (0-37) U/l ALT < 5 (0-40) U/l Alkaline Phosphatase 121 H (39-117) U/L Total Protein 5.4 L (5.9-8.4) gm/dL Albumin 2.2 L (3.2-5.2) gm/dL Medical - PN: A/P - Time Spent With Patient Total time spent is greater than 50% in coordination of care (as documented) at patient's floor/unit and/or counseling patient: (1) Enterovesical fistula Status: Acute Assessment and plan: Hematocrit is stable White blood count is trending down Electrolytes have essentially been corrected patient will be scheduled for operative exploration in the morning... Current Visit: No (2) Dehydration Status: Acute Current Visit: Yes (3) Hypokalemia due to loss of potassium Status: Acute Current Visit: Yes (4) Iron deficiency anemia Status: Acute Current Visit: Yes (5) Anemia Status: Chronic Current Visit: No (6) Parkinson disease Status: Chronic Current Visit: No (7) Sleep apnea, obstructive Status: Chronic Current Visit: No
[2016-12-22] MEDS ORDERED: LORazepam 2 MG/ML VIAL IV PRN (11:00)
[2016-12-22] MEDS ORDERED: MAGNESIUM CITRATE 300 ML ORAL.SOL PO ONE (11:00)
[2016-12-22 11:48] LABS: Basophils # (Auto) 0 K/mcL (0.0-0.3); Basophils % (Auto) 0.1 % (0.0-2.0); Eosinophils # (Auto) 0.3 K/mcL (0.0-0.7); Eosinophils % (Auto) 1.9 % (0.0-7.0); Granulocytes % (Auto) 89.3 % (38.0-78.0); Lymphocytes # (Auto) 0.8 K/mcL (1.5-4.8); Lymphocytes % (Auto) 5.1 % (15.5-49.0); Mean Corpuscular Hemoglobin 26.3 pg (26.0-34.0); Monocytes # (Auto) 0.6 K/mcL (0.1-0.9); Monocytes % (Auto) 3.6 % (1.0-9.0); Platelet Count 305 K/mcL (140-440); RBC 4.53 M/mcL (4.50-5.90); Red Cell Distribution Width 20.3 % (11.5-14.5)
[2016-12-22] MEDS ORDERED: CALCIUM GLUCONATE IV SCH (12:00)
[2016-12-22] MEDS ORDERED: MAGNESIUM SULFATE IV SCH (12:00)
[2016-12-22] MEDS ORDERED: [UNRECOGNIZED DRUG - OTHER] IV SCH (12:00)
[2016-12-22] MEDS ORDERED: POTASSIUM PHOSPHATE IV SCH (12:00)
--- NOTE | 2016-12-22 13:37 | Internal Med Progress Note ---
Medical - PN: Subj Patient information: Note initiated : 12/22/16 at 1:37 pm Service Date, if different from initiated Date: [] Patient: Tripp Melo 66 y/o M admitted on 12/16/16 for Bowel Abscess, Bladder Fistula. Chief Complaint: [] Interval history: December 17, 2016:Reason for consult: preop evaluation, hypokalemia,multiple medical problems History of present illness: Mr. 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 the patient reports he has had a steady decline for about one year now. He has been suffering with fatigue and weight loss of about 30-40 pounds over the last 3-6 months. He said about 6 months ago he was treated for melanoma on his face and had follow-up for that During that follow- up they found that he was anemic, and then found that he had guaiac positive stool. He then underwent colonoscopy and endoscopy that were apparently unrevealing. He has noticed gradually worsening dyspnea with exertion over the last several months, and in October said he had gross hematuria. That apparently triggered a referral which led to a cystoscopy at which time they found that he had not only blood but also stool in his urine Subsequent testing did confirm that he had a small bowel abscess, which had eroded into the bladder so that he now has a fistula. He was seen for follow-up in Dr. Azul 's office yesterday, and looked terrible and pale and weak, so was admitted for further workup and treatment. laboratory evaluation last night did show severe hypokalemia. he patient believes he was taking daily hydrochlorothiazide at home. He admits his diet is been very poor and that he has not had much of an appetite lately. However, he also admits that he generally has a very poor diet, and much prefers foods such as hot dogs and chili to anything even remotely involving fruits or vegetables or healthy proteins. Otherwise, the patient denies recent fever or chills, headaches or dizziness, new eye or ear symptoms. He has not had a sore throat or cough.he denies chest pain or palpitations, significant abdominal pain, heartburn, nausea or vomiting , and initially denied any diarrhea or constipation However,he then admitted that he has been having bloody stools for the last several days at home. Nursing staff also notes bloody stools since arrival here. -He did receive 3 units of packed red blood cells last night, as he is also quite severely anemic. -he has had Parkinson's disease for about 16 years and is managed by a neurologist. He is on a very complicated regimen for that. 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 To control that pain he does take both a fentanyl patch and subcutaneous morphine. -He also has chronic migraines, which appear to be treated with Topamax and Frova. -He also was previously diagnosed with sleep apnea, but refuses to wear CPAP. He used to be a heavy snorer, but notes he does not snore anymore since he has lost all the weight. December 18, 2016: Today,the patient notes that he seems to be having more abdominal cramping and discomfort. He feels like he has more gas.e have started him on breeze nutritional supplements, but he says he just does not like the taste at this point. Dr. Azul has asked for a PICC line to be placed, and would like to start TPN during the period. otherwise, the patient denies fever or chills, chest pain or palpitations or shortness of breath, nausea or vomiting. He continues to have blood-tinged stools and dark urine December 19: today,the patient notes he is still having abdominal pain, mainly towards the right groin area. This is crampy in nature. Nursing staff also called me earlier today to say that the patient was starting to sound a little bit wet,and he had a congested cough, and O2 saturations were a bit lower.he did feel a bit short of breath. chest x-ray did suggest pulmonary vascular congestion. otherwise, he states he is just tired. He denies overt fever or chills, chest pain or palpitations,nausea or vomiting. He continues to have loose blood and mucous stools at times, and continues to have stool contaminating his urine in his Pierce catheter. TPN was started last night. ursing also reports that he has had nonsustained runs of V. tach with activity.May also feel he is getting a bit discouraged by his condition. December 20: his morning, I was called to see the patient because he was complaining of left-sided chest pain. He did not appear to be in any acute distress, and denied any radiation of the pain, nausea or diaphoresis, shortness of breath. On exam he actually had fairly pinpoint tenderness next to the left nipple. He describes the pain as sharp and pinching in nature. EKG did not show any acute changes. Troponin was negative. Later in the morning, he said he was feeling fine again. He denies fever or chills,recurrent chest pain or palpitations. He continues to have moderate abdominal discomfort, which is positional. He continues to have mild dyspnea with any exertion, but is mostly staying in bed. He still has his Pierce catheter in, which is still draining fecal stained urine. December 21: Today, the patient notes she is feeling okay. He is having less abdominal pain. he does admit, though, that he is feeling quite discouraged, by feeling so poorly for so long. He worries about how the surgery will go. Otherwise, he denies subjective fever or chills, chest pain or shortness of breath, nausea or vomiting constipation, dysuria. December 22: The patient has no particular complaints today. His abdominal discomfort overall is improving. He denies subjective fever or chills, chest pain or shortness of breath, significant abdominal pain, nausea or vomiting, or significant bloody stools. Pierce catheter remains in place. - Constitutional Vitals: Vital Signs Temp Pulse Resp BP Pulse Ox 98.1 F 62 16 138/82 97 12/22/16 12:00 12/22/16 12:00 12/22/16 12:00 12/22/16 12:00 12/22/16 12:00 Period Temp Pulse Resp BP Sys/Lerma Pulse Ox Last 24 Hr 97.3 F-98.2 F 56-77 16-22 136-158/78-96 90-98 Intake and Output 12/21/16 12/22/16 12/22/16 21:59 05:59 13:59 Intake Total 830 / 830 200 / 200 100 / 100 Output Total 675 / 675 Balance 830 / 830 -475 / -475 100 / 100 Weight 153 lb 8 oz Intake & Output: Intake & Output 12/21/16 12/22/16 12/22/16 21:59 05:59 13:59 Intake Total 830 / 830 200 / 200 100 / 100 Output Total 675 / 675 Balance 830 / 830 -475 / -475 100 / 100 Weight 153 lb 8 oz Intake: IV 450 / 450 200 / 200 100 / 100 Sodium Chloride 0.9% 100 100 / 100 100 / 100 ml @ 100 mls/hr IV Q8H DARWIN with Primaxin 500 mg Rx#:[id number] Sodium Chloride 0.9% 250 250 / 250 ml @ 250 mls/hr IV Q12 DARWIN with Vancomycin 1,000 mg Rx#:[id number] Oral 380 / 380 Output: Urine Catheter Amount 675 / 675 Other: Meal Lunch Percent of Meal Consumed 25% # Bowel Movements 1 Exam: on exam, he is in no acute distress. Neck is supple, without obvious JVD. Cardiac exam shows regular rate and rhythm. Lungs are clear to auscultation. Abdomen is soft with minimal tenderness. Extremities show no edema. Medical - PN: Obj Da - Labs CBC & Chem 7: 12/22/16 10:54 12/22/16 03:57 Labs: Abnormal Lab Results 12/22/16 12/22/16 12/22/16 10:54 03:57 03:57 WBC 16.1 H RBC Hgb 11.9 L Hct 38.5 L RDW 20.3 H Gran % 89.3 H Lymph % (Auto) 5.1 L Gran # 14.4 H Lymph # 0.8 L D-Dimer Sodium Chloride 113 H Carbon Dioxide 16 L BUN 24 H Glucose Uric Acid 0.9 L Calcium 7.9 L Phosphorus Direct Bilirubin GGT 69 H Alkaline Phosphatase 121 H Lactate Dehydrogenase 263 H CK-MB (CK-2) Total Protein 5.4 L Albumin 2.2 L Albumin/Globulin Ratio 0.7 L Prealbumin 12.0 L 12/21/16 12/21/16 12/21/16 05:16 05:15 05:15 WBC 15.5 H RBC 3.99 L Hgb 10.6 L Hct 33.4 L RDW 20.3 H Gran % 87.4 H Lymph % (Auto) 6.0 L Gran # 13.5 H Lymph # 0.9 L D-Dimer Sodium Chloride 111 H Carbon Dioxide 17 L BUN Glucose 106 H Uric Acid 0.9 L Calcium 7.6 L Phosphorus 2.4 L Direct Bilirubin GGT Alkaline Phosphatase Lactate Dehydrogenase 276 H CK-MB (CK-2) Total Protein 4.9 L Albumin 2.6 L Albumin/Globulin Ratio Prealbumin 12.0 L 12/20/16 12/20/16 12/20/16 07:35 07:35 05:46 WBC RBC Hgb Hct RDW Gran % Lymph % (Auto) Gran # Lymph # D-Dimer 1.72 H Sodium 146 H Chloride 117 H Carbon Dioxide 16 L BUN Glucose Uric Acid 1.1 L Calcium 7.9 L Phosphorus 2.2 L Direct Bilirubin 0.4 H GGT Alkaline Phosphatase Lactate Dehydrogenase 313 H CK-MB (CK-2) 6.2 H Total Protein 5.0 L Albumin 2.7 L Albumin/Globulin Ratio Prealbumin 12/20/16 05:46 WBC 16.0 H RBC 3.96 L Hgb 10.6 L Hct 33.1 L RDW 20.3 H Gran % 90.5 H Lymph % (Auto) 5.7 L Gran # 14.5 H Lymph # 0.9 L D-Dimer Sodium Chloride Carbon Dioxide BUN Glucose Uric Acid Calcium Phosphorus Direct Bilirubin GGT Alkaline Phosphatase Lactate Dehydrogenase CK-MB (CK-2) Total Protein Albumin Albumin/Globulin Ratio Prealbumin December 20: CT angiogram of the chest, was negative for PE. There are bilateral patchy pulmonary infiltrates consistent with pneumonia. There are also bilateral pleural effusions, and a large hiatal hernia. eKG shows sinus rhythm at a rate of 65, with somewhat low voltage. Otherwise, there are no acute appearing ST T changes. troponin is normal at less than 0.01. December 19: Chest x-ray shows cardiomegaly with prominent pulmonary vasculature consistent with congestion. December 162016: TSH was normal at 1.6 Lactic acid was normal at 0.9. urinalysis from Novemberhowed color green, pH 6, specific gravity 1.020, 300 mg of protein, trace ketones, large leukocyte esterase, negative nitrites, large RBCs blood culture from last night showing no growth so far chest x-ray from this morning shows mild cardiomegaly without signs of CHF. There is also prominent hiatal hernia. echocardiogram is pending. EKG shows sinus rhythm at a rate of 65, with left ventricular strain pattern, but no acute ST-T changes. CT scan from December 12, 2016: Shows an enterovesical fistula with possible 8 cm abscess in the right false pelvis which communicates with the right dome of the bladder. Also noted was a solitary 5 mm stone in the gallbladder. There are also tiny stones noted in the right kidney. Follow-up images with oral contrast did show a large 12 cm thick-walled cavity in the right false pelvis communicating with the urinary bladder dome, with a 3 cm fistula opening. This cavity also communicates with multiple loops of small bowel. Meds: Medications Acetaminophen (Tylenol) 650 mg PO Q6HP PRN PRN Reason: PAIN/FEVER > 101 Amantadine HCl (Amantadine) 100 mg PO BID [facility] Last Admin: 12/22/16 10:02 Dose: 100 mg Atenolol (Tenormin) 25 mg PO QHS [facility] Last Admin: 12/21/16 20:33 Dose: 25 mg Carbidopa/Levodopa (Sinemet 25/100) 2 tab PO QID [facility] Last Admin: 12/22/16 12:40 Dose: 2 tab Clonazepam (Klonopin) 1 mg PO QHS [facility] Last Admin: 12/21/16 20:34 Dose: 1 mg Cyclobenzaprine HCl (Flexeril) 10 mg PO BIDP PRN PRN Reason: Muscle Spasm Diagnostic Test (Pha) (Accu-Chek) 1 each FS DAILY [facility] PRN Reason: Protocol Last Admin: 12/22/16 10:03 Dose: 1 each Fentanyl (Duragesic) 100 mcg TD Q48H [facility] Last Admin: 12/22/16 10:00 Dose: 100 mcg Gabapentin (Neurontin) 300 mg PO QID [facility] Last Admin: 12/22/16 12:41 Dose: 300 mg Heparin Sodium (Porcine) (Heparin Flush) 2 ml IV Q12 [facility] Last Admin: 12/22/16 10:02 Dose: 2 ml Hydromorphone HCl (Dilaudid) 1 mg IV Q2HP PRN PRN Reason: Pain Last Admin: 12/22/16 04:09 Dose: 1 mg Fat Emulsion Intravenous (Intralipid 20%) 250 mls @ 25 mls/hr IV [id number] [facility] Last Admin: 12/20/16 16:51 Dose: 25 mls/hr Imipenem/Cilastatin Sodium 500 (mg/ Sodium Chloride) 100 mls @ 100 mls/hr IV Q8H [facility] Last Admin: 12/22/16 06:57 Dose: 100 mls/hr Metronidazole (Flagyl) 500 mg in 100 mls @ 100 mls/hr IV Q6H [facility] Last Admin: 12/22/16 12:41 Dose: 100 mls/hr Vancomycin HCl 1,000 mg/ (Sodium Chloride) 250 mls @ 250 mls/hr IV Q12 [facility] Last Admin: 12/22/16 10:01 Dose: 250 mls/hr Sodium Chloride (Sodium Chloride 0.9%) 250 mls @ 20 mls/hr IV .[id number] [facility] Stop: 12/22/16 23:14 Last Admin: 12/22/16 11:49 Dose: 20 mls/hr Calcium Gluconate 10 meq/Magnesium Sulfate 16.24 meq/Potassium Phosphate 60 meq/ Multivitamins/Minerals 10 ml/Selenium 60 mcg/ Amino Acids 2,050.6417 mls @ 70 mls/hr IV Q24H [facility] Last Admin: 12/22/16 12:34 Dose: 70 mls/hr Levothyroxine Sodium (Synthroid) 100 mcg PO QAMAC [facility] Last Admin: 12/22/16 08:09 Dose: 100 mcg Lorazepam (Ativan) 0.5 mg IV Q4-6HP PRN PRN Reason: ANXIETY/SEDATION Mirtazapine (Remeron) 15 mg PO QHS [facility] Last Admin: 12/21/16 20:34 Dose: 15 mg Pantoprazole Sodium ([facility]tonix) [facility] Admin: 12/22/16 08:09 Dose: 40 mg Apomorphine (Apokyn) (10mg/Ml) 0.3 dose SC Q2HP PRN PRN Reason: Tremors Rasagiline Mesylate ([Azilect] 1 Mg Tab) 1 dose PO DAILY [facility] Last Admin: 12/22/16 10:03 Dose: 1 dose Rotigotine [Neupro] (4 Mg Patch) 1 dose TOPICAL DAILY [facility] Last Admin: 12/22/16 10:02 Dose: 1 dose Rotigotine [Neupro] (8 Mg Patch) 1 dose TOPICAL DAILY [facility] Last Admin: 12/22/16 10:02 Dose: 1 dose Potassium/Phosphorus/Sodium (Neutra Phos) 1 packet PO BID [facility] Last Admin: 12/22/16 10:01 Dose: 1 packet Sodium Chloride (Saline Flush) 10 ml IV UD PRN PRN Reason: FLUSH Sodium Chloride (Saline Flush) 10 ml IV Q8 [facility] Last Admin: 12/22/16 13:08 Dose: 10 ml Topiramate (Topamax) 100 mg PO QPM [facility] Last Admin: 12/21/16 20:34 Dose: 100 mg Medical - PN: A/P - Time Spent With Patient Total time spent is greater than 50% in coordination of care (as documented) at patient's floor/unit and/or counseling patient: (1) Hypokalemia due to loss of potassium Status: Acute Current Visit: Yes (2) Iron deficiency anemia Status: Acute Current Visit: Yes (3) Dehydration Status: Acute Current Visit: Yes (4) Enterovesical fistula Status: Acute Current Visit: No (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 GI. -small bowel-bladder abscess with fistula. etiology of this is currently uncertain. Surgical correction by Dr. Azul is planned sometime in the next few days. -continue with current empiric IV antibiotics. -White blood cell count is a bit higher today. Continue to follow. -GERD. Protonix IV started. #2. Pulmonary. -Patient did develop a bit of respiratory distress recently. He may have been getting a bit volume overloaded. TPN was continued, but other IV fluids were stopped. -patient did have an episode of chest pain , which appears noncardiac. CT of the chest is more suggestive of pneumonia than of PE. . The patient may be having some episodes of silent aspiration. He is currently taking in very little by mouth. -continue imipenem plus metronidazole. vancomycin was added, just to be sure we are not missing a community-acquired MRSA-type pneumonia, given his debilitated state.. -echocardiogram report is finally available. This shows overall normal appearance of the heart, with left ventricular ejection fraction of 65%. There is mild aortic root dilation noted, and mild mitral regurgitation. #3. Ongoing fatigue and weight loss, -this may be multifactorial, including his ongoing Parkinson's issues, but the majority of his symptoms are almost certainly related to his current bowel and bladder issues. -he also has a history of 2 different malignancies so there is certainly concern for underlying malignancy with this process as well. -his nutritional status appears very poor, and he is now started on TPN, with the help of nutrition and pharmacy. #4. Fluids and nutrition. Severe hypokalemia. This is most likely due to recent poor by mouth intake in addition to ongoing ingestion of HCTZ. Resolved. -total serum calcium is quite low, but this corrects to normal, when the very low albumin is considered. #5. neurologic. - Parkinson's disease. he is on a very complicated medical regimen. I spoke with his neurologist, Dr. Sylvia Basilio, . She would like him to continue with the neupro patch, and says that he can certainly use the subcutaneous apomorphine up to 5 times a day for any uncontrolled Parkinson symptoms. We should resume his oral Sinemet as soon as he is able to take by mouth meds. Other than these, if he is not taking oral meds, we will have to hold his rasagiline, mirtazapine, Flexeril, Sinemet, amantadine. -history of migraines. continue with Topamax and when necessary Frova, but these will also need to be held when he is nothing by mouth. . -Restless leg syndrome. continue Klonopin and gabapentin. at some point he might also need an iron supplement, given his anemia, as I deficiency can definitely aggravate this syndrome.If he cannot take these oral meds, we can use IV Ativan to help bridge the gap. #6.obstructive sleep apnea.patient reports this as a previous diagnosis, but it is likely that this is either much improved or resolved since his significant weight loss. We can certainly monitor her overnight oximetry. #7. History of generalized anxiety disorder. -Continue Klonopin, and use when necessary Ativan as needed. -i do think he is showing signs of depression as well. It might be worthwhile adding an SSRI to his regimen. #8. . -It sounds like the patient has a long history of urinary symptoms, and is currently maintained on Flomax as well as Myrbetriq. -Dr. Hawkins did okay holding these 2 medications. #9.reported testosterone deficiency. He is maintained on testosterone transdermal patch. This increases his risk of cardiac events and stroke and DVT. however, since he is on this chronically, it might help during the rehabilitation period to help him rebuild his muscle mass. 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 Continue fentanyl patch and supplemental morphine, Dilaudid, or oxycodone.. #11. Hypothyroidism. Continue levothyroxine. #12. Hyperlipidemia. I think the fenofibrate could be held during the perioperative period. #13. Surgical risk. This patient is certainly at moderate to high risk of complications during the perioperative period, given his complicated underlying disease processes and complicated medical regimen. Fortunately, he has no documented history of coronary disease Echocardiogram was ordered by Dr. Azul and this looks fine. -continue with DVT prophylaxis with heparin or Lovenox, and encourage ambulation as he is able. -continue atenolol during the perioperative period. #14. Hematologic. This patient does present with severe anemia, presumably due to his current GI process. He has been transfused, and this will need to be monitored closely. approximately 20 minutes was spent today, meeting with the patient, reviewing test results, examining him, and writing orders. Medical - PN: Qual - Stroke Symptom Onset Unknown: No - VTE Deep Vein Thrombosis/Pulmonary Embolism Present on Admission: No
[2016-12-22] MEDS: ATENOLOL 50 MG TABLET PO SCH (21:21)
[2016-12-22] MEDS: clonazePAM 1 MG TABLET PO SCH (21:21)
[2016-12-22] MEDS: TOPIRAMATE 100 MG TABLET PO SCH (21:22)
[2016-12-22] MEDS: MIRTAZAPINE 15 MG TABLET PO SCH (21:22)
[2016-12-23] MEDS: metroNIDAZOLE 500 MG/100 ML BAG IV SCH ×3 (05:20→18:44)
[2016-12-23] MEDS: 0.9 % SODIUM CHLORIDE 10 ML SYRINGE IV SCH ×2 (05:21→22:21)
[2016-12-23] MEDS: IMIPENEM/CILASTATIN SODIUM 500 MG in 0.9 % SODIUM CHLORIDE 100 ML IV SCH ×3 (05:21→22:21)
[2016-12-23] MEDS: PANTOPRAZOLE 40 MG VIAL IV SCH (07:25)
[2016-12-23] MEDS: LEVOTHYROXINE 100 MCG TABLET PO SCH (07:33)
[2016-12-23] MEDS: AMANTADINE HCL 100 MG CAPSULE PO SCH (09:05)
[2016-12-23] MEDS: NEUTRA PHOS 1 PACKET PO SCH (09:05)
[2016-12-23] MEDS: GABAPENTIN 300 MG CAPSULE PO SCH (09:05)
[2016-12-23] MEDS: RASAGILINE MESYLATE 1 MG PO SCH (09:05)
[2016-12-23] MEDS: CARBIDOPA/LEVODOPA 25/100 TABLET PO SCH (09:06)
--- NOTE | 2016-12-23 09:14 | Echocardiogram Report ---
ECHOCARDIOGRAM: 2-D and M-mode echocardiography with cardiac Doppler and color flow imaging were performed with a [employer] A[employer]io MX. Indication is preoperative bladder fistula and bowel abscess. A diagnostic M-mode tracing could not be obtained. Overall size of the RA, RV and LV appeared normal as did LV wall thickness and systolic performance. Estimated ejection fraction is 65%. The LA appeared borderline enlarged. The aortic root appeared mildly dilated, 4.0 cm diameter. The aortic valve appeared trileaflet and normal. Maximal instantaneous aortic outflow systolic velocity was high normal at 1.8 m/second. Aortic regurgitation, probably mild (1+), was demonstrated. The mitral and tricuspid valves appeared unremarkable. Doppler interrogation of LV inflow disclosed normal ''e'' wave dominance and normal early diastolic deceleration time. Mitral regurgitation, probably mild (1+), was noted. Pulmonary venous interrogation disclosed slightly ''s'' wave dominance. The pulmonic valve was not visualized. Pulmonary artery acceleration time appeared normal. There was no evidence for pulmonic stenosis. Pulmonic regurgitation, probably trivial, and tricuspid regurgitation, probably mild (1+), were demonstrated. No intracardiac shunting was appreciated. There was no evidence for pericardial effusion. The IVC was of normal diameter and showed normal respiratory variation. Calculated estimate of PA systolic pressure is normal at 30 mmHg. Sinus bradycardia, rate 50, was present. CONCLUSION:Mild aortic root dilatation/aortic regurgitation, probably mild (1+). Mitral regurgitation, probably mild (1+), with borderline LA enlargement. (See accompanying M-mode and Doppler reports for quantitation.) ECHOCARDIOGRAPHY M-MODE CALCULATIONS: HT: 66'' WT: 144 BSA: 1.74 m2 NORMALS AORTA: AORTIC ROOT 4.0 2.0-3.7 cm LEFT ATRIUM 4.0 1.9-4.0 cm MITRAL VALVE: EXCURSION 2.3 1.9-2.7 cm EPSS 1.2 <0.5 cm LT VENTRICLE: LVID (ED) -- 3.5-5.7 cm LVID (ES) -- SEPTAL THICKNESS -- 0.6-1.1 cm SEPTAL EXCURSION -- 0.3-0.8 cm LVPW THICKNESS -- 0.6-1.1 cm LVPW EXCURSION -- 0.9-1.4 cm MINOR AXIS FS -- 25%-40% RT VENTRICLE: RVID (ED) -- 0.9-2.6 cm(up to 3cm if LLD) QUALITATIVE DOPPLER FLOW STUDIES MITRAL VALVE MR, probably mild (1+) AORTIC VALVE AR, probably mild (1+) TRICUSPID VALVE TR, probably mild (1+) PULMONIC VALVE TX, probably trivial QUANTITATIVE DOPPLER FLOW STUDIES SAMPLE SITES VELOCITIES PEAK PRESSURE VALVE AREA and/or VALVE WINDOW (PEAK,M/SEC) DROP (GRADIENT) PRESSURE HALF-TIME MV (Diastole) 0.8 0.5 -- -- MV (Systole) 4.0 -- -- AO (Diastole) 4.2 -- 628 msec AO (Systole) 1.8 -- -- TV (Systole) 2.5 -- -- PV (Systole) 0.75 -- -- PV (Diastole) 0.8 LWG:ti Job ID: [id number] Doc ID: [id number] Bry Man MD
[2016-12-23 11:14] LABS: ALT/SGPT 6 U/l (0-40); Albumin 2.5 gm/dL (3.2-5.2); Albumin/Globulin Ratio 0.8 (1.0-2.3); Alkaline Phosphatase 146 U/L (39-117); Bilirubin,Direct < 0.2 mg/dL (0.0-0.3); Blood Urea Nitrogen 26 mg/dl (8-23); Gamma Glutamyl Transpeptidase 82 U/L (8-61); Magnesium 2.6 mg/dL (1.6-2.5); Phosphorous 2.2 mg/dL (2.7-4.5); Uric Acid 1.1 mg/dL (2.5-8.0)
[2016-12-23] MEDS ORDERED: LIDOCAINE HCL/PF 100 MG/5 ML SYRINGE IV ONE (11:25)
[2016-12-23] MEDS ORDERED: PROPOFOL 200 MG/20 ML VIAL IV ONE (11:25)
[2016-12-23] MEDS ORDERED: NEOSTIGMINE 1 MG/ML VIAL IV ONE (11:25)
[2016-12-23] MEDS ORDERED: HETASTARCH 6% 500 ML BAG IV ONE (11:25)
[2016-12-23] MEDS ORDERED: fentaNYL 250 MCG/5 ML VIAL IV ONE (11:25)
[2016-12-23] MEDS ORDERED: SUCCINYLCHOLINE 20 MG/ML ML IV ONE (11:25)
[2016-12-23] MEDS ORDERED: DEXAMETHASONE 10 MG/ML VIAL IV ONE (11:25)
[2016-12-23] MEDS ORDERED: MIDAZOLAM 5 MG/5 ML VIAL IV ONE (11:25)
[2016-12-23] MEDS ORDERED: ONDANSETRON 4 MG/2 ML VIAL IV ONE (11:25)
[2016-12-23] MEDS ORDERED: ROCURONIUM 10 MG/ML ML IV ONE (11:25)
[2016-12-23] MEDS ORDERED: GLYCOPYRROLATE 0.2 MG/ML VIAL IV ONE (11:25)
[2016-12-23] MEDS ORDERED: MAGNESIUM SULFATE IV SCH ×3 (12:00→16:00)
[2016-12-23] MEDS ORDERED: MVI IV SCH ×3 (12:00→16:00)
[2016-12-23] MEDS ORDERED: CALCIUM GLUCONATE IV SCH ×3 (12:00→16:00)
[2016-12-23] MEDS ORDERED: POTASSIUM PHOSPHATE IV SCH ×3 (12:00→16:00)
[2016-12-23] MEDS ORDERED: [UNRECOGNIZED DRUG - OTHER] IV SCH (12:00)
[2016-12-23] MEDS ORDERED: [UNRECOGNIZED DRUG - OTHER] IV SCH ×2 (12:00→16:00)
[2016-12-23] MEDS ORDERED: IPRATROPIUM/ALBUTEROL 3 ML AMPUL.NEB NEB PRN (13:34)
[2016-12-23] MEDS ORDERED: ePHEDrine 50 MG/ML AMPUL IV PRN (13:34)
[2016-12-23] MEDS ORDERED: METHOCARBAMOL 1,000 MG/10 ML VIAL IV PRN (13:34)
[2016-12-23] MEDS ORDERED: NALOXONE HCL 0.4 MG/ML VIAL IV PRN (13:34)
[2016-12-23] MEDS ORDERED: MEPERIDINE 25 MG/ML SYRINGE IV PRN (13:34)
[2016-12-23] MEDS ORDERED: ATROPINE SULFATE 0.4 MG/ML VIAL IV PRN (13:34)
[2016-12-23] MEDS ORDERED: FLUMAZENIL 0.1 MG/ML ML IV PRN (13:34)
[2016-12-23] MEDS ORDERED: HYDROmorphone 2 MG/ML SYRINGE IV PRN (13:34)
[2016-12-23] MEDS ORDERED: BENZOCAINE/MENTHOL 1 LOZENGE PO PRN (13:34)
[2016-12-23] MEDS ORDERED: diphenhydrAMINE 50 MG/ML VIAL IV PRN (13:34)
[2016-12-23] MEDS ORDERED: PROMETHAZINE 25 MG/ML VIAL IV PRN (13:34)
[2016-12-23] MEDS ORDERED: METOPROLOL TARTRATE 5 MG/5 ML VIAL IV PRN (13:34)
[2016-12-23] MEDS ORDERED: ONDANSETRON 4 MG/2 ML VIAL IV PRN (13:34)
[2016-12-23] MEDS ORDERED: BACITRACIN 50,000 UNIT VIAL IR ONE (13:41)
[2016-12-23] MEDS ORDERED: LACTATED RINGERS 1,000 ML IV SCH (13:45)
--- NOTE | 2016-12-23 13:56 | Brief Operative Note ---
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 Complications: none Surgeon: Jim Azul Chemical Pumper: Hebert Hawkins Estimated blood loss (cc): 150 Specimens Removed/Pathology: other (small bowel loops with tumor; bladder wall with fistulous tract) Condition: stable Disposition: PACU
[2016-12-23] MEDS ORDERED: [UNRECOGNIZED DRUG - OTHER] SC PRN (14:26)
[2016-12-23] MEDS ORDERED: LORazepam 2 MG/ML VIAL IV PRN (14:26)
[2016-12-23] MEDS: fentaNYL 100 MCG/2 ML VIAL IV PRN ×3 (14:37→14:56)
[2016-12-23] MEDS: 0.9 % SODIUM CHLORIDE 1,000 ML IV SCH (15:30)
[2016-12-23] MEDS: VANCOMYCIN 1,000 MG in 0.9 % SODIUM CHLORIDE 250 ML IV SCH (15:38)
[2016-12-23] MEDS: HYDROmorphone 2 MG/ML SYRINGE IV PRN ×4 (16:02→22:22)
[2016-12-23] MEDS: FAT EMULSION 20% 250 ML IV SCH (16:14)
[2016-12-23] MEDS: DIAZEPAM 10 MG/2 ML SYRINGE IV SCH ×2 (16:20→20:04)
--- NOTE | 2016-12-23 18:20 | Internal Med Progress Note ---
Medical - PN: Subj Patient information: Note initiated : 12/23/16 at 6:18 pm Service Date, if different from initiated Date: [] Patient: Tripp Melo 66 y/o M admitted on 12/16/16 for Bowel Abscess, Bladder Fistula. Chief Complaint: [] Interval history: December 17, 2016:Reason for consult: preop evaluation, hypokalemia,multiple medical problems History of present illness: Mr. 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 the patient reports he has had a steady decline for about one year now. He has been suffering with fatigue and weight loss of about 30-40 pounds over the last 3-6 months. He said about 6 months ago he was treated for melanoma on his face and had follow-up for that During that follow- up they found that he was anemic, and then found that he had guaiac positive stool. He then underwent colonoscopy and endoscopy that were apparently unrevealing. He has noticed gradually worsening dyspnea with exertion over the last several months, and in October said he had gross hematuria. That apparently triggered a referral which led to a cystoscopy at which time they found that he had not only blood but also stool in his urine Subsequent testing did confirm that he had a small bowel abscess, which had eroded into the bladder so that he now has a fistula. He was seen for follow-up in Dr. Azul 's office yesterday, and looked terrible and pale and weak, so was admitted for further workup and treatment. laboratory evaluation last night did show severe hypokalemia. he patient believes he was taking daily hydrochlorothiazide at home. He admits his diet is been very poor and that he has not had much of an appetite lately. However, he also admits that he generally has a very poor diet, and much prefers foods such as hot dogs and chili to anything even remotely involving fruits or vegetables or healthy proteins. Otherwise, the patient denies recent fever or chills, headaches or dizziness, new eye or ear symptoms. He has not had a sore throat or cough.he denies chest pain or palpitations, significant abdominal pain, heartburn, nausea or vomiting , and initially denied any diarrhea or constipation However,he then admitted that he has been having bloody stools for the last several days at home. Nursing staff also notes bloody stools since arrival here. -He did receive 3 units of packed red blood cells last night, as he is also quite severely anemic. -he has had Parkinson's disease for about 16 years and is managed by a neurologist. He is on a very complicated regimen for that. 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 To control that pain he does take both a fentanyl patch and subcutaneous morphine. -He also has chronic migraines, which appear to be treated with Topamax and Frova. -He also was previously diagnosed with sleep apnea, but refuses to wear CPAP. He used to be a heavy snorer, but notes he does not snore anymore since he has lost all the weight. December 18, 2016: Today,the patient notes that he seems to be having more abdominal cramping and discomfort. He feels like he has more gas.e have started him on breeze nutritional supplements, but he says he just does not like the taste at this point. Dr. Azul has asked for a PICC line to be placed, and would like to start TPN during the period. otherwise, the patient denies fever or chills, chest pain or palpitations or shortness of breath, nausea or vomiting. He continues to have blood-tinged stools and dark urine December 19: today,the patient notes he is still having abdominal pain, mainly towards the right groin area. This is crampy in nature. Nursing staff also called me earlier today to say that the patient was starting to sound a little bit wet,and he had a congested cough, and O2 saturations were a bit lower.he did feel a bit short of breath. chest x-ray did suggest pulmonary vascular congestion. otherwise, he states he is just tired. He denies overt fever or chills, chest pain or palpitations,nausea or vomiting. He continues to have loose blood and mucous stools at times, and continues to have stool contaminating his urine in his Pierce catheter. TPN was started last night. ursing also reports that he has had nonsustained runs of V. tach with activity.May also feel he is getting a bit discouraged by his condition. December 20: his morning, I was called to see the patient because he was complaining of left-sided chest pain. He did not appear to be in any acute distress, and denied any radiation of the pain, nausea or diaphoresis, shortness of breath. On exam he actually had fairly pinpoint tenderness next to the left nipple. He describes the pain as sharp and pinching in nature. EKG did not show any acute changes. Troponin was negative. Later in the morning, he said he was feeling fine again. He denies fever or chills,recurrent chest pain or palpitations. He continues to have moderate abdominal discomfort, which is positional. He continues to have mild dyspnea with any exertion, but is mostly staying in bed. He still has his Pierce catheter in, which is still draining fecal stained urine. December 21: Today, the patient notes she is feeling okay. He is having less abdominal pain. he does admit, though, that he is feeling quite discouraged, by feeling so poorly for so long. He worries about how the surgery will go. Otherwise, he denies subjective fever or chills, chest pain or shortness of breath, nausea or vomiting constipation, dysuria. December 22: The patient has no particular complaints today. His abdominal discomfort overall is improving. He denies subjective fever or chills, chest pain or shortness of breath, significant abdominal pain, nausea or vomiting, or significant bloody stools. Pierce catheter remains in place. December 23: the patient is now status post small bowel resection and bladder repair. e is a bit groggy, and says he feels "rough", but denies significant pain currently. He denies current chest pain or trouble breathing. Abdomen feels a bit bloated. Apparently a malignant neoplasm was found at surgery, eroding through the small bowel into the bladder. - Constitutional Vitals: Vital Signs Temp Pulse Resp BP Pulse Ox 98.6 F 82 20 153/91 100 12/23/16 16:15 12/23/16 15:31 12/23/16 18:14 12/23/16 18:14 12/23/16 18:14 Period Temp Pulse Resp BP Sys/Lerma Pulse Ox Last 24 Hr 97.2 F-98.9 F 70-88 18-27 136-175/62-98 96-100 Intake and Output 12/23/16 12/23/16 12/23/16 05:59 13:59 21:59 Intake Total 300 / 300 3450 / 3450 Output Total 1999 2600 / 2600 Balance -1700 / -1700 850 / 850 Intake & Output: Intake & Output 12/23/16 12/23/16 12/23/16 05:59 13:59 21:59 Intake Total 300 / 300 3450 / 3450 Output Total 1999 2600 / 2600 Balance -1700 / -1700 850 / 850 Intake: IV 200 / 200 2750 / 2750 Sodium Chloride 0.9% 100 100 / 100 100 / 100 ml @ 100 mls/hr IV Q8 DARWIN with Primaxin 500 mg Rx# :[id number] Sodium Chloride 0.9% 250 250 / 250 ml @ 250 mls/hr IV Q12 DARWIN with Vancomycin 1,000 mg Rx#:[id number] Oral 100 / 100 IV - Manual Only 700 / 700 Output: Urine Catheter Amount 1999 2200 / 2200 Estimated Blood Loss 400 / 400 Other: # Bowel Movements 0 Exam: cardiac exam shows regular rate and rhythm. Lungs sound clear. Abdomen is fairly soft. Incision is clean and dry. NG tube and Pierce catheter are in place. He is having brisk urine output. Extremities show no significant edema. Neurologic: Although sleepy, the patient appears oriented and answers questions appropriately. No significant tremor is seen at this time. Medical - PN: Obj Da - Labs CBC & Chem 7: 12/22/16 10:54 12/23/16 07:35 Labs: Abnormal Lab Results 12/23/16 12/23/16 12/23/16 07:35 05:55 05:55 WBC RBC Hgb Hct RDW Gran % Lymph % (Auto) Gran # Lymph # PT 16.7 H INR 1.3 H Sodium 146 H Chloride 115 H Carbon Dioxide 15 L BUN 26 H Glucose Uric Acid 1.1 L Calcium 8.0 L Phosphorus 2.2 L Magnesium 2.6 H GGT 82 H Alkaline Phosphatase 146 H Lactate Dehydrogenase 301 H Total Protein 5.8 L Albumin 2.5 L Albumin/Globulin Ratio 0.8 L Prealbumin 14.7 L 12/22/16 12/22/16 12/22/16 10:54 03:57 03:57 WBC 16.1 H RBC Hgb 11.9 L Hct 38.5 L RDW 20.3 H Gran % 89.3 H Lymph % (Auto) 5.1 L Gran # 14.4 H Lymph # 0.8 L PT INR Sodium Chloride 113 H Carbon Dioxide 16 L BUN 24 H Glucose Uric Acid 0.9 L Calcium 7.9 L Phosphorus Magnesium GGT 69 H Alkaline Phosphatase 121 H Lactate Dehydrogenase 263 H Total Protein 5.4 L Albumin 2.2 L Albumin/Globulin Ratio 0.7 L Prealbumin 12.0 L 12/21/16 12/21/16 12/21/16 05:16 05:15 05:15 WBC 15.5 H RBC 3.99 L Hgb 10.6 L Hct 33.4 L RDW 20.3 H Gran % 87.4 H Lymph % (Auto) 6.0 L Gran # 13.5 H Lymph # 0.9 L PT INR Sodium Chloride 111 H Carbon Dioxide 17 L BUN Glucose 106 H Uric Acid 0.9 L Calcium 7.6 L Phosphorus 2.4 L Magnesium GGT Alkaline Phosphatase Lactate Dehydrogenase 276 H Total Protein 4.9 L Albumin 2.6 L Albumin/Globulin Ratio Prealbumin 12.0 L December 20: - -CT angiogram of the chest, was negative for PE. There are bilateral patchy pulmonary infiltrates consistent with pneumonia. There are also bilateral pleural effusions, and a large hiatal hernia. -eKG shows sinus rhythm at a rate of 65, with somewhat low voltage. Otherwise, there are no acute appearing ST T changes. -troponin is normal at less than 0.01. December 19: -Chest x-ray shows cardiomegaly with prominent pulmonary vasculature consistent with congestion. December 162016: -TSH was normal at 1.6 -Lactic acid was normal at 0.9. -urinalysis from Novemberhowed color green, pH 6, specific gravity 1.020, 300 mg of protein, trace ketones, large leukocyte esterase, negative nitrites, large RBCs -blood culture from last night showing no growth so far -chest x-ray from this morning shows mild cardiomegaly without signs of CHF. There is also prominent hiatal hernia. -EKG shows sinus rhythm at a rate of 65, with left ventricular strain pattern, but no acute ST-T changes. -CT scan from December 12, 2016: Shows an enterovesical fistula with possible 8 cm abscess in the right false pelvis which communicates with the right dome of the bladder. Also noted was a solitary 5 mm stone in the gallbladder. There are also tiny stones noted in the right kidney. Follow-up images with oral contrast did show a large 12 cm thick-walled cavity in the right false pelvis communicating with the urinary bladder dome, with a 3 cm fistula opening. This cavity also communicates with multiple loops of small bowel. Meds: Medications Diagnostic Test (Pha) (Accu-Chek) 1 each FS DAILY DARWIN PRN Reason: Protocol Diazepam (Valium) 5 mg IV Q4 [facility] Last Admin: 12/23/16 16:20 Dose: 5 mg Fentanyl (Duragesic) 100 mcg TD Q48H [facility] Heparin Sodium (Porcine) (Heparin Flush) 2 ml IV Q12 [facility]ARWIN Hydromorphone HCl (Dilaudid) 1 mg IV Q2HP PRN PRN Reason: Pain Last Admin: 12/23/16 17:27 Dose: 1 mg Fat Emulsion Intravenous (Intralipid 20%) 250 mls @ 25 mls/hr IV [id number] [facility] Last Admin: 12/23/16 16:14 Dose: 25 mls/hr Imipenem/Cilastatin Sodium 500 (mg/ Sodium Chloride) 100 mls @ 100 mls/hr IV Q8 [facility] Last Infusion: 12/23/16 17:41 Dose: Infused Vancomycin HCl 1,000 mg/ (Sodium Chloride) 250 mls @ 250 mls/hr IV Q12 [facility] Last Infusion: 12/23/16 17:47 Dose: Infused Metronidazole (Flagyl) 500 mg in 100 mls @ 100 mls/hr IV Q6 [facility] Last Infusion: 12/23/16 17:40 Dose: Infused Sodium Chloride (Sodium Chloride 0.9%) 1,000 mls @ 125 mls/hr IV .Q8H [facility] Last Admin: 12/23/16 15:30 Dose: 125 mls/hr Calcium Gluconate 10 meq/Magnesium Sulfate 8.12 meq/Potassium Phosphate 70 meq/ Multivitamins/Minerals 10 ml/Selenium 60 mcg/ Amino Acids 2,050.9144 mls @ 70 mls/hr IV Q24H [facility] Last Admin: 12/23/16 16:15 Dose: 70 mls/hr Acetaminophen (Ofirmev) 1,000 mg in 100 mls @ 200 mls/hr IV Q6H PRN PRN Reason: Pain Levothyroxine Sodium (Synthroid) 50 mcg IV QAMAC [facility]ARWIN Lorazepam (Ativan) 0.5 mg IV Q4-6HP PRN PRN Reason: ANXIETY/SEDATION Metoprolol Tartrate (Lopressor) 5 mg IV Q4HP PRN PRN Reason: Tachyarrhythmias Pantoprazole Sodium (Protonix) 40 mg IV QAMAC DARWIN Apomorphine (Apokyn) (10mg/Ml) 0.3 dose SC Q2HP PRN PRN Reason: Tremors Rotigotine [Neupro] (4 Mg Patch) 1 dose TOPICAL DAILY DARWIN Rotigotine [Neupro] (8 Mg Patch) 1 dose TOPICAL DAILY DARWIN Sodium Chloride (Saline Flush) 10 ml IV UD PRN PRN Reason: FLUSH Sodium Chloride (Saline Flush) 10 ml IV Q8 [facility] Medical - PN: A/P - Time Spent With Patient Total time spent is greater than 50% in coordination of care (as documented) at patient's floor/unit and/or counseling patient: (1) Hypokalemia due to loss of potassium Status: Acute Current Visit: Yes (2) Iron deficiency anemia Status: Acute Current Visit: Yes (3) Dehydration Status: Acute Current Visit: Yes (4) Enterovesical fistula Status: Acute Current Visit: No (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 GI. -small bowel-bladder abscess with fistula. etiology of this is currently uncertain. it appears there was a malignant tumor, causing this problem. The patient is now postop, and currently vital signs look very good. He has good urine output. -continue with current empiric IV antibiotics. -GERD. Protonix IV started. #2. Pulmonary. -Patient did develop a bit of respiratory distress recently. He may have been getting a bit volume overloaded. TPN was continued, but other IV fluids were stopped. we will need to follow this closely postop. -patient did have an episode of chest pain , which appears noncardiac. CT of the chest is more suggestive of pneumonia than of PE. . The patient may be having some episodes of silent aspiration. He is currently taking in very little by mouth. -continue imipenem plus metronidazole. vancomycin was added, just to be sure we are not missing a community-acquired MRSA-type pneumonia, given his debilitated state.. -echocardiogram report is finally available. This shows overall normal appearance of the heart, with left ventricular ejection fraction of 65%. There is mild aortic root dilation noted, and mild mitral regurgitation. #3. Ongoing fatigue and weight loss, -this may be multifactorial, including his ongoing Parkinson's issues, but the majority of his symptoms are almost certainly related to his current bowel and bladder issues. -he also has a history of 2 different malignancies and now, apparently has a bowel malignancy as well. -his nutritional status appears very poor, and he is now started on TPN, with the help of nutrition and pharmacy. #4. Fluids and nutrition. Severe hypokalemia. This is most likely due to recent poor by mouth intake in addition to ongoing ingestion of HCTZ. Resolved. -total serum calcium is quite low, but this corrects to normal, when the very low albumin is considered. #5. neurologic. - Parkinson's disease. he is on a very complicated medical regimen. I spoke with his neurologist, Dr. Sylvia Basilio, . She would like him to continue with the neupro patch, and says that he can certainly use the subcutaneous apomorphine up to 5 times a day for any uncontrolled Parkinson symptoms. We should resume his oral Sinemet as soon as he is able to take by mouth meds. Other than these, if he is not taking oral meds, we will have to hold his rasagiline, mirtazapine, Flexeril, Sinemet, amantadine. -history of migraines. continue with Topamax and when necessary Frova, but these will also need to be held when he is nothing by mouth. . -Restless leg syndrome. continue Klonopin and gabapentin. at some point he might also need an iron supplement, given his anemia, as I deficiency can definitely aggravate this syndrome.If he cannot take these oral meds, we can use IV Ativan to help bridge the gap. -I see that scheduled IV Valium was ordered postop. I would think IV Ativan would be easier to titrate, and it is shorter acting, so there is less chance of overdose. I will touch base with Dr. Azul to see what he prefers. #6.obstructive sleep apnea.patient reports this as a previous diagnosis, but it is likely that this is either much improved or resolved since his significant weight loss. We have not seen signs of this during this admission. #7. History of generalized anxiety disorder. -Continue Klonopin, and use when necessary Ativan as needed. -i do think he is showing signs of depression as well. It might be worthwhile adding an SSRI to his regimen. #8. . -It sounds like the patient has a long history of urinary symptoms, and is currently maintained on Flomax as well as Myrbetriq. -Dr. Hawkins did okay holding these 2 medications. #9.reported testosterone deficiency. He is maintained on testosterone transdermal patch. This increases his risk of cardiac events and stroke and DVT. however, since he is on this chronically, it might help during the rehabilitation period to help him rebuild his muscle mass. 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 Continue fentanyl patch and supplemental morphine, Dilaudid, or oxycodone.. #11. Hypothyroidism. Continue levothyroxine. #12. Hyperlipidemia. I think the fenofibrate could be held during the perioperative period. #13. Surgical risk. This patient is certainly at moderate to high risk of complications during the perioperative period, given his complicated underlying disease processes and complicated medical regimen. Fortunately, he has no documented history of coronary disease Echocardiogram was ordered by Dr. Azul and this looks fine. -continue with DVT prophylaxis with heparin or Lovenox, and encourage ambulation as he is able. -continue atenolol during the perioperative period. #14. Hematologic. This patient does present with severe anemia, presumably due to his current GI process. He has been transfused, and this will need to be monitored closely. approximately 30 minutes was spent reviewing the patient's chart today reviewing test results, interviewing and examining him, reviewing plan of care with staff, as well as Dr. Azul. Medical - PN: Qual - Stroke Symptom Onset Unknown: No - VTE Deep Vein Thrombosis/Pulmonary Embolism Present on Admission: No
[2016-12-24] MEDS: DIAZEPAM 10 MG/2 ML SYRINGE IV SCH ×7 (00:10→23:48)
[2016-12-24] MEDS: metroNIDAZOLE 500 MG/100 ML BAG IV SCH ×6 (00:10→23:49)
[2016-12-24] MEDS: VANCOMYCIN 1,000 MG in 0.9 % SODIUM CHLORIDE 250 ML IV SCH ×3 (00:11→21:45)
[2016-12-24] MEDS: HYDROmorphone 2 MG/ML SYRINGE IV PRN ×2 (00:29→06:44)
[2016-12-24] MEDS: ACETAMINOPHEN 1,000 MG/100 ML BOTTLE IV PRN ×2 (00:35→07:40)
[2016-12-24] MEDS: 0.9 % SODIUM CHLORIDE 1,000 ML IV SCH ×3 (02:29→17:26)
[2016-12-24] MEDS: IMIPENEM/CILASTATIN SODIUM 500 MG in 0.9 % SODIUM CHLORIDE 100 ML IV SCH ×3 (05:35→22:00)
[2016-12-24] MEDS: 0.9 % SODIUM CHLORIDE 10 ML SYRINGE IV SCH ×6 (05:35→22:00)
[2016-12-24 07:27] LABS: ALT/SGPT 11 U/l (0-40); Albumin 2.1 gm/dL (3.2-5.2); Albumin/Globulin Ratio 0.8 (1.0-2.3); Alkaline Phosphatase 104 U/L (39-117); Bilirubin,Direct 0.2 mg/dL (0.0-0.3); Blood Urea Nitrogen 16 mg/dl (8-23); Gamma Glutamyl Transpeptidase 53 U/L (8-61); Magnesium 2.1 mg/dL (1.6-2.5); Phosphorous 2.4 mg/dL (2.7-4.5)
[2016-12-24] MEDS: LEVOTHYROXINE 100 MCG VIAL IV SCH (08:01)
[2016-12-24] MEDS: PANTOPRAZOLE 40 MG VIAL IV SCH (08:02)
[2016-12-24] MEDS: ROTIGOTINE 8 MG TOPICAL SCH (08:12)
[2016-12-24] MEDS: ROTIGOTINE 4 MG TOPICAL SCH (08:12)
[2016-12-24] MEDS: HYDROmorphone 2 MG/ML SYRINGE IM PRN ×4 (09:10→22:05)
[2016-12-24] MEDS: fentaNYL 100 MCG PATCH TD SCH (11:10)
--- NOTE | 2016-12-24 11:44 | Internal Med Progress Note ---
Medical - PN: Subj Patient information: Note initiated : 12/24/16 at 11:39 am Service Date, if different from initiated Date: [] Patient: Tripp Melo 66 y/o M admitted on 12/16/16 for Bowel Abscess, Bladder Fistula. Chief Complaint: [] Interval history: December 17, 2016:Reason for consult: preop evaluation, hypokalemia,multiple medical problems History of present illness: Mr. 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 the patient reports he has had a steady decline for about one year now. He has been suffering with fatigue and weight loss of about 30-40 pounds over the last 3-6 months. He said about 6 months ago he was treated for melanoma on his face and had follow-up for that During that follow- up they found that he was anemic, and then found that he had guaiac positive stool. He then underwent colonoscopy and endoscopy that were apparently unrevealing. He has noticed gradually worsening dyspnea with exertion over the last several months, and in October said he had gross hematuria. That apparently triggered a referral which led to a cystoscopy at which time they found that he had not only blood but also stool in his urine Subsequent testing did confirm that he had a small bowel abscess, which had eroded into the bladder so that he now has a fistula. He was seen for follow-up in Dr. Azul 's office yesterday, and looked terrible and pale and weak, so was admitted for further workup and treatment. laboratory evaluation last night did show severe hypokalemia. he patient believes he was taking daily hydrochlorothiazide at home. He admits his diet is been very poor and that he has not had much of an appetite lately. However, he also admits that he generally has a very poor diet, and much prefers foods such as hot dogs and chili to anything even remotely involving fruits or vegetables or healthy proteins. Otherwise, the patient denies recent fever or chills, headaches or dizziness, new eye or ear symptoms. He has not had a sore throat or cough.he denies chest pain or palpitations, significant abdominal pain, heartburn, nausea or vomiting , and initially denied any diarrhea or constipation However,he then admitted that he has been having bloody stools for the last several days at home. Nursing staff also notes bloody stools since arrival here. -He did receive 3 units of packed red blood cells last night, as he is also quite severely anemic. -he has had Parkinson's disease for about 16 years and is managed by a neurologist. He is on a very complicated regimen for that. 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 To control that pain he does take both a fentanyl patch and subcutaneous morphine. -He also has chronic migraines, which appear to be treated with Topamax and Frova. -He also was previously diagnosed with sleep apnea, but refuses to wear CPAP. He used to be a heavy snorer, but notes he does not snore anymore since he has lost all the weight. December 18, 2016: Today,the patient notes that he seems to be having more abdominal cramping and discomfort. He feels like he has more gas.e have started him on breeze nutritional supplements, but he says he just does not like the taste at this point. Dr. Azul has asked for a PICC line to be placed, and would like to start TPN during the period. otherwise, the patient denies fever or chills, chest pain or palpitations or shortness of breath, nausea or vomiting. He continues to have blood-tinged stools and dark urine December 19: today,the patient notes he is still having abdominal pain, mainly towards the right groin area. This is crampy in nature. Nursing staff also called me earlier today to say that the patient was starting to sound a little bit wet,and he had a congested cough, and O2 saturations were a bit lower.he did feel a bit short of breath. chest x-ray did suggest pulmonary vascular congestion. otherwise, he states he is just tired. He denies overt fever or chills, chest pain or palpitations,nausea or vomiting. He continues to have loose blood and mucous stools at times, and continues to have stool contaminating his urine in his Pierce catheter. TPN was started last night. ursing also reports that he has had nonsustained runs of V. tach with activity.May also feel he is getting a bit discouraged by his condition. December 20: his morning, I was called to see the patient because he was complaining of left-sided chest pain. He did not appear to be in any acute distress, and denied any radiation of the pain, nausea or diaphoresis, shortness of breath. On exam he actually had fairly pinpoint tenderness next to the left nipple. He describes the pain as sharp and pinching in nature. EKG did not show any acute changes. Troponin was negative. Later in the morning, he said he was feeling fine again. He denies fever or chills,recurrent chest pain or palpitations. He continues to have moderate abdominal discomfort, which is positional. He continues to have mild dyspnea with any exertion, but is mostly staying in bed. He still has his Pierce catheter in, which is still draining fecal stained urine. December 21: Today, the patient notes she is feeling okay. He is having less abdominal pain. he does admit, though, that he is feeling quite discouraged, by feeling so poorly for so long. He worries about how the surgery will go. Otherwise, he denies subjective fever or chills, chest pain or shortness of breath, nausea or vomiting constipation, dysuria. December 22: The patient has no particular complaints today. His abdominal discomfort overall is improving. He denies subjective fever or chills, chest pain or shortness of breath, significant abdominal pain, nausea or vomiting, or significant bloody stools. Pierce catheter remains in place. December 23: the patient is now status post small bowel resection and bladder repair. e is a bit groggy, and says he feels "rough", but denies significant pain currently. He denies current chest pain or trouble breathing. Abdomen feels a bit bloated. Apparently a malignant neoplasm was found at surgery, eroding through the small bowel into the bladder. 12/24- patient seen in room post operative day 1. No overnight events. NG tube draining bilious output. No telemetry events. No concerns per staff. Complains of significant abdominal pain around the incision site. However alert lucid and responding verbal commands. Foleys draining clear urine. On TPN. IV fluids lowered from 125 an hour to TKO. - Constitutional Vitals: Vital Signs Temp Pulse Resp BP Pulse Ox 99.6 F 94 H 20 138/86 96 12/24/16 04:00 12/24/16 08:00 12/24/16 10:00 12/24/16 10:00 12/24/16 10:00 Period Temp Pulse Resp BP Sys/Lerma Pulse Ox Last 24 Hr 97.3 F-100.9 F 81-101 18-27 136-161/78-98 95-100 Intake and Output 12/23/16 12/24/16 12/24/16 21:59 05:59 13:59 Intake Total 3550 / 3550 1800 / 1800 998 / 998 Output Total 2600 / 2600 3350 / 3350 Balance 950 / 950 -1550 / -1550 998 / 998 Weight 143 lb 9.6 oz 143 lb 9.6 oz Intake & Output: Intake & Output 12/23/16 12/24/16 12/24/16 21:59 05:59 13:59 Intake Total 3550 / 3550 1800 / 1800 998 / 998 Output Total 2600 / 2600 3350 / 3350 Balance 950 / 950 -1550 / -1550 998 / 998 Weight 143 lb 9.6 oz 143 lb 9.6 oz Intake: IV 2850 / 2850 1800 / 1800 998 / 998 Sodium Chloride 0.9% 1, 1000 / 1000 698 / 698 000 ml @ 125 mls/hr IV . Q8H [facility] Rx#:[id number] OFIRMEV 1,000 mg In 100 100 / 100 100 / 100 ml @ 200 mls/hr IV Q6H PRN Rx#:[id number] Intralipid 20% 250 ml @ 250 / 250 25 mls/hr IV [id number]@1600 [facility] Rx#:[id number] Sodium Chloride 0.9% 100 100 / 100 100 / 100 100 / 100 ml @ 100 mls/hr IV Q8 [facility] with Primaxin 500 mg Rx# :[id number] Sodium Chloride 0.9% 250 250 / 250 250 / 250 ml @ 250 mls/hr IV Q12 [facility] with Vancomycin 1,000 mg Rx#:[id number] IV - Manual Only 700 / 700 Output: Gastric Drainage 150 / 150 Right Nare 150 / 150 Urine Catheter Amount 2200 / 2200 3200 / 3200 Estimated Blood Loss 400 / 400 Other: # Bowel Movements 0 General appearance: moderate distress Exam: abdominal pain around the incision site nonlabored breathing no telemetry events Foleys draining clear urine Medical - PN: Obj Da - Labs CBC & Chem 7: 01/29/17 10:54 12/24/16 03:55 Labs: Abnormal Lab Results 12/24/16 12/23/16 12/23/16 03:55 07:35 05:55 WBC Hgb Hct RDW Gran % Lymph % (Auto) Gran # Lymph # PT 16.7 H INR 1.3 H Sodium 146 H Potassium 3.1 L Chloride 115 H Carbon Dioxide 17 L 15 L BUN 26 H Creatinine 0.6 L Glucose 144 H Uric Acid 1.0 L 1.1 L Calcium 7.4 L 8.0 L Phosphorus 2.4 L 2.2 L Magnesium 2.6 H GGT 82 H Alkaline Phosphatase 146 H Lactate Dehydrogenase 287 H 301 H Total Protein 4.8 L 5.8 L Albumin 2.1 L 2.5 L Albumin/Globulin Ratio 0.8 L 0.8 L Prealbumin 12/23/16 12/22/16 12/22/16 05:55 10:54 03:57 WBC 16.1 H Hgb 11.9 L Hct 38.5 L RDW 20.3 H Gran % 89.3 H Lymph % (Auto) 5.1 L Gran # 14.4 H Lymph # 0.8 L PT INR Sodium Potassium Chloride 113 H Carbon Dioxide 16 L BUN 24 H Creatinine Glucose Uric Acid 0.9 L Calcium 7.9 L Phosphorus Magnesium GGT 69 H Alkaline Phosphatase 121 H Lactate Dehydrogenase 263 H Total Protein 5.4 L Albumin 2.2 L Albumin/Globulin Ratio 0.7 L Prealbumin 14.7 L 12/22/16 03:57 WBC Hgb Hct RDW Gran % Lymph % (Auto) Gran # Lymph # PT INR Sodium Potassium Chloride Carbon Dioxide BUN Creatinine Glucose Uric Acid Calcium Phosphorus Magnesium GGT Alkaline Phosphatase Lactate Dehydrogenase Total Protein Albumin Albumin/Globulin Ratio Prealbumin 12.0 L Meds: Medications Diagnostic Test (Pha) (Accu-Chek) 1 each FS DAILY [facility] PRN Reason: Protocol Last Admin: 12/24/16 09:17 Dose: 1 each Diazepam (Valium) 5 mg IV Q4 [facility] Last Admin: 12/24/16 08:03 Dose: 5 mg Fentanyl (Duragesic) 100 mcg TD Q48H [facility] Last Admin: 12/24/16 11:10 Dose: 100 mcg Heparin Sodium (Porcine) (Heparin Flush) 2 ml IV Q12 [facility] Last Admin: 12/24/16 08:02 Dose: 2 ml Hydromorphone HCl (Dilaudid) 2 mg IM Q2HP PRN PRN Reason: Pain Last Admin: 12/24/16 09:10 Dose: 2 mcg Fat Emulsion Intravenous (Intralipid 20%) 250 mls @ 25 mls/hr IV [id number] [facility] Last Infusion: 12/24/16 02:34 Dose: Infused Imipenem/Cilastatin Sodium 500 (mg/ Sodium Chloride) 100 mls @ 100 mls/hr IV Q8 [facility] Last Infusion: 12/24/16 08:04 Dose: Infused Vancomycin HCl 1,000 mg/ (Sodium Chloride) 250 mls @ 250 mls/hr IV Q12 [facility] Last Admin: 12/24/16 10:05 Dose: 250 mls/hr Metronidazole (Flagyl) 500 mg in 100 mls @ 100 mls/hr IV Q6 [facility] Last Infusion: 12/24/16 06:45 Dose: Infused Sodium Chloride (Sodium Chloride 0.9%) 1,000 mls @ 125 mls/hr IV .Q8H [facility] Last Admin: 12/24/16 08:04 Dose: 125 mls/hr Calcium Gluconate 10 meq/Magnesium Sulfate 8.12 meq/Potassium Phosphate 70 meq/ Multivitamins/Minerals 10 ml/Selenium 60 mcg/ Amino Acids 2,050.9144 mls @ 70 mls/hr IV Q24H [facility] Stop: 12/24/16 15:59 Last Admin: 12/23/16 16:15 Dose: 70 mls/hr Acetaminophen (Ofirmev) 1,000 mg in 100 mls @ 200 mls/hr IV Q6H PRN PRN Reason: Pain Last Infusion: 12/24/16 08:13 Dose: Infused Calcium Gluconate 10 meq/Magnesium Sulfate 8.12 meq/Potassium Phosphate 80 meq/ Multivitamins/Minerals 10 ml/Selenium 60 mcg/ Sodium Phosphate 10 mmol/ Potassium Acetate 20 meq/ Amino Acids 2,066.5204 mls @ 70 mls/hr IV Q24H [facility] Levothyroxine Sodium (Synthroid) 50 mcg IV QAMAC [facility] Last Admin: 12/24/16 08:01 Dose: 50 mcg Lorazepam (Ativan) 0.5 mg IV Q4-6HP PRN PRN Reason: ANXIETY/SEDATION Last Admin: 12/24/16 00:31 Dose: 0.5 mg Metoclopramide HCl (Reglan) 10 mg IV Q6 [facility] Metoprolol Tartrate (Lopressor) 5 mg IV Q4HP PRN PRN Reason: Tachyarrhythmias Pantoprazole Sodium (Protonix) 40 mg IV QAMAC [facility] Last Admin: 12/24/16 08:02 Dose: 40 mg Apomorphine (Apokyn) (10mg/Ml) 0.3 dose SC Q2HP PRN PRN Reason: Tremors Rotigotine [Neupro] (4 Mg Patch) 1 dose TOPICAL DAILY [facility] Last Admin: 12/24/16 08:12 Dose: 1 dose Rotigotine [Neupro] (8 Mg Patch) 1 dose TOPICAL DAILY [facility] Last Admin: 12/24/16 08:12 Dose: 1 dose Sodium Chloride (Saline Flush) 10 ml IV UD PRN PRN Reason: FLUSH Sodium Chloride (Saline Flush) 10 ml IV Q8 [facility] Last Admin: 12/24/16 08:03 Dose: 10 ml Medical - PN: A/P - Time Spent With Patient Total time spent is greater than 50% in coordination of care (as documented) at patient's floor/unit and/or counseling patient: 25 - 35 minutes (1) Enterovesical fistula Status: Acute Assessment and plan: * Enterovesical fistula-postop day 1. Managed by surgery * Abdominal abscess managed by surgery * Postop pain management manage per surgery * nutrition-on TPN as per surgery Hospitalist consult * Hypokalemia on replacement * Parkinson's disease-restart on home meds once able to take orally * History of migraine -oral meds on hold until able to resume by mouth * Generalized anxiety disorder-use IV benzodiazepines as needed * Hypothymism * Hyperlipidemia * Severe anemia-Status post transfusion-hemoglobin 11.9 plan * Postop management as per surgery * pre-existing medical condition management on IV meds. * Oral meds to resume once patient able to take orally Current Visit: No Medical - PN: Qual - Stroke Symptom Onset Unknown: No - VTE Deep Vein Thrombosis/Pulmonary Embolism Present on Admission: No
[2016-12-24 12:46] LABS: Magnesium 2.4 mg/dL (1.6-2.5)
[2016-12-24] MEDS: METOCLOPRAMIDE 10 MG/2 ML VIAL IV SCH ×3 (13:43→23:52)
[2016-12-24 14:12] LABS: Phosphorous 2.6 mg/dL (2.7-4.5)
[2016-12-24] MEDS ORDERED: POTASSIUM PHOSPHATE IV SCH (16:00)
[2016-12-24] MEDS ORDERED: CALCIUM GLUCONATE IV SCH (16:00)
[2016-12-24] MEDS ORDERED: [UNRECOGNIZED DRUG - OTHER] IV SCH (16:00)
[2016-12-24] MEDS ORDERED: MVI IV SCH (16:00)
[2016-12-24] MEDS ORDERED: MAGNESIUM SULFATE IV SCH (16:00)
--- NOTE | 2016-12-24 16:27 | General Surgery Progress Note ---
Subjective Patient reports: still having pain, no flatus, no bowel movement, fever Narrative: Note initiated : 12/24/16 at 4:20 pm Service Date, if different from initiated Date: [] Patient: Tripp Melo 66 y/o M admitted on 12/16/16 for Bowel Abscess, Bladder Fistula. Chief Complaint: [ PATIENT HAS HAD A FAIR DAY. HIS MAJOR DIFFICULTY IS PAIN CONTROL. HE IS RECEIVING 2MM DILAUDID Q2H WITH MINIMAL RELIEF EVEN THOUGH HE ALSO HAS ON 100MCG FENTANYL PATCH. HE HAS HAD SOME FEVER AND SWEATS. HIS URINE IS CLEAR EXCEPT FOR SLIGHT BLOOD TINGE.] Objective Temp Pulse Resp BP Pulse Ox 100.4 F H 78 20 152/82 99 12/24/16 15:59 12/24/16 14:00 12/24/16 15:59 12/24/16 15:59 12/24/16 15:59 - Additional Data Intake & Output - Last 24 hours: Intake & Output 12/22/16 12/23/16 12/24/16 12/25/16 05:59 05:59 05:59 05:59 Intake Total 1580 / 1580 2030 / 2030 5450 / 5450 1248 / 1248 Output Total 875 / 875 3525 / 3525 5950 / 5950 2600 / 2600 Balance 705 / 705 -1495 / -1495 -500 / -500 -1352 / -1352 Weight 153 lb 8 oz 153 lb 143 lb 9.6 oz 143 lb 9.6 oz - General physical appearance moderate distress, moderate pain, chronically ill - Eyes PERRL - ENT no congestion - Neck no venous distension - Respiratory clear to auscultation, other (MILDSPLINTING WITH DEEP INSPIRATION) - Cardiovascular Cardiovascular exam: Present: RRR, +S1, +S2, tachycardia - Abdomen tender, distended (ABDOMEN IS MILDLY DISTENDED WITH FEW ACTIVE BOWEL SOUNDS; INCISION LOOKS GOOD WITHOUT DRAINAGE.) - Integumentary no rash - Neurologic normal coordination, normal sensation - Psychiatric oriented to time, oriented to person, oriented to place, speech is normal, memory intact - Labs 12/22/16 10:54 12/24/16 03:55 Diabetes panel 12/24/16 Range/Units 03:55 Sodium 138 (133-145) mmol/L Potassium 3.1 L (3.3-5.1) mmol/L Chloride 108 (96-108) mmol/L Carbon Dioxide 17 L (22-30) mmol/L BUN 16 (8-23) mg/dl Creatinine 0.6 L (0.7-1.2) mg/dl Glucose 144 H (70-105) mg/dL Calcium 7.4 L (8.6-10.4) mg/dl AST 12 (0-37) U/l ALT 11 (0-40) U/l Alkaline Phosphatase 104 (39-117) U/L Total Protein 4.8 L (5.9-8.4) gm/dL Albumin 2.1 L (3.2-5.2) gm/dL Triglycerides 47 (<150) mg/dl Calcium panel 12/24/16 12/24/16 12/24/16 Range/Units 03:55 11:02 13:08 Calcium 7.4 L (8.6-10.4) mg/dl Phosphorus 2.4 L TNP 2.6 L (2.7-4.5) mg/dL Albumin 2.1 L (3.2-5.2) gm/dL Pituitary panel 12/24/16 Range/Units 03:55 Sodium 138 (133-145) mmol/L Potassium 3.1 L (3.3-5.1) mmol/L Chloride 108 (96-108) mmol/L Carbon Dioxide 17 L (22-30) mmol/L BUN 16 (8-23) mg/dl Creatinine 0.6 L (0.7-1.2) mg/dl Glucose 144 H (70-105) mg/dL Calcium 7.4 L (8.6-10.4) mg/dl Adrenal panel 12/24/16 Range/Units 03:55 Sodium 138 (133-145) mmol/L Potassium 3.1 L (3.3-5.1) mmol/L Chloride 108 (96-108) mmol/L Carbon Dioxide 17 L (22-30) mmol/L BUN 16 (8-23) mg/dl Creatinine 0.6 L (0.7-1.2) mg/dl Glucose 144 H (70-105) mg/dL Calcium 7.4 L (8.6-10.4) mg/dl Total Bilirubin 0.5 (0.0-1.0) mg/dL AST 12 (0-37) U/l ALT 11 (0-40) U/l Alkaline Phosphatase 104 (39-117) U/L Total Protein 4.8 L (5.9-8.4) gm/dL Albumin 2.1 L (3.2-5.2) gm/dL Medical - PN: A/P - Time Spent With Patient Total time spent is greater than 50% in coordination of care (as documented) at patient's floor/unit and/or counseling patient: (1) Enterovesical fistula Status: Acute Assessment and plan: PATIENT IS STABLE WILL CONTINUE ON PRESENT THERAPY .. Current Visit: No (2) Dehydration Status: Resolved Current Visit: Yes (3) Hypokalemia due to loss of potassium Status: Resolved Current Visit: Yes (4) Iron deficiency anemia Status: Acute Current Visit: Yes (5) Anemia Status: Chronic Current Visit: No (6) Parkinson disease Status: Chronic Current Visit: No (7) Sleep apnea, obstructive Status: Chronic Current Visit: No
--- NOTE | 2016-12-24 17:10 | Operative Note ---
DATE OF OPERATION: 12/23/2016 PREOPERATIVE DIAGNOSIS: Small bowel abscess with bladder fistula. 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 PROCEDURE: Excision of small bowel abscess and fistulas with excision of posterior wall of bladder. SURGEON: Jim Azul MD. SPE[employer]CH [employer] TEACHER SURGEON: Hebert Hawkins MD. FINDINGS: Infiltrating malignant neoplasm of small bowel with involvement of multiple small bowel loops and erosion of entire posterior wall of the bladder without involvement of the trigone area. DESCRIPTION OF PROCEDURE: Under general anesthesia, the patient's abdomen was prepped and draped in the sterile field. A timeout procedure was carried out as per protocol. A midline incision was made. Upon entering the abdomen a large, hard mass was found in the right lower quadrant and extended to the posterior wall of the bladder. The incision was extended to get better visualization. Palpation revealed that the large abscess cavity revealed multiple loops of terminal ileum that were densely infiltrated with neoplastic tissue. The primary process appeared to be small bowel wall. It was possible to dissect some of the loops of bowel off of the mass. However, with the dense adherence of the mass to the bladder it was felt that the only way to mobilize it was going to be to fractionate the inflamed infiltrating mass from the posterior wall of the bladder. The infiltrating neoplasm was soft and using finger fractionation I was able to separate the abscess cavity and the small bowel loops from the posterior wall of the bladder. The posterior wall of the bladder was totally eroded. Once this was done, a moderate amount of small bowel contents spilled into the pelvis. This was suctioned free and irrigated. Further inspection confirmed that in order to resect the mass that I would have to sacrifice about 2-1/2 to 3 feet of bowel loops. I divided the mesentery about 3 inches proximal to the mass and divided the ascending colon about midway between cecum and hepatic flexure. This division was done with Contour stapler. The mesentery was then serially clamped and divided taking care to remove as much of the tissue as possible. Some of the tissue was sent for frozen section. 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 It did not appear to be a primary adenocarcinoma. Once the bowel mass was excised, vessels were controlled with double ligatures of 2-0 silk. More irrigation was carried out to try to remove all of the small bowel contents. Once this was done, the abdomen was packed off and the Bookwalter retractor was placed. At that time Dr. Hawkins resected the posterior bladder wall with good margin circumferentially and did a primary two-layered closure with 2-0 Vicryl. This will be dictated in another report. Once this was done, further irrigation was carried out until all visible small bowel contents were removed. The subhepatic and subphrenic spaces were also suctioned. The bowel was then pulled into the operative field and a [id number] terminal ileum to ascending colon anastomosis was carried out using a TIM 50 stapler and a TA 60 stapler. The staple line was oversewn using running locking 3-0 Prolene. The mesenteric defect was closed with running 2-0 Monocryl. The anastomosis was widely patent and did not have any tension on the staple line. Irrigation was carried out once more. Sponge, needle, instrument and blade counts were verified as correct. A nasogastric tube was positioned in the stomach by palpation. The fascia was closed with running #1 Prolene. Subcutaneous tissue was irrigated with Bacitracin solution with a brush and then re-irrigated with more Bacitracin solution. The subcutaneous fat was closed with 2-0 Monocryl. Skin was closed with taye. The patient tolerated the procedure well. He was awakened without difficulty. He did not have any hemodynamic difficulties during the procedure. Dressing was placed. He was transferred to a bed and taken to the postanesthetic care unit in stable, satisfactory condition. LCS:padmini Job ID: [id number] Doc ID: [id number] Jim Azul M.D.
[2016-12-24 17:27] LABS: Mean Cell Volume 83.3 fL (80.0-100.0); Mean Corpuscular HGB Conc 31.8 g/dL (31.0-36.0); Mean Corpuscular Hemoglobin 26.5 pg (26.0-34.0); Platelet Count 257 K/mcL (140-440); RBC 3.67 M/mcL (4.50-5.90); Red Cell Distribution Width 20.4 % (11.5-14.5)
[2016-12-24 17:59] LABS: Anisocytosis 1+ (NONE SEEN); Lymphocytes % 3 % (15-49); Monocytes % (Manual) 2 % (1-9); Platelet Estimate NORMAL (NORMAL); RBC Morphology ABNORM (NORMAL); Segmented Neutrophils % 95 % (38-78)
[2016-12-25] MEDS: HYDROmorphone 2 MG/ML SYRINGE IM PRN ×5 (02:04→22:32)
[2016-12-25] MEDS: DIAZEPAM 10 MG/2 ML SYRINGE IV SCH ×5 (03:50→21:27)
[2016-12-25] MEDS: 0.9 % SODIUM CHLORIDE 10 ML SYRINGE IV PRN (03:50)
[2016-12-25] MEDS: 0.9 % SODIUM CHLORIDE 1,000 ML IV SCH ×2 (05:05→17:35)
[2016-12-25] MEDS: METOCLOPRAMIDE 10 MG/2 ML VIAL IV SCH ×3 (05:09→21:26)
[2016-12-25] MEDS: metroNIDAZOLE 500 MG/100 ML BAG IV SCH ×4 (05:09→23:59)
[2016-12-25] MEDS: IMIPENEM/CILASTATIN SODIUM 500 MG in 0.9 % SODIUM CHLORIDE 100 ML IV SCH ×3 (05:09→21:52)
[2016-12-25] MEDS: 0.9 % SODIUM CHLORIDE 10 ML SYRINGE IV SCH ×4 (05:10→22:12)
[2016-12-25] MEDS: PANTOPRAZOLE 40 MG VIAL IV SCH (06:52)
[2016-12-25] MEDS: LEVOTHYROXINE 100 MCG VIAL IV SCH (06:53)
[2016-12-25] MEDS: METOPROLOL TARTRATE 5 MG/5 ML VIAL IV PRN (06:56)
[2016-12-25 07:06] LABS: ALT/SGPT 10 U/l (0-40); Albumin/Globulin Ratio 0.7 (1.0-2.3); Alkaline Phosphatase 106 U/L (39-117); Bilirubin,Direct 0.3 mg/dL (0.0-0.3); Blood Urea Nitrogen 13 mg/dl (8-23); Gamma Glutamyl Transpeptidase 57 U/L (8-61); Magnesium 2.1 mg/dL (1.6-2.5); Phosphorous 2.6 mg/dL (2.7-4.5); Uric Acid 0.9 mg/dL (2.5-8.0)
--- NOTE | 2016-12-25 08:39 | XRay Report ---
CLINICAL INFORMATION: History of intra-abdominal abscess and enterovesical fistula. Postoperative abdomen TECHNIQUE: AP supine and left lateral decubitus abdomen COMPARISON: Preoperative CT scan dated 12/12/2016 FINDINGS: Skin taye in a vertical pelvic incision. There are surgical clips in the lower abdomen and pelvis There is gas within small and large bowel. There is prominent bowel and the upper abdomen. Bowel gas pattern is nonspecific. Appearance is not typical of mechanical small bowel obstruction. Mild postsurgical ileus is likely. Left lateral decubitus view is suboptimal. There is probable mild pneumoperitoneum. This is an unremarkable finding in this postoperative abdomen. There is no biliary or portal venous gas. No pneumatosis. IMPRESSION: 1. Probable mild postoperative pneumoperitoneum 2. Nonspecific bowel gas pattern. Mild postsurgical ileus suspected Interpreted and Authenticated by: Miguel Angel Solis 12/25/16
[2016-12-25] MEDS: VANCOMYCIN 1,000 MG in 0.9 % SODIUM CHLORIDE 250 ML IV SCH ×2 (09:15→21:29)
[2016-12-25] MEDS ORDERED: 0.9 % SODIUM CHLORIDE 250 ML IV SCH (10:15)
[2016-12-25] MEDS ORDERED: POTASSIUM PHOSPHATE 40 MEQ in DEXTROSE 5% IN WATER 500 ML IV ONE (13:29)
--- NOTE | 2016-12-25 14:14 | Internal Med Progress Note ---
Medical - PN: Subj Patient information: Note initiated : 12/25/16 at 2:11 pm Service Date, if different from initiated Date: [] Patient: Tripp Melo 66 y/o M admitted on 12/16/16 for Bowel Abscess, Bladder Fistula. Chief Complaint: [] Interval history: History of present illness: Mr. 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 the patient reports he has had a steady decline for about one year now. He has been suffering with fatigue and weight loss of about 30-40 pounds over the last 3-6 months. He said about 6 months ago he was treated for melanoma on his face and had follow-up for that During that follow- up they found that he was anemic, and then found that he had guaiac positive stool. He then underwent colonoscopy and endoscopy that were apparently unrevealing. He has noticed gradually worsening dyspnea with exertion over the last several months, and in October said he had gross hematuria. That apparently triggered a referral which led to a cystoscopy at which time they found that he had not only blood but also stool in his urine Subsequent testing did confirm that he had a small bowel abscess, which had eroded into the bladder so that he now has a fistula. He was seen for follow-up in Dr. Azul 's office yesterday, and looked terrible and pale and weak, so was admitted for further workup and treatment. laboratory evaluation last night did show severe hypokalemia. he patient believes he was taking daily hydrochlorothiazide at home. He admits his diet is been very poor and that he has not had much of an appetite lately. However, he also admits that he generally has a very poor diet, and much prefers foods such as hot dogs and chili to anything even remotely involving fruits or vegetables or healthy proteins. Otherwise, the patient denies recent fever or chills, headaches or dizziness, new eye or ear symptoms. He has not had a sore throat or cough.he denies chest pain or palpitations, significant abdominal pain, heartburn, nausea or vomiting , and initially denied any diarrhea or constipation However,he then admitted that he has been having bloody stools for the last several days at home. Nursing staff also notes bloody stools since arrival here. -He did receive 3 units of packed red blood cells last night, as he is also quite severely anemic. -he has had Parkinson's disease for about 16 years and is managed by a neurologist. He is on a very complicated regimen for that. 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 To control that pain he does take both a fentanyl patch and subcutaneous morphine. -He also has chronic migraines, which appear to be treated with Topamax and Frova. -He also was previously diagnosed with sleep apnea, but refuses to wear CPAP. He used to be a heavy snorer, but notes he does not snore anymore since he has lost all the weight. December 18, 2016: Today,the patient notes that he seems to be having more abdominal cramping and discomfort. He feels like he has more gas.e have started him on breeze nutritional supplements, but he says he just does not like the taste at this point. Dr. zAul has asked for a PICC line to be placed, and would like to start TPN during the period. otherwise, the patient denies fever or chills, chest pain or palpitations or shortness of breath, nausea or vomiting. He continues to have blood-tinged stools and dark urine December 19: today,the patient notes he is still having abdominal pain, mainly towards the right groin area. This is crampy in nature. Nursing staff also called me earlier today to say that the patient was starting to sound a little bit wet,and he had a congested cough, and O2 saturations were a bit lower.he did feel a bit short of breath. chest x-ray did suggest pulmonary vascular congestion. otherwise, he states he is just tired. He denies overt fever or chills, chest pain or palpitations,nausea or vomiting. He continues to have loose blood and mucous stools at times, and continues to have stool contaminating his urine in his Pierce catheter. TPN was started last night. kathe also reports that he has had nonsustained runs of V. tach with activity.May also feel he is getting a bit discouraged by his condition. December 20: his morning, I was called to see the patient because he was complaining of left-sided chest pain. He did not appear to be in any acute distress, and denied any radiation of the pain, nausea or diaphoresis, shortness of breath. On exam he actually had fairly pinpoint tenderness next to the left nipple. He describes the pain as sharp and pinching in nature. EKG did not show any acute changes. Troponin was negative. Later in the morning, he said he was feeling fine again. He denies fever or chills,recurrent chest pain or palpitations. He continues to have moderate abdominal discomfort, which is positional. He continues to have mild dyspnea with any exertion, but is mostly staying in bed. He still has his Pierce catheter in, which is still draining fecal stained urine. December 21: Today, the patient notes she is feeling okay. He is having less abdominal pain. he does admit, though, that he is feeling quite discouraged, by feeling so poorly for so long. He worries about how the surgery will go. Otherwise, he denies subjective fever or chills, chest pain or shortness of breath, nausea or vomiting constipation, dysuria. December 22: The patient has no particular complaints today. His abdominal discomfort overall is improving. He denies subjective fever or chills, chest pain or shortness of breath, significant abdominal pain, nausea or vomiting, or significant bloody stools. Pierce catheter remains in place. December 23: the patient is now status post small bowel resection and bladder repair. e is a bit groggy, and says he feels "rough", but denies significant pain currently. He denies current chest pain or trouble breathing. Abdomen feels a bit bloated. Apparently a malignant neoplasm was found at surgery, eroding through the small bowel into the bladder. 12/24- patient seen in room post operative day 1. No overnight events. NG tube draining bilious output. No telemetry events. No concerns per staff. Complains of significant abdominal pain around the incision site. However alert lucid and responding verbal commands. Foleys draining clear urine. On TPN. IV fluids lowered from 125 an hour to TKO. 12/25- patient feels depressed. Hold out NG tube last night. Complains of significant abdominal pain. On TPN. Liquid BM today. White count over 17, 000. On broad antibiotic coverage-imipenem. Surgery managing postop care. Continue management in ICU in light of worsening leukocytosis. reinsert NG tube if patient agrees. - Constitutional Vitals: Vital Signs Temp Pulse Resp BP Pulse Ox 99.6 F 102 H 20 140/89 96 12/25/16 12:00 12/25/16 12:00 12/25/16 12:00 12/25/16 12:00 12/25/16 12:00 Period Temp Pulse Resp BP Sys/Lerma Pulse Ox Last 24 Hr 99 F-100.9 F 93-102 20-24 122-157/79-94 94-100 Intake and Output 12/25/16 12/25/16 12/25/16 05:59 13:59 21:59 Intake Total 550 / 550 283 / 283 Output Total 2475 / 2475 Balance -1925 / -1925 283 / 283 Intake & Output: Intake & Output 12/25/16 12/25/16 12/25/16 05:59 13:59 21:59 Intake Total 550 / 550 283 / 283 Output Total 2475 / 2475 Balance -1925 / -1925 283 / 283 Intake: IV 550 / 550 283 / 283 Sodium Chloride 0.9% 100 200 / 200 ml @ 100 mls/hr IV Q8 DARWIN with Primaxin 500 mg Rx# :[id number] Sodium Chloride 0.9% 250 250 / 250 183 / 183 ml @ 250 mls/hr IV Q12 DARWIN with Vancomycin 1,000 mg Rx#:[id number] Output: Gastric Drainage 150 / 150 Right Nare 150 / 150 Urine Catheter Amount 2325 / 2325 General appearance: moderate distress Exam: anxious and depressed Nonlabored breathing Telemetry no evidence for relieving care urine postoperative pain nondistended abdomen Medical - PN: Obj Da - Labs CBC & Chem 7: 12/24/16 16:47 12/25/16 04:00 Labs: Abnormal Lab Results 12/25/16 12/24/16 12/24/16 04:00 16:47 13:08 WBC 17.4 H RBC 3.67 L Hgb 9.7 L Hct 30.6 L RDW 20.4 H Seg Neutrophils % 95 H Lymphocytes % 3 L RBC Morphology Abnorm A Anisocytosis 1+ A PT INR APTT Sodium Potassium 3.1 L Chloride Carbon Dioxide 19 L BUN Creatinine 0.5 L Glucose 152 H Uric Acid 0.9 L Calcium 7.8 L Phosphorus 2.6 L 2.6 L Magnesium GGT Alkaline Phosphatase Lactate Dehydrogenase 300 H Total Protein 5.0 L Albumin 2.0 L Albumin/Globulin Ratio 0.7 L Prealbumin 12/24/16 12/24/16 12/23/16 11:02 03:55 07:35 WBC RBC Hgb Hct RDW Seg Neutrophils % Lymphocytes % RBC Morphology Anisocytosis PT 25.1 H INR 2.2 H APTT 48 H Sodium 146 H Potassium 3.1 L Chloride 115 H Carbon Dioxide 17 L 15 L BUN 26 H Creatinine 0.6 L Glucose 144 H Uric Acid 1.0 L 1.1 L Calcium 7.4 L 8.0 L Phosphorus 2.4 L 2.2 L Magnesium 2.6 H GGT 82 H Alkaline Phosphatase 146 H Lactate Dehydrogenase 287 H 301 H Total Protein 4.8 L 5.8 L Albumin 2.1 L 2.5 L Albumin/Globulin Ratio 0.8 L 0.8 L Prealbumin 12/23/16 12/23/16 05:55 05:55 WBC RBC Hgb Hct RDW Seg Neutrophils % Lymphocytes % RBC Morphology Anisocytosis PT 16.7 H INR 1.3 H APTT Sodium Potassium Chloride Carbon Dioxide BUN Creatinine Glucose Uric Acid Calcium Phosphorus Magnesium GGT Alkaline Phosphatase Lactate Dehydrogenase Total Protein Albumin Albumin/Globulin Ratio Prealbumin 14.7 L Meds: Medications Diagnostic Test (Pha) (Accu-Chek) 1 each FS Q6 [facility] Last Admin: 12/25/16 12:51 Dose: 1 each Diazepam (Valium) 5 mg IV Q4 [facility] Last Admin: 12/25/16 12:34 Dose: 5 mg Fentanyl (Duragesic) 100 mcg TD Q48H [facility] Last Admin: 12/24/16 11:10 Dose: 100 mcg Heparin Sodium (Porcine) (Heparin Flush) 2 ml IV Q12 [facility] Last Admin: 12/25/16 09:11 Dose: 2 ml Hydromorphone HCl (Dilaudid) 2 mg IM Q2HP PRN PRN Reason: Pain Last Admin: 12/25/16 11:01 Dose: 2 mg Fat Emulsion Intravenous (Intralipid 20%) 250 mls @ 25 mls/hr IV [id number] [facility] Last Infusion: 12/24/16 02:34 Dose: Infused Imipenem/Cilastatin Sodium 500 (mg/ Sodium Chloride) 100 mls @ 100 mls/hr IV Q8 [facility] Last Infusion: 12/25/16 05:53 Dose: Infused Vancomycin HCl 1,000 mg/ (Sodium Chloride) 250 mls @ 250 mls/hr IV Q12 [facility] Last Infusion: 12/25/16 09:59 Dose: 250 mls/hr Metronidazole (Flagyl) 500 mg in 100 mls @ 100 mls/hr IV Q6 [facility] Last Admin: 12/25/16 12:44 Dose: 100 mls/hr Acetaminophen (Ofirmev) 1,000 mg in 100 mls @ 200 mls/hr IV Q6H PRN PRN Reason: Pain Last Infusion: 12/24/16 08:13 Dose: Infused Calcium Gluconate 10 meq/Magnesium Sulfate 8.12 meq/Potassium Phosphate 80 meq/ Multivitamins/Minerals 10 ml/Selenium 60 mcg/ Sodium Phosphate 10 mmol/ Potassium Acetate 20 meq/ Amino Acids 2,066.5204 mls @ 85 mls/hr IV Q24H [facility] Stop: 12/25/16 15:59 Last Admin: 12/24/16 15:59 Dose: 85 mls/hr Sodium Chloride (Sodium Chloride 0.9%) 1,000 mls @ 20 mls/hr IV .Q24H [facility] Last Admin: 12/25/16 05:05 Dose: 20 mls/hr Calcium Gluconate 10 meq/Magnesium Sulfate 8.12 meq/Potassium Phosphate 80 meq/ Multivitamins/Minerals 10 ml/Selenium 60 mcg/ Sodium Phosphate 10 mmol/ Potassium Acetate 20 meq/ Potassium Chloride 20 meq/ Amino Acids 2,076.5204 mls @ 85 mls/hr IV Q24H [facility] Sodium Chloride (Sodium Chloride 0.9%) 250 mls @ 20 mls/hr IV .[id number] [facility] Stop: 12/25/16 22:44 Last Admin: 12/25/16 12:53 Dose: 20 mls/hr Potassium Phosphate 40 meq/ (Dextrose) 509.0909 mls @ 127.273 mls/hr IV ONCE ONE Stop: 12/25/16 17:28 Levothyroxine Sodium (Synthroid) 50 mcg IV QAMAC [facility] Last Admin: 12/25/16 06:53 Dose: 50 mcg Lorazepam (Ativan) 0.5 mg IV Q4-6HP PRN PRN Reason: ANXIETY/SEDATION Last Admin: 12/24/16 00:31 Dose: 0.5 mg Metoclopramide HCl (Reglan) 10 mg IV Q6 [facility] Last Admin: 12/25/16 12:44 Dose: 10 mg Metoprolol Tartrate (Lopressor) 5 mg IV Q4HP PRN PRN Reason: Tachyarrhythmias Last Admin: 12/25/16 06:56 Dose: 5 mg Pantoprazole Sodium (Protonix) 40 mg IV QAMAC [facility] Last Admin: 12/25/16 06:52 Dose: 40 mg Apomorphine (Apokyn) (10mg/Ml) 0.3 dose SC Q2HP PRN PRN Reason: Tremors Rotigotine [Neupro] (4 Mg Patch) 1 dose TOPICAL DAILY [facility] Last Admin: 12/24/16 08:12 Dose: 1 dose Rotigotine [Neupro] (8 Mg Patch) 1 dose TOPICAL DAILY [facility] Last Admin: 12/24/16 08:12 Dose: 1 dose Sodium Chloride (Saline Flush) 10 ml IV UD PRN PRN Reason: FLUSH Last Admin: 12/25/16 03:50 Dose: 10 ml Sodium Chloride (Saline Flush) 10 ml IV Q8 [facility] Last Admin: 12/25/16 05:10 Dose: 10 ml Medical - PN: A/P - Time Spent With Patient Total time spent is greater than 50% in coordination of care (as documented) at patient's floor/unit and/or counseling patient: 25 - 35 minutes (Critical care) (1) Enterovesical fistula Status: Acute Assessment and plan: * Enterovesical fistula-postop day 2. Managed by surgery * Abdominal abscess managed by surgery. On broad antibiotics * Postop pain management manage per surgery * nutrition-on TPN as per surgery Hospitalist consult * severe sepsis secondary to intra-abdominal abscess- leukocytosis at 17.4. Broad antibiotic coverage * Hypokalemia on IV replacement. potassium 3.1 * Parkinson's disease-meds on hold until NPO * History of migraine -oral meds on hold until NPO * Generalized anxiety disorder-use IV benzodiazepines as needed * hypothyroidism * Hyperlipidemia * Severe anemia-Status post transfusion-hemoglobin 11.9 plan * Postop management as per surgery * reinsert NG tube * Sepsis management per guidelines * pre-existing medical condition management on as needed IV replacement until NPO. Current Visit: No Medical - PN: Qual - Stroke Symptom Onset Unknown: No - VTE Deep Vein Thrombosis/Pulmonary Embolism Present on Admission: No
--- NOTE | 2016-12-25 14:24 | XRay Report ---
CLINICAL INFORMATION: Status post nasogastric tube placement TECHNIQUE: AP, supine chest x-ray COMPARISON: Previous examination dated 12/20/2016 FINDINGS: Right-sided central venous catheter with its tip in the right atrium. Esophagogastric tube with its tip in the midesophagus. This is not within the stomach. Increased density left retrocardiac region consistent with volume loss. Scattered bilateral parenchymal densities consistent atelectasis or infiltrate. There is cardiomegaly, unchanged. Intensive care unit was called, 12/25/2016, 1415 IMPRESSION: Esophagogastric tube with its tip in the mid esophagus Interpreted and Authenticated by: Miguel Angel Solis 12/25/16
--- NOTE | 2016-12-25 14:26 | XRay Report ---
CLINICAL INFORMATION: NG tube placement TECHNIQUE: AP supine abdomen COMPARISON: Previous examination dated 12/25/2016 FINDINGS: There is no esophagogastric tube visible. No esophagogastric tube within the stomach. There is gaseous distention of small bowel in the left upper quadrant. This is a postoperative examination and findings may be due to postoperative ileus. No biliary or portal venous gas. IMPRESSION: No esophagogastric tube visualized. Interpreted and Authenticated by: Miguel Angel Solis 12/25/16
--- NOTE | 2016-12-25 14:27 | General Surgery Progress Note ---
Subjective Narrative: Note initiated : 12/25/16 at 2:24 pm Service Date, if different from initiated Date: [] Patient: Tripp Melo 66 y/o M admitted on 12/16/16 for Bowel Abscess, Bladder Fistula. Chief Complaint: [ patient is much more depressed today. he is poorly responsive and he has pulled his n.g tube out. he had a small bowel movement yesterday but none today . he does not answer questions. his pain seems to be in control. ] Objective Temp Pulse Resp BP Pulse Ox 99.6 F 102 H 20 140/89 96 12/25/16 12:00 12/25/16 12:00 12/25/16 12:00 12/25/16 12:00 12/25/16 12:00 - Additional Data Intake & Output - Last 24 hours: Intake & Output 12/23/16 12/24/16 12/25/16 12/26/16 05:59 05:59 05:59 05:59 Intake Total 2029 / 2029 5450 / 5450 2098 / 2098 283 / 283 Output Total 3525 / 3525 5950 / 5950 5075 / 5075 Balance -1495 / -1495 -500 / -500 -2977 / -2977 283 / 283 Weight 153 lb 143 lb 9.6 oz 139 lb 14.4 oz - General physical appearance moderate distress, chronically ill - Eyes PERRL - ENT no congestion - Neck no venous distension - Respiratory normal respiratory effort, clear to auscultation - Cardiovascular Cardiovascular exam: Present: normal rate and rhythm, RRR, +S1, +S2 - Abdomen tender, bowel sounds, distended (distended with more active bowel sounds. moderate tenderness) - Integumentary no rash, no growths, no abnormal pigmentation - Psychiatric other (very depressed and non communicative to anyone) - Labs 12/24/16 16:47 12/25/16 04:00 Diabetes panel 12/25/16 Range/Units 04:00 Sodium 137 (133-145) mmol/L Potassium 3.1 L (3.3-5.1) mmol/L Chloride 104 (96-108) mmol/L Carbon Dioxide 19 L (22-30) mmol/L BUN 13 (8-23) mg/dl Creatinine 0.5 L (0.7-1.2) mg/dl Glucose 152 H (70-105) mg/dL Calcium 7.8 L (8.6-10.4) mg/dl AST 12 (0-37) U/l ALT 10 (0-40) U/l Alkaline Phosphatase 106 (39-117) U/L Total Protein 5.0 L (5.9-8.4) gm/dL Albumin 2.0 L (3.2-5.2) gm/dL Triglycerides 54 (<150) mg/dl Calcium panel 12/25/16 Range/Units 04:00 Calcium 7.8 L (8.6-10.4) mg/dl Phosphorus 2.6 L (2.7-4.5) mg/dL Albumin 2.0 L (3.2-5.2) gm/dL Pituitary panel 12/25/16 Range/Units 04:00 Sodium 137 (133-145) mmol/L Potassium 3.1 L (3.3-5.1) mmol/L Chloride 104 (96-108) mmol/L Carbon Dioxide 19 L (22-30) mmol/L BUN 13 (8-23) mg/dl Creatinine 0.5 L (0.7-1.2) mg/dl Glucose 152 H (70-105) mg/dL Calcium 7.8 L (8.6-10.4) mg/dl Adrenal panel 12/25/16 Range/Units 04:00 Sodium 137 (133-145) mmol/L Potassium 3.1 L (3.3-5.1) mmol/L Chloride 104 (96-108) mmol/L Carbon Dioxide 19 L (22-30) mmol/L BUN 13 (8-23) mg/dl Creatinine 0.5 L (0.7-1.2) mg/dl Glucose 152 H (70-105) mg/dL Calcium 7.8 L (8.6-10.4) mg/dl Total Bilirubin 0.7 (0.0-1.0) mg/dL AST 12 (0-37) U/l ALT 10 (0-40) U/l Alkaline Phosphatase 106 (39-117) U/L Total Protein 5.0 L (5.9-8.4) gm/dL Albumin 2.0 L (3.2-5.2) gm/dL - Imaging Chest x-ray: report reviewed, image reviewed Abdominal x-ray: report reviewed, image reviewed Medical - PN: A/P - Time Spent With Patient Total time spent is greater than 50% in coordination of care (as documented) at patient's floor/unit and/or counseling patient: (1) Enterovesical fistula Status: Acute Assessment and plan: PATIENT IS STABLE WILL CONTINUE ON PRESENT THERAPY leave ng out for now check abdominal series in a.m... Current Visit: No (2) Dehydration Status: Resolved Current Visit: Yes (3) Hypokalemia due to loss of potassium Status: Resolved Current Visit: Yes (4) Iron deficiency anemia Status: Acute Current Visit: Yes (5) Anemia Status: Chronic Current Visit: No (6) Parkinson disease Status: Chronic Current Visit: No (7) Sleep apnea, obstructive Status: Chronic Current Visit: No
--- NOTE | 2016-12-25 14:30 | XRay Report ---
CLINICAL INFORMATION: Esophagogastric tube placement TECHNIQUE: AP, supine abdomen COMPARISON: Previous examinations dated 12/25/2016 FINDINGS: No esophagogastric tube visible. There continues to be dilated gas-filled small bowel in the left upper quadrant. Findings may be due to postoperative ileus. Continued radiographic follow-up recommended. No biliary or portal venous gas. No pneumatosis. There are surgical taye in the lower abdomen and pelvis. IMPRESSION: No visible esophagogastric tube. Interpreted and Authenticated by: Miguel Angel Solis 12/25/16
[2016-12-25] MEDS: ROTIGOTINE 8 MG TOPICAL SCH (15:41)
[2016-12-25] MEDS: ROTIGOTINE 4 MG TOPICAL SCH (15:41)
[2016-12-25] MEDS ORDERED: MVI IV SCH (16:00)
[2016-12-25] MEDS ORDERED: MAGNESIUM SULFATE IV SCH (16:00)
[2016-12-25] MEDS ORDERED: [UNRECOGNIZED DRUG - OTHER] IV SCH (16:00)
[2016-12-25] MEDS ORDERED: CALCIUM GLUCONATE IV SCH (16:00)
[2016-12-25] MEDS ORDERED: POTASSIUM PHOSPHATE IV SCH (16:00)
[2016-12-25] MEDS: FAT EMULSION 20% 250 ML IV SCH (17:03)
[2016-12-26] MEDS: HYDROmorphone 2 MG/ML SYRINGE IM PRN (01:45)
[2016-12-26] MEDS: DIAZEPAM 10 MG/2 ML SYRINGE IV SCH ×6 (01:47→21:23)
[2016-12-26] MEDS: METOCLOPRAMIDE 10 MG/2 ML VIAL IV SCH ×4 (01:51→17:35)
[2016-12-26] MEDS: VANCOMYCIN 1,000 MG in 0.9 % SODIUM CHLORIDE 250 ML IV SCH ×3 (02:36→21:23)
[2016-12-26] MEDS: IMIPENEM/CILASTATIN SODIUM 500 MG in 0.9 % SODIUM CHLORIDE 100 ML IV SCH ×4 (02:37→21:24)
[2016-12-26] MEDS: GABAPENTIN 300 MG CAPSULE PO SCH (02:39)
[2016-12-26] MEDS: ROTIGOTINE 8 MG TOPICAL SCH ×2 (02:39→09:00)
[2016-12-26] MEDS: CARBIDOPA/LEVODOPA 25/100 TABLET PO SCH (02:39)
[2016-12-26] MEDS: ROTIGOTINE 4 MG TOPICAL SCH ×2 (02:39→09:00)
[2016-12-26] MEDS: 0.9 % SODIUM CHLORIDE 10 ML SYRINGE IV SCH ×4 (02:40→21:24)
[2016-12-26] MEDS: metroNIDAZOLE 500 MG/100 ML BAG IV SCH ×3 (05:47→17:35)
[2016-12-26 06:29] LABS: Basophils # (Auto) 0.1 K/mcL (0.0-0.3); Basophils % (Auto) 0.6 % (0.0-2.0); Eosinophils # (Auto) 0.2 K/mcL (0.0-0.7); Eosinophils % (Auto) 1.6 % (0.0-7.0); Granulocytes % (Auto) 89.1 % (38.0-78.0); Lymphocytes # (Auto) 0.8 K/mcL (1.5-4.8); Lymphocytes % (Auto) 6.1 % (15.5-49.0); Mean Cell Volume 82.9 fL (80.0-100.0); Mean Corpuscular HGB Conc 32.5 g/dL (31.0-36.0); Monocytes # (Auto) 0.3 K/mcL (0.1-0.9); Monocytes % (Auto) 2.6 % (1.0-9.0); Platelet Count 243 K/mcL (140-440); RBC 3.38 M/mcL (4.50-5.90); Red Cell Distribution Width 20.4 % (11.5-14.5)
[2016-12-26 06:38] LABS: ALT/SGPT 10 U/l (0-40); Albumin 2.5 gm/dL (3.2-5.2); Albumin/Globulin Ratio 0.9 (1.0-2.3); Alkaline Phosphatase 129 U/L (39-117); Bilirubin,Direct 0.3 mg/dL (0.0-0.3); Blood Urea Nitrogen 13 mg/dl (8-23); Gamma Glutamyl Transpeptidase 90 U/L (8-61); Magnesium 2.2 mg/dL (1.6-2.5); Phosphorous 2.5 mg/dL (2.7-4.5); Uric Acid 1.1 mg/dL (2.5-8.0)
[2016-12-26] MEDS ORDERED: POTASSIUM CHLORIDE 60 MEQ in DEXTROSE 5% IN WATER 500 ML IV ONE (08:00)
[2016-12-26] MEDS ORDERED: ALTEPLASE 2 MG VIAL IV ONE (08:00)
[2016-12-26] MEDS: PANTOPRAZOLE 40 MG VIAL IV SCH (08:50)
[2016-12-26] MEDS: LEVOTHYROXINE 100 MCG VIAL IV SCH (08:50)
[2016-12-26] MEDS: HYDROmorphone 2 MG/ML SYRINGE IV PRN ×2 (11:23→21:29)
[2016-12-26] MEDS: fentaNYL 100 MCG PATCH TD SCH (11:37)
--- NOTE | 2016-12-26 11:37 | Internal Med Progress Note ---
Medical - PN: Subj Patient information: Note initiated : 12/26/16 at 11:32 am Service Date, if different from initiated Date: [] Patient: Tripp Melo 66 y/o M admitted on 12/16/16 for Bowel Abscess, Bladder Fistula. Chief Complaint: [] Interval history: History of present illness: Mr. 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 the patient reports he has had a steady decline for about one year now. He has been suffering with fatigue and weight loss of about 30-40 pounds over the last 3-6 months. He said about 6 months ago he was treated for melanoma on his face and had follow-up for that During that follow- up they found that he was anemic, and then found that he had guaiac positive stool. He then underwent colonoscopy and endoscopy that were apparently unrevealing. He has noticed gradually worsening dyspnea with exertion over the last several months, and in October said he had gross hematuria. That apparently triggered a referral which led to a cystoscopy at which time they found that he had not only blood but also stool in his urine Subsequent testing did confirm that he had a small bowel abscess, which had eroded into the bladder so that he now has a fistula. He was seen for follow-up in Dr. Azul 's office yesterday, and looked terrible and pale and weak, so was admitted for further workup and treatment. laboratory evaluation last night did show severe hypokalemia. he patient believes he was taking daily hydrochlorothiazide at home. He admits his diet is been very poor and that he has not had much of an appetite lately. However, he also admits that he generally has a very poor diet, and much prefers foods such as hot dogs and chili to anything even remotely involving fruits or vegetables or healthy proteins. Otherwise, the patient denies recent fever or chills, headaches or dizziness, new eye or ear symptoms. He has not had a sore throat or cough.he denies chest pain or palpitations, significant abdominal pain, heartburn, nausea or vomiting , and initially denied any diarrhea or constipation However,he then admitted that he has been having bloody stools for the last several days at home. Nursing staff also notes bloody stools since arrival here. -He did receive 3 units of packed red blood cells last night, as he is also quite severely anemic. -he has had Parkinson's disease for about 16 years and is managed by a neurologist. He is on a very complicated regimen for that. 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 To control that pain he does take both a fentanyl patch and subcutaneous morphine. -He also has chronic migraines, which appear to be treated with Topamax and Frova. -He also was previously diagnosed with sleep apnea, but refuses to wear CPAP. He used to be a heavy snorer, but notes he does not snore anymore since he has lost all the weight. December 18, 2016: Today,the patient notes that he seems to be having more abdominal cramping and discomfort. He feels like he has more gas.e have started him on breeze nutritional supplements, but he says he just does not like the taste at this point. Dr. Azul has asked for a PICC line to be placed, and would like to start TPN during the period. otherwise, the patient denies fever or chills, chest pain or palpitations or shortness of breath, nausea or vomiting. He continues to have blood-tinged stools and dark urine December 19: today,the patient notes he is still having abdominal pain, mainly towards the right groin area. This is crampy in nature. Nursing staff also called me earlier today to say that the patient was starting to sound a little bit wet,and he had a congested cough, and O2 saturations were a bit lower.he did feel a bit short of breath. chest x-ray did suggest pulmonary vascular congestion. otherwise, he states he is just tired. He denies overt fever or chills, chest pain or palpitations,nausea or vomiting. He continues to have loose blood and mucous stools at times, and continues to have stool contaminating his urine in his Pierce catheter. TPN was started last night. kathe also reports that he has had nonsustained runs of V. tach with activity.May also feel he is getting a bit discouraged by his condition. December 20: his morning, I was called to see the patient because he was complaining of left-sided chest pain. He did not appear to be in any acute distress, and denied any radiation of the pain, nausea or diaphoresis, shortness of breath. On exam he actually had fairly pinpoint tenderness next to the left nipple. He describes the pain as sharp and pinching in nature. EKG did not show any acute changes. Troponin was negative. Later in the morning, he said he was feeling fine again. He denies fever or chills,recurrent chest pain or palpitations. He continues to have moderate abdominal discomfort, which is positional. He continues to have mild dyspnea with any exertion, but is mostly staying in bed. He still has his Pierce catheter in, which is still draining fecal stained urine. December 21: Today, the patient notes she is feeling okay. He is having less abdominal pain. he does admit, though, that he is feeling quite discouraged, by feeling so poorly for so long. He worries about how the surgery will go. Otherwise, he denies subjective fever or chills, chest pain or shortness of breath, nausea or vomiting constipation, dysuria. December 22: The patient has no particular complaints today. His abdominal discomfort overall is improving. He denies subjective fever or chills, chest pain or shortness of breath, significant abdominal pain, nausea or vomiting, or significant bloody stools. Pierce catheter remains in place. December 23: the patient is now status post small bowel resection and bladder repair. e is a bit groggy, and says he feels "rough", but denies significant pain currently. He denies current chest pain or trouble breathing. Abdomen feels a bit bloated. Apparently a malignant neoplasm was found at surgery, eroding through the small bowel into the bladder. 12/24- patient seen in room post operative day 1. No overnight events. NG tube draining bilious output. No telemetry events. No concerns per staff. Complains of significant abdominal pain around the incision site. However alert lucid and responding verbal commands. Foleys draining clear urine. On TPN. IV fluids lowered from 125 an hour to TKO. 12/25- patient feels depressed. Hold out NG tube last night. Complains of significant abdominal pain. On TPN. Liquid BM today. White count over 17, 000. On broad antibiotic coverage-imipenem. Surgery managing postop care. Continue management in ICU in light of worsening leukocytosis. reinsert NG tube if patient agrees. 2/2- NG tube could not be placed. Patient on TPN. Potassium 2.7. Persistent operative site pain. Postoperative care managed as per surgery recommendations. White count down from 17.4-12.2. no overnight nausea vomiting , low-grade temperature at 99.7. good urine output. - Constitutional Vitals: Vital Signs Temp Pulse Resp BP Pulse Ox 99.5 F 105 H 14 120/69 95 12/26/16 04:00 12/26/16 04:00 12/26/16 06:00 12/26/16 06:00 12/26/16 06:00 Period Temp Pulse Resp BP Sys/Lerma Pulse Ox Last 24 Hr 98.8 F-99.7 F 94-115 13-31 120-147/69-93 92-98 Intake and Output 12/25/16 12/26/16 12/26/16 21:59 05:59 13:59 Intake Total 3542.6113 / 3542.6113 850 / 850 100 / 100 Output Total 2675 / 2675 1590 / 1590 500 / 500 Balance 867.6113 / 867.6113 -740 / -740 -400 / -400 Weight 135 lb 8 oz Intake & Output: Intake & Output 12/25/16 12/26/16 12/26/16 21:59 05:59 13:59 Intake Total 3542.6113 / 3542.6113 850 / 850 100 / 100 Output Total 2675 / 2675 1590 / 1590 500 / 500 Balance 867.6113 / 867.6113 -740 / -740 -400 / -400 Weight 135 lb 8 oz Intake: IV 3192.6113 / 3192.6113 850 / 850 100 / 100 Sodium Chloride 0.9% 1, 250 / 250 000 ml @ 20 mls/hr IV . Q24H [facility] Rx#:[id number] Sodium Chloride 0.9% 250 100 / 100 150 / 150 ml @ 20 mls/hr IV . [id number] [facility] Rx#:[id number] Calcium Gluconate 10 Meq 2065.5204 / 2065.5204 Magnesium Sulfate 8.12 Meq Potassium Phosphate 80 Meq Infuvite Adult 10 ml Selenium 60 Mcg Sodium Phosphate 10 Mmol Potassium Acetate 20 Meq In Clinimix 5%-20% Solution 2,000 ml @ 85 mls/hr IV Q24H [facility] Rx#: [id number] Intralipid 20% 250 ml @ 250 / 250 25 mls/hr IV [id number]@1600 [facility] Rx#:[id number] Sodium Chloride 0.9% 100 100 / 100 100 / 100 ml @ 100 mls/hr IV Q8 [facility] with Primaxin 500 mg Rx# :[id number] Dextrose 5% in Water 674 955.4712 / 509.0909 ml @ 127.273 mls/hr IV ONCE ONE with Potassium Phosphate 40 Meq Rx#: [id number] Sodium Chloride 0.9% 250 67 / 67 250 / 250 ml @ 250 mls/hr IV Q12 [facility] with Vancomycin 1,000 mg Rx#:[id number] Blood Product 350 / 350 Output: Urine Catheter Amount 2675 / 2675 1590 / 1590 500 / 500 Other: # Bowel Movements 0 General appearance: moderate distress (abdominal pain) Exam: appears distraught And anxious Nonlabored breathing Foleys draining clear urine no lymphedema Medical - PN: Obj Da - Labs CBC & Chem 7: 12/26/16 03:50 12/26/16 03:50 Labs: Abnormal Lab Results 12/26/16 12/26/16 12/26/16 03:50 03:50 03:50 WBC 12.4 H RBC 3.38 L Hgb 9.1 L Hct 28.0 L RDW 20.4 H Gran % 89.1 H Lymph % (Auto) 6.1 L Gran # 11.0 H Lymph # 0.8 L Seg Neutrophils % Lymphocytes % RBC Morphology Anisocytosis PT 15.7 H INR 1.2 H APTT Potassium 2.7 L* Carbon Dioxide Creatinine 0.5 L Glucose 113 H Uric Acid 1.1 L Calcium 7.8 L Phosphorus 2.5 L GGT 90 H Alkaline Phosphatase 129 H Lactate Dehydrogenase 277 H Total Protein 5.2 L Albumin 2.5 L Albumin/Globulin Ratio 0.9 L 12/25/16 12/24/16 12/24/16 04:00 16:47 13:08 WBC 17.4 H RBC 3.67 L Hgb 9.7 L Hct 30.6 L RDW 20.4 H Gran % Lymph % (Auto) Gran # Lymph # Seg Neutrophils % 95 H Lymphocytes % 3 L RBC Morphology Abnorm A Anisocytosis 1+ A PT INR APTT Potassium 3.1 L Carbon Dioxide 19 L Creatinine 0.5 L Glucose 152 H Uric Acid 0.9 L Calcium 7.8 L Phosphorus 2.6 L 2.6 L GGT Alkaline Phosphatase Lactate Dehydrogenase 300 H Total Protein 5.0 L Albumin 2.0 L Albumin/Globulin Ratio 0.7 L 12/24/16 12/24/16 11:02 03:55 WBC RBC Hgb Hct RDW Gran % Lymph % (Auto) Gran # Lymph # Seg Neutrophils % Lymphocytes % RBC Morphology Anisocytosis PT 25.1 H INR 2.2 H APTT 48 H Potassium 3.1 L Carbon Dioxide 17 L Creatinine 0.6 L Glucose 144 H Uric Acid 1.0 L Calcium 7.4 L Phosphorus 2.4 L GGT Alkaline Phosphatase Lactate Dehydrogenase 287 H Total Protein 4.8 L Albumin 2.1 L Albumin/Globulin Ratio 0.8 L Meds: Medications Diagnostic Test (Pha) (Accu-Chek) 1 each FS Q6 [facility] Last Admin: 12/26/16 05:53 Dose: 1 each Diazepam (Valium) 5 mg IV Q4 [facility] Last Admin: 12/26/16 08:52 Dose: 5 mg Fentanyl (Duragesic) 100 mcg TD Q48H [facility] Last Admin: 12/24/16 11:10 Dose: 100 mcg Heparin Sodium (Porcine) (Heparin Flush) 2 ml IV Q12 [facility] Last Admin: 12/25/16 21:26 Dose: 2 ml Hydromorphone HCl (Dilaudid) 2 mg IV Q2HP PRN PRN Reason: Pain Last Admin: 12/26/16 11:23 Dose: 2 mg Fat Emulsion Intravenous (Intralipid 20%) 250 mls @ 25 mls/hr IV [id number] [facility] Last Infusion: 12/26/16 03:05 Dose: Infused Imipenem/Cilastatin Sodium 500 (mg/ Sodium Chloride) 100 mls @ 100 mls/hr IV Q8 [facility] Last Admin: 12/26/16 05:56 Dose: 100 mls/hr Vancomycin HCl 1,000 mg/ (Sodium Chloride) 250 mls @ 250 mls/hr IV Q12 [facility] Last Admin: 12/26/16 09:30 Dose: 250 mls/hr Metronidazole (Flagyl) 500 mg in 100 mls @ 100 mls/hr IV Q6 [facility] Last Infusion: 12/26/16 07:12 Dose: Infused Acetaminophen (Ofirmev) 1,000 mg in 100 mls @ 200 mls/hr IV Q6H PRN PRN Reason: Pain Last Infusion: 12/24/16 08:13 Dose: Infused Sodium Chloride (Sodium Chloride 0.9%) 1,000 mls @ 20 mls/hr IV .Q24H [facility] Last Admin: 12/25/16 17:35 Dose: 20 mls/hr Calcium Gluconate 10 meq/Magnesium Sulfate 8.12 meq/Potassium Phosphate 80 meq/ Multivitamins/Minerals 10 ml/Selenium 60 mcg/ Sodium Phosphate 10 mmol/ Potassium Acetate 20 meq/ Potassium Chloride 20 meq/ Amino Acids 2,076.5204 mls @ 85 mls/hr IV Q24H [facility] Stop: 12/26/16 15:59 Last Admin: 12/25/16 17:04 Dose: 85 mls/hr Potassium Chloride 60 meq/ (Dextrose) 530 mls @ 88.333 mls/hr IV ONCE ONE Stop: 12/26/16 13:59 Last Admin: 12/26/16 09:29 Dose: 88.333 mls/hr Calcium Gluconate 10 meq/Magnesium Sulfate 8.12 meq/Potassium Phosphate 100 meq/ Multivitamins/Minerals 10 ml/Selenium 60 mcg/ Sodium Phosphate 10 mmol/ Potassium Chloride 80 meq/ Amino Acids 2,101.0659 mls @ 85 mls/hr IV Q24H [facility] Last Admin: 12/26/16 08:50 Dose: 50 mcg Lorazepam (Ativan) 0.5 mg IV Q4-6HP PRN PRN Reason: ANXIETY/SEDATION Last Admin: 12/24/16 00:31 Dose: 0.5 mg Metoclopramide HCl (Reglan) 10 mg IV Q6 [facility] Last Admin: 12/26/16 05:57 Dose: 10 mg Metoprolol Tartrate (Lopressor) 5 mg IV Q4HP PRN PRN Reason: Tachyarrhythmias Last Admin: 12/25/16 06:56 Dose: 5 mg Pantoprazole Sodium (Protonix) 40 mg IV QAMAC [facility] Last Admin: 12/26/16 08:50 Dose: 40 mg Apomorphine (Apokyn) (10mg/Ml) 0.3 dose SC Q2HP PRN PRN Reason: Tremors Rotigotine [Neupro] (4 Mg Patch) 1 dose TOPICAL DAILY [facility] Last Admin: 12/25/16 15:41 Dose: 1 dose Rotigotine [Neupro] (8 Mg Patch) 1 dose TOPICAL DAILY [facility] Last Admin: 12/25/16 15:41 Dose: 1 dose Sodium Chloride (Saline Flush) 10 ml IV UD PRN PRN Reason: FLUSH Last Admin: 12/25/16 03:50 Dose: 10 ml Sodium Chloride (Saline Flush) 10 ml IV Q8 [facility] Last Admin: 12/26/16 05:56 Dose: 10 ml Medical - PN: A/P - Time Spent With Patient Total time spent is greater than 50% in coordination of care (as documented) at patient's floor/unit and/or counseling patient: 25 - 35 minutes (1) Enterovesical fistula Status: Acute Assessment and plan: * Enterovesical fistula-postop day 3. Continue management as per surgery * Abdominal abscess managed by surgery. On broad antibiotics * Postop pain management manage per surgery * nutrition-on TPN as per surgery Hospitalist consult * critical hypokalemia. 2.7 despite replacement. 80 mEq IV potassium/adjust TPN * Severe sepsis secondary to intra-abdominal abscess- limproving leukocytosis from 17.14.2. Persistent tachycardia. continue antibiotic coverage * Parkinson's disease-meds on hold until NPO * History of migraine -oral meds on hold until NPO * Generalized anxiety disorder-use IV benzodiazepines as needed * hypothyroidism * Hyperlipidemia * Severe anemia-Status post transfusion-hemoglobin 11.9 plan * Postop management as per surgery * tPN adjustment for potassium as per pharmacy * 80 mEq IV potassium * continue antibiotics * initiated physical therapy due to Significant deconditioning and prolonged hospitalization * pre-existing medical condition management on as needed IV replacement until NPO. Current Visit: No Medical - PN: Qual - Stroke Symptom Onset Unknown: No - VTE Deep Vein Thrombosis/Pulmonary Embolism Present on Admission: No
--- NOTE | 2016-12-26 11:57 | XRay Report ---
CLINICAL INFORMATION: Postsurgical follow-up TECHNIQUE: AP upright portable abdomen COMPARISON: Previous examinations dated 12/25/2016 FINDINGS: Gas within dilated small bowel is unchanged. No pneumoperitoneum. No biliary or portal venous gas. No pneumatosis. Findings remain consistent with postoperative ileus. Obstruction is not excluded. There are no significant air-fluid levels. IMPRESSION: 1. No interval change since 12/25/2016 2. No pneumoperitoneum. No biliary or portal venous gas. Interpreted and Authenticated by: Miguel Angel Solis 12/26/16
--- NOTE | 2016-12-26 12:47 | General Surgery Progress Note ---
Subjective Patient reports: still having pain, no flatus, no bowel movement, afebrile Narrative: Note initiated : 12/26/16 at 12:41 pm Service Date, if different from initiated Date: [] Patient: Tripp Melo 66 y/o M admitted on 12/16/16 for Bowel Abscess, Bladder Fistula. Chief Complaint: [] Mister Melo had an eventful night and that he complained of pain all night. He had low-grade temperature [id number]. He has not had any respiratory difficulty. His O2 saturations have been normal He has had tachycardia but this seems to be related to pain He has not had any passage of gas or stool for the past 48 hours. He also is very depressed and states that he does not wish to continue treatment because of pain. He had an abdominal x-ray this morning which shows dilate bowel and gas extending to his colon. This is more compatible with an adynamic ileus. He does not have any free air in the subphrenic areas. He may actually have narcotic-induced ileus which should be responsive to Relistor. Objective Temp Pulse Resp BP Pulse Ox 99.5 F 105 H 14 120/69 95 12/26/16 04:00 12/26/16 04:00 12/26/16 06:00 12/26/16 06:00 12/26/16 06:00 - Additional Data Intake & Output - Last 24 hours: Intake & Output 12/24/16 12/25/16 12/26/16 12/27/16 05:59 05:59 05:59 05:59 Intake Total 5450 / 5450 2098 / 2098 4775.6113 / 4775.6113 100 / 100 Output Total 5950 / 5950 5075 / 5075 4265 / 4265 500 / 500 Balance -500 / -500 -2977 / -2977 510.6113 / 510.6113 -400 / -400 Weight 143 lb 9.6 oz 139 lb 14.4 oz 135 lb 8 oz - General physical appearance moderate distress, moderate pain, chronically ill - Eyes PERRL - ENT no congestion - Neck no venous distension - Respiratory normal expansion, normal respiratory effort, clear to auscultation - Cardiovascular Cardiovascular exam: Present: +S1, +S2, tachycardia. Absent: JVD - Abdomen tender, bowel sounds, distended (distended abdomenwith active bowel sounds. Incision shows some irritation which may be related to the subcutaneous antibiotics.) - Integumentary other (abdominal wall incision rash) - Neurologic normal sensation - Psychiatric other (very depressed with flat affect) - Labs 12/26/16 03:50 12/26/16 03:50 Diabetes panel 12/26/16 Range/Units 03:50 Sodium 137 (133-145) mmol/L Potassium 2.7 L* (3.3-5.1) mmol/L Chloride 101 (96-108) mmol/L Carbon Dioxide 24 (22-30) mmol/L BUN 13 (8-23) mg/dl Creatinine 0.5 L (0.7-1.2) mg/dl Glucose 113 H (70-105) mg/dL Calcium 7.8 L (8.6-10.4) mg/dl AST 17 (0-37) U/l ALT 10 (0-40) U/l Alkaline Phosphatase 129 H (39-117) U/L Total Protein 5.2 L (5.9-8.4) gm/dL Albumin 2.5 L (3.2-5.2) gm/dL Triglycerides 63 (<150) mg/dl Calcium panel 12/26/16 Range/Units 03:50 Calcium 7.8 L (8.6-10.4) mg/dl Phosphorus 2.5 L (2.7-4.5) mg/dL Albumin 2.5 L (3.2-5.2) gm/dL Pituitary panel 12/26/16 Range/Units 03:50 Sodium 137 (133-145) mmol/L Potassium 2.7 L* (3.3-5.1) mmol/L Chloride 101 (96-108) mmol/L Carbon Dioxide 24 (22-30) mmol/L BUN 13 (8-23) mg/dl Creatinine 0.5 L (0.7-1.2) mg/dl Glucose 113 H (70-105) mg/dL Calcium 7.8 L (8.6-10.4) mg/dl Adrenal panel 12/26/16 Range/Units 03:50 Sodium 137 (133-145) mmol/L Potassium 2.7 L* (3.3-5.1) mmol/L Chloride 101 (96-108) mmol/L Carbon Dioxide 24 (22-30) mmol/L BUN 13 (8-23) mg/dl Creatinine 0.5 L (0.7-1.2) mg/dl Glucose 113 H (70-105) mg/dL Calcium 7.8 L (8.6-10.4) mg/dl Total Bilirubin 0.6 (0.0-1.0) mg/dL AST 17 (0-37) U/l ALT 10 (0-40) U/l Alkaline Phosphatase 129 H (39-117) U/L Total Protein 5.2 L (5.9-8.4) gm/dL Albumin 2.5 L (3.2-5.2) gm/dL Medical - PN: A/P - Time Spent With Patient Total time spent is greater than 50% in coordination of care (as documented) at patient's floor/unit and/or counseling patient: (1) Enterovesical fistula Status: Acute Assessment and plan: PATIENT IS STABLE WILL CONTINUE ON PRESENT THERAPY Relistor 12 mg subcutaneous now and daily 3 doses. follow-up abdominal series in the morning Continue present therapy Current Visit: No (2) Dehydration Status: Resolved Current Visit: Yes (3) Hypokalemia due to loss of potassium Status: Resolved Current Visit: Yes (4) Iron deficiency anemia Status: Acute Current Visit: Yes (5) Anemia Status: Chronic Current Visit: No (6) Parkinson disease Status: Chronic Current Visit: No (7) Sleep apnea, obstructive Status: Chronic Current Visit: No
[2016-12-26] MEDS: METHYLNALTREXONE BROMIDE 12 MG/0.6 ML SYRINGE SQ SCH (13:52)
[2016-12-26] MEDS: POTASSIUM PHOSPHATE IV SCH (16:00)
[2016-12-26] MEDS: MAGNESIUM SULFATE IV SCH (16:00)
[2016-12-26] MEDS: CALCIUM GLUCONATE IV SCH (16:00)
[2016-12-26] MEDS: [UNRECOGNIZED DRUG - OTHER] IV SCH (16:00)
[2016-12-26] MEDS: 0.9 % SODIUM CHLORIDE 1,000 ML IV SCH (16:02)
[2016-12-26] MEDS: METOPROLOL TARTRATE 5 MG/5 ML VIAL IV PRN (17:35)
[2016-12-27] MEDS: METOCLOPRAMIDE 10 MG/2 ML VIAL IV SCH ×4 (00:31→17:57)
[2016-12-27] MEDS: metroNIDAZOLE 500 MG/100 ML BAG IV SCH ×5 (00:31→23:54)
[2016-12-27] MEDS: DIAZEPAM 10 MG/2 ML SYRINGE IV SCH ×6 (00:31→22:20)
[2016-12-27] MEDS: 0.9 % SODIUM CHLORIDE 10 ML SYRINGE IV PRN (04:30)
[2016-12-27] MEDS: IMIPENEM/CILASTATIN SODIUM 500 MG in 0.9 % SODIUM CHLORIDE 100 ML IV SCH ×3 (05:10→22:21)
[2016-12-27] MEDS: 0.9 % SODIUM CHLORIDE 10 ML SYRINGE IV SCH ×3 (05:40→22:23)
[2016-12-27 06:44] LABS: Basophils # (Auto) 0 K/mcL (0.0-0.3); Basophils % (Auto) 0.4 % (0.0-2.0); Eosinophils # (Auto) 0.4 K/mcL (0.0-0.7); Eosinophils % (Auto) 3.8 % (0.0-7.0); Granulocytes % (Auto) 78.8 % (38.0-78.0); Lymphocytes # (Auto) 1.2 K/mcL (1.5-4.8); Lymphocytes % (Auto) 12.1 % (15.5-49.0); Mean Cell Volume 83.1 fL (80.0-100.0); Mean Corpuscular HGB Conc 32.6 g/dL (31.0-36.0); Mean Corpuscular Hemoglobin 27.1 pg (26.0-34.0); Monocytes # (Auto) 0.5 K/mcL (0.1-0.9); Monocytes % (Auto) 4.9 % (1.0-9.0); Platelet Count 279 K/mcL (140-440); RBC 3.56 M/mcL (4.50-5.90); Red Cell Distribution Width 20.5 % (11.5-14.5)
[2016-12-27 07:13] LABS: ALT/SGPT 12 U/l (0-40); Albumin 2.4 gm/dL (3.2-5.2); Albumin/Globulin Ratio 0.8 (1.0-2.3); Alkaline Phosphatase 151 U/L (39-117); Bilirubin,Direct 0.4 mg/dL (0.0-0.3); Blood Urea Nitrogen 17 mg/dl (8-23); Gamma Glutamyl Transpeptidase 137 U/L (8-61); Magnesium 2.4 mg/dL (1.6-2.5); Phosphorous 2.8 mg/dL (2.7-4.5); Uric Acid 1.3 mg/dL (2.5-8.0)
--- NOTE | 2016-12-27 07:52 | XRay Report ---
CLINICAL INFORMATION: Postsurgical follow-up TECHNIQUE: Supine and upright abdomen COMPARISON: Previous examinations dated 12/26/2016, 12/25/2016. FINDINGS: Skin taye in a vertical lower abdominal and pelvic incision. Bowel gas pattern is unchanged. There continues to be small and large bowel gas. Bowel gas in the left upper quadrant is consistent with colonic gas. No interval change. No pneumatosis. No pneumoperitoneum. No biliary or portal venous gas. Injury remains consistent with postsurgical ileus. IMPRESSION: 1. Stable bowel gas pattern. Appearance remains consistent with postsurgical ileus. 2. Small and large bowel gas with prominent: The left upper quadrant. No significant air-fluid levels on upright examination. No acute abnormality or interval change Interpreted and Authenticated by: Miguel Angel Solis 12/27/16
[2016-12-27] MEDS: HYDROmorphone 2 MG/ML SYRINGE IV PRN ×3 (08:43→22:30)
[2016-12-27] MEDS: METOPROLOL TARTRATE 5 MG/5 ML VIAL IV PRN ×2 (08:43→20:46)
[2016-12-27] MEDS: ROTIGOTINE 8 MG TOPICAL SCH (08:43)
[2016-12-27] MEDS: LEVOTHYROXINE 100 MCG VIAL IV SCH (08:43)
[2016-12-27] MEDS: PANTOPRAZOLE 40 MG VIAL IV SCH (08:43)
[2016-12-27] MEDS: ROTIGOTINE 4 MG TOPICAL SCH (08:44)
[2016-12-27] MEDS: METHYLNALTREXONE BROMIDE 12 MG/0.6 ML SYRINGE SQ SCH (09:12)
[2016-12-27] MEDS: VANCOMYCIN 1,000 MG in 0.9 % SODIUM CHLORIDE 250 ML IV SCH ×2 (09:17→22:21)
--- NOTE | 2016-12-27 10:58 | Internal Med Progress Note ---
Medical - PN: Subj Patient information: Note initiated : 12/27/16 at 10:54 am Service Date, if different from initiated Date: [] Patient: Tripp Melo 66 y/o M admitted on 12/16/16 for Bowel Abscess, Bladder Fistula. Chief Complaint: [] Interval history: History of present illness: Mr. 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 the patient reports he has had a steady decline for about one year now. He has been suffering with fatigue and weight loss of about 30-40 pounds over the last 3-6 months. He said about 6 months ago he was treated for melanoma on his face and had follow-up for that During that follow- up they found that he was anemic, and then found that he had guaiac positive stool. He then underwent colonoscopy and endoscopy that were apparently unrevealing. He has noticed gradually worsening dyspnea with exertion over the last several months, and in October said he had gross hematuria. That apparently triggered a referral which led to a cystoscopy at which time they found that he had not only blood but also stool in his urine Subsequent testing did confirm that he had a small bowel abscess, which had eroded into the bladder so that he now has a fistula. He was seen for follow-up in Dr. Azul 's office yesterday, and looked terrible and pale and weak, so was admitted for further workup and treatment. laboratory evaluation last night did show severe hypokalemia. he patient believes he was taking daily hydrochlorothiazide at home. He admits his diet is been very poor and that he has not had much of an appetite lately. However, he also admits that he generally has a very poor diet, and much prefers foods such as hot dogs and chili to anything even remotely involving fruits or vegetables or healthy proteins. Otherwise, the patient denies recent fever or chills, headaches or dizziness, new eye or ear symptoms. He has not had a sore throat or cough.he denies chest pain or palpitations, significant abdominal pain, heartburn, nausea or vomiting , and initially denied any diarrhea or constipation However,he then admitted that he has been having bloody stools for the last several days at home. Nursing staff also notes bloody stools since arrival here. -He did receive 3 units of packed red blood cells last night, as he is also quite severely anemic. -he has had Parkinson's disease for about 16 years and is managed by a neurologist. He is on a very complicated regimen for that. 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 To control that pain he does take both a fentanyl patch and subcutaneous morphine. -He also has chronic migraines, which appear to be treated with Topamax and Frova. -He also was previously diagnosed with sleep apnea, but refuses to wear CPAP. He used to be a heavy snorer, but notes he does not snore anymore since he has lost all the weight. December 18, 2016: Today,the patient notes that he seems to be having more abdominal cramping and discomfort. He feels like he has more gas.e have started him on breeze nutritional supplements, but he says he just does not like the taste at this point. Dr. Azul has asked for a PICC line to be placed, and would like to start TPN during the period. otherwise, the patient denies fever or chills, chest pain or palpitations or shortness of breath, nausea or vomiting. He continues to have blood-tinged stools and dark urine December 19: today,the patient notes he is still having abdominal pain, mainly towards the right groin area. This is crampy in nature. Nursing staff also called me earlier today to say that the patient was starting to sound a little bit wet,and he had a congested cough, and O2 saturations were a bit lower.he did feel a bit short of breath. chest x-ray did suggest pulmonary vascular congestion. otherwise, he states he is just tired. He denies overt fever or chills, chest pain or palpitations,nausea or vomiting. He continues to have loose blood and mucous stools at times, and continues to have stool contaminating his urine in his Pierce catheter. TPN was started last night. kathe also reports that he has had nonsustained runs of V. tach with activity.May also feel he is getting a bit discouraged by his condition. December 20: his morning, I was called to see the patient because he was complaining of left-sided chest pain. He did not appear to be in any acute distress, and denied any radiation of the pain, nausea or diaphoresis, shortness of breath. On exam he actually had fairly pinpoint tenderness next to the left nipple. He describes the pain as sharp and pinching in nature. EKG did not show any acute changes. Troponin was negative. Later in the morning, he said he was feeling fine again. He denies fever or chills,recurrent chest pain or palpitations. He continues to have moderate abdominal discomfort, which is positional. He continues to have mild dyspnea with any exertion, but is mostly staying in bed. He still has his Pierce catheter in, which is still draining fecal stained urine. December 21: Today, the patient notes she is feeling okay. He is having less abdominal pain. he does admit, though, that he is feeling quite discouraged, by feeling so poorly for so long. He worries about how the surgery will go. Otherwise, he denies subjective fever or chills, chest pain or shortness of breath, nausea or vomiting constipation, dysuria. December 22: The patient has no particular complaints today. His abdominal discomfort overall is improving. He denies subjective fever or chills, chest pain or shortness of breath, significant abdominal pain, nausea or vomiting, or significant bloody stools. Pierce catheter remains in place. December 23: the patient is now status post small bowel resection and bladder repair. e is a bit groggy, and says he feels "rough", but denies significant pain currently. He denies current chest pain or trouble breathing. Abdomen feels a bit bloated. Apparently a malignant neoplasm was found at surgery, eroding through the small bowel into the bladder. 12/24- patient seen in room post operative day 1. No overnight events. NG tube draining bilious output. No telemetry events. No concerns per staff. Complains of significant abdominal pain around the incision site. However alert lucid and responding verbal commands. Foleys draining clear urine. On TPN. IV fluids lowered from 125 an hour to TKO. 12/25- patient feels depressed. Hold out NG tube last night. Complains of significant abdominal pain. On TPN. Liquid BM today. White count over 17, 000. On broad antibiotic coverage-imipenem. Surgery managing postop care. Continue management in ICU in light of worsening leukocytosis. reinsert NG tube if patient agrees. 2/2- NG tube could not be placed. Patient on TPN. Potassium 2.7. Persistent operative site pain. Postoperative care managed as per surgery recommendations. White count down from 17.4-12.2. no overnight nausea vomiting , low-grade temperature at 99.7. good urine output. 2/3-patient doing well. No significant abdominal distention fever chills or telemetry events. Pain control adequate. On TPN. Good urine output. white count downtrending from 17.4-10.1. potassium improved to 4 from 2.7. iimproved tachycardia around 104. saturating on room air. Afebrile. Patient feels better than previous day. - Constitutional Vitals: Vital Signs Temp Pulse Resp BP Pulse Ox 98.5 F 94 H 15 134/85 95 12/27/16 04:00 12/27/16 00:20 12/27/16 06:00 12/27/16 06:00 12/27/16 06:00 Period Temp Pulse Resp BP Sys/Lerma Pulse Ox Last 24 Hr 98.4 F-99.5 F 94-119 13-24 114-145/75-91 93-97 Intake and Output 12/26/16 12/27/16 12/27/16 21:59 05:59 13:59 Intake Total 3476 / 3476 450 / 450 100 / 100 Output Total 2390 / 2390 1320 / 1320 660 / 660 Balance 1086 / 1086 -870 / -870 -560 / -560 Weight 136 lb 14.4 oz 136 lb 14.4 oz Patient Weight 12/28/16 05:59 Weight 136 lb 14.4 oz Intake & Output: Intake & Output 12/26/16 12/27/16 12/27/16 21:59 05:59 13:59 Intake Total 3476 / 3476 450 / 450 100 / 100 Output Total 2390 / 2390 1320 / 1320 660 / 660 Balance 1086 / 1086 -870 / -870 -560 / -560 Weight 136 lb 14.4 oz 136 lb 14.4 oz Intake: IV 3476 / 3476 450 / 450 100 / 100 Sodium Chloride 0.9% 1, 448 / 448 000 ml @ 20 mls/hr IV . Q24H [facility] Rx#:[id number] Calcium Gluconate 10 Meq 1947 / 1947 Magnesium Sulfate 8.12 Meq Potassium Phosphate 80 Meq Infuvite Adult 10 ml Selenium 60 Mcg Sodium Phosphate 10 Mmol Potassium Acetate 20 Meq Potassium Chloride 20 Meq In Clinimix 5%-20% Solution 2,000 ml @ 85 mls/hr IV Q24H [facility] Rx#: [id number] Sodium Chloride 0.9% 100 100 / 100 100 / 100 ml @ 100 mls/hr IV Q8 [facility] with Primaxin 500 mg Rx# :[id number] Dextrose 5% in Water 500 530 / 530 ml @ 88.333 mls/hr IV ONCE ONE with Potassium Chloride 60 Meq Rx#: [id number] Sodium Chloride 0.9% 250 250 / 250 250 / 250 ml @ 250 mls/hr IV Q12 [facility] with Vancomycin 1,000 mg Rx#:[id number] Output: Urine Catheter Amount 2390 / 2390 1320 / 1320 660 / 660 Other: # Bowel Movements 0 General appearance: cooperative, no acute distress Exam: minimally anxious Nondistended abdomen Nonlabored breathing On TPN Foleys draining clear urine Medical - PN: Obj Da - Labs CBC & Chem 7: 12/27/16 04:35 12/27/16 04:35 Labs: Abnormal Lab Results 12/27/16 12/27/16 12/26/16 04:35 04:35 03:50 WBC RBC 3.56 L Hgb 9.6 L Hct 29.6 L RDW 20.5 H Gran % 78.8 H Lymph % (Auto) 12.1 L Gran # Lymph # 1.2 L Seg Neutrophils % Lymphocytes % RBC Morphology Anisocytosis PT 15.7 H INR 1.2 H APTT Potassium Carbon Dioxide Creatinine 0.5 L Glucose 109 H Uric Acid 1.3 L Calcium 8.0 L Phosphorus Direct Bilirubin 0.4 H GGT 137 H Alkaline Phosphatase 151 H Lactate Dehydrogenase Total Protein 5.4 L Albumin 2.4 L Albumin/Globulin Ratio 0.8 L 12/26/16 12/26/16 12/25/16 03:50 03:50 04:00 WBC 12.4 H RBC 3.38 L Hgb 9.1 L Hct 28.0 L RDW 20.4 H Gran % 89.1 H Lymph % (Auto) 6.1 L Gran # 11.0 H Lymph # 0.8 L Seg Neutrophils % Lymphocytes % RBC Morphology Anisocytosis PT INR APTT Potassium 2.7 L* 3.1 L Carbon Dioxide 19 L Creatinine 0.5 L 0.5 L Glucose 113 H 152 H Uric Acid 1.1 L 0.9 L Calcium 7.8 L 7.8 L Phosphorus 2.5 L 2.6 L Direct Bilirubin GGT 90 H Alkaline Phosphatase 129 H Lactate Dehydrogenase 277 H 300 H Total Protein 5.2 L 5.0 L Albumin 2.5 L 2.0 L Albumin/Globulin Ratio 0.9 L 0.7 L 12/24/16 12/24/16 12/24/16 16:47 13:08 11:02 WBC 17.4 H RBC 3.67 L Hgb 9.7 L Hct 30.6 L RDW 20.4 H Gran % Lymph % (Auto) Gran # Lymph # Seg Neutrophils % 95 H Lymphocytes % 3 L RBC Morphology Abnorm A Anisocytosis 1+ A PT 25.1 H INR 2.2 H APTT 48 H Potassium Carbon Dioxide Creatinine Glucose Uric Acid Calcium Phosphorus 2.6 L Direct Bilirubin GGT Alkaline Phosphatase Lactate Dehydrogenase Total Protein Albumin Albumin/Globulin Ratio Meds: Medications Diagnostic Test (Pha) (Accu-Chek) 1 each FS Q6 [facility] Last Admin: 12/27/16 05:41 Dose: 1 each Diazepam (Valium) 5 mg IV Q4 [facility] Last Admin: 12/27/16 09:17 Dose: 5 mg Fentanyl (Duragesic) 100 mcg TD Q48H [facility] Last Admin: 12/26/16 11:37 Dose: 100 mcg Heparin Sodium (Porcine) (Heparin Flush) 2 ml IV Q12 [facility] Last Admin: 12/27/16 08:42 Dose: 2 ml Hydromorphone HCl (Dilaudid) 2 mg IV Q2HP PRN PRN Reason: Pain Last Admin: 12/27/16 08:43 Dose: 2 mg Fat Emulsion Intravenous (Intralipid 20%) 250 mls @ 25 mls/hr IV [id number] [facility] Last Infusion: 12/26/16 03:05 Dose: Infused Imipenem/Cilastatin Sodium 500 (mg/ Sodium Chloride) 100 mls @ 100 mls/hr IV Q8 [facility] Last Admin: 12/27/16 05:10 Dose: 100 mls/hr Vancomycin HCl 1,000 mg/ (Sodium Chloride) 250 mls @ 250 mls/hr IV Q12 [facility] Last Admin: 12/27/16 09:17 Dose: 250 mls/hr Metronidazole (Flagyl) 500 mg in 100 mls @ 100 mls/hr IV Q6 [facility] Last Infusion: 12/27/16 08:07 Dose: Infused Acetaminophen (Ofirmev) 1,000 mg in 100 mls @ 200 mls/hr IV Q6H PRN PRN Reason: Pain Last Infusion: 12/24/16 08:13 Dose: Infused Sodium Chloride (Sodium Chloride 0.9%) 1,000 mls @ 20 mls/hr IV .Q24H [facility] Last Admin: 12/26/16 16:02 Dose: 20 mls/hr Calcium Gluconate 10 meq/Magnesium Sulfate 8.12 meq/Potassium Phosphate 100 meq/ Multivitamins/Minerals 10 ml/Selenium 60 mcg/ Sodium Phosphate 10 mmol/ Potassium Chloride 80 meq/ Amino Acids 2,101.0659 mls @ 85 mls/hr IV Q24H [facility] Last Admin: 12/26/16 16:00 Dose: 85 mls/hr [facility] Admin: 12/27/16 08:43 Dose: 50 mcg Lorazepam (Ativan) 0.5 mg IV Q4-6HP PRN PRN Reason: ANXIETY/SEDATION Last Admin: 12/24/16 00:31 Dose: 0.5 mg Methylnaltrexone [place] (Relistor) 12 mg SQ DAILY [facility] Stop: 12/28/16 09:01 Last Admin: 12/27/16 09:12 Dose: 12 mg Metoclopramide HCl (Reglan) 10 mg IV Q6 [facility] Last Admin: 12/27/16 05:40 Dose: 10 mg Metoprolol Tartrate (Lopressor) 5 mg IV Q4HP PRN PRN Reason: Tachyarrhythmias Last Admin: 12/27/16 08:43 Dose: 5 mg Pantoprazole Sodium (Protonix) 40 mg IV QAMAC [facility] Last Admin: 12/27/16 08:43 Dose: 40 mg Apomorphine (Apokyn) (10mg/Ml) 0.3 dose SC Q2HP PRN PRN Reason: Tremors Rotigotine [Neupro] (4 Mg Patch) 1 dose TOPICAL DAILY [facility] Last Admin: 12/27/16 08:44 Dose: 1 dose Rotigotine [Neupro] (8 Mg Patch) 1 dose TOPICAL DAILY [facility] Last Admin: 12/27/16 08:43 Dose: 1 dose Sodium Chloride (Saline Flush) 10 ml IV UD PRN PRN Reason: FLUSH Last Admin: 12/27/16 04:30 Dose: 10 ml Sodium Chloride (Saline Flush) 10 ml IV Q8 [facility] Last Admin: 12/27/16 05:40 Dose: 10 ml Medical - PN: A/P - Time Spent With Patient Total time spent is greater than 50% in coordination of care (as documented) at patient's floor/unit and/or counseling patient: 15 - 24 minutes (1) Enterovesical fistula Status: Acute Assessment and plan: * Enterovesical fistula-postop day 4. Continue management as per surgery * Abdominal abscess managed by surgery. postop * Postop pain management manage per surgery * nutrition-on TPN as per surgery Hospitalist consult * critical hypokalemia. potassium up from 2.7->4. * Severe sepsis secondary to intra-abdominal abscess- lWBC 17_>11. improved tachycardia. continue ABX * Parkinson's disease-meds on hold until NPO * History of migraine -oral meds on hold until NPO * Generalized anxiety disorder-use IV benzodiazepines as needed * hypothyroidism * Hyperlipidemia * Severe anemia-Status post transfusion-hemoglobin 11.9 plan * Postop management as per surgery * tPN per pharmacy * continue antibiotics * daily physical therapy in light of prolonged hospitalization/ICU deconditioning * start home meds once surgery approves Current Visit: No Medical - PN: Qual - Stroke Symptom Onset Unknown: No - VTE Deep Vein Thrombosis/Pulmonary Embolism Present on Admission: No
[2016-12-27] MEDS ORDERED: DEXTROSE 50% 50 ML VIAL IV PRN (11:38)
[2016-12-27] MEDS: INSULIN LISPRO 1 UNIT/0.01 ML UNIT SQ SCH ×2 (12:30→18:05)
--- NOTE | 2016-12-27 12:38 | General Surgery Progress Note ---
Subjective Patient reports: feels better, pain is less, no flatus, no bowel movement, afebrile Narrative: Note initiated : 12/27/16 at 12:32 pm Service Date, if different from initiated Date: [] Patient: Tripp Melo 66 y/o M admitted on 12/16/16 for Bowel Abscess, Bladder Fistula. Chief Complaint: [patient is more conversant and cooperative today. He states that his pain is less and he has required less medication for pain. He does not hve nausea though he does have some abdominal tighess. He has not had flatus or bowel movement and his abdomen is more distended than on yesterday. He has been afebrile and he does not have leukocytosis. His overall status is stable and improved except for his ileus.] Objective Temp Pulse Resp BP Pulse Ox 98.0 F 103 H 19 134/87 95 12/27/16 08:00 12/27/16 08:00 12/27/16 08:00 12/27/16 08:00 12/27/16 08:00 - Additional Data Intake & Output - Last 24 hours: Intake & Output 12/25/16 12/26/16 12/27/16 12/28/16 05:59 05:59 05:59 05:59 Intake Total 2098 / 2098 4775.6113 / 4775.6113 4126 / 4126 100 / 100 Output Total 5075 / 5075 4265 / 4265 4210 / 4210 660 / 660 Balance -2977 / -2977 510.6113 / 510.6113 -84 / -84 -560 / -560 Weight 139 lb 14.4 oz 135 lb 8 oz 136 lb 14.4 oz 136 lb 14.4 oz - General physical appearance moderate distress, moderate pain, chronically ill - Eyes PERRL - ENT no congestion - Neck no venous distension - Respiratory normal expansion, normal respiratory effort, clear to auscultation - Cardiovascular Cardiovascular exam: Present: RRR, +S1, +S2, tachycardia. Absent: JVD, systolic murmur - Abdomen soft, tender, bowel sounds, distended (abdomen is distended but he has good active bowel sounds. He has less tenderness than yesterday and his abdomen remains soft without significant guarding. The incision is red but is not suppurative. There is no incisional drainage) - Neurologic normal coordination, normal sensation - Psychiatric oriented to time, oriented to person, oriented to place, speech is normal, memory intact - Labs 12/27/16 04:35 12/27/16 04:35 Diabetes panel 12/27/16 Range/Units 04:35 Sodium 140 (133-145) mmol/L Potassium 4.0 (3.3-5.1) mmol/L Chloride 104 (96-108) mmol/L Carbon Dioxide 24 (22-30) mmol/L BUN 17 (8-23) mg/dl Creatinine 0.5 L (0.7-1.2) mg/dl Glucose 109 H (70-105) mg/dL Calcium 8.0 L (8.6-10.4) mg/dl AST 26 (0-37) U/l ALT 12 (0-40) U/l Alkaline Phosphatase 151 H (39-117) U/L Total Protein 5.4 L (5.9-8.4) gm/dL Albumin 2.4 L (3.2-5.2) gm/dL Triglycerides 54 (<150) mg/dl Calcium panel 12/27/16 Range/Units 04:35 Calcium 8.0 L (8.6-10.4) mg/dl Phosphorus 2.8 (2.7-4.5) mg/dL Albumin 2.4 L (3.2-5.2) gm/dL Pituitary panel 12/27/16 Range/Units 04:35 Sodium 140 (133-145) mmol/L Potassium 4.0 (3.3-5.1) mmol/L Chloride 104 (96-108) mmol/L Carbon Dioxide 24 (22-30) mmol/L BUN 17 (8-23) mg/dl Creatinine 0.5 L (0.7-1.2) mg/dl Glucose 109 H (70-105) mg/dL Calcium 8.0 L (8.6-10.4) mg/dl Adrenal panel 12/27/16 Range/Units 04:35 Sodium 140 (133-145) mmol/L Potassium 4.0 (3.3-5.1) mmol/L Chloride 104 (96-108) mmol/L Carbon Dioxide 24 (22-30) mmol/L BUN 17 (8-23) mg/dl Creatinine 0.5 L (0.7-1.2) mg/dl Glucose 109 H (70-105) mg/dL Calcium 8.0 L (8.6-10.4) mg/dl Total Bilirubin 0.8 (0.0-1.0) mg/dL AST 26 (0-37) U/l ALT 12 (0-40) U/l Alkaline Phosphatase 151 H (39-117) U/L Total Protein 5.4 L (5.9-8.4) gm/dL Albumin 2.4 L (3.2-5.2) gm/dL Medical - PN: A/P - Time Spent With Patient Total time spent is greater than 50% in coordination of care (as documented) at patient's floor/unit and/or counseling patient: (1) Enterovesical fistula Status: Acute Assessment and plan: PATIENT IS STABLE WILL CONTINUE ON PRESENT THERAPY Relistor 12 mg subcutaneous now and daily 3 doses. follow-up abdominal series in the morning Continue present therapy Dulcolax suppository every 6 hours 4 Current Visit: No (2) Dehydration Status: Resolved Current Visit: Yes (3) Hypokalemia due to loss of potassium Status: Resolved Current Visit: Yes (4) Iron deficiency anemia Status: Acute Current Visit: Yes (5) Anemia Status: Chronic Current Visit: No (6) Parkinson disease Status: Chronic Current Visit: No (7) Sleep apnea, obstructive Status: Chronic Current Visit: No
[2016-12-27] MEDS: BISACODYL 10 MG SUPP.RECT PR SCH ×3 (12:43→22:20)
[2016-12-27] MEDS: FAT EMULSION 20% 250 ML IV SCH (15:50)
[2016-12-27] MEDS: 0.9 % SODIUM CHLORIDE 1,000 ML IV SCH (15:51)
[2016-12-27] MEDS: [UNRECOGNIZED DRUG - OTHER] IV SCH (16:00)
[2016-12-27] MEDS: CALCIUM GLUCONATE IV SCH (16:00)
[2016-12-27] MEDS: MAGNESIUM SULFATE IV SCH (16:00)
[2016-12-27] MEDS: POTASSIUM PHOSPHATE IV SCH (16:00)
[2016-12-28] MEDS: INSULIN LISPRO 1 UNIT/0.01 ML UNIT SQ SCH ×4 (00:04→18:24)
[2016-12-28] MEDS: METOCLOPRAMIDE 10 MG/2 ML VIAL IV SCH ×4 (00:05→18:54)
[2016-12-28] MEDS: BISACODYL 10 MG SUPP.RECT PR SCH ×2 (00:05→09:46)
[2016-12-28] MEDS: DIAZEPAM 10 MG/2 ML SYRINGE IV SCH ×6 (00:05→21:45)
[2016-12-28] MEDS: 0.9 % SODIUM CHLORIDE 10 ML SYRINGE IV PRN (03:43)
[2016-12-28 05:51] LABS: ALT/SGPT 17 U/l (0-40); Albumin 2.6 gm/dL (3.2-5.2); Albumin/Globulin Ratio 0.9 (1.0-2.3); Alkaline Phosphatase 173 U/L (39-117); Blood Urea Nitrogen 19 mg/dl (8-23)
[2016-12-28] MEDS: metroNIDAZOLE 500 MG/100 ML BAG IV SCH ×3 (05:53→18:55)
[2016-12-28] MEDS: IMIPENEM/CILASTATIN SODIUM 500 MG in 0.9 % SODIUM CHLORIDE 100 ML IV SCH ×3 (06:01→21:47)
[2016-12-28 06:42] LABS: Basophils # (Auto) 0.1 K/mcL (0.0-0.3); Basophils % (Auto) 0.9 % (0.0-2.0); Eosinophils # (Auto) 0.5 K/mcL (0.0-0.7); Eosinophils % (Auto) 5.2 % (0.0-7.0); Granulocytes % (Auto) 79.4 % (38.0-78.0); Lymphocytes % (Auto) 10.5 % (15.5-49.0); Mean Cell Volume 81.9 fL (80.0-100.0); Mean Corpuscular Hemoglobin 26.2 pg (26.0-34.0); Monocytes # (Auto) 0.4 K/mcL (0.1-0.9); Platelet Count 307 K/mcL (140-440); RBC 3.79 M/mcL (4.50-5.90); Red Cell Distribution Width 19.4 % (11.5-14.5)
[2016-12-28] MEDS: 0.9 % SODIUM CHLORIDE 10 ML SYRINGE IV SCH ×3 (06:49→21:47)
--- NOTE | 2016-12-28 08:46 | XRay Report ---
CLINICAL INFORMATION: Postoperative ileus TECHNIQUE: Supine and left lateral decubitus abdomen COMPARISON: 12/27/2016, 12/26/2016, 12/25/2016 FINDINGS: There continues to be gas within small and large bowel. Prominent: In the left upper quadrant. No Interval change in bowel gas pattern. No pneumatosis. No biliary or portal venous gas. No pneumoperitoneum. Appearance remains most consistent with postoperative ileus IMPRESSION: No interval change Interpreted and Authenticated by: Miguel Angel Solis 12/28/16
--- NOTE | 2016-12-28 09:09 | Internal Med Progress Note ---
Medical - PN: Subj Patient information: Note initiated : 12/28/16 at 9:06 am Service Date, if different from initiated Date: [] Patient: Tripp Melo 66 y/o M admitted on 12/16/16 for Bowel Abscess, Bladder Fistula. Chief Complaint: [] Interval history: The patient seen examined, no acute overnight events, patient has intermittent sinus tachycardia, Still reports pain in the abdominal region. He has had a large bm overnight, patient urine output ok. labs/ Imaging/ Surgery notes reviewed. Briefly patient admitted for vesico-enteric fistula, s/p resection, patient has had significant anemia, and hypokalemia. Presently on TPN. Medicine following for medical management. patient was not sigificantly verbal, receiving valiuum to help calm him down, h/ o parkinsons disease and his medications have been held due to NPO status, Pertinent ROS: unable to obtain. - Constitutional Vitals: Vital Signs Temp Pulse Resp BP Pulse Ox 99.2 F 85 19 139/84 99 12/27/16 20:00 12/28/16 07:00 12/28/16 07:00 12/28/16 07:00 12/28/16 07:00 Period Temp Pulse Resp BP Sys/Lerma Pulse Ox Last 24 Hr 98.0 F-99.2 F 85-119 15-24 108-158/67-133 92-99 Intake and Output 12/27/16 12/28/16 12/28/16 21:59 05:59 13:59 Intake Total 2788 / 2788 352 / 352 200 / 200 Output Total 2300 / 2300 660 / 660 Balance 488 / 488 352 / 352 -460 / -460 Weight 131 lb 12.8 oz Intake & Output: Intake & Output 12/27/16 12/28/16 12/28/16 21:59 05:59 13:59 Intake Total 2788 / 2788 352 / 352 200 / 200 Output Total 2300 / 2300 660 / 660 Balance 488 / 488 352 / 352 -460 / -460 Weight 131 lb 12.8 oz Intake: IV 2788 / 2788 352 / 352 200 / 200 Sodium Chloride 0.9% 1, 473 / 473 000 ml @ 20 mls/hr IV . Q24H [facility] Rx#:[id number] Calcium Gluconate 10 Meq 2014 Magnesium Sulfate 8.12 Meq Potassium Phosphate 100 Meq Infuvite Adult 10 ml Selenium 60 Mcg Sodium Phosphate 10 Mmol Potassium Chloride 80 Meq In Clinimix 5%-20% Solution 2,000 ml @ 85 mls/hr IV Q24H [facility] Rx#: [id number] Sodium Chloride 0.9% 100 100 / 100 100 / 100 100 / 100 ml @ 100 mls/hr IV Q8 [facility] with Primaxin 500 mg Rx# :[id number] Sodium Chloride 0.9% 250 250 / 250 ml @ 250 mls/hr IV Q12 [facility] with Vancomycin 1,000 mg Rx#:[id number] Output: Urine Catheter Amount 2300 / 2300 660 / 660 Exam: Constitutional; Afebrile, cooperative, awake sitting in bed. Eyes- No icterus, Ears- Ext ear normal, Neck- Midline trachea, supple Respiratory system: Air Entry equal on both sides, No crackles or wheezing, no rhonchi. CVS- Rate rhythm regular, S1,S2 heard, no gallop, no rub. tachycardia noted, sinus on tele. Abdomen- mildly distended, tender to palpation. 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, Medical - PN: Obj Da - Labs CBC & Chem 7: 12/28/16 03:45 12/28/16 03:45 Labs: Abnormal Lab Results 12/28/16 12/28/16 12/27/16 03:45 03:45 04:35 WBC RBC 3.79 L 3.56 L Hgb 9.9 L 9.6 L Hct 31.0 L 29.6 L RDW 19.4 H 20.5 H Gran % 79.4 H 78.8 H Lymph % (Auto) 10.5 L 12.1 L Gran # Lymph # 1.0 L 1.2 L PT INR Potassium Creatinine 0.5 L Glucose Uric Acid Calcium 8.0 L Phosphorus Direct Bilirubin GGT Alkaline Phosphatase 173 H Lactate Dehydrogenase Total Protein 5.6 L Albumin 2.6 L Albumin/Globulin Ratio 0.9 L 12/27/16 12/26/16 12/26/16 04:35 03:50 03:50 WBC 12.4 H RBC 3.38 L Hgb 9.1 L Hct 28.0 L RDW 20.4 H Gran % 89.1 H Lymph % (Auto) 6.1 L Gran # 11.0 H Lymph # 0.8 L PT 15.7 H INR 1.2 H Potassium Creatinine 0.5 L Glucose 109 H Uric Acid 1.3 L Calcium 8.0 L Phosphorus Direct Bilirubin 0.4 H GGT 137 H Alkaline Phosphatase 151 H Lactate Dehydrogenase Total Protein 5.4 L Albumin 2.4 L Albumin/Globulin Ratio 0.8 L 12/26/16 03:50 WBC RBC Hgb Hct RDW Gran % Lymph % (Auto) Gran # Lymph # PT INR Potassium 2.7 L* Creatinine 0.5 L Glucose 113 H Uric Acid 1.1 L Calcium 7.8 L Phosphorus 2.5 L Direct Bilirubin GGT 90 H Alkaline Phosphatase 129 H Lactate Dehydrogenase 277 H Total Protein 5.2 L Albumin 2.5 L Albumin/Globulin Ratio 0.9 L Meds: Medications Dextrose (Dextrose 50%) 0 ml IV UD PRN PRN Reason: Hypoglycemia Diagnostic Test (Pha) (Accu-Chek) 1 each FS Q6 [facility] Last Admin: 12/28/16 06:46 Dose: 1 each Diazepam (Valium) 5 mg IV Q4 [facility] Last Admin: 12/28/16 03:40 Dose: 5 mg Fentanyl (Duragesic) 100 mcg TD Q48H [facility] Last Admin: 12/26/16 11:37 Dose: 100 mcg Heparin Sodium (Porcine) (Heparin Flush) 2 ml IV Q12 [facility] Last Admin: 12/27/16 22:21 Dose: 2 ml Hydromorphone HCl (Dilaudid) 2 mg IV Q2HP PRN PRN Reason: Pain Last Admin: 12/27/16 22:30 Dose: 2 mg Fat Emulsion Intravenous (Intralipid 20%) 250 mls @ 25 mls/hr IV [id number] [facility] Last Admin: 12/27/16 15:50 Dose: 25 mls/hr Imipenem/Cilastatin Sodium 500 (mg/ Sodium Chloride) 100 mls @ 100 mls/hr IV Q8 [facility] Last Infusion: 12/28/16 07:03 Dose: Infused Vancomycin HCl 1,000 mg/ (Sodium Chloride) 250 mls @ 250 mls/hr IV Q12 [facility] Last Infusion: 12/27/16 23:25 Dose: Infused Metronidazole (Flagyl) 500 mg in 100 mls @ 100 mls/hr IV Q6 [facility] Last Infusion: 12/28/16 06:55 Dose: Infused Acetaminophen (Ofirmev) 1,000 mg in 100 mls @ 200 mls/hr IV Q6H PRN PRN Reason: Pain Last Infusion: 12/24/16 08:13 Dose: Infused Sodium Chloride (Sodium Chloride 0.9%) 1,000 mls @ 20 mls/hr IV .Q24H [facility] Last Admin: 12/27/16 15:51 Dose: 20 mls/hr Calcium Gluconate 10 meq/Magnesium Sulfate 8.12 meq/Potassium Phosphate 100 meq/ Multivitamins/Minerals 10 ml/Selenium 60 mcg/ Sodium Phosphate 10 mmol/ Potassium Chloride 80 meq/ Amino Acids 2,101.0659 mls @ 85 mls/hr IV Q24H [facility] Last Admin: 12/27/16 16:00 Dose: 85 mls/hr Insulin Human Lispro (Humalog) 0 unit SQ Q6 [facility] PRN Reason: Protocol Last Admin: 12/28/16 06:47 Dose: Not Given Levothyroxine Sodium ([facility]throid) [facility] Last Admin: 12/27/16 08:43 Dose: 50 mcg Lorazepam (Ativan) 0.5 mg IV Q4-6HP PRN PRN Reason: ANXIETY/SEDATION Last Admin: 12/24/16 00:31 Dose: 0.5 mg Metoclopramide HCl (Reglan) 10 mg IV Q6 [facility] Last Admin: 12/28/16 06:48 Dose: 10 mg Metoprolol Tartrate (Lopressor) 5 mg IV Q4HP PRN PRN Reason: Tachyarrhythmias Last Admin: 12/27/16 20:46 Dose: 5 mg Pantoprazole Sodium (Protonix) 40 mg IV QAMAC [facility] Last Admin: 12/27/16 08:43 Dose: 40 mg Apomorphine (Apokyn) (10mg/Ml) 0.3 dose SC Q2HP PRN PRN Reason: Tremors Rotigotine [Neupro] (4 Mg Patch) 1 dose TOPICAL DAILY [facility] Last Admin: 12/27/16 08:44 Dose: 1 dose Rotigotine [Neupro] (8 Mg Patch) 1 dose TOPICAL DAILY [facility] Last Admin: 12/27/16 08:43 Dose: 1 dose Sodium Chloride (Saline Flush) 10 ml IV UD PRN PRN Reason: FLUSH Last Admin: 12/28/16 03:43 Dose: 10 ml Sodium Chloride (Saline Flush) 10 ml IV Q8 [facility] Last Admin: 12/28/16 06:49 Dose: 10 ml Medical - PN: A/P - Time Spent With Patient Total time spent is greater than 50% in coordination of care (as documented) at patient's floor/unit and/or counseling patient: (1) Hypokalemia due to loss of potassium Status: Resolved Current Visit: Yes (2) Iron deficiency anemia Status: Acute Current Visit: Yes (3) Enterovesical fistula Status: Acute Current Visit: No (4) Parkinson disease Status: Chronic Current Visit: No (5) Migraine Status: Chronic Current Visit: No (6) Anxiety disorder Status: Chronic Current Visit: No - Narrative A/P Narrative: The patient seems to be clinically improving, Passed BM, management of enterovesical fisutula and post op management as per surgery, Pt on IV vancomycin/ flagyl and Imipenum as per surgery. Hypokalemia has resolved. H/H has remained stable Patient however needs to resume his medications for parkinsons disease once able to tolerate PO Will order for ST therapy for swallow eval Diet TPN for now,Check pre albumin, mg, phos, cbc, cmp daily for now. DVT prophylaxis, none noted, start on low dose hep sq Medical - PN: Qual - Stroke Symptom Onset Unknown: No - VTE Deep Vein Thrombosis/Pulmonary Embolism Present on Admission: No
[2016-12-28] MEDS: VANCOMYCIN 1,000 MG in 0.9 % SODIUM CHLORIDE 250 ML IV SCH ×2 (09:26→21:46)
[2016-12-28] MEDS: ROTIGOTINE 4 MG TOPICAL SCH (09:54)
[2016-12-28] MEDS: ROTIGOTINE 8 MG TOPICAL SCH (09:54)
[2016-12-28] MEDS: METHYLNALTREXONE BROMIDE 12 MG/0.6 ML SYRINGE SQ SCH (09:54)
[2016-12-28] MEDS: PANTOPRAZOLE 40 MG VIAL IV SCH (09:55)
[2016-12-28] MEDS: LEVOTHYROXINE 100 MCG VIAL IV SCH (09:55)
[2016-12-28] MEDS: fentaNYL 100 MCG PATCH TD SCH (11:13)
[2016-12-28] MEDS ORDERED: VANCOMYCIN PER PHARMACY IV SCH (11:45)
[2016-12-28] MEDS: CLOTRIMAZOLE 10 MG TROCHE PO SCH ×4 (12:00→21:45)
--- NOTE | 2016-12-28 12:13 | General Surgery Progress Note ---
Subjective Patient reports: feels better, still having pain, pain is less, flatus, bowel movement, afebrile Narrative: Note initiated : 12/28/16 at 12:10 pm Service Date, if different from initiated Date: [] Patient: Tripp Melo 66 y/o M admitted on 12/16/16 for Bowel Abscess, Bladder Fistula. Chief Complaint: [patient had a fairly decent night. He had a small bowel movement and pass some gas with a Dulcolax suppository. He has less abdominal pain and he denies nausea. He is afebrle and his white blood count is normal. He is clinically depressed but is cooperative.] Objective Temp Pulse Resp BP Pulse Ox 98.9 F 85 20 137/87 94 12/28/16 09:00 12/28/16 07:00 12/28/16 09:00 12/28/16 09:00 12/28/16 09:00 - Additional Data Intake & Output - Last 24 hours: Intake & Output 12/26/16 12/27/16 12/28/16 12/29/16 05:59 05:59 05:59 05:59 Intake Total 4775.6113 / 4775.6113 4126 / 4126 3590 / 3590 450 / 450 Output Total 4265 / 4265 4210 / 4210 4955 / 4955 840 / 840 Balance 510.6113 / 510.6113 -84 / -84 -1365 / -1365 -390 / -390 Weight 135 lb 8 oz 136 lb 14.4 oz 131 lb 12.8 oz - General physical appearance moderate distress, cachectic, chronically ill - Eyes PERRL - ENT no congestion - Respiratory normal respiratory effort, clear to auscultation - Cardiovascular Cardiovascular exam: Present: normal rate and rhythm, RRR, +S1, +S2, tachycardia - Abdomen soft, non tender (.) - Integumentary no rash, no growths, no abnormal pigmentation - Psychiatric oriented to time, oriented to person, oriented to place, speech is normal, memory intact - Labs 12/28/16 03:45 12/28/16 03:45 Diabetes panel 12/28/16 Range/Units 03:45 Sodium 137 (133-145) mmol/L Potassium 4.3 (3.3-5.1) mmol/L Chloride 105 (96-108) mmol/L Carbon Dioxide 22 (22-30) mmol/L BUN 19 (8-23) mg/dl Creatinine 0.5 L (0.7-1.2) mg/dl Glucose 104 (70-105) mg/dL Calcium 8.0 L (8.6-10.4) mg/dl AST 35 (0-37) U/l ALT 17 (0-40) U/l Alkaline Phosphatase 173 H (39-117) U/L Total Protein 5.6 L (5.9-8.4) gm/dL Albumin 2.6 L (3.2-5.2) gm/dL Calcium panel 12/28/16 Range/Units 03:45 Calcium 8.0 L (8.6-10.4) mg/dl Albumin 2.6 L (3.2-5.2) gm/dL Pituitary panel 12/28/16 Range/Units 03:45 Sodium 137 (133-145) mmol/L Potassium 4.3 (3.3-5.1) mmol/L Chloride 105 (96-108) mmol/L Carbon Dioxide 22 (22-30) mmol/L BUN 19 (8-23) mg/dl Creatinine 0.5 L (0.7-1.2) mg/dl Glucose 104 (70-105) mg/dL Calcium 8.0 L (8.6-10.4) mg/dl Adrenal panel 12/28/16 Range/Units 03:45 Sodium 137 (133-145) mmol/L Potassium 4.3 (3.3-5.1) mmol/L Chloride 105 (96-108) mmol/L Carbon Dioxide 22 (22-30) mmol/L BUN 19 (8-23) mg/dl Creatinine 0.5 L (0.7-1.2) mg/dl Glucose 104 (70-105) mg/dL Calcium 8.0 L (8.6-10.4) mg/dl Total Bilirubin 0.7 (0.0-1.0) mg/dL AST 35 (0-37) U/l ALT 17 (0-40) U/l Alkaline Phosphatase 173 H (39-117) U/L Total Protein 5.6 L (5.9-8.4) gm/dL Albumin 2.6 L (3.2-5.2) gm/dL Medical - PN: A/P - Time Spent With Patient Total time spent is greater than 50% in coordination of care (as documented) at patient's floor/unit and/or counseling patient: (1) Enterovesical fistula Status: Acute Assessment and plan: PATIENT IS STABLE WILL CONTINUE ON PRESENT THERAPY. follow-up abdominal series in the morning Continue present therapy Fleet enema today We'll start popsicles and ice chips Current Visit: No (2) Dehydration Status: Resolved Current Visit: Yes (3) Hypokalemia due to loss of potassium Status: Resolved Current Visit: Yes (4) Iron deficiency anemia Status: Acute Current Visit: Yes (5) Anemia Status: Chronic Current Visit: No (6) Parkinson disease Status: Chronic Current Visit: No (7) Sleep apnea, obstructive Status: Chronic Current Visit: No
[2016-12-28] MEDS ORDERED: FLEETS ADULT ENEMA PR ONE (13:10)
[2016-12-28] MEDS ORDERED: MVI IV SCH (16:00)
[2016-12-28] MEDS ORDERED: MAGNESIUM SULFATE IV SCH (16:00)
[2016-12-28] MEDS ORDERED: POTASSIUM PHOSPHATE IV SCH (16:00)
[2016-12-28] MEDS ORDERED: [UNRECOGNIZED DRUG - OTHER] IV SCH (16:00)
[2016-12-28] MEDS ORDERED: CALCIUM GLUCONATE IV SCH (16:00)
[2016-12-28] MEDS: 0.9 % SODIUM CHLORIDE 1,000 ML IV SCH (18:21)
[2016-12-28] MEDS: HEPARIN 5,000 UNIT/ML VIAL SQ SCH (21:46)
[2016-12-29] MEDS: metroNIDAZOLE 500 MG/100 ML BAG IV SCH ×4 (00:57→18:33)
[2016-12-29] MEDS: DIAZEPAM 10 MG/2 ML SYRINGE IV SCH ×8 (00:57→23:58)
[2016-12-29] MEDS: METOCLOPRAMIDE 10 MG/2 ML VIAL IV SCH ×4 (00:57→18:33)
[2016-12-29] MEDS: INSULIN LISPRO 1 UNIT/0.01 ML UNIT SQ SCH ×4 (00:59→18:31)
[2016-12-29] MEDS: IMIPENEM/CILASTATIN SODIUM 500 MG in 0.9 % SODIUM CHLORIDE 100 ML IV SCH ×3 (06:14→23:53)
[2016-12-29] MEDS: 0.9 % SODIUM CHLORIDE 10 ML SYRINGE IV SCH ×2 (06:15→14:00)
[2016-12-29 06:37] LABS: Basophils # (Auto) 0.1 K/mcL (0.0-0.3); Basophils % (Auto) 0.8 % (0.0-2.0); Eosinophils # (Auto) 0.4 K/mcL (0.0-0.7); Eosinophils % (Auto) 4.5 % (0.0-7.0); Granulocytes % (Auto) 73.4 % (38.0-78.0); Lymphocytes # (Auto) 1.5 K/mcL (1.5-4.8); Lymphocytes % (Auto) 16.4 % (15.5-49.0); Mean Cell Volume 81.7 fL (80.0-100.0); Mean Corpuscular HGB Conc 32.2 g/dL (31.0-36.0); Mean Corpuscular Hemoglobin 26.3 pg (26.0-34.0); Monocytes # (Auto) 0.4 K/mcL (0.1-0.9); Monocytes % (Auto) 4.9 % (1.0-9.0); Platelet Count 318 K/mcL (140-440); Red Cell Distribution Width 19.3 % (11.5-14.5)
[2016-12-29 07:16] LABS: ALT/SGPT 18 U/l (0-40); Albumin 2.5 gm/dL (3.2-5.2); Albumin/Globulin Ratio 0.8 (1.0-2.3); Alkaline Phosphatase 183 U/L (39-117); Blood Urea Nitrogen 23 mg/dl (8-23)
[2016-12-29 08:06] LABS: Magnesium 2.4 mg/dL (1.6-2.5); Phosphorous 3.4 mg/dL (2.7-4.5); Prealbumin 26.6 mg/dl (20-40)
[2016-12-29] MEDS: ROTIGOTINE 8 MG TOPICAL SCH (09:00)
[2016-12-29] MEDS: ROTIGOTINE 4 MG TOPICAL SCH (09:00)
[2016-12-29] MEDS: LEVOTHYROXINE 100 MCG VIAL IV SCH (11:51)
[2016-12-29] MEDS: PANTOPRAZOLE 40 MG VIAL IV SCH (11:51)
[2016-12-29] MEDS: VANCOMYCIN 1,000 MG in 0.9 % SODIUM CHLORIDE 250 ML IV SCH ×2 (11:52→23:52)
[2016-12-29] MEDS: CLOTRIMAZOLE 10 MG TROCHE PO SCH ×5 (11:54→23:51)
[2016-12-29] MEDS: HEPARIN 5,000 UNIT/ML VIAL SQ SCH (11:57)
--- NOTE | 2016-12-29 13:22 | General Surgery Progress Note ---
Subjective Patient reports: feels better, pain is less, no flatus, no bowel movement, afebrile Narrative: Note initiated : 12/29/16 at 1:19 pm Service Date, if different from initiated Date: [] Patient: Tripp Melo 66 y/o M admitted on 12/16/16 for Bowel Abscess, Bladder Fistula. Chief Complaint: [patient is clinically stable except for lack of flatus and bowel movement. CT of the abdomen and pelvis was ordered today but the scanner down so it will be done tomorrow. If CT is unremarkable I will give him oral laxatives to try to induce bowel movements since the gas passes through the anastomosis into the distal colon.] Objective Temp Pulse Resp BP Pulse Ox 98.4 F 99 H 20 123/80 98 12/29/16 12:00 12/29/16 00:10 12/29/16 12:00 12/29/16 12:00 12/29/16 12:00 - Additional Data Intake & Output - Last 24 hours: Intake & Output 12/27/16 12/28/16 12/29/16 12/30/16 05:59 05:59 05:59 05:59 Intake Total 4126 / 4126 3590 / 3590 1730 / 1730 450 / 450 Output Total 4210 / 4210 4955 / 4955 3099 / 3099 700 / 700 Balance -84 / -84 -1365 / -1365 -1369 / -1369 -250 / -250 Weight 136 lb 14.4 oz 131 lb 12.8 oz 127 lb 6.4 oz - Additional Exam patient is alert awake and aware Head and neck exams unremarkable except for thrush Chest clear to auscultation Heart regular but with mild tachycardia heart rate 114 Abdomen soft nontender with active bowel sounds; incision looks good Extremities no edema - Labs 12/29/16 03:45 12/29/16 03:45 Diabetes panel 12/29/16 Range/Units 03:45 Sodium 139 (133-145) mmol/L Potassium 3.9 (3.3-5.1) mmol/L Chloride 105 (96-108) mmol/L Carbon Dioxide 21 L (22-30) mmol/L BUN 23 (8-23) mg/dl Creatinine 0.6 L (0.7-1.2) mg/dl Glucose 107 H (70-105) mg/dL Calcium 8.2 L (8.6-10.4) mg/dl AST 28 (0-37) U/l ALT 18 (0-40) U/l Alkaline Phosphatase 183 H (39-117) U/L Total Protein 5.7 L (5.9-8.4) gm/dL Albumin 2.5 L (3.2-5.2) gm/dL Calcium panel 12/29/16 12/29/16 Range/Units 03:45 03:45 Calcium 8.2 L (8.6-10.4) mg/dl Phosphorus 3.4 (2.7-4.5) mg/dL Albumin 2.5 L (3.2-5.2) gm/dL Pituitary panel 12/29/16 Range/Units 03:45 Sodium 139 (133-145) mmol/L Potassium 3.9 (3.3-5.1) mmol/L Chloride 105 (96-108) mmol/L Carbon Dioxide 21 L (22-30) mmol/L BUN 23 (8-23) mg/dl Creatinine 0.6 L (0.7-1.2) mg/dl Glucose 107 H (70-105) mg/dL Calcium 8.2 L (8.6-10.4) mg/dl Adrenal panel 12/29/16 Range/Units 03:45 Sodium 139 (133-145) mmol/L Potassium 3.9 (3.3-5.1) mmol/L Chloride 105 (96-108) mmol/L Carbon Dioxide 21 L (22-30) mmol/L BUN 23 (8-23) mg/dl Creatinine 0.6 L (0.7-1.2) mg/dl Glucose 107 H (70-105) mg/dL Calcium 8.2 L (8.6-10.4) mg/dl Total Bilirubin 0.7 (0.0-1.0) mg/dL AST 28 (0-37) U/l ALT 18 (0-40) U/l Alkaline Phosphatase 183 H (39-117) U/L Total Protein 5.7 L (5.9-8.4) gm/dL Albumin 2.5 L (3.2-5.2) gm/dL Medical - PN: A/P - Time Spent With Patient Total time spent is greater than 50% in coordination of care (as documented) at patient's floor/unit and/or counseling patient: (1) Enterovesical fistula Status: Acute Assessment and plan: PATIENT IS STABLE WILL CONTINUE ON PRESENT THERAPY. CT of abdomen and pelvis in the morning Continue present therapy if CT is normal we'll go oral laxatives We'll start popsicles and ice chips Current Visit: No (2) Dehydration Status: Resolved Current Visit: Yes (3) Hypokalemia due to loss of potassium Status: Resolved Current Visit: Yes (4) Iron deficiency anemia Status: Acute Current Visit: Yes (5) Anemia Status: Chronic Current Visit: No (6) Parkinson disease Status: Chronic Current Visit: No (7) Sleep apnea, obstructive Status: Chronic Current Visit: No
[2016-12-29] MEDS: 0.9 % SODIUM CHLORIDE 1,000 ML IV SCH (15:32)
[2016-12-29] MEDS ORDERED: POTASSIUM PHOSPHATE IV SCH (16:00)
[2016-12-29] MEDS ORDERED: MVI IV SCH (16:00)
[2016-12-29] MEDS ORDERED: MAGNESIUM SULFATE IV SCH (16:00)
[2016-12-29] MEDS ORDERED: CALCIUM GLUCONATE IV SCH (16:00)
[2016-12-29] MEDS ORDERED: [UNRECOGNIZED DRUG - OTHER] IV SCH (16:00)
--- NOTE | 2016-12-29 21:39 | Internal Med Progress Note ---
Medical - PN: Subj Patient information: Note initiated : 12/29/16 at 9:36 pm Service Date, if different from initiated Date: [] Patient: Tripp Melo 66 y/o M admitted on 12/16/16 for Bowel Abscess, Bladder Fistula. Chief Complaint: [] Interval history: Patient seen examined, no acute overnight events sitting in chair, tachycardic when in chair, HR improves when lying in bed His movements are restricted due to severe parkinsons, not being able to take the medications. due to NPO status his electrolytes are stable Ileus still present CT planned but unable to be done due to machine being down.; Pertinent ROS: Denies headache, dizziness Denies chest pain, palpitations Denies cough or shortness of breath admits abdominal pain, nausea or vomiting. - Constitutional Vitals: Vital Signs Temp Pulse Resp BP Pulse Ox 98.4 F 113 H 18 116/79 95 12/29/16 16:00 12/29/16 18:00 12/29/16 18:00 12/29/16 18:00 12/29/16 18:00 Period Temp Pulse Resp BP Sys/Lerma Pulse Ox Last 24 Hr 98.3 F-98.5 F 82-113 11-22 102-132/70-90 91-99 Intake and Output 12/29/16 12/29/16 12/29/16 05:59 13:59 21:59 Intake Total 200 / 200 450 / 450 2580 / 2580 Output Total 830 / 830 800 / 800 600 / 600 Balance -630 / -630 -350 / -350 1979 Intake & Output: Intake & Output 12/29/16 12/29/16 12/29/16 05:59 13:59 21:59 Intake Total 200 / 200 450 / 450 2580 / 2580 Output Total 830 / 830 800 / 800 600 / 600 Balance -630 / -630 -350 / -350 1979 Intake: IV 200 / 200 450 / 450 2580 / 2580 Sodium Chloride 0.9% 1, 422 / 422 000 ml @ 20 mls/hr IV . Q24H [facility] Rx#:[id number] Calcium Gluconate 10 Meq 1808 / 1808 Magnesium Sulfate 8.12 Meq Potassium Phosphate 60 Meq Infuvite Adult 10 ml Selenium 60 Mcg Sodium Phosphate 20 Mmol Potassium Chloride 40 Meq In Clinimix 5%-20% Solution 2,000 ml @ 85 mls/hr IV Q24H [facility] Rx#: [id number] Sodium Chloride 0.9% 100 100 / 100 100 / 100 ml @ 100 mls/hr IV Q8 [facility] with Primaxin 500 mg Rx# :[id number] Sodium Chloride 0.9% 250 250 / 250 250 / 250 ml @ 250 mls/hr IV Q12 [facility] with Vancomycin 1,000 mg Rx#:[id number] Output: Urine Catheter Amount 830 / 830 800 / 800 600 / 600 Exam: Constitutional; Afebrile, cooperative, alert, not in distress. Eyes- No icterus, No periorbital swelling Ears- Ext ear normal, Neck- Midline trachea, supple Respiratory system: Air Entry equal on both sides, No crackles or wheezing, no rhonchi. CVS- Rate rhythm regular, S1,S2 heard, no gallop, no rub. tachycardic. 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 Medical - PN: Obj Da - Labs CBC & Chem 7: 12/29/16 03:45 12/29/16 03:45 Labs: Abnormal Lab Results 12/29/16 12/29/16 12/28/16 03:45 03:45 03:45 RBC 3.80 L 3.79 L Hgb 10.0 L 9.9 L Hct 31.1 L 31.0 L RDW 19.3 H 19.4 H Gran % 79.4 H Lymph % (Auto) 10.5 L Lymph # 1.0 L Carbon Dioxide 21 L Creatinine 0.6 L Glucose 107 H Uric Acid Calcium 8.2 L Direct Bilirubin GGT Alkaline Phosphatase 183 H Total Protein 5.7 L Albumin 2.5 L Albumin/Globulin Ratio 0.8 L 12/28/16 12/27/16 12/27/16 03:45 04:35 04:35 RBC 3.56 L Hgb 9.6 L Hct 29.6 L RDW 20.5 H Gran % 78.8 H Lymph % (Auto) 12.1 L Lymph # 1.2 L Carbon Dioxide Creatinine 0.5 L 0.5 L Glucose 109 H Uric Acid 1.3 L Calcium 8.0 L 8.0 L Direct Bilirubin 0.4 H GGT 137 H Alkaline Phosphatase 173 H 151 H Total Protein 5.6 L 5.4 L Albumin 2.6 L 2.4 L Albumin/Globulin Ratio 0.9 L 0.8 L Meds: Medications Clotrimazole (Mycelex) 10 mg PO 5XD [facility] Last Admin: 12/29/16 18:31 Dose: 10 mg Dextrose (Dextrose 50%) 0 ml IV UD PRN PRN Reason: Hypoglycemia Diagnostic Test (Pha) (Accu-Chek) 1 each FS Q6 [facility] Last Admin: 12/29/16 18:30 Dose: 1 each Diazepam (Valium) 5 mg IV Q4 [facility] Last Admin: 12/29/16 15:35 Dose: 5 mg Fentanyl (Duragesic) 100 mcg TD Q48H [facility] Last Admin: 12/28/16 11:13 Dose: 100 mcg Heparin Sodium (Porcine) (Heparin Flush) 2 ml IV Q12 [facility] Last Admin: 12/29/16 11:50 Dose: 2 ml Heparin Sodium (Porcine) (Heparin) 5,000 unit SQ Q12 [facility] Last Admin: 12/29/16 11:57 Dose: 5,000 unit Hydromorphone HCl (Dilaudid) 2 mg IV Q2HP PRN PRN Reason: Pain Last Admin: 12/27/16 22:30 Dose: 2 mg Fat Emulsion Intravenous (Intralipid 20%) 250 mls @ 25 mls/hr IV [id number] [facility] Last Infusion: 12/28/16 09:07 Dose: Infused Imipenem/Cilastatin Sodium 500 (mg/ Sodium Chloride) 100 mls @ 100 mls/hr IV Q8 [facility] Last Admin: 12/29/16 15:31 Dose: 100 mls/hr Vancomycin HCl 1,000 mg/ (Sodium Chloride) 250 mls @ 250 mls/hr IV Q12 [facility] Last Infusion: 12/29/16 15:28 Dose: Infused Metronidazole (Flagyl) 500 mg in 100 mls @ 100 mls/hr IV Q6 [facility] Last Admin: 12/29/16 18:33 Dose: 100 mls/hr Acetaminophen (Ofirmev) 1,000 mg in 100 mls @ 200 mls/hr IV Q6H PRN PRN Reason: Pain Last Infusion: 12/24/16 08:13 Dose: Infused Sodium Chloride (Sodium Chloride 0.9%) 1,000 mls @ 20 mls/hr IV .Q24H [facility] Last Admin: 12/29/16 15:32 Dose: 20 mls/hr Calcium Gluconate 10 meq/Magnesium Sulfate 4.06 meq/Potassium Phosphate 20 meq/ Multivitamins/Minerals 10 ml/Selenium 60 mcg/ Sodium Phosphate 20 mmol/ Potassium Chloride 60 meq/ Potassium Acetate 20 meq/ Amino Acids 2,085.2175 mls @ 85 mls/hr IV Q24H [facility] Last Admin: 12/29/16 15:32 Dose: 85 mls/hr Insulin Human Lispro (Humalog) 0 unit SQ Q6 [facility] PRN Reason: Protocol Last Admin: 12/29/16 18:31 Dose: Not Given Levothyroxine Sodium (Synthroid) 50 mcg IV QAMAC [facility] Last Admin: 12/29/16 11:51 Dose: 50 mcg Lorazepam (Ativan) 0.5 mg IV Q4-6HP PRN PRN Reason: ANXIETY/SEDATION Last Admin: 12/24/16 00:31 Dose: 0.5 mg Metoclopramide HCl (Reglan) 10 mg IV Q6 [facility] Last Admin: 12/29/16 18:33 Dose: 10 mg Metoprolol Tartrate (Lopressor) 5 mg IV Q4HP PRN PRN Reason: Tachyarrhythmias Last Admin: 12/27/16 20:46 Dose: 5 mg Pantoprazole Sodium (Protonix) 40 mg IV QAMAC [facility] Last Admin: 12/29/16 11:51 Dose: 40 mg Apomorphine (Apokyn) (10mg/Ml) 0.3 dose SC Q2HP PRN PRN Reason: Tremors Rotigotine [Neupro] (4 Mg Patch) 1 dose TOPICAL DAILY [facility] Last Admin: 12/29/16 09:00 Dose: 1 dose Rotigotine [Neupro] (8 Mg Patch) 1 dose TOPICAL DAILY [facility] Last Admin: 12/29/16 09:00 Dose: 1 dose Sodium Chloride (Saline Flush) 10 ml IV UD PRN PRN Reason: FLUSH Last Admin: 12/28/16 03:43 Dose: 10 ml Sodium Chloride (Saline Flush) 10 ml IV Q8 [facility] Last Admin: 12/29/16 14:00 Dose: 10 ml Vancomycin HCl (Vancomycin Per Pharmacy) 1 order IV UD [facility] Medical - PN: A/P - Time Spent With Patient Total time spent is greater than 50% in coordination of care (as documented) at patient's floor/unit and/or counseling patient: (1) Hypokalemia due to loss of potassium Status: Resolved Current Visit: Yes (2) Iron deficiency anemia Status: Acute Current Visit: Yes (3) Enterovesical fistula Status: Acute Current Visit: No (4) Parkinson disease Status: Chronic Current Visit: No (5) Migraine Status: Chronic Current Visit: No (6) Anxiety disorder Status: Chronic Current Visit: No - Narrative A/P Narrative: Hypokalemia stable, continue same patietn is hemodynmically stable, monitor electrolytes CT scan abdomen when able Resume parkinsons meds when able Will follow with Surgery Diet TPN Hep sq for dvt. Medical - PN: Qual - Stroke Symptom Onset Unknown: No - VTE Deep Vein Thrombosis/Pulmonary Embolism Present on Admission: No
[2016-12-30] MEDS: METOCLOPRAMIDE 10 MG/2 ML VIAL IV SCH ×4 (00:11→17:32)
[2016-12-30] MEDS: metroNIDAZOLE 500 MG/100 ML BAG IV SCH ×4 (00:12→17:31)
[2016-12-30] MEDS: 0.9 % SODIUM CHLORIDE 10 ML SYRINGE IV SCH ×4 (00:40→22:00)
[2016-12-30] MEDS: INSULIN LISPRO 1 UNIT/0.01 ML UNIT SQ SCH ×4 (00:40→17:55)
[2016-12-30] MEDS: HEPARIN 5,000 UNIT/ML VIAL SQ SCH ×3 (00:41→21:45)
[2016-12-30] MEDS: DIAZEPAM 10 MG/2 ML SYRINGE IV SCH ×5 (04:26→21:45)
[2016-12-30] MEDS: IMIPENEM/CILASTATIN SODIUM 500 MG in 0.9 % SODIUM CHLORIDE 100 ML IV SCH ×3 (04:58→21:46)
[2016-12-30 05:56] LABS: Basophils # (Auto) 0.1 K/mcL (0.0-0.3); Basophils % (Auto) 0.5 % (0.0-2.0); Eosinophils # (Auto) 0.5 K/mcL (0.0-0.7); Eosinophils % (Auto) 4.7 % (0.0-7.0); Granulocytes % (Auto) 78.1 % (38.0-78.0); Lymphocytes # (Auto) 1.4 K/mcL (1.5-4.8); Lymphocytes % (Auto) 13.4 % (15.5-49.0); Mean Cell Volume 81.7 fL (80.0-100.0); Mean Corpuscular HGB Conc 32.7 g/dL (31.0-36.0); Mean Corpuscular Hemoglobin 26.7 pg (26.0-34.0); Monocytes # (Auto) 0.3 K/mcL (0.1-0.9); Monocytes % (Auto) 3.3 % (1.0-9.0); Platelet Count 347 K/mcL (140-440); RBC 3.86 M/mcL (4.50-5.90); Red Cell Distribution Width 19.4 % (11.5-14.5)
[2016-12-30 06:37] LABS: ALT/SGPT 21 U/l (0-40); Albumin 2.6 gm/dL (3.2-5.2); Albumin/Globulin Ratio 0.8 (1.0-2.3); Alkaline Phosphatase 196 U/L (39-117); Blood Urea Nitrogen 23 mg/dl (8-23)
[2016-12-30 06:39] LABS: Magnesium 2.2 mg/dL (1.6-2.5); Phosphorous 2.8 mg/dL (2.7-4.5); Prealbumin 30.7 mg/dl (20-40)
[2016-12-30] MEDS: PANTOPRAZOLE 40 MG VIAL IV SCH (08:13)
[2016-12-30] MEDS: LEVOTHYROXINE 100 MCG VIAL IV SCH (08:13)
[2016-12-30] MEDS: CLOTRIMAZOLE 10 MG TROCHE PO SCH ×5 (08:35→21:45)
[2016-12-30] MEDS: ACETAMINOPHEN 1,000 MG/100 ML BOTTLE IV PRN (08:35)
[2016-12-30] MEDS: ROTIGOTINE 4 MG TOPICAL SCH (09:29)
[2016-12-30] MEDS: ROTIGOTINE 8 MG TOPICAL SCH (09:29)
[2016-12-30] MEDS: VANCOMYCIN 1,000 MG in 0.9 % SODIUM CHLORIDE 250 ML IV SCH (09:29)
--- NOTE | 2016-12-30 09:44 | Internal Med Progress Note ---
Medical - PN: Subj Patient information: Note initiated : 12/30/16 at 9:42 am Service Date, if different from initiated Date: [] Patient: Tripp Melo 66 y/o M admitted on 12/16/16 for Bowel Abscess, Bladder Fistula. Chief Complaint: [] Interval history: The patient seen exained, sitting comfortably in bed no acute concerns, still notes pain in the abdomen, predominanly speaks by nodding head, and in low voice. overnight still tachycardic, denies chest pain or palpitations, no headache or dizziness. Still has some abdominal pain. CT abdomen and pelvis pending. he has no increased oxygen need. Pertinent ROS: Denies headache, dizziness Denies chest pain, palpitations Denies cough or shortness of breath denies nausea or vomiting, but abdominal pain present BM yesterday afternoon, . - Constitutional Vitals: Vital Signs Temp Pulse Resp BP Pulse Ox 98.0 F 124 H 20 121/90 99 12/30/16 04:00 12/30/16 09:00 12/30/16 09:00 12/30/16 09:00 12/30/16 09:00 Period Temp Pulse Resp BP Sys/Lerma Pulse Ox Last 24 Hr 97.4 F-99.6 F 82-124 13-25 114-161/70-97 91-100 Intake and Output 12/29/16 12/30/16 12/30/16 21:59 05:59 13:59 Intake Total 2780 / 2780 450 / 450 300 / 300 Output Total 820 / 820 730 / 730 336 / 336 Balance 1959 -280 / -280 -36 / -36 Weight 127 lb 1.6 oz Intake & Output: Intake & Output 12/29/16 12/30/16 12/30/16 21:59 05:59 13:59 Intake Total 2780 / 2780 450 / 450 300 / 300 Output Total 820 / 820 730 / 730 336 / 336 Balance 1959 -280 / -280 -36 / -36 Weight 127 lb 1.6 oz Intake: IV 2780 / 2780 450 / 450 300 / 300 Sodium Chloride 0.9% 1, 422 / 422 000 ml @ 20 mls/hr IV . Q24H [facility] Rx#:[id number] OFIRMEV 1,000 mg In 100 100 / 100 ml @ 200 mls/hr IV Q6H [facility]N Rx#:[id number] Calcium Gluconate 10 Meq 1808 / 1808 Magnesium Sulfate 8.12 Meq Potassium Phosphate 60 Meq Infuvite Adult 10 ml Selenium 60 Mcg Sodium Phosphate 20 Mmol Potassium Chloride 40 Meq In Clinimix 5%-20% Solution 2,000 ml @ 85 mls/hr IV Q24H [facility] Rx#: [id number] Sodium Chloride 0.9% 100 100 / 100 100 / 100 100 / 100 ml @ 100 mls/hr IV Q8 [facility] with Primaxin 500 mg Rx# :[id number] Sodium Chloride 0.9% 250 250 / 250 250 / 250 ml @ 250 mls/hr IV Q12 [facility] with Vancomycin 1,000 mg Rx#:[id number] Output: Urine Catheter Amount 820 / 820 730 / 730 335 / 335 # of times incontinent of urine Exam: Constitutional; Afebrile, cooperative, alert, not in distress. does not speak much, thin individual Eyes- No icterus, P No periorbital swelling Ears- Ext ear normal, hearing normal to conversation. Neck- Midline trachea, supple Respiratory system: Air Entry equal on both sides, No crackles or wheezing, no rhonchi. 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 Medical - PN: Obj Da - Labs CBC & Chem 7: 12/30/16 03:50 12/30/16 03:50 Labs: Abnormal Lab Results 12/30/16 12/30/16 12/29/16 03:50 03:50 03:45 RBC 3.86 L 3.80 L Hgb 10.3 L 10.0 L Hct 31.6 L 31.1 L RDW 19.4 H 19.3 H Gran % 78.1 H Lymph % (Auto) 13.4 L Gran # 8.1 H Lymph # 1.4 L Carbon Dioxide Creatinine 0.5 L Glucose 110 H Calcium 8.2 L Alkaline Phosphatase 196 H Total Protein 5.8 L Albumin 2.6 L Albumin/Globulin Ratio 0.8 L 12/29/16 12/28/16 12/28/16 03:45 03:45 03:45 RBC 3.79 L Hgb 9.9 L Hct 31.0 L RDW 19.4 H Gran % 79.4 H Lymph % (Auto) 10.5 L Gran # Lymph # 1.0 L Carbon Dioxide 21 L Creatinine 0.6 L 0.5 L Glucose 107 H Calcium 8.2 L 8.0 L Alkaline Phosphatase 183 H 173 H Total Protein 5.7 L 5.6 L Albumin 2.5 L 2.6 L Albumin/Globulin Ratio 0.8 L 0.9 L Meds: Medications Clotrimazole (Mycelex) 10 mg PO 5XD [facility] Last Admin: 12/30/16 08:35 Dose: 10 mg Dextrose (Dextrose 50%) 0 ml IV UD PRN PRN Reason: Hypoglycemia Diagnostic Test (Pha) (Accu-Chek) 1 each FS Q6 [facility] Last Admin: 12/30/16 05:36 Dose: 1 each Diazepam (Valium) 5 mg IV Q4 [facility] Last Admin: 12/30/16 08:14 Dose: 5 mg Fentanyl (Duragesic) 100 mcg TD Q48H [facility] Last Admin: 12/28/16 11:13 Dose: 100 mcg Heparin Sodium (Porcine) (Heparin Flush) 2 ml IV Q12 [facility] Last Admin: 12/30/16 09:28 Dose: 2 ml Heparin Sodium (Porcine) (Heparin) 5,000 unit SQ Q12 [facility] Last Admin: 12/30/16 09:28 Dose: 5,000 unit Hydromorphone HCl (Dilaudid) 2 mg IV Q2HP PRN PRN Reason: Pain Last Admin: 12/27/16 22:30 Dose: 2 mg Fat Emulsion Intravenous (Intralipid 20%) 250 mls @ 25 mls/hr IV [id number] [facility] Last Infusion: 12/28/16 09:07 Dose: Infused Imipenem/Cilastatin Sodium 500 (mg/ Sodium Chloride) 100 mls @ 100 mls/hr IV Q8 [facility] Last Infusion: 12/30/16 06:00 Dose: Infused Vancomycin HCl 1,000 mg/ (Sodium Chloride) 250 mls @ 250 mls/hr IV Q12 [facility] Last Admin: 12/30/16 09:29 Dose: 250 mls/hr Metronidazole (Flagyl) 500 mg in 100 mls @ 100 mls/hr IV Q6 [facility] Last Infusion: 12/30/16 06:00 Dose: Infused Acetaminophen (Ofirmev) 1,000 mg in 100 mls @ 200 mls/hr IV Q6H PRN PRN Reason: Pain Last Infusion: 12/30/16 09:10 Dose: Infused Sodium Chloride (Sodium Chloride 0.9%) 1,000 mls @ 20 mls/hr IV .Q24H [facility] Last Admin: 12/29/16 15:32 Dose: 20 mls/hr Calcium Gluconate 10 meq/Magnesium Sulfate 4.06 meq/Potassium Phosphate 20 meq/ Multivitamins/Minerals 10 ml/Selenium 60 mcg/ Sodium Phosphate 20 mmol/ Potassium Chloride 60 meq/ Potassium Acetate 20 meq/ Amino Acids 2,085.2175 mls @ 85 mls/hr IV Q24H [facility] Stop: 12/30/16 15:59 Last Admin: 12/29/16 15:32 Dose: 85 mls/hr Calcium Gluconate 10 meq/Magnesium Sulfate 4.06 meq/Potassium Phosphate 40 meq/ Multivitamins/Minerals 10 ml/Selenium 60 mcg/ Sodium Phosphate 40 mmol/ Potassium Chloride 40 meq/ Potassium Acetate 20 meq/ Amino Acids 2,086.4295 mls @ 85 mls/hr IV Q24H [facility] Insulin Human Lispro (Humalog) 0 unit SQ Q6 [facility] PRN Reason: Protocol Last Admin: 12/30/16 05:37 Dose: Not Given Levothyroxine Sodium (Synthroid) 50 mcg IV [facility] Last Admin: 12/30/16 08:13 Dose: 50 mcg Lorazepam (Ativan) 0.5 mg IV Q4-6HP PRN PRN Reason: ANXIETY/SEDATION Last Admin: 12/24/16 00:31 Dose: 0.5 mg Metoclopramide HCl (Reglan) 10 mg IV Q6 [facility] Last Admin: 12/30/16 04:58 Dose: 10 mg Metoprolol Tartrate (Lopressor) 5 mg IV Q4HP PRN PRN Reason: Tachyarrhythmias Last Admin: 12/27/16 20:46 Dose: 5 mg Pantoprazole Sodium (Protonix) 40 mg IV QAMAC [facility] Last Admin: 12/30/16 08:13 Dose: 40 mg Apomorphine (Apokyn) (10mg/Ml) 0.3 dose SC Q2HP PRN PRN Reason: Tremors Rotigotine [Neupro] (4 Mg Patch) 1 dose TOPICAL DAILY [facility] Last Admin: 12/30/16 09:29 Dose: 1 dose Rotigotine [Neupro] (8 Mg Patch) 1 dose TOPICAL DAILY [facility] Last Admin: 12/30/16 09:29 Dose: 1 dose Sodium Chloride (Saline Flush) 10 ml IV UD PRN PRN Reason: FLUSH Last Admin: 12/28/16 03:43 Dose: 10 ml Sodium Chloride (Saline Flush) 10 ml IV Q8 [facility] Last Admin: 12/30/16 05:37 Dose: 10 ml Vancomycin HCl (Vancomycin Per Pharmacy) 1 order IV UD [facility] Medical - PN: A/P - Time Spent With Patient Total time spent is greater than 50% in coordination of care (as documented) at patient's floor/unit and/or counseling patient: (1) Hypokalemia due to loss of potassium Status: Resolved Current Visit: Yes (2) Iron deficiency anemia Status: Acute Current Visit: Yes (3) Enterovesical fistula Status: Acute Current Visit: No (4) Parkinson disease Status: Chronic Current Visit: No (5) Migraine Status: Chronic Current Visit: No (6) Anxiety disorder Status: Chronic Current Visit: No (7) Tachycardia Status: Acute Current Visit: Yes - Narrative A/P Narrative: Tachcyardia- Patient has persistant tachycardia, even at night, HR around 100- 110, worse in the AM, will get tsh, chest x ray, echo and ekg to further evaluate, consider CTPA if needed. Ileus - s/p post op, did have BM yesterday but still has some tenderness there, Plan to get CT abdomen and pelvis, CT machine down. Hypokamiea - K stable Parkinsons/ anxiety/ migraine- medications on hold due to ileus, will resume once able to. DVT hep sq Diet tpn electro.lytes stable, H/H stable. Medical - PN: Qual - Stroke Symptom Onset Unknown: No - VTE Deep Vein Thrombosis/Pulmonary Embolism Present on Admission: No
--- NOTE | 2016-12-30 10:12 | XRay Report ---
CLINICAL INFORMATION: Tachycardia COMPARISON: 12/25/2016 FINDINGS: The heart is mildly enlarged - accentuated by leftward rotation. It is unchanged. Moderate size hiatal hernia is again noted. The remaining mediastinum and pulmonary vessels are normal. Esophagogastric tube has been removed. Right central venous catheter is in stable satisfactory position. Bibasilar atelectasis is almost totally cleared IMPRESSION: Near complete clearance of bibasilar atelectasis. Other chronic findings - as described Interpreted and Authenticated by: Miguel Angel Mclcellan 12/30/16
[2016-12-30] MEDS: fentaNYL 100 MCG PATCH TD SCH (10:38)
--- NOTE | 2016-12-30 14:32 | General Surgery Progress Note ---
Subjective Patient reports: feels better, pain is less, no flatus, no bowel movement, afebrile Narrative: Note initiated : 12/30/16 at 2:30 pm Service Date, if different from initiated Date: [] Patient: Tripp Melo 66 y/o M admitted on 12/16/16 for Bowel Abscess, Bladder Fistula. Chief Complaint: [PATIENT IS DOING WELL EXCEPT HE HAS NOT HADANY MORE FLATUS OR BOWEL MOVEMENT. hE DENIES NAUSEA AND HIS ABDOMINAL PAIN IS SIGNIFICANTLY IMPROVED. wE HAVE BEEN UNABLE TO GET ct OF THE ABDOMEN FOR 2 DAYS AND PROBABLY CAN'T GET IT FOR ANOTHER DAY. hE HAS AN ELEMENT OF DEPRESSION WHICH IS NOT UNANTICIPATED. pATHOLOGY FINAL RESULTS ARE NOT AVAILABLE YET] Objective Temp Pulse Resp BP Pulse Ox 98.0 F 96 H 16 118/80 99 12/30/16 12:00 12/30/16 14:00 12/30/16 14:00 12/30/16 14:00 12/30/16 14:00 - Additional Data Intake & Output - Last 24 hours: Intake & Output 12/28/16 12/29/16 12/30/16 12/31/16 05:59 05:59 05:59 05:59 Intake Total 3590 / 3590 1730 / 1730 3680 / 3680 650 / 650 Output Total 4955 / 4955 3099 / 3099 2350 / 2350 656 / 656 Balance -1365 / -1365 -1369 / -1369 1330 / 1330 -6 / -6 Weight 131 lb 12.8 oz 127 lb 6.4 oz 127 lb 1.6 oz 127 lb 1.6 oz - Respiratory normal respiratory effort, clear to auscultation - Cardiovascular Cardiovascular exam: Present: normal rate and rhythm, +S1, +S2, tachycardia. Absent: JVD - Abdomen soft, non tender, distended (ABDOMEN IS MINIMALLY DISTENDED AND IS SOFT. hE HAS GOOD ACTIVE BOWEL SOUNDS.) - Labs 12/30/16 03:50 12/30/16 03:50 Diabetes panel 12/30/16 Range/Units 03:50 Sodium 136 (133-145) mmol/L Potassium 4.0 (3.3-5.1) mmol/L Chloride 102 (96-108) mmol/L Carbon Dioxide 22 (22-30) mmol/L BUN 23 (8-23) mg/dl Creatinine 0.5 L (0.7-1.2) mg/dl Glucose 110 H (70-105) mg/dL Calcium 8.2 L (8.6-10.4) mg/dl AST 33 (0-37) U/l ALT 21 (0-40) U/l Alkaline Phosphatase 196 H (39-117) U/L Total Protein 5.8 L (5.9-8.4) gm/dL Albumin 2.6 L (3.2-5.2) gm/dL Thyroid panel 12/30/16 Range/Units 03:50 TSH 5.24 H (0.27-5.01) uIU/ml Calcium panel 12/30/16 12/30/16 Range/Units 03:50 03:50 Calcium 8.2 L (8.6-10.4) mg/dl Phosphorus 2.8 (2.7-4.5) mg/dL Albumin 2.6 L (3.2-5.2) gm/dL Pituitary panel 12/30/16 12/30/16 Range/Units 03:50 03:50 Sodium 136 (133-145) mmol/L Potassium 4.0 (3.3-5.1) mmol/L Chloride 102 (96-108) mmol/L Carbon Dioxide 22 (22-30) mmol/L BUN 23 (8-23) mg/dl Creatinine 0.5 L (0.7-1.2) mg/dl Glucose 110 H (70-105) mg/dL Calcium 8.2 L (8.6-10.4) mg/dl TSH 5.24 H (0.27-5.01) uIU/ml Adrenal panel 12/30/16 Range/Units 03:50 Sodium 136 (133-145) mmol/L Potassium 4.0 (3.3-5.1) mmol/L Chloride 102 (96-108) mmol/L Carbon Dioxide 22 (22-30) mmol/L BUN 23 (8-23) mg/dl Creatinine 0.5 L (0.7-1.2) mg/dl Glucose 110 H (70-105) mg/dL Calcium 8.2 L (8.6-10.4) mg/dl Total Bilirubin 0.7 (0.0-1.0) mg/dL AST 33 (0-37) U/l ALT 21 (0-40) U/l Alkaline Phosphatase 196 H (39-117) U/L Total Protein 5.8 L (5.9-8.4) gm/dL Albumin 2.6 L (3.2-5.2) gm/dL Medical - PN: A/P - Time Spent With Patient Total time spent is greater than 50% in coordination of care (as documented) at patient's floor/unit and/or counseling patient: (1) Enterovesical fistula Status: Acute Assessment and plan: PATIENT IS STABLE WILL CONTINUE ON PRESENT THERAPY. CT of abdomen and pelvis in the morning Continue present therapy STARTED ON MILK OF MAGNESIA 30 CC EVERY 6 HOURS 3 DOSES Current Visit: No (2) Dehydration Status: Resolved Current Visit: Yes (3) Hypokalemia due to loss of potassium Status: Resolved Current Visit: Yes (4) Iron deficiency anemia Status: Acute Current Visit: Yes (5) Anemia Status: Chronic Current Visit: No (6) Parkinson disease Status: Chronic Current Visit: No (7) Sleep apnea, obstructive Status: Chronic Current Visit: No
[2016-12-30] MEDS ORDERED: METHYLNALTREXONE BROMIDE 12 MG/0.6 ML SYRINGE SQ SCH (15:00)
[2016-12-30] MEDS ORDERED: POTASSIUM PHOSPHATE IV SCH (16:00)
[2016-12-30] MEDS ORDERED: [UNRECOGNIZED DRUG - OTHER] IV SCH (16:00)
[2016-12-30] MEDS ORDERED: MAGNESIUM SULFATE IV SCH (16:00)
[2016-12-30] MEDS ORDERED: CALCIUM GLUCONATE IV SCH (16:00)
[2016-12-30] MEDS ORDERED: MVI IV SCH (16:00)
[2016-12-30] MEDS: FAT EMULSION 20% 250 ML IV SCH (16:20)
[2016-12-30] MEDS: 0.9 % SODIUM CHLORIDE 1,000 ML IV SCH (16:30)
[2016-12-30] MEDS ORDERED: DEXTROSE 50% 50 ML VIAL IV PRN (17:01)
[2016-12-30] MEDS ORDERED: METOPROLOL TARTRATE 5 MG/5 ML VIAL IV PRN (17:01)
[2016-12-30] MEDS ORDERED: 0.9 % SODIUM CHLORIDE 1,000 ML IV SCH (17:01)
[2016-12-30] MEDS ORDERED: 0.9 % SODIUM CHLORIDE 10 ML SYRINGE IV PRN (17:01)
[2016-12-30] MEDS ORDERED: HYDROmorphone 2 MG/ML SYRINGE IV PRN (17:01)
[2016-12-30] MEDS ORDERED: [UNRECOGNIZED DRUG - OTHER] SC PRN (17:01)
[2016-12-30] MEDS ORDERED: VANCOMYCIN PER PHARMACY IV SCH (17:01)
[2016-12-30] MEDS ORDERED: ACETAMINOPHEN 1,000 MG/100 ML BOTTLE IV PRN (17:01)
[2016-12-30] MEDS ORDERED: LORazepam 2 MG/ML VIAL IV PRN (17:01)
[2016-12-30] MEDS: MAGNESIUM HYDROXIDE 30 ML ORAL.SUSP PO SCH (17:32)
[2016-12-30] MEDS ORDERED: MAGNESIUM HYDROXIDE 30 ML ORAL.SUSP PO SCH (18:00)
[2016-12-30] MEDS ORDERED: VANCOMYCIN 1,000 MG in 0.9 % SODIUM CHLORIDE 250 ML IV SCH (21:00)
[2016-12-31] MEDS: metroNIDAZOLE 500 MG/100 ML BAG IV SCH ×4 (00:04→17:46)
[2016-12-31] MEDS: DIAZEPAM 10 MG/2 ML SYRINGE IV SCH ×6 (00:04→20:27)
[2016-12-31] MEDS: MAGNESIUM HYDROXIDE 30 ML ORAL.SUSP PO SCH ×2 (05:31→06:12)
[2016-12-31] MEDS: IMIPENEM/CILASTATIN SODIUM 500 MG in 0.9 % SODIUM CHLORIDE 100 ML IV SCH ×3 (06:11→22:50)
[2016-12-31] MEDS: METOCLOPRAMIDE 10 MG/2 ML VIAL IV SCH ×4 (06:11→17:47)
[2016-12-31] MEDS: 0.9 % SODIUM CHLORIDE 10 ML SYRINGE IV SCH ×3 (06:12→20:29)
[2016-12-31] MEDS: INSULIN LISPRO 1 UNIT/0.01 ML UNIT SQ SCH ×4 (06:23→18:27)
[2016-12-31 07:29] LABS: Basophils # (Auto) 0.1 K/mcL (0.0-0.3); Basophils % (Auto) 1.4 % (0.0-2.0); Eosinophils # (Auto) 0.6 K/mcL (0.0-0.7); Eosinophils % (Auto) 5.8 % (0.0-7.0); Granulocytes % (Auto) 75.3 % (38.0-78.0); Lymphocytes # (Auto) 1.5 K/mcL (1.5-4.8); Lymphocytes % (Auto) 13.7 % (15.5-49.0); Mean Cell Volume 84.7 fL (80.0-100.0); Mean Corpuscular HGB Conc 31.9 g/dL (31.0-36.0); Monocytes # (Auto) 0.4 K/mcL (0.1-0.9); Monocytes % (Auto) 3.8 % (1.0-9.0); Platelet Count 317 K/mcL (140-440); RBC 3.77 M/mcL (4.50-5.90); Red Cell Distribution Width 20.5 % (11.5-14.5)
[2016-12-31] MEDS ORDERED: LEVOTHYROXINE 100 MCG VIAL IV SCH (07:30)
[2016-12-31] MEDS ORDERED: PANTOPRAZOLE 40 MG VIAL IV SCH (07:30)
[2016-12-31] MEDS: CLOTRIMAZOLE 10 MG TROCHE PO SCH ×5 (07:34→20:29)
[2016-12-31 07:50] LABS: ALT/SGPT 16 U/l (0-40); Albumin 2.6 gm/dL (3.2-5.2); Albumin/Globulin Ratio 0.9 (1.0-2.3); Alkaline Phosphatase 182 U/L (39-117); Blood Urea Nitrogen 19 mg/dl (8-23)
[2016-12-31 07:57] LABS: Magnesium 2.3 mg/dL (1.6-2.5); Phosphorous 4.2 mg/dL (2.7-4.5); Prealbumin 29.3 mg/dl (20-40)
[2016-12-31] MEDS: HEPARIN 5,000 UNIT/ML VIAL SQ SCH ×2 (08:31→20:27)
[2016-12-31] MEDS ORDERED: METHYLNALTREXONE BROMIDE 12 MG/0.6 ML SYRINGE SQ SCH (09:00)
[2016-12-31] MEDS ORDERED: ROTIGOTINE 8 MG TOPICAL SCH (09:00)
[2016-12-31] MEDS ORDERED: VANCOMYCIN 1,000 MG in 0.9 % SODIUM CHLORIDE 250 ML IV SCH (09:00)
[2016-12-31] MEDS ORDERED: ROTIGOTINE 4 MG TOPICAL SCH (09:00)
[2016-12-31] MEDS ORDERED: 0.9 % SODIUM CHLORIDE 10 ML SYRINGE IV PRN (12:07)
[2016-12-31] MEDS ORDERED: VANCOMYCIN PER PHARMACY IV SCH (12:07)
[2016-12-31] MEDS ORDERED: [UNRECOGNIZED DRUG - OTHER] SC PRN (12:07)
[2016-12-31] MEDS ORDERED: ACETAMINOPHEN 1,000 MG/100 ML BOTTLE IV PRN (12:07)
[2016-12-31] MEDS ORDERED: DEXTROSE 50% 50 ML VIAL IV PRN (12:07)
[2016-12-31] MEDS ORDERED: METOPROLOL TARTRATE 5 MG/5 ML VIAL IV PRN (12:07)
--- NOTE | 2016-12-31 13:48 | Internal Med Progress Note ---
Medical - PN: Subj Patient information: Note initiated : 12/31/16 at 1:34 pm Service Date, if different from initiated Date: [] Patient: Tripp Melo 66 y/o M admitted on 12/16/16 for Bowel Abscess, Bladder Fistula. Chief Complaint: [] Interval history: The patient seen examined no acute overnight events HR much better this time, 95-110 during sleep improving slowly one bm overnight continue present management await echo results, Thyroid wnl, Pertinent ROS: Denies headache, dizziness Denies chest pain, palpitations Denies cough or shortness of breath Denies abdominal pain, nausea or vomiting. - Constitutional Vitals: Vital Signs Temp Pulse Resp BP Pulse Ox 97.9 F 108 H 20 116/70 96 12/31/16 11:04 12/31/16 07:46 12/31/16 11:04 12/31/16 11:04 12/31/16 11:04 Period Temp Pulse Resp BP Sys/Lerma Pulse Ox Last 24 Hr 97.8 F-99.5 F 96-108 15-20 111-129/63-86 92-99 Intake and Output 12/30/16 12/31/16 12/31/16 21:59 05:59 13:59 Intake Total 699 / 699 700 / 700 450 / 450 Output Total 59 / 59 650 / 650 690 / 690 Balance 640 / 640 50 / 50 -240 / -240 Weight 131 lb 8 oz Intake & Output: Intake & Output 12/30/16 12/31/16 12/31/16 21:59 05:59 13:59 Intake Total 699 / 699 700 / 700 450 / 450 Output Total 59 / 59 650 / 650 690 / 690 Balance 640 / 640 50 / 50 -240 / -240 Weight 131 lb 8 oz Intake: IV 699 / 699 700 / 700 450 / 450 Sodium Chloride 0.9% 1, 499 / 499 000 ml @ 20 mls/hr IV . Q24H [facility] Rx#:[id number] Sodium Chloride 0.9% 100 100 / 100 100 / 100 100 / 100 ml @ 100 mls/hr IV Q8 [facility] with Primaxin 500 mg Rx# :[id number] Sodium Chloride 0.9% 250 250 / 250 250 / 250 ml @ 250 mls/hr IV Q12H [facility] with Vancomycin 1,000 mg Rx#:[id number] Output: Urine Catheter Amount 55 / 55 650 / 650 690 / 690 # of times incontinent of 4 / 4 urine Other: # Bowel Movements 1 Exam: Constitutional; Afebrile, cooperative, alert, not in distress. Eyes- No icterus, Pupils equal, reactive, No periorbital swelling Ears- Ext ear normal, hearing normal to conversation. Neck- Midline trachea, supple Respiratory system: Air Entry equal on both sides, No crackles or wheezing, no rhonchi. CVS- Rate rhythm regular, S1,S2 heard, no gallop, no rub. Abdomen- Soft generalized tenderness. 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 Medical - PN: Obj Da - Labs CBC & Chem 7: 12/31/16 04:30 12/31/16 04:30 Labs: Abnormal Lab Results 12/31/16 12/31/16 12/31/16 04:30 04:30 04:30 RBC 3.77 L Hgb 10.2 L Hct 31.9 L RDW 20.5 H Gran % Lymph % (Auto) 13.7 L Gran # Lymph # Carbon Dioxide Creatinine 0.5 L Glucose 221 H Calcium 8.3 L Alkaline Phosphatase 182 H Total Protein 5.6 L Albumin 2.6 L Albumin/Globulin Ratio 0.9 L TSH Vancomycin Trough 18.4 H 12/30/16 12/30/16 12/30/16 03:50 03:50 03:50 RBC 3.86 L Hgb 10.3 L Hct 31.6 L RDW 19.4 H Gran % 78.1 H Lymph % (Auto) 13.4 L Gran # 8.1 H Lymph # 1.4 L Carbon Dioxide Creatinine 0.5 L Glucose 110 H Calcium 8.2 L Alkaline Phosphatase 196 H Total Protein 5.8 L Albumin 2.6 L Albumin/Globulin Ratio 0.8 L TSH 5.24 H Vancomycin Trough 12/29/16 12/29/16 03:45 03:45 RBC 3.80 L Hgb 10.0 L Hct 31.1 L RDW 19.3 H Gran % Lymph % (Auto) Gran # Lymph # Carbon Dioxide 21 L Creatinine 0.6 L Glucose 107 H Calcium 8.2 L Alkaline Phosphatase 183 H Total Protein 5.7 L Albumin 2.5 L Albumin/Globulin Ratio 0.8 L TSH Vancomycin Trough Meds: Medications Clotrimazole (Mycelex) 10 mg PO 5XD [facility] Dextrose (Dextrose 50%) 0 ml IV UD PRN PRN Reason: Hypoglycemia Diagnostic Test (Pha) (Accu-Chek) 1 each FS Q6 [facility] Diazepam (Valium) 5 mg IV Q4 [facility] Fentanyl (Duragesic) 100 mcg TD Q48H [facility] Heparin Sodium (Porcine) (Heparin) 5,000 unit SQ Q12 [facility] Heparin Sodium (Porcine) (Heparin Flush) 2 ml IV Q12 [facility] Hydromorphone HCl (Dilaudid) 2 mg IV Q2HP PRN PRN Reason: Pain Calcium Gluconate 10 meq/Magnesium Sulfate 4.06 meq/Potassium Phosphate 40 meq/ Multivitamins/Minerals 10 ml/Selenium 60 mcg/ Potassium Chloride 40 meq/ Sodium Chloride 40 meq/ Amino Acids 2,073.0962 mls @ 85 mls/hr IV Q24H [facility] Fat Emulsion Intravenous (Intralipid 20%) 250 mls @ 25 mls/hr IV [id number] [facility] Imipenem/Cilastatin Sodium 500 (mg/ Sodium Chloride) 100 mls @ 100 mls/hr IV Q8 [facility] Sodium Chloride (Sodium Chloride 0.9%) 1,000 mls @ 20 mls/hr IV .Q24H [facility] Acetaminophen (Ofirmev) 1,000 mg in 100 mls @ 200 mls/hr IV Q6HP PRN PRN Reason: Pain Vancomycin HCl 1,000 mg/ (Sodium Chloride) 250 mls @ 250 mls/hr IV Q12H [facility] Metronidazole (Flagyl) 500 mg in 100 mls @ 100 mls/hr IV Q6 [facility] Insulin Human Lispro (Humalog) 0 unit SQ Q6 [facility] PRN Reason: Protocol Levothyroxine Sodium (Synthroid) 50 mcg IV QAMAC [facility] Lorazepam (Ativan) 0.5 mg IV Q4-6HP PRN PRN Reason: ANXIETY/SEDATION Methylnaltrexone [place] (Relistor) 12 mg SQ DAILY [facility] Stop: 01/02/17 09:01 Metoclopramide HCl (Reglan) 10 mg IV Q6 [facility] Metoprolol Tartrate (Lopressor) 5 mg IV Q4HP PRN PRN Reason: Tachyarrhythmias Pantoprazole Sodium (Protonix) 40 mg IV QAMAC [facility] Apomorphine (Apokyn) (10mg/Ml) 0.3 dose SC Q2HP PRN PRN Reason: Tremors Rotigotine [Neupro] (4 Mg Patch) 1 dose TOPICAL DAILY [facility] Rotigotine [Neupro] (8 Mg Patch) 1 dose TOPICAL DAILY [facility] Sodium Chloride (Saline Flush) 10 ml IV UD PRN PRN Reason: FLUSH Sodium Chloride (Saline Flush) 10 ml IV Q8 [facility] Vancomycin HCl (Vancomycin Per Pharmacy) 1 order IV UD [facility] Medical - PN: A/P - Time Spent With Patient Total time spent is greater than 50% in coordination of care (as documented) at patient's floor/unit and/or counseling patient: (1) Hypokalemia due to loss of potassium Status: Resolved Current Visit: Yes (2) Iron deficiency anemia Status: Acute Current Visit: Yes (3) Enterovesical fistula Status: Acute Current Visit: No (4) Parkinson disease Status: Chronic Current Visit: No (5) Migraine Status: Chronic Current Visit: No (6) Anxiety disorder Status: Chronic Current Visit: No (7) Tachycardia Status: Acute Current Visit: Yes - Narrative A/P Narrative: Patient K is stable still npo and therefore no meds for chr medical conditions Resume once able to tolerate HR stable, no need for CT angioa this time. will follow with you. Medical - PN: Qual - Stroke Symptom Onset Unknown: No - VTE Deep Vein Thrombosis/Pulmonary Embolism Present on Admission: No
[2016-12-31] MEDS: 0.9 % SODIUM CHLORIDE 1,000 ML IV SCH (14:30)
[2016-12-31] MEDS ORDERED: CALCIUM GLUCONATE IV SCH ×3 (16:00)
[2016-12-31] MEDS ORDERED: MAGNESIUM SULFATE IV SCH ×3 (16:00)
[2016-12-31] MEDS ORDERED: POTASSIUM PHOSPHATE IV SCH ×3 (16:00)
[2016-12-31] MEDS ORDERED: MVI IV SCH ×3 (16:00)
[2016-12-31] MEDS ORDERED: [UNRECOGNIZED DRUG - OTHER] IV SCH ×3 (16:00)
--- NOTE | 2016-12-31 16:37 | General Surgery Progress Note ---
Subjective Patient reports: feels better, pain is less, flatus, bowel movement, afebrile Narrative: Note initiated : 12/31/16 at 4:33 pm Service Date, if different from initiated Date: [] Patient: Tripp Melo 66 y/o M admitted on 12/16/16 for Bowel Abscess, Bladder Fistula. Chief Complaint: [patient is doing better. He had bowel movements last night and more bowel movements today. His abdomen is totally benign. He does not have any abdominal pain. He denies nausea. He is scheduled to have a CT scan of his abdomen at this time. If it shows contrast through the colon we will advance his diet over the next 2 days. All of his labs are otherwise normal. He has rising albumin.] Objective Temp Pulse Resp BP Pulse Ox 97.9 F 108 H 20 116/70 96 12/31/16 11:04 12/31/16 07:46 12/31/16 11:04 12/31/16 11:04 12/31/16 11:04 - Additional Data Intake & Output - Last 24 hours: Intake & Output 12/29/16 12/30/16 12/31/16 01/01/17 05:59 05:59 05:59 05:59 Intake Total 1730 / 1730 3680 / 3680 2049 / 2049 450 / 450 Output Total 3099 / 3099 2350 / 2350 1335 / 1335 690 / 690 Balance -1369 / -1369 1330 / 1330 714 / 714 -240 / -240 Weight 127 lb 6.4 oz 127 lb 1.6 oz 131 lb 8 oz - Additional Exam HEENT unremarkable except for mild thrush Neck supple no JVD Chest clear to auscultation no rales rhonchi or wheezes Heart regular rate and rhythm Abdomen soft nondistendednontender with good active bowel sounds Extremities no peripheral edema - Labs 12/31/16 04:30 12/31/16 04:30 Diabetes panel 12/31/16 Range/Units 04:30 Sodium 137 (133-145) mmol/L Potassium 4.2 (3.3-5.1) mmol/L Chloride 102 (96-108) mmol/L Carbon Dioxide 24 (22-30) mmol/L BUN 19 (8-23) mg/dl Creatinine 0.5 L (0.7-1.2) mg/dl Glucose 221 H (70-105) mg/dL Calcium 8.3 L (8.6-10.4) mg/dl AST 22 (0-37) U/l ALT 16 (0-40) U/l Alkaline Phosphatase 182 H (39-117) U/L Total Protein 5.6 L (5.9-8.4) gm/dL Albumin 2.6 L (3.2-5.2) gm/dL Calcium panel 12/31/16 12/31/16 Range/Units 04:30 04:30 Calcium 8.3 L (8.6-10.4) mg/dl Phosphorus 4.2 (2.7-4.5) mg/dL Albumin 2.6 L (3.2-5.2) gm/dL Pituitary panel 12/31/16 Range/Units 04:30 Sodium 137 (133-145) mmol/L Potassium 4.2 (3.3-5.1) mmol/L Chloride 102 (96-108) mmol/L Carbon Dioxide 24 (22-30) mmol/L BUN 19 (8-23) mg/dl Creatinine 0.5 L (0.7-1.2) mg/dl Glucose 221 H (70-105) mg/dL Calcium 8.3 L (8.6-10.4) mg/dl Adrenal panel 12/31/16 Range/Units 04:30 Sodium 137 (133-145) mmol/L Potassium 4.2 (3.3-5.1) mmol/L Chloride 102 (96-108) mmol/L Carbon Dioxide 24 (22-30) mmol/L BUN 19 (8-23) mg/dl Creatinine 0.5 L (0.7-1.2) mg/dl Glucose 221 H (70-105) mg/dL Calcium 8.3 L (8.6-10.4) mg/dl Total Bilirubin 0.5 (0.0-1.0) mg/dL AST 22 (0-37) U/l ALT 16 (0-40) U/l Alkaline Phosphatase 182 H (39-117) U/L Total Protein 5.6 L (5.9-8.4) gm/dL Albumin 2.6 L (3.2-5.2) gm/dL Medical - PN: A/P - Time Spent With Patient Total time spent is greater than 50% in coordination of care (as documented) at patient's floor/unit and/or counseling patient: (1) Enterovesical fistula Status: Acute Assessment and plan: PATIENT IS STABLE WILL CONTINUE ON PRESENT THERAP Continue present therapy diet will be advanced if CT shows patent left colon Current Visit: No (2) Dehydration Status: Resolved Current Visit: Yes (3) Hypokalemia due to loss of potassium Status: Resolved Current Visit: Yes (4) Iron deficiency anemia Status: Acute Current Visit: Yes (5) Anemia Status: Chronic Current Visit: No (6) Parkinson disease Status: Chronic Current Visit: No (7) Sleep apnea, obstructive Status: Chronic Current Visit: No
[2016-12-31] MEDS ORDERED: [UNRECOGNIZED DRUG - OTHER] SUB-Q PRN (16:43)
[2016-12-31] MEDS ORDERED: FROVATRIPTAN SUCCINATE 2.5 MG PO PRN (16:45)
[2016-12-31] MEDS ORDERED: IOPAMIDOL 100 ML BOTTLE IV ONE (16:50)
[2016-12-31] MEDS: VANCOMYCIN 1,000 MG in 0.9 % SODIUM CHLORIDE 250 ML IV SCH (20:28)
[2017-01-01] MEDS: METOCLOPRAMIDE 10 MG/2 ML VIAL IV SCH ×5 (00:03→23:29)
[2017-01-01] MEDS: metroNIDAZOLE 500 MG/100 ML BAG IV SCH ×4 (00:03→17:29)
[2017-01-01] MEDS: DIAZEPAM 10 MG/2 ML SYRINGE IV SCH ×4 (00:03→12:16)
[2017-01-01] MEDS: INSULIN LISPRO 1 UNIT/0.01 ML UNIT SQ SCH ×5 (00:23→23:44)
[2017-01-01] MEDS: IMIPENEM/CILASTATIN SODIUM 500 MG in 0.9 % SODIUM CHLORIDE 100 ML IV SCH ×3 (05:25→23:29)
[2017-01-01] MEDS: 0.9 % SODIUM CHLORIDE 10 ML SYRINGE IV SCH ×3 (05:26→22:31)
[2017-01-01] MEDS: CLOTRIMAZOLE 10 MG TROCHE PO SCH ×5 (07:56→21:57)
[2017-01-01] MEDS: POTASSIUM CHLORIDE 10 MEQ TABLET PO SCH (07:56)
[2017-01-01] MEDS: LEVOTHYROXINE 100 MCG VIAL IV SCH (07:57)
[2017-01-01] MEDS: PANTOPRAZOLE 40 MG VIAL IV SCH (07:57)
[2017-01-01] MEDS ORDERED: METHYLNALTREXONE BROMIDE 150 MG PO SCH (09:00)
[2017-01-01 09:14] LABS: Magnesium 2.4 mg/dL (1.6-2.5); Prealbumin 29.4 mg/dl (20-40)
[2017-01-01] MEDS ORDERED: fentaNYL 100 MCG PATCH TD SCH (10:00)
[2017-01-01] MEDS ORDERED: FLUMAZENIL 0.1 MG/ML ML IV PRN (11:19)
[2017-01-01] MEDS: TAMSULOSIN 0.4 MG CAPSULE PO SCH (11:24)
[2017-01-01] MEDS: ROTIGOTINE 8 MG TOPICAL SCH (11:26)
[2017-01-01] MEDS: HEPARIN 5,000 UNIT/ML VIAL SQ SCH ×2 (11:26→21:57)
[2017-01-01] MEDS: ROTIGOTINE 4 MG TOPICAL SCH (11:26)
[2017-01-01] MEDS: VANCOMYCIN 1,000 MG in 0.9 % SODIUM CHLORIDE 250 ML IV SCH ×2 (11:40→21:56)
[2017-01-01 11:45] LABS: ALT/SGPT 16 U/l (0-40); Albumin 2.5 gm/dL (3.2-5.2); Alkaline Phosphatase 175 U/L (39-117); Bilirubin,Direct < 0.2 mg/dL (0.0-0.3); Blood Urea Nitrogen 19 mg/dl (8-23); Gamma Glutamyl Transpeptidase 180 U/L (8-61); Magnesium 2.4 mg/dL (1.6-2.5); Uric Acid 1.3 mg/dL (2.5-8.0)
--- NOTE | 2017-01-01 12:12 | Internal Med Progress Note ---
Medical - PN: Subj Patient information: Note initiated : 01/01/17 at 12:12 pm Service Date, if different from initiated Date: [] Patient: Tripp Melo 66 y/o M admitted on 12/16/16 for Bowel Abscess, Bladder Fistula. 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 the patient reports he has had a steady decline for about one year now. He has been suffering with fatigue and weight loss of about 30-40 pounds over the last 3-6 months. He said about 6 months ago he was treated for melanoma on his face and had follow-up for that During that follow- up they found that he was anemic, and then found that he had guaiac positive stool. He then underwent colonoscopy and endoscopy that were apparently unrevealing. He has noticed gradually worsening dyspnea with exertion over the last several months, and in October said he had gross hematuria. That apparently triggered a referral which led to a cystoscopy at which time they found that he had not only blood but also stool in his urine Subsequent testing did confirm that he had a small bowel abscess, which had eroded into the bladder so that he now has a fistula. He was seen for follow-up in Dr. Azul 's office yesterday, and looked terrible and pale and weak, so was admitted for further workup and treatment. laboratory evaluation last night did show severe hypokalemia. he patient believes he was taking daily hydrochlorothiazide at home. He admits his diet is been very poor and that he has not had much of an appetite lately. However, he also admits that he generally has a very poor diet, and much prefers foods such as hot dogs and chili to anything even remotely involving fruits or vegetables or healthy proteins. Otherwise, the patient denies recent fever or chills, headaches or dizziness, new eye or ear symptoms. He has not had a sore throat or cough.he denies chest pain or palpitations, significant abdominal pain, heartburn, nausea or vomiting , and initially denied any diarrhea or constipation However,he then admitted that he has been having bloody stools for the last several days at home. Nursing staff also notes bloody stools since arrival here. -He did receive 3 units of packed red blood cells last night, as he is also quite severely anemic. -he has had Parkinson's disease for about 16 years and is managed by a neurologist. He is on a very complicated regimen for that. 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 To control that pain he does take both a fentanyl patch and subcutaneous morphine. -He also has chronic migraines, which appear to be treated with Topamax and Frova. -He also was previously diagnosed with sleep apnea, but refuses to wear CPAP. He used to be a heavy snorer, but notes he does not snore anymore since he has lost all the weight. December 18, 2016: Today,the patient notes that he seems to be having more abdominal cramping and discomfort. He feels like he has more gas.e have started him on breeze nutritional supplements, but he says he just does not like the taste at this point. Dr. Azul has asked for a PICC line to be placed, and would like to start TPN during the period. otherwise, the patient denies fever or chills, chest pain or palpitations or shortness of breath, nausea or vomiting. He continues to have blood-tinged stools and dark urine December 19: today,the patient notes he is still having abdominal pain, mainly towards the right groin area. This is crampy in nature. Nursing staff also called me earlier today to say that the patient was starting to sound a little bit wet,and he had a congested cough, and O2 saturations were a bit lower.he did feel a bit short of breath. chest x-ray did suggest pulmonary vascular congestion. otherwise, he states he is just tired. He denies overt fever or chills, chest pain or palpitations,nausea or vomiting. He continues to have loose blood and mucous stools at times, and continues to have stool contaminating his urine in his Pierce catheter. TPN was started last night. kathe also reports that he has had nonsustained runs of V. tach with activity.May also feel he is getting a bit discouraged by his condition. December 20: his morning, I was called to see the patient because he was complaining of left-sided chest pain. He did not appear to be in any acute distress, and denied any radiation of the pain, nausea or diaphoresis, shortness of breath. On exam he actually had fairly pinpoint tenderness next to the left nipple. He describes the pain as sharp and pinching in nature. EKG did not show any acute changes. Troponin was negative. Later in the morning, he said he was feeling fine again. He denies fever or chills,recurrent chest pain or palpitations. He continues to have moderate abdominal discomfort, which is positional. He continues to have mild dyspnea with any exertion, but is mostly staying in bed. He still has his Pierce catheter in, which is still draining fecal stained urine. December 21: Today, the patient notes she is feeling okay. He is having less abdominal pain. he does admit, though, that he is feeling quite discouraged, by feeling so poorly for so long. He worries about how the surgery will go. Otherwise, he denies subjective fever or chills, chest pain or shortness of breath, nausea or vomiting constipation, dysuria. December 22: The patient has no particular complaints today. His abdominal discomfort overall is improving. He denies subjective fever or chills, chest pain or shortness of breath, significant abdominal pain, nausea or vomiting, or significant bloody stools. Pierce catheter remains in place. December 23: the patient is now status post small bowel resection and bladder repair. e is a bit groggy, and says he feels "rough", but denies significant pain currently. He denies current chest pain or trouble breathing. Abdomen feels a bit bloated. Apparently a malignant neoplasm was found at surgery, eroding through the small bowel into the bladder. 12/24- patient seen in room post operative day 1. No overnight events. NG tube draining bilious output. No telemetry events. No concerns per staff. Complains of significant abdominal pain around the incision site. However alert lucid and responding verbal commands. Foleys draining clear urine. On TPN. IV fluids lowered from 125 an hour to TKO. 12/25- patient feels depressed. Hold out NG tube last night. Complains of significant abdominal pain. On TPN. Liquid BM today. White count over 17, 000. On broad antibiotic coverage-imipenem. Surgery managing postop care. Continue management in ICU in light of worsening leukocytosis. reinsert NG tube if patient agrees. 2/2- NG tube could not be placed. Patient on TPN. Potassium 2.7. Persistent operative site pain. Postoperative care managed as per surgery recommendations. White count down from 17.4-12.2. no overnight nausea vomiting , low-grade temperature at 99.7. good urine output. 12/27-patient doing well. No significant abdominal distention fever chills or telemetry events. Pain control adequate. On TPN. Good urine output. white count downtrending from 17.4-10.1. potassium improved to 4 from 2.7. iimproved tachycardia around 104. saturating on room air. Afebrile. Patient feels better than previous day. 12/28- 12/31- patient stable on TPN. Out of ICU. 01/01-multiple loose watery stool. C. difficile pending. Very sedated. reversed with flumazenil. recommend lowering benzodiazepine dose. - Constitutional Vitals: Vital Signs Temp Pulse Resp BP Pulse Ox 98.0 F 93 H 16 120/81 97 01/01/17 12:00 01/01/17 12:00 01/01/17 12:00 01/01/17 12:00 01/01/17 12:00 Period Temp Pulse Resp BP Sys/Lerma Pulse Ox Last 24 Hr 97.4 F-98.6 F 90-114 14-24 117-134/76-88 95-98 Intake and Output 12/31/16 01/01/17 01/01/17 21:59 05:59 13:59 Intake Total 690 / 690 200 / 200 100 / 100 Output Total 500 / 500 1450 / 1450 Balance 190 / 190 -1250 / -1250 100 / 100 Weight 132 lb 8 oz Intake & Output: Intake & Output 12/31/16 01/01/17 01/01/17 21:59 05:59 13:59 Intake Total 690 / 690 200 / 200 100 / 100 Output Total 500 / 500 1450 / 1450 Balance 190 / 190 -1250 / -1250 100 / 100 Weight 132 lb 8 oz Intake: IV 450 / 450 200 / 200 100 / 100 Sodium Chloride 0.9% 100 100 / 100 100 / 100 ml @ 100 mls/hr IV Q8 [facility] with Primaxin 500 mg Rx# :[id number] Sodium Chloride 0.9% 250 250 / 250 ml @ 250 mls/hr IV Q12H [facility] with Vancomycin 1,000 mg Rx#:[id number] Oral 240 / 240 0 / 0 Output: Urine Catheter Amount 500 / 500 1450 / 1450 General appearance: no acute distress Exam: secondary to lethargic and fatigued nonlabored breathing Nondistended abdomen TPN infusing Medical - PN: Obj Da - Labs CBC & Chem 7: 12/31/16 04:30 01/01/17 06:12 Labs: Abnormal Lab Results 01/01/17 12/31/16 12/31/16 06:12 04:30 04:30 RBC 3.77 L Hgb 10.2 L Hct 31.9 L RDW 20.5 H Gran % Lymph % (Auto) 13.7 L Gran # Lymph # Creatinine 0.5 L Glucose 116 H Uric Acid 1.3 L Calcium 7.9 L GGT 180 H Alkaline Phosphatase 175 H Total Protein 4.9 L Albumin 2.5 L Albumin/Globulin Ratio TSH Vancomycin Trough 18.4 H 12/31/16 12/30/16 12/30/16 04:30 03:50 03:50 RBC 3.86 L Hgb 10.3 L Hct 31.6 L RDW 19.4 H Gran % 78.1 H Lymph % (Auto) 13.4 L Gran # 8.1 H Lymph # 1.4 L Creatinine 0.5 L Glucose 221 H Uric Acid Calcium 8.3 L GGT Alkaline Phosphatase 182 H Total Protein 5.6 L Albumin 2.6 L Albumin/Globulin Ratio 0.9 L TSH 5.24 H Vancomycin Trough 12/30/16 03:50 RBC Hgb Hct RDW Gran % Lymph % (Auto) Gran # Lymph # Creatinine 0.5 L Glucose 110 H Uric Acid Calcium 8.2 L GGT Alkaline Phosphatase 196 H Total Protein 5.8 L Albumin 2.6 L Albumin/Globulin Ratio 0.8 L TSH Vancomycin Trough Meds: Medications Clotrimazole (Mycelex) 10 mg PO 5XD [facility] Last Admin: 01/01/17 07:56 Dose: 10 mg Dextrose (Dextrose 50%) 0 ml IV UD PRN PRN Reason: Hypoglycemia Diagnostic Test (Pha) (Accu-Chek) 1 each FS Q6 [facility] Last Admin: 01/01/17 05:27 Dose: 1 each Diazepam (Valium) 5 mg IV Q4 [facility] Last Admin: 01/01/17 11:10 Dose: Not Given Fentanyl (Duragesic) 100 mcg TD Q48H [facility] Flumazenil (Romazicon) 0.2 mg IV Q1MIN PRN PRN Reason: BENZODIAZEPINE REVERSAL Heparin Sodium (Porcine) (Heparin) 5,000 unit SQ Q12 [facility] Last Admin: 01/01/17 11:26 Dose: 5,000 unit Heparin Sodium (Porcine) (Heparin Flush) 2 ml IV Q12 [facility] Last Admin: 01/01/17 11:26 Dose: 2 ml Hydromorphone HCl (Dilaudid) 2 mg IV Q2HP PRN PRN Reason: Pain Calcium Gluconate 10 meq/Magnesium Sulfate 4.06 meq/Potassium Phosphate 40 meq/ Multivitamins/Minerals 10 ml/Selenium 60 mcg/ Potassium Chloride 40 meq/ Sodium Chloride 40 meq/ Amino Acids 2,073.0962 mls @ 85 mls/hr IV Q24H [facility] Last Admin: 12/31/16 17:05 Dose: 85 mls/hr Fat Emulsion Intravenous (Intralipid 20%) 250 mls @ 25 mls/hr IV [id number] [facility] Imipenem/Cilastatin Sodium 500 (mg/ Sodium Chloride) 100 mls @ 100 mls/hr IV Q8 [facility] Last Admin: 01/01/17 05:25 Dose: 100 mls/hr Sodium Chloride (Sodium Chloride 0.9%) 1,000 mls @ 20 mls/hr IV .Q24H [facility] Last Admin: 12/31/16 14:30 Dose: Not Given Acetaminophen (Ofirmev) 1,000 mg in 100 mls @ 200 mls/hr IV Q6HP PRN PRN Reason: Pain Vancomycin HCl 1,000 mg/ (Sodium Chloride) 250 mls @ 250 mls/hr IV Q12H [facility] Last Admin: 01/01/17 11:40 Dose: 250 mls/hr Metronidazole (Flagyl) 500 mg in 100 mls @ 100 mls/hr IV Q6 [facility] Last Admin: 01/01/17 11:24 Dose: 100 mls/hr Insulin Human Lispro (Humalog) 0 unit SQ Q6 [facility] PRN Reason: Protocol Last Admin: 01/01/17 05:27 Dose: Not Given Levothyroxine Sodium (Synthroid) 50 mcg IV QAMAC [facility] Last Admin: 01/01/17 07:57 Dose: 50 mcg Lorazepam (Ativan) 0.5 mg IV Q4-6HP PRN PRN Reason: ANXIETY/SEDATION Methylnaltrexone Poyntelle (Relistor) 12 mg SQ DAILY [facility] Stop: 01/02/17 09:01 Metoclopramide HCl (Reglan) 10 mg IV Q6 [facility] Last Admin: 01/01/17 05:25 Dose: 10 mg Metoprolol Tartrate (Lopressor) 5 mg IV Q4HP PRN PRN Reason: Tachyarrhythmias Testosterone [ Androderm] 4 Mg Patch 4 dose TOPICAL QDAY [facility] Pantoprazole Sodium (Protonix) 40 mg IV QAMAC [facility] Last Admin: 01/01/17 07:57 Dose: 40 mg Apomorphine (Apokyn) (10mg/Ml) 0.3 dose SC Q2HP PRN PRN Reason: Tremors Rotigotine [Neupro] (4 Mg Patch) 1 dose TOPICAL DAILY [facility] Last Admin: 01/01/17 11:26 Dose: Not Given Rotigotine [Neupro] (8 Mg Patch) 1 dose TOPICAL DAILY [facility] Last Admin: 01/01/17 11:26 Dose: Not Given Frovatriptan Succinate [Frova] 2. 5 Mg Tab 1 dose PO DAILYP PRN PRN Reason: Migraine Headache Potassium Chloride (Kdur) 10 meq PO QAC [facility] Last Admin: 01/01/17 07:56 Dose: 10 meq Sodium Chloride (Saline Flush) 10 ml IV UD PRN PRN Reason: FLUSH Sodium Chloride (Saline Flush) 10 ml IV Q8 [facility] Last Admin: 01/01/17 05:26 Dose: 10 ml Tamsulosin HCl (Flomax) 0.8 mg PO QDAY [facility] Last Admin: 01/01/17 11:24 Dose: Not Given Vancomycin HCl (Vancomycin Per Pharmacy) 1 order IV [facility] [place] Medical - PN: A/P - Time Spent With Patient Total time spent is greater than 50% in coordination of care (as documented) at patient's floor/unit and/or counseling patient: 15 - 24 minutes (1) Enterovesical fistula Status: Acute Assessment and plan: * Enterovesical fistula-postop day 9, management as per surgery * Abdominal abscess managed by surgery. * nutrition-on TPN as per surgery Hospitalist consult * altered mental status- secondary to benzodiazepines- discontinue or lower benzodiazepine dose. * HYPOKALEMIA. POTASSIUM NORMALIZED * Severe sepsis secondary to intra-abdominal abscess- on IV ABX * Parkinson's disease- * History of migraine -stable * Generalized anxiety disorder- lower benzodiazepines * hypothyroidism * Hyperlipidemia * Severe anemia-Status post transfusion plan * Postop management as per surgery * discontinue benzodiazepines * daily physical therapy in light of prolonged hospitalization/ICU deconditioning Current Visit: No Medical - PN: Qual - Stroke Symptom Onset Unknown: No - VTE Deep Vein Thrombosis/Pulmonary Embolism Present on Admission: No
[2017-01-01] MEDS: METHYLNALTREXONE BROMIDE 12 MG/0.6 ML SYRINGE SQ SCH (12:15)
[2017-01-01] MEDS: fentaNYL 100 MCG PATCH TD SCH (12:50)
[2017-01-01] MEDS: 0.9 % SODIUM CHLORIDE 1,000 ML IV SCH (12:53)
[2017-01-01] MEDS: TESTOSTERONE 4 MG TOPICAL SCH (13:27)
[2017-01-01] MEDS ORDERED: CALCIUM GLUCONATE IV SCH (16:00)
[2017-01-01] MEDS ORDERED: MVI IV SCH (16:00)
[2017-01-01] MEDS ORDERED: POTASSIUM PHOSPHATE IV SCH (16:00)
[2017-01-01] MEDS ORDERED: FAT EMULSION 20% 250 ML IV SCH (16:00)
[2017-01-01] MEDS ORDERED: [UNRECOGNIZED DRUG - OTHER] IV SCH (16:00)
[2017-01-01] MEDS ORDERED: MAGNESIUM SULFATE IV SCH (16:00)
[2017-01-01] MEDS: FAT EMULSION 20% 250 ML IV SCH (18:08)
--- NOTE | 2017-01-01 18:27 | General Surgery Progress Note ---
Subjective Patient reports: feels better, flatus, bowel movement, diarrhea, nausea, afebrile Narrative: Note initiated : 01/01/17 at 6:26 pm Service Date, if different from initiated Date: [] Patient: Tripp Melo 66 y/o M admitted on 12/16/16 for Bowel Abscess, Bladder Fistula. Chief Complaint: [patient continues to improve. He is having more bowel movements. He denies abdominal pain, nausea. His labs remained very good. CT of the abdomen done yesterday is more compatible with ileus. Patient will continue to be monitored while his ileus improves.] Objective Temp Pulse Resp BP Pulse Ox 97.9 F 109 H 16 123/78 95 01/01/17 15:57 01/01/17 15:57 01/01/17 15:57 01/01/17 15:57 01/01/17 15:57 - Additional Data Intake & Output - Last 24 hours: Intake & Output 12/30/16 12/31/16 01/01/17 01/02/17 05:59 05:59 05:59 05:59 Intake Total 3680 / 3680 2049 / 2049 1340 / 1340 300 / 300 Output Total 2350 / 2350 1335 / 1335 2640 / 2640 1200 / 1200 Balance 1330 / 1330 714 / 714 -1300 / -1300 -900 / -900 Weight 127 lb 1.6 oz 131 lb 8 oz 132 lb 8 oz - Additional Exam patient is lying in bed in no acute distress HEENT no abnormality seen mild thrush is improved Neck supple without adenopathy or JVD Chest clear to auscultation no rales or wheezes Heart regular rhythm mild tachycardia rate 100 O activity Abdomen soft nondistended nontender with good active bowel sounds; incision looks good Extremities no peripheral edema - Labs 01/06/17 06:04 01/06/17 06:05 Diabetes panel 01/01/17 Range/Units 06:12 Sodium 140 (133-145) mmol/L Potassium 4.2 (3.3-5.1) mmol/L Chloride 104 (96-108) mmol/L Carbon Dioxide 23 (22-30) mmol/L BUN 19 (8-23) mg/dl Creatinine 0.5 L (0.7-1.2) mg/dl Glucose 116 H (70-105) mg/dL Calcium 7.9 L (8.6-10.4) mg/dl AST 20 (0-37) U/l ALT 16 (0-40) U/l Alkaline Phosphatase 175 H (39-117) U/L Total Protein 4.9 L (5.9-8.4) gm/dL Albumin 2.5 L (3.2-5.2) gm/dL Triglycerides 106 (<150) mg/dl Calcium panel 01/01/17 01/01/17 Range/Units 06:12 06:12 Calcium 7.9 L (8.6-10.4) mg/dl Phosphorus 3.0 3.0 (2.7-4.5) mg/dL Albumin 2.5 L (3.2-5.2) gm/dL Pituitary panel 01/01/17 Range/Units 06:12 Sodium 140 (133-145) mmol/L Potassium 4.2 (3.3-5.1) mmol/L Chloride 104 (96-108) mmol/L Carbon Dioxide 23 (22-30) mmol/L BUN 19 (8-23) mg/dl Creatinine 0.5 L (0.7-1.2) mg/dl Glucose 116 H (70-105) mg/dL Calcium 7.9 L (8.6-10.4) mg/dl Adrenal panel 01/01/17 Range/Units 06:12 Sodium 140 (133-145) mmol/L Potassium 4.2 (3.3-5.1) mmol/L Chloride 104 (96-108) mmol/L Carbon Dioxide 23 (22-30) mmol/L BUN 19 (8-23) mg/dl Creatinine 0.5 L (0.7-1.2) mg/dl Glucose 116 H (70-105) mg/dL Calcium 7.9 L (8.6-10.4) mg/dl Total Bilirubin 0.4 (0.0-1.0) mg/dL AST 20 (0-37) U/l ALT 16 (0-40) U/l Alkaline Phosphatase 175 H (39-117) U/L Total Protein 4.9 L (5.9-8.4) gm/dL Albumin 2.5 L (3.2-5.2) gm/dL Medical - PN: A/P - Time Spent With Patient Total time spent is greater than 50% in coordination of care (as documented) at patient's floor/unit and/or counseling patient: (1) Enterovesical fistula Status: Resolved Assessment and plan: PATIENT IS STABLE WILL CONTINUE ON PRESENT THERAP Continue present therapy continue full liquid diet for now. (2) Dehydration Status: Resolved (3) Hypokalemia due to loss of potassium Status: Resolved (4) Iron deficiency anemia Status: Acute (5) Anemia Status: Chronic (6) Parkinson disease Status: Chronic (7) Sleep apnea, obstructive Status: Chronic
[2017-01-01] MEDS: GABAPENTIN 300 MG CAPSULE PO SCH (21:57)
[2017-01-01] MEDS: CARBIDOPA/LEVODOPA 25/100 TABLET PO SCH (21:57)
[2017-01-02] MEDS: metroNIDAZOLE 500 MG/100 ML BAG IV SCH ×4 (01:26→17:39)
[2017-01-02] MEDS: HYDROmorphone 2 MG/ML SYRINGE IV PRN ×2 (05:36→20:20)
[2017-01-02] MEDS: METOCLOPRAMIDE 10 MG/2 ML VIAL IV SCH ×3 (05:37→17:38)
[2017-01-02] MEDS: IMIPENEM/CILASTATIN SODIUM 500 MG in 0.9 % SODIUM CHLORIDE 100 ML IV SCH ×3 (05:37→22:58)
[2017-01-02] MEDS: 0.9 % SODIUM CHLORIDE 10 ML SYRINGE IV SCH ×3 (05:38→20:30)
[2017-01-02] MEDS: INSULIN LISPRO 1 UNIT/0.01 ML UNIT SQ SCH ×3 (06:25→16:59)
[2017-01-02] MEDS: LEVOTHYROXINE 100 MCG VIAL IV SCH (07:12)
[2017-01-02] MEDS: PANTOPRAZOLE 40 MG VIAL IV SCH (07:15)
[2017-01-02 08:48] LABS: Basophils # (Auto) 0.1 K/mcL (0.0-0.3); Basophils % (Auto) 1.1 % (0.0-2.0); Eosinophils # (Auto) 0.5 K/mcL (0.0-0.7); Eosinophils % (Auto) 4.1 % (0.0-7.0); Granulocytes % (Auto) 73.3 % (38.0-78.0); Lymphocytes # (Auto) 1.7 K/mcL (1.5-4.8); Lymphocytes % (Auto) 15.6 % (15.5-49.0); Mean Cell Volume 85.3 fL (80.0-100.0); Mean Corpuscular HGB Conc 31.1 g/dL (31.0-36.0); Mean Corpuscular Hemoglobin 26.6 pg (26.0-34.0); Monocytes # (Auto) 0.7 K/mcL (0.1-0.9); Monocytes % (Auto) 5.9 % (1.0-9.0); Platelet Count 380 K/mcL (140-440); RBC 3.38 M/mcL (4.50-5.90); Red Cell Distribution Width 21.3 % (11.5-14.5)
[2017-01-02] MEDS: TAMSULOSIN 0.4 MG CAPSULE PO SCH (09:02)
[2017-01-02] MEDS: HEPARIN 5,000 UNIT/ML VIAL SQ SCH ×2 (09:02→20:25)
[2017-01-02] MEDS: POTASSIUM CHLORIDE 10 MEQ TABLET PO SCH (09:03)
[2017-01-02] MEDS: CLOTRIMAZOLE 10 MG TROCHE PO SCH ×5 (09:03→20:27)
[2017-01-02] MEDS: CARBIDOPA/LEVODOPA 25/100 TABLET PO SCH ×4 (09:04→20:28)
[2017-01-02] MEDS: GABAPENTIN 300 MG CAPSULE PO SCH ×4 (09:30→20:27)
[2017-01-02 09:42] LABS: ALT/SGPT < 5 U/l (0-40); Albumin 2.5 gm/dL (3.2-5.2); Alkaline Phosphatase 184 U/L (39-117); Bilirubin,Direct < 0.2 mg/dL (0.0-0.3); Blood Urea Nitrogen 18 mg/dl (8-23); Gamma Glutamyl Transpeptidase 197 U/L (8-61); Magnesium 2.2 mg/dL (1.6-2.5); Phosphorous 2.8 mg/dL (2.7-4.5); Prealbumin 28.6 mg/dl (20-40); Uric Acid 1.2 mg/dL (2.5-8.0)
--- NOTE | 2017-01-02 10:27 | Internal Med Progress Note ---
Medical - PN: Subj Patient information: Note initiated : 01/02/17 at 10:25 am Service Date, if different from initiated Date: [] Patient: Tripp Melo 66 y/o M admitted on 12/16/16 for Bowel Abscess, Bladder Fistula. Chief Complaint: [] Interval history: Mr. 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 the patient reports he has had a steady decline for about one year now. He has been suffering with fatigue and weight loss of about 30-40 pounds over the last 3-6 months. He said about 6 months ago he was treated for melanoma on his face and had follow-up for that During that follow- up they found that he was anemic, and then found that he had guaiac positive stool. He then underwent colonoscopy and endoscopy that were apparently unrevealing. He has noticed gradually worsening dyspnea with exertion over the last several months, and in October said he had gross hematuria. That apparently triggered a referral which led to a cystoscopy at which time they found that he had not only blood but also stool in his urine Subsequent testing did confirm that he had a small bowel abscess, which had eroded into the bladder so that he now has a fistula. He was seen for follow-up in Dr. Azul 's office yesterday, and looked terrible and pale and weak, so was admitted for further workup and treatment. laboratory evaluation last night did show severe hypokalemia. he patient believes he was taking daily hydrochlorothiazide at home. He admits his diet is been very poor and that he has not had much of an appetite lately. However, he also admits that he generally has a very poor diet, and much prefers foods such as hot dogs and chili to anything even remotely involving fruits or vegetables or healthy proteins. Otherwise, the patient denies recent fever or chills, headaches or dizziness, new eye or ear symptoms. He has not had a sore throat or cough.he denies chest pain or palpitations, significant abdominal pain, heartburn, nausea or vomiting , and initially denied any diarrhea or constipation However,he then admitted that he has been having bloody stools for the last several days at home. Nursing staff also notes bloody stools since arrival here. -He did receive 3 units of packed red blood cells last night, as he is also quite severely anemic. -he has had Parkinson's disease for about 16 years and is managed by a neurologist. He is on a very complicated regimen for that. 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 To control that pain he does take both a fentanyl patch and subcutaneous morphine. -He also has chronic migraines, which appear to be treated with Topamax and Frova. -He also was previously diagnosed with sleep apnea, but refuses to wear CPAP. He used to be a heavy snorer, but notes he does not snore anymore since he has lost all the weight. December 18, 2016: Today,the patient notes that he seems to be having more abdominal cramping and discomfort. He feels like he has more gas.e have started him on breeze nutritional supplements, but he says he just does not like the taste at this point. Dr. Azul has asked for a PICC line to be placed, and would like to start TPN during the period. otherwise, the patient denies fever or chills, chest pain or palpitations or shortness of breath, nausea or vomiting. He continues to have blood-tinged stools and dark urine December 19: today,the patient notes he is still having abdominal pain, mainly towards the right groin area. This is crampy in nature. Nursing staff also called me earlier today to say that the patient was starting to sound a little bit wet,and he had a congested cough, and O2 saturations were a bit lower.he did feel a bit short of breath. chest x-ray did suggest pulmonary vascular congestion. otherwise, he states he is just tired. He denies overt fever or chills, chest pain or palpitations,nausea or vomiting. He continues to have loose blood and mucous stools at times, and continues to have stool contaminating his urine in his Pierce catheter. TPN was started last night. kathe also reports that he has had nonsustained runs of V. tach with activity.May also feel he is getting a bit discouraged by his condition. December 20: his morning, I was called to see the patient because he was complaining of left-sided chest pain. He did not appear to be in any acute distress, and denied any radiation of the pain, nausea or diaphoresis, shortness of breath. On exam he actually had fairly pinpoint tenderness next to the left nipple. He describes the pain as sharp and pinching in nature. EKG did not show any acute changes. Troponin was negative. Later in the morning, he said he was feeling fine again. He denies fever or chills,recurrent chest pain or palpitations. He continues to have moderate abdominal discomfort, which is positional. He continues to have mild dyspnea with any exertion, but is mostly staying in bed. He still has his Pierce catheter in, which is still draining fecal stained urine. December 21: Today, the patient notes she is feeling okay. He is having less abdominal pain. he does admit, though, that he is feeling quite discouraged, by feeling so poorly for so long. He worries about how the surgery will go. Otherwise, he denies subjective fever or chills, chest pain or shortness of breath, nausea or vomiting constipation, dysuria. December 22: The patient has no particular complaints today. His abdominal discomfort overall is improving. He denies subjective fever or chills, chest pain or shortness of breath, significant abdominal pain, nausea or vomiting, or significant bloody stools. Pierce catheter remains in place. December 23: the patient is now status post small bowel resection and bladder repair. e is a bit groggy, and says he feels "rough", but denies significant pain currently. He denies current chest pain or trouble breathing. Abdomen feels a bit bloated. Apparently a malignant neoplasm was found at surgery, eroding through the small bowel into the bladder. 12/24- patient seen in room post operative day 1. No overnight events. NG tube draining bilious output. No telemetry events. No concerns per staff. Complains of significant abdominal pain around the incision site. However alert lucid and responding verbal commands. Foleys draining clear urine. On TPN. IV fluids lowered from 125 an hour to TKO. 12/25- patient feels depressed. Hold out NG tube last night. Complains of significant abdominal pain. On TPN. Liquid BM today. White count over 17, 000. On broad antibiotic coverage-imipenem. Surgery managing postop care. Continue management in ICU in light of worsening leukocytosis. reinsert NG tube if patient agrees. 2/2- NG tube could not be placed. Patient on TPN. Potassium 2.7. Persistent operative site pain. Postoperative care managed as per surgery recommendations. White count down from 17.4-12.2. no overnight nausea vomiting , low-grade temperature at 99.7. good urine output. 12/27-patient doing well. No significant abdominal distention fever chills or telemetry events. Pain control adequate. On TPN. Good urine output. white count downtrending from 17.4-10.1. potassium improved to 4 from 2.7. iimproved tachycardia around 104. saturating on room air. Afebrile. Patient feels better than previous day. 12/28- 12/31- patient stable on TPN. Out of ICU. 01/01-multiple loose watery stool. C. difficile pending. Very sedated. reversed with flumazenil. recommend lowering benzodiazepine dose. 01/02- C. difficile positive. Started on vancomycin oral/IV Flagyl. Stage II decubitus pressure ulcers. Wound care consulted. Patient is significantly deconditioned and is high risk mortality. Patient would require long-term care for deconditioning from prolonged hospital stay along with aggressive wound care /nutrition supplements. - Constitutional Vitals: Vital Signs Temp Pulse Resp BP Pulse Ox 97.8 F 98 H 20 125/40 98 01/02/17 07:06 01/02/17 08:00 01/02/17 07:06 01/02/17 07:06 01/02/17 07:06 Period Temp Pulse Resp BP Sys/Lerma Pulse Ox Last 24 Hr 97.8 F-98.8 F 93-118 16-20 120-141/40-88 95-99 Intake and Output 01/01/17 01/02/17 01/02/17 21:59 05:59 13:59 Intake Total 100 / 100 550 / 550 100 / 100 Output Total 600 / 600 451 / 451 190 / 190 Balance -500 / -500 99 / 99 -90 / -90 Weight 130 lb 8 oz 130 lb 8 oz Patient Weight 01/03/17 05:59 Weight 130 lb 8 oz Intake & Output: Intake & Output 01/01/17 01/02/17 01/02/17 21:59 05:59 13:59 Intake Total 100 / 100 550 / 550 100 / 100 Output Total 600 / 600 451 / 451 190 / 190 Balance -500 / -500 99 / 99 -90 / -90 Weight 130 lb 8 oz 130 lb 8 oz Intake: IV 100 / 100 550 / 550 100 / 100 Sodium Chloride 0.9% 100 100 / 100 100 / 100 100 / 100 ml @ 100 mls/hr IV Q8 DARWIN with Primaxin 500 mg Rx# :[id number] Sodium Chloride 0.9% 250 250 / 250 ml @ 250 mls/hr IV Q12H DARWIN with Vancomycin 1,000 mg Rx#:[id number] Output: Urine Catheter Amount 600 / 600 450 / 450 190 / 190 # of times incontinent of urine General appearance: thin Exam: anxious but nondistressed Alert oriented nonlabored breathing Rectal tube in place Liquid stools Medical - PN: Obj Da - Labs CBC & Chem 7: 01/02/17 07:39 01/02/17 07:39 Labs: Abnormal Lab Results 01/02/17 01/02/17 01/01/17 07:39 07:39 06:12 WBC 11.1 H RBC 3.38 L Hgb 9.0 L Hct 28.8 L RDW 21.3 H Lymph % (Auto) Gran # 8.1 H Chloride 109 H Carbon Dioxide 19 L Creatinine 0.5 L 0.5 L Glucose 116 H Uric Acid 1.2 L 1.3 L Calcium 8.0 L 7.9 L GGT 197 H 180 H Alkaline Phosphatase 184 H 175 H Lactate Dehydrogenase 333 H Total Protein 4.9 L 4.9 L Albumin 2.5 L 2.5 L Albumin/Globulin Ratio TSH Free T3 Vancomycin Trough 12/31/16 12/31/16 12/31/16 04:30 04:30 04:30 WBC RBC 3.77 L Hgb 10.2 L Hct 31.9 L RDW 20.5 H Lymph % (Auto) 13.7 L Gran # Chloride Carbon Dioxide Creatinine Glucose Uric Acid Calcium GGT Alkaline Phosphatase Lactate Dehydrogenase Total Protein Albumin Albumin/Globulin Ratio TSH Free T3 2.1 L Vancomycin Trough 18.4 H 12/31/16 12/30/16 04:30 03:50 WBC RBC Hgb Hct RDW Lymph % (Auto) Gran # Chloride Carbon Dioxide Creatinine 0.5 L Glucose 221 H Uric Acid Calcium 8.3 L GGT Alkaline Phosphatase 182 H Lactate Dehydrogenase Total Protein 5.6 L Albumin 2.6 L Albumin/Globulin Ratio 0.9 L TSH 5.24 H Free T3 Vancomycin Trough Meds: Medications Carbidopa/Levodopa (Sinemet 25/100) 2 tab PO QID [facility] Last Admin: 01/02/17 09:04 Dose: 2 tab Clotrimazole (Mycelex) 10 mg PO 5XD [facility] Last Admin: 01/02/17 09:03 Dose: 10 mg Dextrose (Dextrose 50%) 0 ml IV UD PRN PRN Reason: Hypoglycemia Diagnostic Test (Pha) (Accu-Chek) 1 each FS Q6 [facility] Last Admin: 01/02/17 06:25 Dose: 1 each Fentanyl (Duragesic) 100 mcg TD Q48H [facility] Last Admin: 01/01/17 12:50 Dose: 100 mcg Flumazenil (Romazicon) 0.2 mg IV Q1MIN PRN PRN Reason: BENZODIAZEPINE REVERSAL Last Admin: 01/01/17 11:55 Dose: 0.2 mg Gabapentin (Neurontin) 300 mg PO QID [facility] Last Admin: 01/02/17 09:30 Dose: 300 mg Heparin Sodium (Porcine) (Heparin) 5,000 unit SQ Q12 [facility] Last Admin: 01/02/17 09:02 Dose: 5,000 unit Heparin Sodium (Porcine) (Heparin Flush) 2 ml IV Q12 [facility] Last Admin: 01/02/17 09:04 Dose: 2 ml Hydromorphone HCl (Dilaudid) 2 mg IV Q2HP PRN PRN Reason: Pain Last Admin: 01/02/17 05:36 Dose: 2 mg Fat Emulsion Intravenous (Intralipid 20%) 250 mls @ 25 mls/hr IV MoWeFr@1600 [facility] Last Admin: 01/01/17 18:08 Dose: 25 mls/hr Imipenem/Cilastatin Sodium 500 (mg/ Sodium Chloride) 100 mls @ 100 mls/hr IV Q8 [facility] Last Infusion: 01/02/17 07:02 Dose: Infused Sodium Chloride (Sodium Chloride 0.9%) 1,000 mls @ 20 mls/hr IV .Q24H [facility] Last Admin: 01/01/17 12:53 Dose: Not Given Acetaminophen (Ofirmev) 1,000 mg in 100 mls @ 200 mls/hr IV Q6HP PRN PRN Reason: Pain Vancomycin HCl 1,000 mg/ (Sodium Chloride) 250 mls @ 250 mls/hr IV Q12H [facility] Last Infusion: 01/01/17 23:00 Dose: Infused Metronidazole (Flagyl) 500 mg in 100 mls @ 100 mls/hr IV Q6 [facility] Last Admin: 01/02/17 06:26 Dose: 100 mls/hr Calcium Gluconate 10 meq/Magnesium Sulfate 4.06 meq/Potassium Phosphate 60 meq/ Multivitamins/Minerals 10 ml/Selenium 60 mcg/ Potassium Chloride 40 meq/ Sodium Chloride 40 meq/ Amino Acids 2,077.6417 mls @ 85 mls/hr IV DAILY@1600 [facility] Last Admin: 01/01/17 16:38 Dose: 85 mls/hr Insulin Human Lispro (Humalog) 0 unit SQ Q6 [facility] PRN Reason: Protocol Last Admin: 01/02/17 06:25 Dose: 2 unit [facility]othy[facility]ine [facility] Last Admin: 01/02/17 07:12 Dose: 50 mcg Lorazepam (Ativan) 0.5 mg IV Q4-6HP PRN PRN Reason: ANXIETY/SEDATION Metoclopramide HCl (Reglan) 10 mg IV Q6 [facility] Last Admin: 01/02/17 05:37 Dose: 10 mg Metoprolol Tartrate (Lopressor) 5 mg IV Q4HP PRN PRN Reason: Tachyarrhythmias Testosterone [ Androderm] 4 Mg Patch 4 dose TOPICAL QDAY [facility] Last Admin: 01/01/17 13:27 Dose: Not Given Pantoprazole Sodium (Protonix) [facility] Last Admin: 01/02/17 07:15 Dose: 40 mg Apomorphine (Apokyn) (10mg/Ml) 0.3 dose SC Q2HP PRN PRN Reason: Tremors Rotigotine [Neupro] (4 Mg Patch) 1 dose TOPICAL DAILY [facility] Last Admin: 01/01/17 11:26 Dose: Not Given Rotigotine [Neupro] (8 Mg Patch) 1 dose TOPICAL DAILY [facility] Last Admin: 01/01/17 11:26 Dose: Not Given Frovatriptan Succinate [Frova] 2. 5 Mg Tab 1 dose PO DAILYP PRN PRN Reason: Migraine Headache Lubiprostone [ Amitiza] 24 Mcg Capsule 1 dose PO BID [facility] Potassium Chlor[facility] (Kdur) [facility] Last Admin: 01/02/17 09:03 Dose: 10 meq Sodium Chloride (Saline Flush) 10 ml IV UD PRN PRN Reason: FLUSH Sodium Chloride (Saline Flush) 10 ml IV Q8 [facility] Last Admin: 01/02/17 05:38 Dose: 10 ml Tamsulosin HCl (Flomax) 0.8 mg PO QDAY [facility] Last Admin: 01/02/17 09:02 Dose: 0.8 mg Vancomycin HCl (Vancomycin Per Pharmacy) 1 order IV UD [facility] Vancomycin HCl (Vancomycin Oral Shagufta) 250 mg PO QID [facility] Medical - PN: A/P - Time Spent With Patient Total time spent is greater than 50% in coordination of care (as documented) at patient's floor/unit and/or counseling patient: 25 - 35 minutes (1) Enterovesical fistula Status: Acute Assessment and plan: * Enterovesical fistula-postop day 9, management as per surgery * Abdominal abscess managed by surgery. * nutrition-on TPN as per surgery Hospitalist consult * C. difficile enterocolitis- on vancomycin/Flagyl * Stage II decubitus ulcers- wound care Dr. Hamilton consulted * altered mental status- secondary to benzodiazepines-fully resolved off benzos * hypokalemia-resolved * Severe sepsis secondary to intra-abdominal abscess- clinically resolved * Parkinson's disease- restart home meds * History of migraine -stable * Generalized anxiety disorder- lower benzodiazepines * hypothyroidism- on home meds * Hyperlipidemia- on home meds * Severe anemia-Status post transfusion plan * Postop management as per surgery * vancomycin/Flagyl for C. difficile * Wound care consult * continue home meds * daily physical therapy in light of prolonged hospitalization/ICU deconditioning * case management to coordinate transfer to [facility] acute care unit [facility] Current Visit: No Medical - PN: Qual - Stroke Symptom Onset Unknown: No - VTE Deep Vein Thrombosis/Pulmonary Embolism Present on Admission: No
[2017-01-02] MEDS: VANCOMYCIN 1,000 MG in 0.9 % SODIUM CHLORIDE 250 ML IV SCH ×2 (11:04→20:23)
[2017-01-02] MEDS: ROTIGOTINE 8 MG TOPICAL SCH ×2 (11:12→11:35)
[2017-01-02] MEDS: ROTIGOTINE 4 MG TOPICAL SCH ×2 (11:12→11:32)
[2017-01-02] MEDS: TESTOSTERONE 4 MG TOPICAL SCH (11:12)
[2017-01-02] MEDS: VANCOMYCIN ORAL SOL 1,000 MG/10 ML BOTTLE PO SCH ×4 (11:28→20:29)
[2017-01-02] MEDS: METHYLNALTREXONE BROMIDE 12 MG/0.6 ML SYRINGE SQ SCH (11:29)
[2017-01-02] MEDS ORDERED: IOTHALAMATE MEGLUMINE 250 ML VIAL UR ONE (11:38)
--- NOTE | 2017-01-02 13:37 | General Surgery Progress Note ---
Subjective Patient reports: feels better, still having pain, pain is less, tolerating liquids well, flatus, bowel movement, diarrhea, afebrile Narrative: Note initiated : 01/02/17 at 1:35 pm Service Date, if different from initiated Date: [] Patient: Tripp Melo 66 y/o M admitted on 12/16/16 for Bowel Abscess, Bladder Fistula. Chief Complaint: [patient is doing well. He is more alert today. He has diarrhea still but his C. difficile test is positive. He feels as if he can eat a regular diet and since his GI tract is patent it will be a good time to start him on diet as tolerated. The TPN should be continued until he can take an over 50% of his diet. He has joint and muscle stiffness. He denies abdominal pain. He does not have any respiratory difficulty.] Objective Temp Pulse Resp BP Pulse Ox 97.3 F L 110 H 16 120/68 98 01/02/17 12:05 01/02/17 12:00 01/02/17 12:00 01/02/17 12:00 01/02/17 12:00 - Additional Data Intake & Output - Last 24 hours: Intake & Output 12/31/16 01/01/17 01/02/17 01/03/17 05:59 05:59 05:59 05:59 Intake Total 2049 / 2049 1340 / 1340 1200 / 1200 100 / 100 Output Total 1335 / 1335 2640 / 2640 1651 / 1651 190 / 190 Balance 714 / 714 -1300 / -1300 -451 / -451 -90 / -90 Weight 131 lb 8 oz 132 lb 8 oz 130 lb 8 oz 130 lb 8 oz - General physical appearance no distress, cachectic, chronically ill - Eyes PERRL - ENT no congestion - Neck no venous distension - Respiratory normal expansion, normal respiratory effort, clear to auscultation - Cardiovascular Cardiovascular exam: Present: normal rate and rhythm, RRR, +S1, +S2. Absent: JVD - Abdomen soft, non tender, bowel sounds, distended (abdomen is minimally distended; he has good active bowel sounds; there is no tenderness or mass) - Genitourinary normal penis with no external lesions, other (cystogram was done today and this showsthat his bladder is intact without leak.) - Integumentary no rash, no growths, no abnormal pigmentation - Psychiatric oriented to time, oriented to person, oriented to place, speech is normal, memory intact - Labs 01/02/17 07:39 01/02/17 07:39 Diabetes panel 01/02/17 01/02/17 Range/Units 05:53 07:39 Sodium Cancelled 143 Potassium Cancelled 4.3 Chloride Cancelled 109 H Carbon Dioxide Cancelled 19 L BUN Cancelled 18 Creatinine Cancelled 0.5 L Glucose Cancelled 78 Calcium Cancelled 8.0 L AST Cancelled 33 ALT Cancelled < 5 Alkaline Phosphatase Cancelled 184 H Total Protein Cancelled 4.9 L Albumin Cancelled 2.5 L Triglycerides Cancelled 111 Calcium panel 01/02/17 01/02/17 Range/Units 05:53 07:39 Calcium Cancelled 8.0 L Phosphorus Cancelled 2.8 Albumin Cancelled 2.5 L Pituitary panel 01/02/17 01/02/17 Range/Units 05:53 07:39 Sodium Cancelled 143 Potassium Cancelled 4.3 Chloride Cancelled 109 H Carbon Dioxide Cancelled 19 L BUN Cancelled 18 Creatinine Cancelled 0.5 L Glucose Cancelled 78 Calcium Cancelled 8.0 L Adrenal panel 01/02/17 01/02/17 Range/Units 05:53 07:39 Sodium Cancelled 143 Potassium Cancelled 4.3 Chloride Cancelled 109 H Carbon Dioxide Cancelled 19 L BUN Cancelled 18 Creatinine Cancelled 0.5 L Glucose Cancelled 78 Calcium Cancelled 8.0 L Total Bilirubin Cancelled 0.3 AST Cancelled 33 ALT Cancelled < 5 Alkaline Phosphatase Cancelled 184 H Total Protein Cancelled 4.9 L Albumin Cancelled 2.5 L Medical - PN: A/P - Time Spent With Patient Total time spent is greater than 50% in coordination of care (as documented) at patient's floor/unit and/or counseling patient: (1) Enterovesical fistula Status: Acute Assessment and plan: started on oral Flagylfor his C. difficile barnes catheter will be maintained for 2 days and discontinued Physical therapy and occupational therapy consults will be obtained Family will be approached about long-term care at home or in the facility by discharge planners. Current Visit: No (2) Dehydration Status: Resolved Current Visit: Yes (3) Hypokalemia due to loss of potassium Status: Resolved Current Visit: Yes (4) Iron deficiency anemia Status: Acute Current Visit: Yes (5) Anemia Status: Chronic Current Visit: No (6) Parkinson disease Status: Chronic Assessment and plan: patient is restarted on all of his medications for parkinsonism Current Visit: No (7) Sleep apnea, obstructive Status: Chronic Current Visit: No
[2017-01-02] MEDS: 0.9 % SODIUM CHLORIDE 1,000 ML IV SCH (14:26)
[2017-01-02] MEDS ORDERED: CALCIUM GLUCONATE IV SCH (16:00)
[2017-01-02] MEDS ORDERED: MAGNESIUM SULFATE IV SCH (16:00)
[2017-01-02] MEDS ORDERED: POTASSIUM PHOSPHATE IV SCH (16:00)
[2017-01-02] MEDS ORDERED: [UNRECOGNIZED DRUG - OTHER] IV SCH (16:00)
--- NOTE | 2017-01-02 16:07 | Cat Scan Report ---
CLINICAL INFORMATION: Abdominal pain and distention. Evaluate for bowel obstruction. 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 This has been repaired COMPARISON: Preoperative study from 12/12/2016. TECHNIQUE: Following enteric contrast, 80 cc of Isovue-300 were injected intravenously, and 60 seconds later, 2.5 mm helical slices were obtained from the mid heart through the subtrochanteric regions. Following reconstruction, 2.5 mm sagittal, coronal and axial reformatted images were processed and reviewed at bone, lung and soft tissue windows. Five minutes later, 5 mm helical slices were obtained from the mid heart through the kidneys and viewed at soft tissue windows. FINDINGS: Lung bases show subsegmental atelectasis in the left lower lobe. A large hiatal hernia is noted. The visualized heart is minimally enlarged. Images should the abdomen show the gallbladder and bile ducts, liver, both kidneys, adrenal glands, spleen, pancreas and aorta including aortic branches to be normal in size, configuration and attenuation without focal lesion. Images should the pelvis show Pierce catheter in proper position in the urinary bladder. The prostate is slightly enlarged. The enterovesical fistula, previously seen, has been excessively taken down. Small bowel surgical anastomosis within the distal ileum in the right lower quadrant is appreciated. The stomach, duodenum and multiple loops of jejunum are mildly dilated, however the distal 20 cm of the ileum are modestly decompressed. Findings are only suggestive of a mild partial small bowel obstruction. It could also merely represent atypical ileus. The colon is grossly normal. Mild edema in the mesentery. A very small amount of free fluid. Bone windows show no osseous metastases. Is noted IMPRESSION: 1. Status post resection of small bowel sarcoma and takedown of enterovesical fistula. There is no evidence recurrent fistula or residual tumor. No metastases. 2. Mild dilatation of the stomach, proximal and mid small bowel with slight caliber transition into the ileum. This is likely an atypical ileus rather than partial small bowel obstruction. Suggest plain film follow-up and/or small bowel follow-through. There is no evidence of bowel perforation or bowel ischemia. 3. Large hiatal hernia Interpreted and Authenticated by: Miguel Angel Mcclellan 01/02/17
--- NOTE | 2017-01-02 17:26 | XRay Report ---
CLINICAL INFORMATION: Nonfunctioning Pierce catheter evaluate for position and patency TECHNIQUE: Following design tech film, 200 cc Cystografin were infused through the indwelling Pierce catheter. The tip of the catheter was partially occluded by the urinary bladder dome wall due to high positioning. The catheter was simply retracted to 3 cm and several the balloon was seated at the bladder base - suggest above the prostatic urethra. Contrast was then easily infused - 200 cc of Cystografin were infused and films were obtained. FINDINGS: There is moderate dilatation and slight irregularity in the anterior bladder dome in the region of a known fistula - recently closed. No filling defect. No ureteral reflux. The Cystografin was easily drained post void film shows no residual contrast IMPRESSION: Malpositioned Pierce catheter as described. The catheter was retracted to 3 cm and optimally position allowing free flow of contrast and urine. Interpreted and Authenticated by: Miguel Angel Mcclellan 01/02/17
--- NOTE | 2017-01-02 19:47 | General Surgery Consult Note ---
[id number] Date: [] Patient: Tripp Melo 66 y/o M admitted on 12/16/16 for Bowel Abscess, Bladder Fistula. Chief Complaint: [] Consult date: 01/02/17 Requesting physician: Jamar Puentes History of present illness: I saw this patient in consultation. Consultation was requested for evaluation skin lesions and sacral pressure ulcer. 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 Patient has postoperative C differential colitis. Being treated with Flagyl. Wound care consultation is called for management of sacral pressure ulcer and other dermatitis lesions. Medications and Allergies Home Medications Medication Instructions Recorded Confirmed Type amantadine HCl 100 mg tablet 100 mg PO BID@1000,1400 tab 01/22/16 01/02/17 History atenolol 25 mg tablet 25 mg PO QHS tab 01/22/16 01/01/17 History carbidopa 25 mg-levodopa 100 mg 1.5 tab PO QID 01/22/16 01/02/17 History tablet clonazepam 1 mg tablet 1 mg PO DAILY@1900 01/22/16 01/02/17 History fenofibrate micronized 134 mg 134 mg PO QHS cap 01/22/16 01/01/17 History capsule fentanyl 100 mcg/hr transdermal 1 patch TRANSDERMA Q48H patch 01/22/16 History patch frovatriptan 2.5 mg tablet 2.5 mg PO ONCE 01/22/16 01/01/17 History gabapentin 300 mg capsule 300 mg PO BID@1000,1900 cap 01/22/16 01/02/17 History levothyroxine 100 mcg tablet 100 mcg PO QAM tab 01/22/16 01/01/17 History lubiprostone 24 mcg capsule 24 mcg PO BID@1000,1900 01/22/16 01/02/17 History oxycodone-acetaminophen 5 mg-325 1 tab PO Q6-8HP PRN tab 01/22/16 01/02/17 History mg tablet rasagiline 1 mg tablet 1 mg PO DAILY@1900 01/22/16 01/02/17 History rotigotine 4 mg/24 hour 4 mg TRANSDERMA Q24H patch 01/22/16 01/01/17 History transdermal 24 hour patch topiramate 100 mg tablet 100 mg PO HS tab 01/22/16 01/02/17 History hydrochlorothiazide 25 mg PO DAILY@1900 10/30/16 01/02/17 History Omeprazole 20 mg PO QAMAC 12/16/16 01/02/17 History apomorphine 10 mg/mL subcutaneous 0.3 ml SUB-Q Q2HP PRN ml 12/16/16 01/02/17 History cartridge cyclobenzaprine 10 mg tablet 10 mg PO BID tab 12/16/16 01/01/17 History ferrous sulfate 325 mg (65 mg 325 mg PO QDAY 12/16/16 01/01/17 History iron) tablet methylnaltrexone 150 mg tablet 150 mg PO DAILY 12/16/16 01/01/17 History mirtazapine 15 mg tablet 15 mg PO QHS 12/16/16 01/01/17 History potassium chloride ER 10 mEq 10 meq PO DAILY@1900 12/16/16 01/02/17 History capsule,extended release tamsulosin 0.4 mg capsule 0.8 mg PO DAILY@189912/16/16 01/02/17 History testosterone 4 mg/24 hr 4 mg TRANSDERMA HS 12/16/16 01/02/17 History transdermal 24 hour patch Gabapentin [Neurontin] 600 mg PO DAILY@2300 01/02/17 01/02/17 History Mirabegron [Myrbetriq] 50 mg PO DAILY@189901/02/17 01/02/17 History Rotigotine [Neupro] 1 patch TD Q24H 01/02/17 01/02/17 History Tadalafil [Cialis] 5 mg PO HS 01/02/17 01/02/17 History Allergies Allergy/AdvReac Type Severity Reaction Status Date / Time Penicillins AdvReac Mild Nausea Verified 12/16/16 11:23 Exam Temp Pulse Resp BP Pulse Ox 98.4 F 123 H 16 119/68 97 01/02/17 15:55 01/02/17 15:55 01/02/17 15:55 01/02/17 15:55 01/02/17 15:55 - General physical appearance well developed, well nourished, no distress, no pain, chronically ill - Eyes PERRL, normal ocular movement - ENT normal pinna, normal nares, normal mucosa, no congestion - Head Head exam IM: Present: atraumatic, normal inspection, normocephalic - Neck no masses, no bruits, trachea midline, no lymphadectomy, other (Fungal dermatitis right lateral neck) - Cardiovascular Cardiovascular exam IM: Present: normal rate and rhythm - Respiratory normal expansion, normal respiratory effort, clear to auscultation - Abdomen Abdomen: Present: soft, non tender, tender, bowel sounds, surgical scars, wound (Periwound dermatitis. Taye intact. No drainage. No evidence of fistula ) - Integumentary Present: other (Fugal dermatitis Right neck and abdominal wall around surgical scar taye. GR 1 sacral pressure ulcer. ) - Neurologic Present: normal coordination, other (Non focal neurological exam. LAI. Detailed exam NOT done. ) - Musculoskeletal Present: other (weak. Examined in bed. LAI. ) - Psychiatric Present: oriented to time, oriented to person, speech is normal Results - Labs 01/06/17 06:04 01/06/17 06:05 Abnormal lab results 01/02/17 01/02/17 Range/Units 07:39 07:39 WBC 11.1 H (4.5-11.0) K/mcL RBC 3.38 L (4.50-5.90) M/mcL Hgb 9.0 L (13.5-16.5) g/dL Hct 28.8 L (41.0-55.0) % RDW 21.3 H (11.5-14.5) % Gran # 8.1 H (1.8-8.0) K/mcL Chloride 109 H (96-108) mmol/L Carbon Dioxide 19 L (22-30) mmol/L Creatinine 0.5 L (0.7-1.2) mg/dl Uric Acid 1.2 L (2.5-8.0) mg/dL Calcium 8.0 L (8.6-10.4) mg/dl GGT 197 H (8-61) U/L Alkaline Phosphatase 184 H (39-117) U/L Lactate Dehydrogenase 333 H (94-250) U/L Total Protein 4.9 L (5.9-8.4) gm/dL Albumin 2.5 L (3.2-5.2) gm/dL Diabetes panel 01/02/17 01/02/17 Range/Units 05:53 07:39 Sodium Cancelled 143 Potassium Cancelled 4.3 Chloride Cancelled 109 H Carbon Dioxide Cancelled 19 L BUN Cancelled 18 Creatinine Cancelled 0.5 L Glucose Cancelled 78 Calcium Cancelled 8.0 L AST Cancelled 33 ALT Cancelled < 5 Alkaline Phosphatase Cancelled 184 H Total Protein Cancelled 4.9 L Albumin Cancelled 2.5 L Triglycerides Cancelled 111 Calcium panel 01/02/17 01/02/17 Range/Units 05:53 07:39 Calcium Cancelled 8.0 L Phosphorus Cancelled 2.8 Albumin Cancelled 2.5 L Pituitary panel 01/02/17 01/02/17 Range/Units 05:53 07:39 Sodium Cancelled 143 Potassium Cancelled 4.3 Chloride Cancelled 109 H Carbon Dioxide Cancelled 19 L BUN Cancelled 18 Creatinine Cancelled 0.5 L Glucose Cancelled 78 Calcium Cancelled 8.0 L Adrenal panel 01/02/17 01/02/17 Range/Units 05:53 07:39 Sodium Cancelled 143 Potassium Cancelled 4.3 Chloride Cancelled 109 H Carbon Dioxide Cancelled 19 L BUN Cancelled 18 Creatinine Cancelled 0.5 L Glucose Cancelled 78 Calcium Cancelled 8.0 L Total Bilirubin Cancelled 0.3 AST Cancelled 33 ALT Cancelled < 5 Alkaline Phosphatase Cancelled 184 H Total Protein Cancelled 4.9 L Albumin Cancelled 2.5 L All other labs normal. Assessment and Plan (1) Pressure ulcer of sacral region, stage 1 Plan. Skin Protection and Off loading , Change position q 2 hrly. Status: Acute Priority: Low (2) Dermatitis associated with moisture Cleanse skin with saline. Pat dry. Apply topical antifungal Ketoconazole ointment once an day and cover with dry gauze and Omnifix or paper tape. Status: Acute Priority: Medium
[2017-01-02] MEDS: KETOCONAZOLE 2% TOP CRM 15GM TUBE TOPICAL SCH (22:58)
[2017-01-03] MEDS: metroNIDAZOLE 500 MG/100 ML BAG IV SCH ×6 (00:20→23:47)
[2017-01-03] MEDS: METOCLOPRAMIDE 10 MG/2 ML VIAL IV SCH ×5 (00:20→23:47)
[2017-01-03] MEDS: INSULIN LISPRO 1 UNIT/0.01 ML UNIT SQ SCH ×5 (02:47→22:28)
[2017-01-03] MEDS: IMIPENEM/CILASTATIN SODIUM 500 MG in 0.9 % SODIUM CHLORIDE 100 ML IV SCH ×3 (05:32→22:17)
[2017-01-03] MEDS: 0.9 % SODIUM CHLORIDE 10 ML SYRINGE IV SCH ×3 (07:23→22:29)
[2017-01-03] MEDS: LEVOTHYROXINE 100 MCG VIAL IV SCH (07:37)
[2017-01-03] MEDS: PANTOPRAZOLE 40 MG VIAL IV SCH (07:38)
[2017-01-03 07:44] LABS: ALT/SGPT < 5 U/l (0-40); Albumin 2.7 gm/dL (3.2-5.2); Albumin/Globulin Ratio 1.1 (1.0-2.3); Alkaline Phosphatase 172 U/L (39-117); Bilirubin,Direct 0.2 mg/dL (0.0-0.3); Blood Urea Nitrogen 18 mg/dl (8-23); Gamma Glutamyl Transpeptidase 183 U/L (8-61); Phosphorous 3.9 mg/dL (2.7-4.5); Uric Acid 1.2 mg/dL (2.5-8.0)
[2017-01-03] MEDS: TAMSULOSIN 0.4 MG CAPSULE PO SCH (08:48)
[2017-01-03] MEDS: HEPARIN 5,000 UNIT/ML VIAL SQ SCH ×2 (08:48→22:15)
[2017-01-03] MEDS: CLOTRIMAZOLE 10 MG TROCHE PO SCH ×5 (08:48→20:56)
[2017-01-03] MEDS: POTASSIUM CHLORIDE 10 MEQ TABLET PO SCH (08:48)
[2017-01-03] MEDS: GABAPENTIN 300 MG CAPSULE PO SCH ×4 (08:49→22:16)
[2017-01-03] MEDS: ROTIGOTINE 8 MG TOPICAL SCH (08:50)
[2017-01-03] MEDS: ROTIGOTINE 4 MG TOPICAL SCH (08:50)
[2017-01-03] MEDS: CARBIDOPA/LEVODOPA 25/100 TABLET PO SCH ×4 (08:50→22:15)
[2017-01-03] MEDS: VANCOMYCIN 1,000 MG in 0.9 % SODIUM CHLORIDE 250 ML IV SCH ×2 (10:00→20:55)
[2017-01-03] MEDS: TESTOSTERONE 4 MG TOPICAL SCH (10:30)
--- NOTE | 2017-01-03 10:55 | Internal Med Progress Note ---
Medical - PN: Subj Patient information: Note initiated : 01/03/17 at 10:51 am Service Date, if different from initiated Date: [] Patient: Tripp Melo 66 y/o M admitted on 12/16/16 for Bowel Abscess, Bladder Fistula. Chief Complaint: [] Interval history: Mr. 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 the patient reports he has had a steady decline for about one year now. He has been suffering with fatigue and weight loss of about 30-40 pounds over the last 3-6 months. He said about 6 months ago he was treated for melanoma on his face and had follow-up for that During that follow- up they found that he was anemic, and then found that he had guaiac positive stool. He then underwent colonoscopy and endoscopy that were apparently unrevealing. He has noticed gradually worsening dyspnea with exertion over the last several months, and in October said he had gross hematuria. That apparently triggered a referral which led to a cystoscopy at which time they found that he had not only blood but also stool in his urine Subsequent testing did confirm that he had a small bowel abscess, which had eroded into the bladder so that he now has a fistula. He was seen for follow-up in Dr. Azul 's office yesterday, and looked terrible and pale and weak, so was admitted for further workup and treatment. laboratory evaluation last night did show severe hypokalemia. he patient believes he was taking daily hydrochlorothiazide at home. He admits his diet is been very poor and that he has not had much of an appetite lately. However, he also admits that he generally has a very poor diet, and much prefers foods such as hot dogs and chili to anything even remotely involving fruits or vegetables or healthy proteins. Otherwise, the patient denies recent fever or chills, headaches or dizziness, new eye or ear symptoms. He has not had a sore throat or cough.he denies chest pain or palpitations, significant abdominal pain, heartburn, nausea or vomiting , and initially denied any diarrhea or constipation However,he then admitted that he has been having bloody stools for the last several days at home. Nursing staff also notes bloody stools since arrival here. -He did receive 3 units of packed red blood cells last night, as he is also quite severely anemic. -he has had Parkinson's disease for about 16 years and is managed by a neurologist. He is on a very complicated regimen for that. 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 To control that pain he does take both a fentanyl patch and subcutaneous morphine. -He also has chronic migraines, which appear to be treated with Topamax and Frova. -He also was previously diagnosed with sleep apnea, but refuses to wear CPAP. He used to be a heavy snorer, but notes he does not snore anymore since he has lost all the weight. December 18, 2016: Today,the patient notes that he seems to be having more abdominal cramping and discomfort. He feels like he has more gas.e have started him on breeze nutritional supplements, but he says he just does not like the taste at this point. Dr. Azul has asked for a PICC line to be placed, and would like to start TPN during the period. otherwise, the patient denies fever or chills, chest pain or palpitations or shortness of breath, nausea or vomiting. He continues to have blood-tinged stools and dark urine December 19: today,the patient notes he is still having abdominal pain, mainly towards the right groin area. This is crampy in nature. Nursing staff also called me earlier today to say that the patient was starting to sound a little bit wet,and he had a congested cough, and O2 saturations were a bit lower.he did feel a bit short of breath. chest x-ray did suggest pulmonary vascular congestion. otherwise, he states he is just tired. He denies overt fever or chills, chest pain or palpitations,nausea or vomiting. He continues to have loose blood and mucous stools at times, and continues to have stool contaminating his urine in his Pierce catheter. TPN was started last night. kathe also reports that he has had nonsustained runs of V. tach with activity.May also feel he is getting a bit discouraged by his condition. December 20: his morning, I was called to see the patient because he was complaining of left-sided chest pain. He did not appear to be in any acute distress, and denied any radiation of the pain, nausea or diaphoresis, shortness of breath. On exam he actually had fairly pinpoint tenderness next to the left nipple. He describes the pain as sharp and pinching in nature. EKG did not show any acute changes. Troponin was negative. Later in the morning, he said he was feeling fine again. He denies fever or chills,recurrent chest pain or palpitations. He continues to have moderate abdominal discomfort, which is positional. He continues to have mild dyspnea with any exertion, but is mostly staying in bed. He still has his Pierce catheter in, which is still draining fecal stained urine. December 21: Today, the patient notes she is feeling okay. He is having less abdominal pain. he does admit, though, that he is feeling quite discouraged, by feeling so poorly for so long. He worries about how the surgery will go. Otherwise, he denies subjective fever or chills, chest pain or shortness of breath, nausea or vomiting constipation, dysuria. December 22: The patient has no particular complaints today. His abdominal discomfort overall is improving. He denies subjective fever or chills, chest pain or shortness of breath, significant abdominal pain, nausea or vomiting, or significant bloody stools. Pierce catheter remains in place. December 23: the patient is now status post small bowel resection and bladder repair. e is a bit groggy, and says he feels "rough", but denies significant pain currently. He denies current chest pain or trouble breathing. Abdomen feels a bit bloated. Apparently a malignant neoplasm was found at surgery, eroding through the small bowel into the bladder. 12/24- patient seen in room post operative day 1. No overnight events. NG tube draining bilious output. No telemetry events. No concerns per staff. Complains of significant abdominal pain around the incision site. However alert lucid and responding verbal commands. Foleys draining clear urine. On TPN. IV fluids lowered from 125 an hour to TKO. 12/25- patient feels depressed. Hold out NG tube last night. Complains of significant abdominal pain. On TPN. Liquid BM today. White count over 17, 000. On broad antibiotic coverage-imipenem. Surgery managing postop care. Continue management in ICU in light of worsening leukocytosis. reinsert NG tube if patient agrees. 2/2- NG tube could not be placed. Patient on TPN. Potassium 2.7. Persistent operative site pain. Postoperative care managed as per surgery recommendations. White count down from 17.4-12.2. no overnight nausea vomiting , low-grade temperature at 99.7. good urine output. 12/27-patient doing well. No significant abdominal distention fever chills or telemetry events. Pain control adequate. On TPN. Good urine output. white count downtrending from 17.4-10.1. potassium improved to 4 from 2.7. iimproved tachycardia around 104. saturating on room air. Afebrile. Patient feels better than previous day. 12/28- 12/31- patient stable on TPN. Out of ICU. 01/01-multiple loose watery stool. C. difficile pending. Very sedated. reversed with flumazenil. recommend lowering benzodiazepine dose. 01/02- C. difficile positive. Started on vancomycin oral/IV Flagyl. Stage II decubitus pressure ulcers. Wound care consulted. Patient is significantly deconditioned and is high risk mortality. Patient would require long-term care for deconditioning from prolonged hospital stay along with aggressive wound care /nutrition supplements. 01/03- patient on regular diet along with TPN. discussed option of transfer to [facility] acute care unit for long-term rehabilitation. however patient adamantly refuses to go to LTAC. Patient has had prolonged hospital stay with deconditioning/need for TPN/associated with C. difficile/protein calorie malnutrition. Patient understands the complicated nature of his illness but wishes to continue treatment locally. no overnight fever chills nausea vomiting or concerns expressed by nursing staff. Ongoing physical therapy. improving diarrhea - Constitutional Vitals: Vital Signs Temp Pulse Resp BP Pulse Ox 97.9 F 94 H 14 120/82 95 01/03/17 07:04 01/03/17 07:04 01/03/17 07:04 01/03/17 07:04 01/03/17 09:55 Period Temp Pulse Resp BP Sys/Lerma Pulse Ox Last 24 Hr 87.3 F-98.7 F 72-123 14-20 106-120/58-82 95-98 Intake and Output 01/02/17 01/03/17 01/03/17 21:59 05:59 13:59 Intake Total 550 / 550 400 / 400 100 / 100 Output Total 1750 / 1750 1300 / 1300 Balance -1200 / -1200 -900 / -900 100 / 100 Weight 141 lb 8 oz Intake & Output: Intake & Output 01/02/17 01/03/17 01/03/17 21:59 05:59 13:59 Intake Total 550 / 550 400 / 400 100 / 100 Output Total 1750 / 1750 1300 / 1300 Balance -1200 / -1200 -900 / -900 100 / 100 Weight 141 lb 8 oz Intake: IV 550 / 550 200 / 200 100 / 100 Sodium Chloride 0.9% 100 100 / 100 100 / 100 ml @ 100 mls/hr IV Q8 [facility]ARWIN with Primaxin 500 mg Rx# :[id number] Sodium Chloride 0.9% 250 250 / 250 ml @ 250 mls/hr IV Q12H DARWIN with Vancomycin 1,000 mg Rx#:[id number] Oral 200 / 200 Output: Urine Catheter Amount 1150 / 1150 1300 / 1300 Void Amount 400 / 400 Stool 200 / 200 General appearance: disheveled, no acute distress, thin Exam: lert oriented nonlabored breathing Improving diarrhea Nondistended abdomen Medical - PN: Obj Da - Labs CBC & Chem 7: 01/02/17 07:39 01/03/17 05:41 Labs: Abnormal Lab Results 01/03/17 01/02/17 01/02/17 05:41 07:39 07:39 WBC 11.1 H RBC 3.38 L Hgb 9.0 L Hct 28.8 L RDW 21.3 H Gran # 8.1 H Chloride 109 H Carbon Dioxide 19 L Creatinine 0.5 L 0.5 L Glucose Uric Acid 1.2 L 1.2 L Calcium 8.5 L 8.0 L GGT 183 H 197 H Alkaline Phosphatase 172 H 184 H Lactate Dehydrogenase 333 H Total Protein 5.1 L 4.9 L Albumin 2.7 L 2.5 L Free T3 01/01/17 12/31/16 06:12 04:30 WBC RBC Hgb Hct RDW Gran # Chloride Carbon Dioxide Creatinine 0.5 L Glucose 116 H Uric Acid 1.3 L Calcium 7.9 L GGT 180 H Alkaline Phosphatase 175 H Lactate Dehydrogenase Total Protein 4.9 L Albumin 2.5 L Free T3 2.1 L Meds: Medications Carbidopa/Levodopa (Sinemet 25/100) 2 tab PO QID [facility] Last Admin: 01/03/17 08:50 Dose: 2 tab Clotrimazole (Mycelex) 10 mg PO 5XD [facility] Last Admin: 01/03/17 08:48 Dose: 10 mg Dextrose (Dextrose 50%) 0 ml IV UD PRN PRN Reason: Hypoglycemia Diagnostic Test (Pha) (Accu-Chek) 1 each FS ACHS [facility] Last Admin: 01/03/17 07:50 Dose: 1 each Fentanyl (Duragesic) 100 mcg TD Q48H [facility] Last Admin: 01/01/17 12:50 Dose: 100 mcg Flumazenil (Romazicon) 0.2 mg IV Q1MIN PRN PRN Reason: BENZODIAZEPINE REVERSAL Last Admin: 01/01/17 11:55 Dose: 0.2 mg Gabapentin (Neurontin) 300 mg PO QID [facility] Last Admin: 01/03/17 08:49 Dose: 300 mg Heparin Sodium (Porcine) (Heparin) 5,000 unit SQ Q12 [facility] Last Admin: 01/03/17 08:48 Dose: 5,000 unit Heparin Sodium (Porcine) (Heparin Flush) 2 ml IV Q12 [facility] Last Admin: 01/03/17 08:49 Dose: 2 ml Hydromorphone HCl (Dilaudid) 2 mg IV Q2HP PRN PRN Reason: Pain Last Admin: 01/02/17 20:20 Dose: 1 mg Fat Emulsion Intravenous (Intralipid 20%) 250 mls @ 25 mls/hr IV [id number]@1600 [facility] Last Admin: 01/01/17 18:08 Dose: 25 mls/hr Imipenem/Cilastatin Sodium 500 (mg/ Sodium Chloride) 100 mls @ 100 mls/hr IV Q8 [facility] Last Admin: 01/03/17 05:32 Dose: 100 mls/hr Sodium Chloride (Sodium Chloride 0.9%) 1,000 mls @ 20 mls/hr IV .Q24H [facility] Last Admin: 01/02/17 14:26 Dose: 20 mls/hr Acetaminophen (Ofirmev) 1,000 mg in 100 mls @ 200 mls/hr IV Q6HP PRN PRN Reason: Pain Vancomycin HCl 1,000 mg/ (Sodium Chloride) 250 mls @ 250 mls/hr IV Q12H [facility] Last Infusion: 01/02/17 21:30 Dose: Infused Metronidazole (Flagyl) 500 mg in 100 mls @ 100 mls/hr IV Q6 [facility] Last Infusion: 01/03/17 07:22 Dose: Infused Calcium Gluconate 10 meq/Magnesium Sulfate 4.06 meq/Potassium Phosphate 100 meq/ Multivitamins/Minerals 10 ml/Selenium 60 mcg/ Potassium Acetate 20 meq/ Amino Acids 2,066.7326 mls @ 85 mls/hr IV DAILY@1600 [facility] Stop: 01/03/17 15:59 Last Admin: 01/02/17 16:33 Dose: 85 mls/hr Calcium Gluconate 10 meq/Magnesium Sulfate 4.06 meq/Potassium Phosphate 80 meq/ Multivitamins/Minerals 10 ml/Selenium 60 mcg/ Potassium Acetate 20 meq/ Amino Acids 2,062.1871 mls @ 85 mls/hr IV DAILY@1600 [facility] Insulin Human Lispro (Humalog) 0 unit SQ ACHS [facility] PRN Reason: Protocol Ketoconazole (Nizoral 2% Top Crm) 1 dose TOPICAL BID [facility] Last Admin: 01/02/17 22:58 Dose: 1 dose Levothyroxine Sodium (Synthroid) 50 mcg IV [facility] Last Admin: 01/03/17 07:37 Dose: 50 mcg Lorazepam (Ativan) 0.5 mg IV Q4-6HP PRN PRN Reason: ANXIETY/SEDATION Metoclopramide HCl (Reglan) 10 mg IV Q6 [facility] Last Admin: 01/03/17 05:32 Dose: 10 mg Metoprolol Tartrate (Lopressor) 5 mg IV Q4HP PRN PRN Reason: Tachyarrhythmias Testosterone [ Androderm] 4 Mg Patch 4 dose TOPICAL QDAY [facility] Last Admin: 01/03/17 10:30 Dose: Not Given Pantoprazole Sodium (Protonix) 40 mg IV QAMAC [facility] Last Admin: 01/03/17 07:38 Dose: 40 mg Apomorphine (Apokyn) (10mg/Ml) 0.3 dose SC Q2HP PRN PRN Reason: Tremors Rotigotine [Neupro] (4 Mg Patch) 1 dose TOPICAL DAILY [facility] Last Admin: 01/03/17 08:50 Dose: 1 dose Rotigotine [Neupro] (8 Mg Patch) 1 dose TOPICAL DAILY [facility] Last Admin: 01/03/17 08:50 Dose: 1 dose Frovatriptan Succinate [Frova] 2. 5 Mg Tab 1 dose PO DAILYP PRN PRN Reason: Migraine Headache Lubiprostone [ Amitiza] 24 Mcg Capsule 1 dose PO BID [facility] Last Admin: 01/03/17 10:31 Dose: Not Given Potassium Chloride (Kdur) 10 meq PO QAMCC [facility] Last Admin: 01/03/17 08:48 Dose: 10 meq Sodium Chloride (Saline Flush) 10 ml IV UD PRN PRN Reason: FLUSH Sodium Chloride (Saline Flush) 10 ml IV Q8 [facility] Last Admin: 01/03/17 07:23 Dose: 10 ml Tamsulosin HCl (Flomax) 0.8 mg PO QDAY [facility] Last Admin: 01/03/17 08:48 Dose: 0.8 mg Vancomycin HCl (Vancomycin Per Pharmacy) 1 order IV UD [facility] Vancomycin HCl (Vancomycin Oral Shagufta) 250 mg PO QID [facility] Last Admin: 01/02/17 20:29 Dose: 2.5 ml Medical - PN: A/P - Time Spent With Patient Total time spent is greater than 50% in coordination of care (as documented) at patient's floor/unit and/or counseling patient: 25 - 35 minutes (1) Enterovesical fistula Status: Acute Assessment and plan: * 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 * Nutrition-on TPN as per surgery. Diet advancement surgery to regular Hospitalist consult * C. difficile enterocolitis- Continue vancomycin/Flagyl. white count 11,000 * Stage II decubitus ulcers- continue wound care Dr. Hamilton consulted * altered mental status- fully resolved * severe deconditioning-anticipate SNF transfer. Patient refusing LTAC * hypokalemia-resolved * Severe sepsis secondary to intra-abdominal abscess/C. difficile- resolved * Parkinson's disease-levodopa/carbidopa/amantadine * History of migraine -continue home meds * Generalized anxiety disorder- mirtazapine * hypothyroidism- thyroxine * Hyperlipidemia- atorvastatin * BPH continue tamsulosin * Severe anemia-Status post transfusion plan * Postop management as per surgery * vancomycin/Flagyl for C. difficile * continue Wound care * pre-existing medical condition management as above * daily physical therapy in light of prolonged hospitalization/ICU deconditioning * patient refusing LTAC. Consider local SNF Current Visit: No Medical - PN: Qual - Stroke Symptom Onset Unknown: No - VTE Deep Vein Thrombosis/Pulmonary Embolism Present on Admission: No
[2017-01-03] MEDS: KETOCONAZOLE 2% TOP CRM 15GM TUBE TOPICAL SCH ×2 (11:25→22:27)
[2017-01-03] MEDS: VANCOMYCIN ORAL SOL 1,000 MG/10 ML BOTTLE PO SCH ×4 (11:25→22:17)
[2017-01-03] MEDS: fentaNYL 100 MCG PATCH TD SCH (11:41)
--- NOTE | 2017-01-03 12:04 | General Surgery Progress Note ---
Subjective Patient reports: feels better, pain is less, tolerating liquids well, flatus, bowel movement, diarrhea, afebrile Narrative: Note initiated : 01/03/17 at 12:01 pm Service Date, if different from initiated Date: [] Patient: Tripp Melo 66 y/o M admitted on 12/16/16 for Bowel Abscess, Bladder Fistula. Chief Complaint: [patient's general status is improved. He still has significant diarrhea but he is afebrile. His white blood count is normal. His abdominal exam is totally benign. His general status is still weak.] Objective Temp Pulse Resp BP Pulse Ox 97.9 F 94 H 14 120/82 95 01/03/17 07:04 01/03/17 07:04 01/03/17 07:04 01/03/17 07:04 01/03/17 09:55 - Additional Data Intake & Output - Last 24 hours: Intake & Output 01/01/17 01/02/17 01/03/17 01/04/17 05:59 05:59 05:59 05:59 Intake Total 1340 / 1340 1200 / 1200 1400 / 1400 100 / 100 Output Total 2640 / 2640 1651 / 1651 3240 / 3240 1600 / 1600 Balance -1300 / -1300 -451 / -451 -1840 / -1840 -1500 / -1500 Weight 132 lb 8 oz 130 lb 8 oz 141 lb 8 oz - General physical appearance no distress, cachectic, chronically ill - Eyes PERRL - ENT no congestion - Neck no venous distension - Respiratory clear to auscultation - Cardiovascular Cardiovascular exam: Present: normal rate and rhythm, RRR, +S1, +S2 - Abdomen soft, non tender, bowel sounds (good active bowel sounds; nontender; abdomen is soft;) - Integumentary no rash, no growths, no abnormal pigmentation - Neurologic normal coordination, normal sensation - Psychiatric oriented to time, oriented to person, oriented to place, speech is normal, memory intact - Labs 01/02/17 07:39 01/03/17 05:41 Diabetes panel 01/03/17 Range/Units 05:41 Sodium 141 (133-145) mmol/L Potassium 4.4 (3.3-5.1) mmol/L Chloride 104 (96-108) mmol/L Carbon Dioxide 24 (22-30) mmol/L BUN 18 (8-23) mg/dl Creatinine 0.5 L (0.7-1.2) mg/dl Glucose 104 (70-105) mg/dL Calcium 8.5 L (8.6-10.4) mg/dl AST 17 (0-37) U/l ALT < 5 (0-40) U/l Alkaline Phosphatase 172 H (39-117) U/L Total Protein 5.1 L (5.9-8.4) gm/dL Albumin 2.7 L (3.2-5.2) gm/dL Triglycerides 108 (<150) mg/dl Calcium panel 01/03/17 Range/Units 05:41 Calcium 8.5 L (8.6-10.4) mg/dl Phosphorus 3.9 (2.7-4.5) mg/dL Albumin 2.7 L (3.2-5.2) gm/dL Pituitary panel 01/03/17 Range/Units 05:41 Sodium 141 (133-145) mmol/L Potassium 4.4 (3.3-5.1) mmol/L Chloride 104 (96-108) mmol/L Carbon Dioxide 24 (22-30) mmol/L BUN 18 (8-23) mg/dl Creatinine 0.5 L (0.7-1.2) mg/dl Glucose 104 (70-105) mg/dL Calcium 8.5 L (8.6-10.4) mg/dl Adrenal panel 01/03/17 Range/Units 05:41 Sodium 141 (133-145) mmol/L Potassium 4.4 (3.3-5.1) mmol/L Chloride 104 (96-108) mmol/L Carbon Dioxide 24 (22-30) mmol/L BUN 18 (8-23) mg/dl Creatinine 0.5 L (0.7-1.2) mg/dl Glucose 104 (70-105) mg/dL Calcium 8.5 L (8.6-10.4) mg/dl Total Bilirubin 0.4 (0.0-1.0) mg/dL AST 17 (0-37) U/l ALT < 5 (0-40) U/l Alkaline Phosphatase 172 H (39-117) U/L Total Protein 5.1 L (5.9-8.4) gm/dL Albumin 2.7 L (3.2-5.2) gm/dL Medical - PN: A/P - Time Spent With Patient Total time spent is greater than 50% in coordination of care (as documented) at patient's floor/unit and/or counseling patient: (1) Enterovesical fistula Status: Resolved Current Visit: No (2) Dehydration Status: Resolved Current Visit: Yes (3) Hypokalemia due to loss of potassium Status: Resolved Current Visit: Yes (4) Iron deficiency anemia Status: Acute Current Visit: Yes (5) Anemia Status: Chronic Current Visit: No (6) Parkinson disease Status: Chronic Assessment and plan: patient is restarted on all of his medications for parkinsonism Current Visit: No (7) Sleep apnea, obstructive Status: Chronic Current Visit: No (8) Clostridium difficile colitis Status: Acute Assessment and plan: continue present medication regimen Encouraged patient to interact with physical and occupational therapy anticipate discharge in 2-3 days on oral medication Current Visit: Yes
[2017-01-03] MEDS ORDERED: MAGNESIUM SULFATE IV SCH (16:00)
[2017-01-03] MEDS ORDERED: CALCIUM GLUCONATE IV SCH (16:00)
[2017-01-03] MEDS ORDERED: POTASSIUM PHOSPHATE IV SCH (16:00)
[2017-01-03] MEDS ORDERED: [UNRECOGNIZED DRUG - OTHER] IV SCH (16:00)
[2017-01-03] MEDS ORDERED: MVI IV SCH (16:00)
[2017-01-03] MEDS: FAT EMULSION 20% 250 ML IV SCH (17:14)
[2017-01-04] MEDS: 0.9 % SODIUM CHLORIDE 1,000 ML IV SCH ×3 (00:29→11:47)
[2017-01-04] MEDS: METOCLOPRAMIDE 10 MG/2 ML VIAL IV SCH ×2 (05:20→11:47)
[2017-01-04] MEDS: IMIPENEM/CILASTATIN SODIUM 500 MG in 0.9 % SODIUM CHLORIDE 100 ML IV SCH ×3 (05:20→22:40)
[2017-01-04] MEDS: metroNIDAZOLE 500 MG/100 ML BAG IV SCH ×3 (05:20→17:31)
[2017-01-04 07:23] LABS: ALT/SGPT 8 U/l (0-40); Albumin 2.7 gm/dL (3.2-5.2); Albumin/Globulin Ratio 1.2 (1.0-2.3); Alkaline Phosphatase 180 U/L (39-117); Bilirubin,Direct < 0.2 mg/dL (0.0-0.3); Blood Urea Nitrogen 21 mg/dl (8-23); Gamma Glutamyl Transpeptidase 205 U/L (8-61); Magnesium 1.8 mg/dL (1.6-2.5); Phosphorous 3.7 mg/dL (2.7-4.5); Uric Acid 1.5 mg/dL (2.5-8.0)
[2017-01-04] MEDS: 0.9 % SODIUM CHLORIDE 10 ML SYRINGE IV SCH ×3 (07:28→21:13)
[2017-01-04] MEDS: INSULIN LISPRO 1 UNIT/0.01 ML UNIT SQ SCH ×5 (07:36→22:00)
[2017-01-04] MEDS: PANTOPRAZOLE 40 MG VIAL IV SCH (08:25)
[2017-01-04] MEDS: LEVOTHYROXINE 100 MCG VIAL IV SCH (08:26)
[2017-01-04] MEDS: CLOTRIMAZOLE 10 MG TROCHE PO SCH ×5 (08:26→20:55)
[2017-01-04] MEDS: POTASSIUM CHLORIDE 10 MEQ TABLET PO SCH (08:26)
[2017-01-04] MEDS: CARBIDOPA/LEVODOPA 25/100 TABLET PO SCH ×4 (10:00→20:55)
[2017-01-04] MEDS: VANCOMYCIN ORAL SOL 1,000 MG/10 ML BOTTLE PO SCH ×4 (10:00→21:02)
[2017-01-04] MEDS: GABAPENTIN 300 MG CAPSULE PO SCH ×4 (10:00→20:55)
[2017-01-04] MEDS: TAMSULOSIN 0.4 MG CAPSULE PO SCH (10:00)
[2017-01-04] MEDS: HEPARIN 5,000 UNIT/ML VIAL SQ SCH ×2 (10:01→20:57)
[2017-01-04] MEDS: ROTIGOTINE 4 MG TOPICAL SCH (10:02)
[2017-01-04] MEDS: VANCOMYCIN 1,000 MG in 0.9 % SODIUM CHLORIDE 250 ML IV SCH ×2 (10:02→20:58)
[2017-01-04] MEDS: ROTIGOTINE 8 MG TOPICAL SCH (10:03)
[2017-01-04] MEDS: TESTOSTERONE 4 MG TOPICAL SCH (10:15)
[2017-01-04] MEDS: KETOCONAZOLE 2% TOP CRM 15GM TUBE TOPICAL SCH ×3 (11:42→21:12)
--- NOTE | 2017-01-04 12:55 | General Surgery Progress Note ---
Subjective Patient reports: feels better, pain is less, tolerating a regular diet, flatus, bowel movement, nausea, afebrile Narrative: Note initiated : 01/04/17 at 12:53 pm Service Date, if different from initiated Date: [] Patient: Tripp Melo 66 y/o M admitted on 12/16/16 for Bowel Abscess, Bladder Fistula. Chief Complaint: [patient continues to improve. He is more alert. He is started eatin food and he has more consistency to his bowel movements. His appetite is gradually improving. He remains afebrile.] Objective Temp Pulse Resp BP Pulse Ox 97.7 F 100 H 16 118/73 99 01/04/17 11:56 01/04/17 11:56 01/04/17 11:56 01/04/17 11:56 01/04/17 11:56 - Additional Data Intake & Output - Last 24 hours: Intake & Output 01/02/17 01/03/17 01/04/17 01/05/17 05:59 05:59 05:59 05:59 Intake Total 1450 / 1450 1400 / 1400 4556.7326 / 4556.7326 210 / 210 Output Total 1651 / 1651 3240 / 3240 3000 / 3000 Balance -201 / -201 -1840 / -1840 1556.7326 / 1556.7326 210 / 210 Weight 130 lb 8 oz 141 lb 8 oz 129 lb 8 oz - General physical appearance no distress, cachectic, chronically ill - Eyes PERRL - ENT no congestion - Neck no venous distension - Respiratory clear to auscultation - Cardiovascular Cardiovascular exam: Present: normal rate and rhythm, RRR, +S1, +S2 - Abdomen soft, non tender, bowel sounds (abdomen is benign, soft, nontender; good active bowel sounds and nondistended) - Integumentary no rash, no growths, no abnormal pigmentation - Neurologic normal coordination, normal sensation - Labs 01/02/17 07:39 01/04/17 06:00 Diabetes panel 01/04/17 Range/Units 06:00 Sodium 138 (133-145) mmol/L Potassium 4.1 (3.3-5.1) mmol/L Chloride 102 (96-108) mmol/L Carbon Dioxide 24 (22-30) mmol/L BUN 21 (8-23) mg/dl Creatinine 0.5 L (0.7-1.2) mg/dl Glucose 122 H (70-105) mg/dL Calcium 8.3 L (8.6-10.4) mg/dl AST 37 (0-37) U/l ALT 8 (0-40) U/l Alkaline Phosphatase 180 H (39-117) U/L Total Protein 5.0 L (5.9-8.4) gm/dL Albumin 2.7 L (3.2-5.2) gm/dL Triglycerides 119 (<150) mg/dl Calcium panel 01/04/17 Range/Units 06:00 Calcium 8.3 L (8.6-10.4) mg/dl Phosphorus 3.7 (2.7-4.5) mg/dL Albumin 2.7 L (3.2-5.2) gm/dL Pituitary panel 01/04/17 Range/Units 06:00 Sodium 138 (133-145) mmol/L Potassium 4.1 (3.3-5.1) mmol/L Chloride 102 (96-108) mmol/L Carbon Dioxide 24 (22-30) mmol/L BUN 21 (8-23) mg/dl Creatinine 0.5 L (0.7-1.2) mg/dl Glucose 122 H (70-105) mg/dL Calcium 8.3 L (8.6-10.4) mg/dl Adrenal panel 01/04/17 Range/Units 06:00 Sodium 138 (133-145) mmol/L Potassium 4.1 (3.3-5.1) mmol/L Chloride 102 (96-108) mmol/L Carbon Dioxide 24 (22-30) mmol/L BUN 21 (8-23) mg/dl Creatinine 0.5 L (0.7-1.2) mg/dl Glucose 122 H (70-105) mg/dL Calcium 8.3 L (8.6-10.4) mg/dl Total Bilirubin 0.3 (0.0-1.0) mg/dL AST 37 (0-37) U/l ALT 8 (0-40) U/l Alkaline Phosphatase 180 H (39-117) U/L Total Protein 5.0 L (5.9-8.4) gm/dL Albumin 2.7 L (3.2-5.2) gm/dL Medical - PN: A/P - Time Spent With Patient Total time spent is greater than 50% in coordination of care (as documented) at patient's floor/unit and/or counseling patient: (1) Enterovesical fistula Status: Resolved Assessment and plan: Pierce catheter is discontinued Increase activity is encouraged probable discharge in 2 days Current Visit: No (2) Dehydration Status: Resolved Current Visit: Yes (3) Hypokalemia due to loss of potassium Status: Resolved Current Visit: Yes (4) Iron deficiency anemia Status: Acute Current Visit: Yes (5) Anemia Status: Chronic Current Visit: No (6) Parkinson disease Status: Chronic Assessment and plan: patient is restarted on all of his medications for parkinsonism Current Visit: No (7) Sleep apnea, obstructive Status: Chronic Current Visit: No (8) Clostridium difficile colitis Status: Acute Assessment and plan: continue present medication regimen Encouraged patient to interact with physical and occupational therapy anticipate discharge in 2-3 days on oral medication Current Visit: Yes
[2017-01-04] MEDS ORDERED: MAGNESIUM SULFATE IV SCH (16:00)
[2017-01-04] MEDS ORDERED: [UNRECOGNIZED DRUG - OTHER] IV SCH (16:00)
[2017-01-04] MEDS ORDERED: CALCIUM GLUCONATE IV SCH (16:00)
[2017-01-04] MEDS ORDERED: POTASSIUM PHOSPHATE IV SCH (16:00)
--- NOTE | 2017-01-04 18:56 | Internal Med Progress Note ---
Medical - PN: Subj Patient information: Note initiated : 01/04/17 at 6:56 pm Service Date, if different from initiated Date: [] Patient: Tripp Melo a 66 y/o M admitted on 12/16/16 for Bowel Abscess, Bladder Fistula. Chief Complaint: [] Interval history: 12/16- Mr. Melo is a 66 year old male who as admitted last night by Dr. Azul for small bowel-bladder fistula. 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 December 23: the patient is now status post small bowel resection and bladder repair. e is a bit groggy, and says he feels "rough", but denies significant pain currently. He denies current chest pain or trouble breathing. Abdomen feels a bit bloated. Apparently a malignant neoplasm was found at surgery, eroding through the small bowel into the bladder. 12/24- patient seen in room post operative day 1. No overnight events. NG tube draining bilious output. No telemetry events. No concerns per staff. Complains of significant abdominal pain around the incision site. However alert lucid and responding verbal commands. Foleys draining clear urine. On TPN. IV fluids lowered from 125 an hour to TKO. 12/25- patient feels depressed. Hold out NG tube last night. Complains of significant abdominal pain. On TPN. Liquid BM today. White count over 17, 000. On broad antibiotic coverage-imipenem. Surgery managing postop care. Continue management in ICU in light of worsening leukocytosis. reinsert NG tube if patient agrees. 12/26- NG tube could not be placed. Patient on TPN. Potassium 2.7. Persistent operative site pain. Postoperative care managed as per surgery recommendations. White count down from 17.4-12.2. no overnight nausea vomiting , low-grade temperature at 99.7. good urine output. 2/3-patient doing well. No significant abdominal distention fever chills or telemetry events. Pain control adequate. On TPN. Good urine output. white count downtrending from 17.4-10.1. potassium improved to 4 from 2.7. iimproved tachycardia around 104. saturating on room air. Afebrile. Patient feels better than previous day. 12/28- 12/31- patient stable on TPN. Out of ICU. 01/01-multiple loose watery stool. C. difficile pending. Very sedated. reversed with flumazenil. recommend lowering benzodiazepine dose. 01/02- C. difficile positive. Started on vancomycin oral/IV Flagyl. Stage II decubitus pressure ulcers. Wound care consulted. Patient is significantly deconditioned and is high risk mortality. Patient would require long-term care for deconditioning from prolonged hospital stay along with aggressive wound care /nutrition supplements. 01/03- patient on regular diet along with TPN. discussed option of transfer to [facility] acute care unit for long-term rehabilitation. however patient adamantly refuses to go to LTAC. Patient has had prolonged hospital stay with deconditioning/need for TPN/associated with C. difficile/protein calorie malnutrition. Patient understands the complicated nature of his illness but wishes to continue treatment locally. no overnight fever chills nausea vomiting or concerns expressed by nursing staff. Ongoing physical therapy. improving diarrhea 01/04-patient advancing diet per surgery. no further recommendations from medical services. Continue existing treatment for pre-existing medical issues - Constitutional Vitals: Vital Signs Temp Pulse Resp BP Pulse Ox 97.7 F 100 H 20 120/60 99 01/04/17 16:00 01/04/17 11:56 01/04/17 16:00 01/04/17 16:00 01/04/17 16:00 Period Temp Pulse Resp BP Sys/Lerma Pulse Ox Last 24 Hr 97.6 F-98.2 F 100-123 16-24 109-120/60-74 97-99 Intake and Output 01/04/17 01/04/17 01/04/17 05:59 13:59 21:59 Intake Total 1490 / 1490 410 / 410 2180.1871 / 2180.1871 Output Total 650 / 650 800 / 800 Balance 840 / 840 -390 / -390 2179.1870 / 217.187 Weight 129 lb 8 oz Intake & Output: Intake & Output 01/04/17 01/04/17 01/04/17 05:59 13:59 21:59 Intake Total 1490 / 1490 410 / 410 2180.1871 / 2180.1871 Output Total 650 / 650 800 / 800 Balance 840 / 840 -390 / -390 2179.187 / 217187 Weight 129 lb 8 oz Intake: IV 940 / 940 300 / 300 1880.187 / 188.187 Sodium Chloride 0.9% 1, 740 / 740 000 ml @ 20 mls/hr IV . Q24H [facility] Rx#:[id number] Calcium Gluconate 10 Meq 1879.1870 Magnesium Sulfate 4.06 Meq Potassium Phosphate 80 Meq Infuvite Adult 10 ml Selenium 60 Mcg Potassium Acetate 20 Meq In Clinimix 5%-20% Solution 2,000 ml @ 85 mls/hr IV DAILY@1600 [facility] Rx#:[id number] Sodium Chloride 0.9% 100 100 / 100 100 / 100 ml @ 100 mls/hr IV Q8 [facility] with Primaxin 500 mg Rx# :[id number] Oral 550 / 550 110 / 110 300 / 300 Output: Urine Catheter Amount 650 / 650 800 / 800 # of times incontinent of urine Other: Meal Ice Cream Lunch Percent of Meal Consumed 100% 50% Feeding Ability Assist with Tray Set Up Independent # Voids 1 # Bowel Movements 1 Medical - PN: Obj Da - Labs CBC & Chem 7: 01/05/17 06:02 01/05/17 06:03 Labs: Abnormal Lab Results 01/04/17 01/03/17 01/02/17 06:00 05:41 07:39 WBC RBC Hgb Hct RDW Gran # Chloride 109 H Carbon Dioxide 19 L Creatinine 0.5 L 0.5 L 0.5 L Glucose 122 H Uric Acid 1.5 L 1.2 L 1.2 L Calcium 8.3 L 8.5 L 8.0 L GGT 205 H 183 H 197 H Alkaline Phosphatase 180 H 172 H 184 H Lactate Dehydrogenase 333 H Total Protein 5.0 L 5.1 L 4.9 L Albumin 2.7 L 2.7 L 2.5 L 01/02/17 07:39 WBC 11.1 H RBC 3.38 L Hgb 9.0 L Hct 28.8 L RDW 21.3 H Gran # 8.1 H Chloride Carbon Dioxide Creatinine Glucose Uric Acid Calcium GGT Alkaline Phosphatase Lactate Dehydrogenase Total Protein Albumin Meds: Medications Carbidopa/Levodopa (Sinemet 25/100) 2 tab PO QID [facility] Last Admin: 01/04/17 17:31 Dose: 2 tab Clotrimazole (Mycelex) 10 mg PO 5XD [facility] Last Admin: 01/04/17 17:30 Dose: 10 mg Dextrose (Dextrose 50%) 0 ml IV UD PRN PRN Reason: Hypoglycemia Diagnostic Test (Pha) (Accu-Chek) 1 each FS ACHS [facility] Last Admin: 01/04/17 17:30 Dose: 1 each Fentanyl (Duragesic) 100 mcg TD Q48H [facility] Last Admin: 01/03/17 11:41 Dose: 100 mcg Flumazenil (Romazicon) 0.2 mg IV Q1MIN PRN PRN Reason: BENZODIAZEPINE REVERSAL Last Admin: 01/01/17 11:55 Dose: 0.2 mg Gabapentin (Neurontin) 300 mg PO QID [facility] Last Admin: 01/04/17 17:30 Dose: 300 mg Heparin Sodium (Porcine) (Heparin) 5,000 unit SQ Q12 [facility] Last Admin: 01/04/17 10:01 Dose: 5,000 unit Heparin Sodium (Porcine) (Heparin Flush) 2 ml IV Q12 [facility] Last Admin: 01/04/17 10:02 Dose: 2 ml Hydromorphone HCl (Dilaudid) 2 mg IV Q2HP PRN PRN Reason: Pain Last Admin: 01/02/17 20:20 Dose: 1 mg Fat Emulsion Intravenous (Intralipid 20%) 250 mls @ 25 mls/hr IV MoWeFr@1600 [facility] Last Admin: 01/03/17 17:14 Dose: 25 mls/hr Imipenem/Cilastatin Sodium 500 (mg/ Sodium Chloride) 100 mls @ 100 mls/hr IV Q8 [facility] Last Admin: 01/04/17 13:49 Dose: 100 mls/hr Sodium Chloride (Sodium Chloride 0.9%) 1,000 mls @ 20 mls/hr IV .Q24H [facility] Last Admin: 01/04/17 11:47 Dose: Not Given Acetaminophen (Ofirmev) 1,000 mg in 100 mls @ 200 mls/hr IV Q6HP PRN PRN Reason: Pain Vancomycin HCl 1,000 mg/ (Sodium Chloride) 250 mls @ 250 mls/hr IV Q12H [facility] Last Admin: 01/04/17 10:02 Dose: 250 mls/hr Metronidazole (Flagyl) 500 mg in 100 mls @ 100 mls/hr IV Q6 [facility] Last Admin: 01/04/17 17:31 Dose: 100 mls/hr Calcium Gluconate 10 meq/Magnesium Sulfate 8.12 meq/Potassium Phosphate 100 meq/ Multivitamins/Minerals 10 ml/Selenium 60 mcg/ Potassium Acetate 20 meq/ Sodium Chloride 40 meq/ Amino Acids 2,077.7326 mls @ 85 mls/hr IV DAILY@1600 [facility] Last Admin: 01/04/17 16:27 Dose: 85 mls/hr Insulin Human Lispro (Humalog) 0 unit SQ ACHS [facility] PRN Reason: Protocol Last Admin: 01/04/17 17:30 Dose: Not Given Ketoconazole (Nizoral 2% Top Crm) 1 dose TOPICAL BID [facility] Last Admin: 01/04/17 11:42 Dose: 1 dose Levothyroxine Sodium ([facility]throid) [facility] Last Admin: 01/04/17 08:26 Dose: 50 mcg Lorazepam (Ativan) 0.5 mg IV Q4-6HP PRN PRN Reason: ANXIETY/SEDATION Metoprolol Tartrate (Lopressor) 5 mg IV Q4HP PRN PRN Reason: Tachyarrhythmias Testosterone [ Androderm] 4 Mg Patch 4 dose TOPICAL QDAY [facility] Last Admin: 01/04/17 10:15 Dose: Not Given Pantoprazole Sodium (Protonix) 40 mg IV QAMAC [facility] Last Admin: 01/04/17 08:25 Dose: 40 mg Apomorphine (Apokyn) (10mg/Ml) 0.3 dose SC Q2HP PRN PRN Reason: Tremors Rotigotine [Neupro] (4 Mg Patch) 1 dose TOPICAL DAILY [facility] Last Admin: 01/04/17 10:02 Dose: 1 dose Rotigotine [Neupro] (8 Mg Patch) 1 dose TOPICAL DAILY [facility] Last Admin: 01/04/17 10:03 Dose: 1 dose Frovatriptan Succinate [Frova] 2. 5 Mg Tab 1 dose PO DAILYP PRN PRN Reason: Migraine Headache Lubiprostone [ Amitiza] 24 Mcg Capsule 1 dose PO BID [facility] Last Admin: 01/04/17 10:15 Dose: Not Given Mirabegron [ Myrbetriq] 50 Mg Tablet 1 dose PO DAILY@1900 [facility] Tadalafil [Cialis] 5 (Mg Tablet) 1 dose PO HS [facility] Potassium Chloride (Kdur) 10 meq PO QAMCC [facility] Last Admin: 01/04/17 08:26 Dose: 10 meq Sodium Chloride (Saline Flush) 10 ml IV UD PRN PRN Reason: FLUSH Sodium Chloride (Saline Flush) 10 ml IV Q8 [facility] Last Admin: 01/04/17 13:51 Dose: 10 ml Tamsulosin HCl (Flomax) 0.8 mg PO QDAY [facility] Last Admin: 01/04/17 10:00 Dose: 0.8 mg Vancomycin HCl (Vancomycin Per Pharmacy) 1 order IV UD [facility] Vancomycin HCl (Vancomycin Oral Shagufta) 250 mg PO QID [facility] Last Admin: 01/04/17 17:31 Dose: 2.5 ml Medical - PN: A/P - Time Spent With Patient Total time spent is greater than 50% in coordination of care (as documented) at patient's floor/unit and/or counseling patient: 15 - 24 minutes (1) Enterovesical fistula Status: Resolved Assessment and plan: * Enterovesical fistula-postop day 11, management as per surgery * Abdominal abscess managed by surgery. * Nutrition-on TPN as per surgery. Diet advancement surgery to regular Hospitalist consult * C. difficile enterocolitis- Continue vancomycin/Flagyl. * Stage II decubitus ulcers- continue wound care Dr. Hamilton consulted * altered mental status- fully resolved * severe deconditioning-anticipate SNF transfer. Patient refusing LTAC * hypokalemia-resolved * Severe sepsis secondary to intra-abdominal abscess/C. difficile- resolved * Parkinson's disease-levodopa/carbidopa/amantadine * History of migraine -continue home meds * Generalized anxiety disorder- mirtazapine * hypothyroidism- thyroxine * Hyperlipidemia- atorvastatin * BPH continue tamsulosin * Severe anemia-Status post transfusion plan * Postop management as per surgery * vancomycin/Flagyl for C. difficile * wound care per Dr. leon Friday * pre-existing medical condition management as above * daily physical therapy in light of prolonged hospitalization/ICU deconditioning * patient refusing LTAC. case management to arrange local SNF Current Visit: No Medical - PN: Qual - Stroke Symptom Onset Unknown: No - VTE Deep Vein Thrombosis/Pulmonary Embolism Present on Admission: No
[2017-01-04] MEDS: Tadalafil [Cialis] 5 MG Tablet PO SCH (20:58)
[2017-01-04] MEDS: LORazepam 2 MG/ML VIAL IV PRN (22:00)
[2017-01-05] MEDS: metroNIDAZOLE 500 MG/100 ML BAG IV SCH ×4 (00:25→17:22)
[2017-01-05] MEDS: IMIPENEM/CILASTATIN SODIUM 500 MG in 0.9 % SODIUM CHLORIDE 100 ML IV SCH ×3 (06:20→22:47)
[2017-01-05] MEDS: 0.9 % SODIUM CHLORIDE 10 ML SYRINGE IV SCH ×3 (06:21→20:43)
[2017-01-05 07:11] LABS: Basophils # (Auto) 0.1 K/mcL (0.0-0.3); Basophils % (Auto) 1.4 % (0.0-2.0); Eosinophils # (Auto) 0.3 K/mcL (0.0-0.7); Eosinophils % (Auto) 4.2 % (0.0-7.0); Granulocytes % (Auto) 71.5 % (38.0-78.0); Lymphocytes # (Auto) 1.3 K/mcL (1.5-4.8); Lymphocytes % (Auto) 16.6 % (15.5-49.0); Mean Cell Volume 82.8 fL (80.0-100.0); Mean Corpuscular Hemoglobin 28.1 pg (26.0-34.0); Monocytes # (Auto) 0.5 K/mcL (0.1-0.9); Monocytes % (Auto) 6.3 % (1.0-9.0); Platelet Count 261 K/mcL (140-440); RBC 3.15 M/mcL (4.50-5.90); Red Cell Distribution Width 19.9 % (11.5-14.5)
[2017-01-05 07:31] LABS: ALT/SGPT 5 U/l (0-40); Albumin 2.7 gm/dL (3.2-5.2); Albumin/Globulin Ratio 1.2 (1.0-2.3); Alkaline Phosphatase 156 U/L (39-117); Bilirubin,Direct < 0.2 mg/dL (0.0-0.3); Blood Urea Nitrogen 18 mg/dl (8-23); Blood Urea Nitrogen 21 mg/dl (8-23); Gamma Glutamyl Transpeptidase 181 U/L (8-61); Magnesium 1.9 mg/dL (1.6-2.5); Phosphorous 4.1 mg/dL (2.7-4.5); Uric Acid 1.4 mg/dL (2.5-8.0)
[2017-01-05] MEDS: INSULIN LISPRO 1 UNIT/0.01 ML UNIT SQ SCH ×4 (07:51→20:49)
[2017-01-05] MEDS: POTASSIUM CHLORIDE 10 MEQ TABLET PO SCH (07:52)
[2017-01-05] MEDS: PANTOPRAZOLE 40 MG VIAL IV SCH (07:52)
[2017-01-05] MEDS: CLOTRIMAZOLE 10 MG TROCHE PO SCH ×5 (07:52→20:42)
[2017-01-05] MEDS: LEVOTHYROXINE 100 MCG VIAL IV SCH (07:52)
[2017-01-05] MEDS: TAMSULOSIN 0.4 MG CAPSULE PO SCH (09:22)
[2017-01-05] MEDS: GABAPENTIN 300 MG CAPSULE PO SCH ×4 (09:22→20:35)
[2017-01-05] MEDS: fentaNYL 100 MCG PATCH TD SCH (09:22)
[2017-01-05] MEDS: CARBIDOPA/LEVODOPA 25/100 TABLET PO SCH ×4 (09:22→20:35)
[2017-01-05] MEDS: HEPARIN 5,000 UNIT/ML VIAL SQ SCH ×2 (09:23→20:37)
[2017-01-05] MEDS: VANCOMYCIN 1,000 MG in 0.9 % SODIUM CHLORIDE 250 ML IV SCH ×2 (09:24→20:38)
[2017-01-05] MEDS: VANCOMYCIN ORAL SOL 1,000 MG/10 ML BOTTLE PO SCH ×4 (09:24→20:36)
[2017-01-05] MEDS: ROTIGOTINE 8 MG TOPICAL SCH (09:25)
[2017-01-05] MEDS: KETOCONAZOLE 2% TOP CRM 15GM TUBE TOPICAL SCH ×2 (09:25→22:47)
[2017-01-05] MEDS: ROTIGOTINE 4 MG TOPICAL SCH (09:25)
[2017-01-05] MEDS: TESTOSTERONE 4 MG TOPICAL SCH (09:26)
--- NOTE | 2017-01-05 10:25 | Internal Med Progress Note ---
Medical - PN: Subj Patient information: Note initiated : 01/05/17 at 10:06 am Service Date, if different from initiated Date: [] Patient: Tripp Melo a 66 y/o M admitted on 12/16/16 for Bowel Abscess, Bladder Fistula. Chief Complaint: [] Interval history: BRIEF HOSPITAL COURSE 12/16- Mr. Melo is a 66 year old male who as admitted last night by Dr. Azul for small bowel-bladder fistula. 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 December 23: the patient is now status post small bowel resection and bladder repair. e is a bit groggy, and says he feels "rough", but denies significant pain currently. He denies current chest pain or trouble breathing. Abdomen feels a bit bloated. Apparently a malignant neoplasm was found at surgery, eroding through the small bowel into the bladder. 12/24- patient seen in room post operative day 1. No overnight events. NG tube draining bilious output. No telemetry events. No concerns per staff. Complains of significant abdominal pain around the incision site. However alert lucid and responding verbal commands. Foleys draining clear urine. On TPN. IV fluids lowered from 125 an hour to TKO. 12/25- patient feels depressed. Hold out NG tube last night. Complains of significant abdominal pain. On TPN. Liquid BM today. White count over 17, 000. On broad antibiotic coverage-imipenem. Surgery managing postop care. Continue management in ICU in light of worsening leukocytosis. reinsert NG tube if patient agrees. 2- NG tube could not be placed. Patient on TPN. Potassium 2.7. Persistent operative site pain. Postoperative care managed as per surgery recommendations. White count down from 17.4-12.2. no overnight nausea vomiting , low-grade temperature at 99.7. good urine output. 2/3-patient doing well. No significant abdominal distention fever chills or telemetry events. Pain control adequate. On TPN. Good urine output. white count downtrending from 17.4-10.1. potassium improved to 4 from 2.7. iimproved tachycardia around 104. saturating on room air. Afebrile. Patient feels better than previous day. 12/28- 12/31- patient stable on TPN. Out of ICU. 01/01-multiple loose watery stool. C. difficile pending. Very sedated. reversed with flumazenil. recommend lowering benzodiazepine dose. 01/02- C. difficile positive. Started on vancomycin oral/IV Flagyl. Stage II decubitus pressure ulcers. Wound care consulted. Patient is significantly deconditioned and is high risk mortality. Patient would require long-term care for deconditioning from prolonged hospital stay along with aggressive wound care /nutrition supplements. 01/03- patient on regular diet along with TPN. discussed option of transfer to [facility] acute care unit for long-term rehabilitation. however patient adamantly refuses to go to LTAC. Patient has had prolonged hospital stay with deconditioning/need for TPN/associated with C. difficile/protein calorie malnutrition. Patient understands the complicated nature of his illness but wishes to continue treatment locally. no overnight fever chills nausea vomiting or concerns expressed by nursing staff. Ongoing physical therapy. improving diarrhea 01/04-patient advancing diet per surgery. no further recommendations from medical services. Continue existing treatment for pre-existing medical issues - Constitutional Vitals: Vital Signs Temp Pulse Resp BP Pulse Ox 97.8 F 102 H 16 122/69 99 01/05/17 08:06 01/05/17 08:06 01/05/17 08:06 01/05/17 08:06 01/05/17 08:06 Period Temp Pulse Resp BP Sys/Lerma Pulse Ox Last 24 Hr 96.6 F-97.8 F 92-102 12-20 110-122/60-73 95-99 Intake and Output 01/04/17 01/05/17 01/05/17 21:59 05:59 13:59 Intake Total 2630.1871 / 2630.1871 680 / 680 100 / 100 Output Total Balance 2629.1871 / 2629.1871 678 / 678 97 / 97 Weight 128 lb Intake & Output: Intake & Output 01/04/17 01/05/17 01/05/17 21:59 05:59 13:59 Intake Total 2630.1871 / 2630.1871 680 / 680 100 / 100 Output Total 1 / 1 2 / 2 3 / 3 Balance 2629.1871 / 2629.1871 678 / 678 97 / 97 Weight 128 lb Intake: IV 2330.1871 / 2330.1871 200 / 200 100 / 100 Calcium Gluconate 10 Meq 1880.1871 / 1880.1871 Magnesium Sulfate 4.06 Meq Potassium Phosphate 80 Meq Infuvite Adult 10 ml Selenium 60 Mcg Potassium Acetate 20 Meq In Clinimix 5%-20% Solution 2,000 ml @ 85 mls/hr IV DAILY@1600 [facility] Rx#:[id number] Sodium Chloride 0.9% 100 100 / 100 100 / 100 ml @ 100 mls/hr IV Q8 [facility] with Primaxin 500 mg Rx# :[id number] Sodium Chloride 0.9% 250 250 / 250 ml @ 250 mls/hr IV Q12H [facility] with Vancomycin 1,000 mg Rx#:[id number] Oral 300 / 300 480 / 480 Output: Void Amount 1 / 1 # of times incontinent of 1 / 1 2 / 2 2 / 2 urine Other: Meal Dinner Percent of Meal Consumed 50% Feeding Ability Assist with Tray Set Up # Voids 1 1 # Bowel Movements 1 1 General appearance: cooperative, no acute distress Exam: alert oriented nonlabored breathing Medical - PN: Obj Da - Labs CBC & Chem 7: 01/05/17 06:02 01/05/17 06:03 Labs: Abnormal Lab Results 01/05/17 01/05/17 01/05/17 06:03 06:03 06:02 RBC 3.15 L Hgb 8.9 L Hct 26.1 L RDW 19.9 H Lymph # 1.3 L Creatinine 0.4 L 0.5 L Glucose Uric Acid 1.4 L Calcium 8.3 L 8.3 L GGT 181 H Alkaline Phosphatase 156 H Total Protein 4.9 L Albumin 2.7 L 01/04/17 01/03/17 06:00 05:41 RBC Hgb Hct RDW Lymph # Creatinine 0.5 L 0.5 L Glucose 122 H Uric Acid 1.5 L 1.2 L Calcium 8.3 L 8.5 L GGT 205 H 183 H Alkaline Phosphatase 180 H 172 H Total Protein 5.0 L 5.1 L Albumin 2.7 L 2.7 L Meds: Medications Carbidopa/Levodopa (Sinemet 25/100) 2 tab PO QID [facility] Last Admin: 01/05/17 09:22 Dose: 2 tab Clotrimazole (Mycelex) 10 mg PO 5XD [facility] Last Admin: 01/05/17 07:52 Dose: 10 mg Dextrose (Dextrose 50%) 0 ml IV UD PRN PRN Reason: Hypoglycemia Diagnostic Test (Pha) (Accu-Chek) 1 each FS ACHS [facility] Last Admin: 01/05/17 07:51 Dose: 1 each Fentanyl (Duragesic) 100 mcg TD Q48H [facility] Last Admin: 01/05/17 09:22 Dose: 100 mcg Flumazenil (Romazicon) 0.2 mg IV Q1MIN PRN PRN Reason: BENZODIAZEPINE REVERSAL Last Admin: 01/01/17 11:55 Dose: 0.2 mg Gabapentin (Neurontin) 300 mg PO QID [facility] Last Admin: 01/05/17 09:22 Dose: 300 mg Heparin Sodium (Porcine) (Heparin) 5,000 unit SQ Q12 [facility] Last Admin: 01/05/17 09:23 Dose: 5,000 unit Heparin Sodium (Porcine) (Heparin Flush) 2 ml IV Q12 [facility] Last Admin: 01/05/17 09:23 Dose: 2 ml Hydromorphone HCl (Dilaudid) 2 mg IV Q2HP PRN PRN Reason: Pain Last Admin: 01/02/17 20:20 Dose: 1 mg Fat Emulsion Intravenous (Intralipid 20%) 250 mls @ 25 mls/hr IV MoWeFr@1600 [facility] Last Admin: 01/03/17 17:14 Dose: 25 mls/hr Imipenem/Cilastatin Sodium 500 (mg/ Sodium Chloride) 100 mls @ 100 mls/hr IV Q8 [facility] Last Admin: 01/05/17 06:20 Dose: 100 mls/hr Sodium Chloride (Sodium Chloride 0.9%) 1,000 mls @ 20 mls/hr IV .Q24H [facility] Last Admin: 01/04/17 11:47 Dose: Not Given Acetaminophen (Ofirmev) 1,000 mg in 100 mls @ 200 mls/hr IV Q6HP PRN PRN Reason: Pain Vancomycin HCl 1,000 mg/ (Sodium Chloride) 250 mls @ 250 mls/hr IV Q12H [facility] Last Admin: 01/05/17 09:24 Dose: 250 mls/hr Metronidazole (Flagyl) 500 mg in 100 mls @ 100 mls/hr IV Q6 [facility] Last Infusion: 01/05/17 06:21 Dose: Infused Calcium Gluconate 10 meq/Magnesium Sulfate 8.12 meq/Potassium Phosphate 100 meq/ Multivitamins/Minerals 10 ml/Selenium 60 mcg/ Potassium Acetate 20 meq/ Sodium Chloride 40 meq/ Amino Acids 2,077.7326 mls @ 85 mls/hr IV DAILY@1600 [facility] Last Admin: 01/04/17 16:27 Dose: 85 mls/hr Insulin Human Lispro (Humalog) 0 unit SQ ACHS [facility] PRN Reason: Protocol Last Admin: 01/05/17 07:51 Dose: Not Given Ketoconazole (Nizoral 2% Top Crm) 1 dose TOPICAL BID [facility] Last Admin: 01/05/17 09:25 Dose: 1 dose Levothyroxine Sodium (Synthroid) 50 mcg IV QAMAC [facility] Last Admin: 01/05/17 07:52 Dose: 50 mcg Lorazepam (Ativan) 0.5 mg IV Q4-6HP PRN PRN Reason: ANXIETY/SEDATION Last Admin: 01/04/17 22:00 Dose: 0.5 mg Metoprolol Tartrate (Lopressor) 5 mg IV Q4HP PRN PRN Reason: Tachyarrhythmias Testosterone [ Androderm] 4 Mg Patch 4 dose TOPICAL QDAY [facility] Last Admin: 01/05/17 09:26 Dose: Not Given Pantoprazole Sodium (Protonix) 40 mg IV QAMAC [facility] Last Admin: 01/05/17 07:52 Dose: 40 mg Apomorphine (Apokyn) (10mg/Ml) 0.3 dose SC Q2HP PRN PRN Reason: Tremors Rotigotine [Neupro] (4 Mg Patch) 1 dose TOPICAL DAILY [facility] Last Admin: 01/05/17 09:25 Dose: 1 dose Rotigotine [Neupro] (8 Mg Patch) 1 dose TOPICAL DAILY [facility] Last Admin: 01/05/17 09:25 Dose: 1 dose Frovatriptan Succinate [Frova] 2. 5 Mg Tab 1 dose PO DAILYP PRN PRN Reason: Migraine Headache Lubiprostone [ Amitiza] 24 Mcg Capsule 1 dose PO BID [facility] Last Admin: 01/05/17 09:26 Dose: Not Given Mirabegron [ Myrbetriq] 50 Mg Tablet 1 dose PO DAILY@1900 [facility] Last Admin: 01/04/17 19:30 Dose: Not Given Tadalafil [Cialis] 5 (Mg Tablet) 1 dose PO HS [facility] Last Admin: 01/04/17 20:58 Dose: Not Given Potassium Chloride (Kdur) 10 meq PO QAMCC [facility] Last Admin: 01/05/17 07:52 Dose: 10 meq Sodium Chloride (Saline Flush) 10 ml IV UD PRN PRN Reason: FLUSH Sodium Chloride (Saline Flush) 10 ml IV Q8 [facility] Last Admin: 01/05/17 06:21 Dose: 10 ml Tamsulosin HCl (Flomax) 0.8 mg PO QDAY [facility] Last Admin: 01/05/17 09:22 Dose: 0.8 mg Vancomycin HCl (Vancomycin Per Pharmacy) 1 order IV UD [facility] Vancomycin HCl (Vancomycin Oral Shagufta) 250 mg PO QID [facility] Last Admin: 01/05/17 09:24 Dose: 2.5 ml Medical - PN: A/P - Time Spent With Patient Total time spent is greater than 50% in coordination of care (as documented) at patient's floor/unit and/or counseling patient: 15 - 24 minutes (1) Enterovesical fistula Status: Resolved Assessment and plan: * 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 * Nutrition-on TPN as per surgery. Diet advancement per surgery Hospitalist consult * C. difficile enterocolitis- Continue vancomycin/Flagyl. * Stage II decubitus ulcers- continue wound care Dr. Hamilton consulted * altered mental status- fully resolved * severe deconditioning-anticipate SNF transfer. Patient refusing LTAC * hypokalemia-resolved * Severe sepsis secondary to intra-abdominal abscess/C. difficile- resolved * Parkinson's disease-levodopa/carbidopa/amantadine * History of migraine -continue home meds * Generalized anxiety disorder- mirtazapine * hypothyroidism- thyroxine * Hyperlipidemia- atorvastatin * BPH continue tamsulosin * Severe anemia-Status post transfusion plan * Postop management as per surgery * continue vancomycin/Flagyl for C. difficile * wound care per Dr. hamilton * pre-existing medical condition management as above * daily physical therapy in light of prolonged hospitalization/ICU deconditioning * patient refusing LTAC. case management to arrange local SNF Current Visit: No Medical - PN: Qual - Stroke Symptom Onset Unknown: No - VTE Deep Vein Thrombosis/Pulmonary Embolism Present on Admission: No
[2017-01-05] MEDS: 0.9 % SODIUM CHLORIDE 1,000 ML IV SCH (13:24)
--- NOTE | 2017-01-05 13:49 | General Surgery Progress Note ---
Subjective Patient reports: feels better, tolerating a regular diet, voiding w/o difficulty , flatus, bowel movement, afebrile Narrative: Note initiated : 01/05/17 at 1:47 pm Service Date, if different from initiated Date: [] Patient: Tripp Melo 66 y/o M admitted on 12/16/16 for Bowel Abscess, Bladder Fistula. Chief Complaint: [PATIENT IS DOING WELL AND IS TOLERATING A DIET. hE STILL HAS LIQUID BOWEL MOVEMENTS. hE DENIES NAUSEA OR VOMITING. hE DENIES ABDOMINAL PAIN. hE IS STRONGER BUT STILL REMAINS WEAK. pATIENT AND HIS HAVE DECIDED TO ALLOW HIM TO GO TO A LONG-TERM CARE FACILITY FOR REHABILITATION. hE IS STABLE FOR TRANSFER TOMORROW.] Objective Temp Pulse Resp BP Pulse Ox 97.4 F L 114 H 20 109/74 100 01/05/17 11:21 01/05/17 11:21 01/05/17 11:21 01/05/17 11:21 01/05/17 11:33 - Additional Data Intake & Output - Last 24 hours: Intake & Output 01/03/17 01/04/17 01/05/17 01/06/17 05:59 05:59 05:59 05:59 Intake Total 1400 / 1400 4556.7326 / 4556.7326 3970.1871 / 3970.1871 1179 / 1179 Output Total 3240 / 3240 3000 / 3000 803 / 803 103 / 103 Balance -1840 / -1840 1556.7326 / 1556.7326 3167.1871 / 3167.1871 1076 / 1076 Weight 141 lb 8 oz 129 lb 8 oz 128 lb - Labs 01/05/17 06:02 01/05/17 06:03 Diabetes panel 01/05/17 01/05/17 Range/Units 06:03 06:03 Sodium 137 138 (133-145) mmol/L Potassium 4.4 4.3 (3.3-5.1) mmol/L Chloride 103 104 (96-108) mmol/L Carbon Dioxide 24 26 (22-30) mmol/L BUN 18 21 (8-23) mg/dl Creatinine 0.5 L 0.4 L (0.7-1.2) mg/dl Glucose 96 99 (70-105) mg/dL Calcium 8.3 L 8.3 L (8.6-10.4) mg/dl AST 23 (0-37) U/l ALT 5 (0-40) U/l Alkaline Phosphatase 156 H (39-117) U/L Total Protein 4.9 L (5.9-8.4) gm/dL Albumin 2.7 L (3.2-5.2) gm/dL Triglycerides 85 (<150) mg/dl Calcium panel 01/05/17 01/05/17 Range/Units 06:03 06:03 Calcium 8.3 L 8.3 L (8.6-10.4) mg/dl Phosphorus 4.1 (2.7-4.5) mg/dL Albumin 2.7 L (3.2-5.2) gm/dL Pituitary panel 01/05/17 01/05/17 Range/Units 06:03 06:03 Sodium 137 138 (133-145) mmol/L Potassium 4.4 4.3 (3.3-5.1) mmol/L Chloride 103 104 (96-108) mmol/L Carbon Dioxide 24 26 (22-30) mmol/L BUN 18 21 (8-23) mg/dl Creatinine 0.5 L 0.4 L (0.7-1.2) mg/dl Glucose 96 99 (70-105) mg/dL Calcium 8.3 L 8.3 L (8.6-10.4) mg/dl Adrenal panel 01/05/17 01/05/17 Range/Units 06:03 06:03 Sodium 137 138 (133-145) mmol/L Potassium 4.4 4.3 (3.3-5.1) mmol/L Chloride 103 104 (96-108) mmol/L Carbon Dioxide 24 26 (22-30) mmol/L BUN 18 21 (8-23) mg/dl Creatinine 0.5 L 0.4 L (0.7-1.2) mg/dl Glucose 96 99 (70-105) mg/dL Calcium 8.3 L 8.3 L (8.6-10.4) mg/dl Total Bilirubin 0.3 (0.0-1.0) mg/dL AST 23 (0-37) U/l ALT 5 (0-40) U/l Alkaline Phosphatase 156 H (39-117) U/L Total Protein 4.9 L (5.9-8.4) gm/dL Albumin 2.7 L (3.2-5.2) gm/dL Medical - PN: A/P - Time Spent With Patient Total time spent is greater than 50% in coordination of care (as documented) at patient's floor/unit and/or counseling patient: (1) Enterovesical fistula Status: Resolved Assessment and plan: Pierce catheter is discontinued Increase activity is encouraged probable discharge in 2 days Current Visit: No (2) Dehydration Status: Resolved Current Visit: Yes (3) Hypokalemia due to loss of potassium Status: Resolved Current Visit: Yes (4) Iron deficiency anemia Status: Acute Current Visit: Yes (5) Anemia Status: Chronic Current Visit: No (6) Parkinson disease Status: Chronic Assessment and plan: patient is restarted on all of his medications for parkinsonism Current Visit: No (7) Sleep apnea, obstructive Status: Chronic Current Visit: No (8) Clostridium difficile colitis Status: Acute Assessment and plan: continue present medication regimen Encouraged patient to interact with physical and occupational therapy anticipate discharge in 2-3 days on oral medication Current Visit: Yes
[2017-01-05] MEDS: CALCIUM GLUCONATE IV SCH (16:32)
[2017-01-05] MEDS: MAGNESIUM SULFATE IV SCH (16:32)
[2017-01-05] MEDS: [UNRECOGNIZED DRUG - OTHER] IV SCH (16:32)
[2017-01-05] MEDS: MVI IV SCH (16:32)
[2017-01-05] MEDS: POTASSIUM PHOSPHATE IV SCH (16:32)
[2017-01-05] MEDS: Tadalafil [Cialis] 5 MG Tablet PO SCH (20:45)
[2017-01-05] MEDS: LORazepam 2 MG/ML VIAL IV PRN (22:43)
[2017-01-06] MEDS: metroNIDAZOLE 500 MG/100 ML BAG IV SCH ×4 (00:13→17:39)
[2017-01-06] MEDS: LORazepam 2 MG/ML VIAL IV PRN ×2 (02:31→22:32)
[2017-01-06] MEDS: IMIPENEM/CILASTATIN SODIUM 500 MG in 0.9 % SODIUM CHLORIDE 100 ML IV SCH ×3 (06:58→22:27)
[2017-01-06 07:11] LABS: Basophils # (Auto) 0 K/mcL (0.0-0.3); Basophils % (Auto) 0.4 % (0.0-2.0); Eosinophils # (Auto) 0.3 K/mcL (0.0-0.7); Eosinophils % (Auto) 3.8 % (0.0-7.0); Granulocytes % (Auto) 74.8 % (38.0-78.0); Lymphocytes # (Auto) 1.3 K/mcL (1.5-4.8); Lymphocytes % (Auto) 15.4 % (15.5-49.0); Mean Corpuscular HGB Conc 33.9 g/dL (31.0-36.0); Mean Corpuscular Hemoglobin 28.4 pg (26.0-34.0); Monocytes # (Auto) 0.5 K/mcL (0.1-0.9); Monocytes % (Auto) 5.6 % (1.0-9.0); Platelet Count 290 K/mcL (140-440); RBC 3.19 M/mcL (4.50-5.90); Red Cell Distribution Width 20.6 % (11.5-14.5)
[2017-01-06] MEDS: LEVOTHYROXINE 100 MCG VIAL IV SCH (07:19)
[2017-01-06] MEDS: POTASSIUM CHLORIDE 10 MEQ TABLET PO SCH (07:19)
[2017-01-06] MEDS: PANTOPRAZOLE 40 MG VIAL IV SCH (07:19)
[2017-01-06] MEDS: 0.9 % SODIUM CHLORIDE 10 ML SYRINGE IV SCH ×2 (07:20→15:51)
[2017-01-06] MEDS: CLOTRIMAZOLE 10 MG TROCHE PO SCH ×5 (07:20→20:23)
[2017-01-06] MEDS: INSULIN LISPRO 1 UNIT/0.01 ML UNIT SQ SCH ×4 (07:34→20:35)
[2017-01-06 07:49] LABS: ALT/SGPT 9 U/l (0-40); Albumin 2.7 gm/dL (3.2-5.2); Albumin/Globulin Ratio 1.2 (1.0-2.3); Alkaline Phosphatase 154 U/L (39-117); Bilirubin,Direct < 0.2 mg/dL (0.0-0.3); Blood Urea Nitrogen 19 mg/dl (8-23); Gamma Glutamyl Transpeptidase 174 U/L (8-61); Phosphorous 3.7 mg/dL (2.7-4.5); Uric Acid 1.5 mg/dL (2.5-8.0)
[2017-01-06] MEDS: TAMSULOSIN 0.4 MG CAPSULE PO SCH (09:49)
[2017-01-06] MEDS: GABAPENTIN 300 MG CAPSULE PO SCH ×4 (09:49→20:20)
[2017-01-06] MEDS: ROTIGOTINE 4 MG TOPICAL SCH (09:49)
[2017-01-06] MEDS: VANCOMYCIN 1,000 MG in 0.9 % SODIUM CHLORIDE 250 ML IV SCH ×2 (09:49→20:32)
[2017-01-06] MEDS: VANCOMYCIN ORAL SOL 1,000 MG/10 ML BOTTLE PO SCH ×4 (09:49→20:19)
[2017-01-06] MEDS: HEPARIN 5,000 UNIT/ML VIAL SQ SCH ×2 (09:50→20:21)
[2017-01-06] MEDS: ROTIGOTINE 8 MG TOPICAL SCH (09:51)
[2017-01-06] MEDS: CARBIDOPA/LEVODOPA 25/100 TABLET PO SCH ×4 (09:51→20:20)
[2017-01-06] MEDS: TESTOSTERONE 4 MG TOPICAL SCH (10:05)
[2017-01-06] MEDS: KETOCONAZOLE 2% TOP CRM 15GM TUBE TOPICAL SCH ×2 (10:09→20:24)
--- NOTE | 2017-01-06 10:11 | Internal Med Progress Note ---
Medical - PN: Subj Patient information: Note initiated : 01/06/17 at 10:11 am Service Date, if different from initiated Date: [] Patient: Tripp Melo a 66 y/o M admitted on 12/16/16 for Bowel Abscess, Bladder Fistula. Chief Complaint: [] Interval history: 12/16- Mr. Melo is a 66 year old male who as admitted last night by Dr. Azul for small bowel-bladder fistula. 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 December 23: the patient is now status post small bowel resection and bladder repair. e is a bit groggy, and says he feels "rough", but denies significant pain currently. He denies current chest pain or trouble breathing. Abdomen feels a bit bloated. Apparently a malignant neoplasm was found at surgery, eroding through the small bowel into the bladder. 12/24- patient seen in room post operative day 1. No overnight events. NG tube draining bilious output. No telemetry events. No concerns per staff. Complains of significant abdominal pain around the incision site. However alert lucid and responding verbal commands. Foleys draining clear urine. On TPN. IV fluids lowered from 125 an hour to TKO. 12/25- patient feels depressed. Hold out NG tube last night. Complains of significant abdominal pain. On TPN. Liquid BM today. White count over 17, 000. On broad antibiotic coverage-imipenem. Surgery managing postop care. Continue management in ICU in light of worsening leukocytosis. reinsert NG tube if patient agrees. 12/26- NG tube could not be placed. Patient on TPN. Potassium 2.7. Persistent operative site pain. Postoperative care managed as per surgery recommendations. White count down from 17.4-12.2. no overnight nausea vomiting , low-grade temperature at 99.7. good urine output. 2/3-patient doing well. No significant abdominal distention fever chills or telemetry events. Pain control adequate. On TPN. Good urine output. white count downtrending from 17.4-10.1. potassium improved to 4 from 2.7. iimproved tachycardia around 104. saturating on room air. Afebrile. Patient feels better than previous day. 12/28- 12/31- patient stable on TPN. Out of ICU. 01/01-multiple loose watery stool. C. difficile pending. Very sedated. reversed with flumazenil. recommend lowering benzodiazepine dose. 01/02- C. difficile positive. Started on vancomycin oral/IV Flagyl. Stage II decubitus pressure ulcers. Wound care consulted. Patient is significantly deconditioned and is high risk mortality. Patient would require long-term care for deconditioning from prolonged hospital stay along with aggressive wound care /nutrition supplements. 01/03- patient on regular diet along with TPN. discussed option of transfer to [facility] acute care unit for long-term rehabilitation. however patient adamantly refuses to go to LTAC. Patient has had prolonged hospital stay with deconditioning/need for TPN/associated with C. difficile/protein calorie malnutrition. Patient understands the complicated nature of his illness but wishes to continue treatment locally. no overnight fever chills nausea vomiting or concerns expressed by nursing staff. Ongoing physical therapy. improving diarrhea 01/04-patient advancing diet per surgery. no further recommendations from medical services. Continue existing treatment for pre-existing medical issues 01/05- patient doing well. Tolerating physical therapy. Awaiting LTAC transfer. On TPN/oral diet. Much improved mentation. Feels upbeat and participating in therapies 11/05- patient doing well. No overnight events. No concerns per staff. No fever chills nausea vomiting. Patient meeting goals as per physical therapy and may be able to transfer locally rehabilitation. - Constitutional Vitals: Vital Signs Temp Pulse Resp BP Pulse Ox 97.9 F 98 H 24 139/76 96 01/06/17 04:00 01/06/17 04:00 01/06/17 04:00 01/06/17 04:00 01/06/17 04:00 Period Temp Pulse Resp BP Sys/Lerma Pulse Ox Last 24 Hr 97.4 F-98.5 F 98-115 16-24 104-139/56-76 96-100 Intake and Output 01/05/17 01/06/17 01/06/17 21:59 05:59 13:59 Intake Total 550 / 550 200 / 200 Output Total 476 / 476 Balance 74 / 74 199 / 199 Weight 128 lb 8 oz Intake & Output: Intake & Output 01/05/17 01/06/17 01/06/17 21:59 05:59 13:59 Intake Total 550 / 550 200 / 200 Output Total 476 / 476 Balance 74 / 74 199 / 199 Weight 128 lb 8 oz Intake: IV 450 / 450 200 / 200 Sodium Chloride 0.9% 100 100 / 100 100 / 100 ml @ 100 mls/hr IV Q8 DARWIN with Primaxin 500 mg Rx# :[id number] Sodium Chloride 0.9% 250 250 / 250 ml @ 250 mls/hr IV Q12H DARWIN with Vancomycin 1,000 mg Rx#:[id number] Oral 100 / 100 Output: Void Amount 475 / 475 # of times incontinent of urine Other: Meal Lunch Percent of Meal Consumed 30 # Voids 1 # Bowel Movements 1 General appearance: cooperative, no acute distress Exam: Ambulating with assistance alert oriented nonlabored breathing no anxiety Medical - PN: Obj Da - Labs CBC & Chem 7: 01/06/17 06:04 01/06/17 06:05 Labs: Abnormal Lab Results 01/06/17 01/06/17 01/05/17 06:05 06:04 06:03 RBC 3.19 L Hgb 9.1 L Hct 26.7 L RDW 20.6 H Lymph % (Auto) 15.4 L Lymph # 1.3 L Creatinine 0.5 L 0.4 L Glucose Uric Acid 1.5 L Calcium 8.3 L 8.3 L GGT 174 H Alkaline Phosphatase 154 H Total Protein 4.9 L Albumin 2.7 L Triglycerides 151 H 01/05/17 01/05/17 01/04/17 06:03 06:02 06:00 RBC 3.15 L Hgb 8.9 L Hct 26.1 L RDW 19.9 H Lymph % (Auto) Lymph # 1.3 L Creatinine 0.5 L 0.5 L Glucose 122 H Uric Acid 1.4 L 1.5 L Calcium 8.3 L 8.3 L GGT 181 H 205 H Alkaline Phosphatase 156 H 180 H Total Protein 4.9 L 5.0 L Albumin 2.7 L 2.7 L Triglycerides Meds: Medications Carbidopa/Levodopa (Sinemet 25/100) 2 tab PO QID DARWIN Last Admin: 01/06/17 09:51 Dose: 2 tab Clotrimazole (Mycelex) 10 mg PO 5XD [facility] Last Admin: 01/06/17 07:20 Dose: 10 mg Dextrose (Dextrose 50%) 0 ml IV UD PRN PRN Reason: Hypoglycemia Diagnostic Test (Pha) (Accu-Chek) 1 each FS ACHS [facility] Last Admin: 01/06/17 07:34 Dose: 1 each Fentanyl (Duragesic) 100 mcg TD Q48H [facility] Last Admin: 01/05/17 09:22 Dose: 100 mcg Flumazenil (Romazicon) 0.2 mg IV Q1MIN PRN PRN Reason: BENZODIAZEPINE REVERSAL Last Admin: 01/01/17 11:55 Dose: 0.2 mg Gabapentin (Neurontin) 300 mg PO QID [facility] Last Admin: 01/06/17 09:49 Dose: 300 mg Heparin Sodium (Porcine) (Heparin) 5,000 unit SQ Q12 [facility] Last Admin: 01/06/17 09:50 Dose: 5,000 unit Heparin Sodium (Porcine) (Heparin Flush) 2 ml IV Q12 [facility] Last Admin: 01/06/17 09:50 Dose: 2 ml Hydromorphone HCl (Dilaudid) 2 mg IV Q2HP PRN PRN Reason: Pain Last Admin: 01/02/17 20:20 Dose: 1 mg Fat Emulsion Intravenous (Intralipid 20%) 250 mls @ 25 mls/hr IV MoWeFr@1600 [facility] Last Admin: 01/03/17 17:14 Dose: 25 mls/hr Imipenem/Cilastatin Sodium 500 (mg/ Sodium Chloride) 100 mls @ 100 mls/hr IV Q8 [facility] Last Admin: 01/06/17 06:58 Dose: 100 mls/hr Sodium Chloride (Sodium Chloride 0.9%) 1,000 mls @ 20 mls/hr IV .Q24H [facility] Last Admin: 01/05/17 13:24 Dose: 20 mls/hr Acetaminophen (Ofirmev) 1,000 mg in 100 mls @ 200 mls/hr IV Q6HP PRN PRN Reason: Pain Vancomycin HCl 1,000 mg/ (Sodium Chloride) 250 mls @ 250 mls/hr IV Q12H [facility] Last Admin: 01/06/17 09:49 Dose: 250 mls/hr Metronidazole (Flagyl) 500 mg in 100 mls @ 100 mls/hr IV Q6 [facility] Last Admin: 01/06/17 05:16 Dose: 100 mls/hr Calcium Gluconate 10 meq/Magnesium Sulfate 8.12 meq/Potassium Phosphate 80 meq/ Multivitamins/Minerals 10 ml/Selenium 60 mcg/ Potassium Acetate 20 meq/ Sodium Acetate 20 meq/ Amino Acids 2,073.1871 mls @ 85 mls/hr IV DAILY@1600 [facility] Last Admin: 01/05/17 16:32 Dose: 85 mls/hr Insulin Human Lispro (Humalog) 0 unit SQ ACHS [facility] PRN Reason: Protocol Last Admin: 01/06/17 07:34 Dose: Not Given Ketoconazole (Nizoral 2% Top Crm) 1 dose TOPICAL BID [facility] Last Admin: 01/06/17 10:09 Dose: 1 dose Levothyroxine Sodium (Synthroid) 50 mcg IV QAMAC [facility] Last Admin: 01/06/17 07:19 Dose: 50 mcg Lorazepam (Ativan) 0.5 mg IV Q4-6HP PRN PRN Reason: ANXIETY/SEDATION Last Admin: 01/06/17 02:31 Dose: 0.5 mg Metoprolol Tartrate (Lopressor) 5 mg IV Q4HP PRN PRN Reason: Tachyarrhythmias Testosterone [ Androderm] 4 Mg Patch 4 dose TOPICAL QDAY [facility] Last Admin: 01/06/17 10:05 Dose: Not Given Pantoprazole Sodium (Protonix) 40 mg IV QAMAC [facility] Last Admin: 01/06/17 07:19 Dose: 40 mg Apomorphine (Apokyn) (10mg/Ml) 0.3 dose SC Q2HP PRN PRN Reason: Tremors Rotigotine [Neupro] (4 Mg Patch) 1 dose TOPICAL DAILY [facility] Last Admin: 01/06/17 09:49 Dose: 1 dose Rotigotine [Neupro] (8 Mg Patch) 1 dose TOPICAL DAILY [facility] Last Admin: 01/06/17 09:51 Dose: 1 dose Frovatriptan Succinate [Frova] 2. 5 Mg Tab 1 dose PO DAILYP PRN PRN Reason: Migraine Headache Lubiprostone [ Amitiza] 24 Mcg Capsule 1 dose PO BID [facility] Last Admin: 01/06/17 10:09 Dose: Not Given Mirabegron [ Myrbetriq] 50 Mg Tablet 1 dose PO DAILY@1900 [facility] Last Admin: 01/05/17 20:34 Dose: 1 dose Tadalafil [Cialis] 5 (Mg Tablet) 1 dose PO HS [facility] Last Admin: 01/05/17 20:45 Dose: Not Given Potassium Chloride (Kdur) 10 meq PO QAMCC [facility] Last Admin: 01/06/17 07:19 Dose: 10 meq Sodium Chloride (Saline Flush) 10 ml IV UD PRN PRN Reason: FLUSH Sodium Chloride (Saline Flush) 10 ml IV Q8 [facility] Last Admin: 01/06/17 07:20 Dose: 10 ml Tamsulosin HCl (Flomax) 0.8 mg PO QDAY [facility] Last Admin: 01/06/17 09:49 Dose: 0.8 mg Vancomycin HCl (Vancomycin Per Pharmacy) 1 order IV UD DARWIN Vancomycin HCl (Vancomycin Oral Shagufta) 250 mg PO QID [facility] Last Admin: 01/06/17 09:49 Dose: 2.5 ml Medical - PN: A/P - Time Spent With Patient Total time spent is greater than 50% in coordination of care (as documented) at patient's floor/unit and/or counseling patient: 15 - 24 minutes (1) Enterovesical fistula Status: Resolved Assessment and plan: * Enterovesical fistula with intra-abdominal abscess-postop day 13. Hospital day 21, management as per surgery * Nutrition-on TPN as per surgery. on diet as per surgery Hospitalist consult * C. difficile enterocolitis- Continue vancomycin/Flagyl for total of 14 days. * Stage II decubitus ulcers- continue wound care Dr. Hamilton consulted * altered mental status- fully resolved * severe deconditioning-anticipate SNF transfer. Patient refusing LTAC * hypokalemia-resolved * Severe sepsis secondary to intra-abdominal abscess/C. difficile- resolved * Parkinson's disease-levodopa/carbidopa/amantadine * History of migraine -continue home meds * Generalized anxiety disorder- mirtazapine * hypothyroidism- thyroxine * Hyperlipidemia- atorvastatin * BPH continue tamsulosin * Severe anemia-Status post transfusion plan * Postop management as per surgery * continue vancomycin/Flagyl for C. difficile * wound care per Dr. hamilton * pre-existing medical condition management as above * possible transfer to a local rehabilitation as patient meeting rehabilitation goals Current Visit: No Medical - PN: Qual - Stroke Symptom Onset Unknown: No - VTE Deep Vein Thrombosis/Pulmonary Embolism Present on Admission: No
[2017-01-06] MEDS: 0.9 % SODIUM CHLORIDE 1,000 ML IV SCH (11:00)
[2017-01-06] MEDS: FAT EMULSION 20% 250 ML IV SCH (15:27)
--- NOTE | 2017-01-06 16:37 | General Surgery Progress Note ---
Subjective Patient reports: feels better, tolerating a regular diet, flatus, bowel movement , diarrhea, afebrile Narrative: Note initiated : 01/06/17 at 4:34 pm Service Date, if different from initiated Date: [] Patient: Tripp Melo 66 y/o M admitted on 12/16/16 for Bowel Abscess, Bladder Fistula. Chief Complaint: [patient continues to improve daily He is fully alert and aware. He is tolerating a diet without difficulty. He is still having some fecal incontinence but this is not unanticipated He is afebrile. He denies abdominal pain. His overall strength is improving daily. Rehabilitation bed is not available until Friday but he may be adequately recovered to go homeby then We'll follow he recommendation of case management on Friday.] Objective Temp Pulse Resp BP Pulse Ox 98.2 F 109 H 18 97/66 98 01/06/17 12:00 01/06/17 12:00 01/06/17 12:00 01/06/17 12:00 01/06/17 12:00 - Additional Data Intake & Output - Last 24 hours: Intake & Output 01/04/17 01/05/17 01/06/17 01/07/17 05:59 05:59 05:59 05:59 Intake Total 4806.7326 / 4806.7326 3970.1871 / 3970.1871 2279 / 2279 1112 / 1112 Output Total 3000 / 3000 803 / 803 580 / 580 300 / 300 Balance 1806.7326 / 1806.7326 3167.1871 / 3167.1871 1699 / 1699 812 / 812 Weight 129 lb 8 oz 128 lb 128 lb 8 oz - General physical appearance no distress, no pain, chronically ill - Eyes PERRL - ENT no congestion - Neck no venous distension - Respiratory normal respiratory effort, clear to auscultation - Cardiovascular Cardiovascular exam: Present: normal rate and rhythm, RRR, +S1, +S2. Absent: JVD - Abdomen soft, non tender, bowel sounds, distended (abdomen is soft nondistended with good active bowel sounds. There are no masses and no tenderness) - Integumentary no rash, no growths, no abnormal pigmentation - Psychiatric oriented to time, oriented to person, oriented to place, speech is normal, memory intact - Labs 01/06/17 06:04 01/06/17 06:05 Diabetes panel 01/06/17 Range/Units 06:05 Sodium 140 (133-145) mmol/L Potassium 4.2 (3.3-5.1) mmol/L Chloride 103 (96-108) mmol/L Carbon Dioxide 26 (22-30) mmol/L BUN 19 (8-23) mg/dl Creatinine 0.5 L (0.7-1.2) mg/dl Glucose 96 (70-105) mg/dL Calcium 8.3 L (8.6-10.4) mg/dl AST 25 (0-37) U/l ALT 9 (0-40) U/l Alkaline Phosphatase 154 H (39-117) U/L Total Protein 4.9 L (5.9-8.4) gm/dL Albumin 2.7 L (3.2-5.2) gm/dL Triglycerides 151 H (<150) mg/dl Calcium panel 01/06/17 Range/Units 06:05 Calcium 8.3 L (8.6-10.4) mg/dl Phosphorus 3.7 (2.7-4.5) mg/dL Albumin 2.7 L (3.2-5.2) gm/dL Pituitary panel 01/06/17 Range/Units 06:05 Sodium 140 (133-145) mmol/L Potassium 4.2 (3.3-5.1) mmol/L Chloride 103 (96-108) mmol/L Carbon Dioxide 26 (22-30) mmol/L BUN 19 (8-23) mg/dl Creatinine 0.5 L (0.7-1.2) mg/dl Glucose 96 (70-105) mg/dL Calcium 8.3 L (8.6-10.4) mg/dl Adrenal panel 01/06/17 Range/Units 06:05 Sodium 140 (133-145) mmol/L Potassium 4.2 (3.3-5.1) mmol/L Chloride 103 (96-108) mmol/L Carbon Dioxide 26 (22-30) mmol/L BUN 19 (8-23) mg/dl Creatinine 0.5 L (0.7-1.2) mg/dl Glucose 96 (70-105) mg/dL Calcium 8.3 L (8.6-10.4) mg/dl Total Bilirubin 0.3 (0.0-1.0) mg/dL AST 25 (0-37) U/l ALT 9 (0-40) U/l Alkaline Phosphatase 154 H (39-117) U/L Total Protein 4.9 L (5.9-8.4) gm/dL Albumin 2.7 L (3.2-5.2) gm/dL Medical - PN: A/P - Time Spent With Patient Total time spent is greater than 50% in coordination of care (as documented) at patient's floor/unit and/or counseling patient: (1) Enterovesical fistula Status: Resolved Assessment and plan: patient is doing well and has essentially recovered from the surgery Current Visit: No (2) Dehydration Status: Resolved Current Visit: Yes (3) Hypokalemia due to loss of potassium Status: Resolved Current Visit: Yes (4) Iron deficiency anemia Status: Acute Current Visit: Yes (5) Anemia Status: Chronic Current Visit: No (6) Parkinson disease Status: Chronic Assessment and plan: patient is restarted on all of his medications for parkinsonism he shows major improvement every day since start of his oral medication Current Visit: No (7) Sleep apnea, obstructive Status: Chronic Current Visit: No (8) Clostridium difficile colitis Status: Acute Assessment and plan: continue present medication regimen Encouraged patient to interact with physical and occupational therapy anticipate discharge in 2-3 days on oral medication Current Visit: Yes
[2017-01-06] MEDS: CALCIUM GLUCONATE IV SCH (17:16)
[2017-01-06] MEDS: MVI IV SCH (17:16)
[2017-01-06] MEDS: MAGNESIUM SULFATE IV SCH (17:16)
[2017-01-06] MEDS: POTASSIUM PHOSPHATE IV SCH (17:16)
[2017-01-06] MEDS: [UNRECOGNIZED DRUG - OTHER] IV SCH (17:16)
[2017-01-06] MEDS: Tadalafil [Cialis] 5 MG Tablet PO SCH (20:23)
[2017-01-07] MEDS: metroNIDAZOLE 500 MG/100 ML BAG IV SCH ×2 (00:02→05:42)
[2017-01-07] MEDS: 0.9 % SODIUM CHLORIDE 10 ML SYRINGE IV SCH ×5 (01:39→23:22)
[2017-01-07] MEDS: PANTOPRAZOLE 40 MG VIAL IV SCH (06:58)
[2017-01-07] MEDS: LEVOTHYROXINE 100 MCG VIAL IV SCH (06:58)
[2017-01-07] MEDS: IMIPENEM/CILASTATIN SODIUM 500 MG in 0.9 % SODIUM CHLORIDE 100 ML IV SCH ×3 (06:58→21:36)
[2017-01-07] MEDS: INSULIN LISPRO 1 UNIT/0.01 ML UNIT SQ SCH ×4 (07:07→21:38)
[2017-01-07] MEDS: TAMSULOSIN 0.4 MG CAPSULE PO SCH (08:59)
[2017-01-07] MEDS: CLOTRIMAZOLE 10 MG TROCHE PO SCH ×5 (09:00→20:17)
[2017-01-07] MEDS: HEPARIN 5,000 UNIT/ML VIAL SQ SCH ×2 (09:00→21:36)
[2017-01-07] MEDS: POTASSIUM CHLORIDE 10 MEQ TABLET PO SCH (09:00)
[2017-01-07] MEDS: CARBIDOPA/LEVODOPA 25/100 TABLET PO SCH ×4 (09:01→21:36)
[2017-01-07] MEDS: GABAPENTIN 300 MG CAPSULE PO SCH ×4 (09:01→21:36)
[2017-01-07] MEDS: KETOCONAZOLE 2% TOP CRM 15GM TUBE TOPICAL SCH ×3 (09:02→21:38)
[2017-01-07] MEDS: ROTIGOTINE 4 MG TOPICAL SCH (09:03)
[2017-01-07] MEDS: TESTOSTERONE 4 MG TOPICAL SCH (09:03)
[2017-01-07] MEDS: VANCOMYCIN ORAL SOL 1,000 MG/10 ML BOTTLE PO SCH ×4 (09:04→21:39)
[2017-01-07] MEDS: ROTIGOTINE 8 MG TOPICAL SCH (09:04)
[2017-01-07] MEDS: fentaNYL 100 MCG PATCH TD SCH (10:22)
[2017-01-07] MEDS: VANCOMYCIN 1,000 MG in 0.9 % SODIUM CHLORIDE 250 ML IV SCH ×2 (10:22→20:17)
--- NOTE | 2017-01-07 10:40 | Internal Med Progress Note ---
Medical - PN: Subj Patient information: Note initiated : 01/07/17 at 10:35 am Service Date, if different from initiated Date: [] Patient: Tripp Melo a 66 y/o M admitted on 12/16/16 for Bowel Abscess, Bladder Fistula. Chief Complaint: [] Interval history: 12/16- Mr. Melo is a 66 year old male who as admitted last night by Dr. Azul for small bowel-bladder fistula. 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 December 23: the patient is now status post small bowel resection and bladder repair. e is a bit groggy, and says he feels "rough", but denies significant pain currently. He denies current chest pain or trouble breathing. Abdomen feels a bit bloated. Apparently a malignant neoplasm was found at surgery, eroding through the small bowel into the bladder. 12/24- patient seen in room post operative day 1. No overnight events. NG tube draining bilious output. No telemetry events. No concerns per staff. Complains of significant abdominal pain around the incision site. However alert lucid and responding verbal commands. Foleys draining clear urine. On TPN. IV fluids lowered from 125 an hour to TKO. 12/25- patient feels depressed. Hold out NG tube last night. Complains of significant abdominal pain. On TPN. Liquid BM today. White count over 17, 000. On broad antibiotic coverage-imipenem. Surgery managing postop care. Continue management in ICU in light of worsening leukocytosis. reinsert NG tube if patient agrees. 12/26- NG tube could not be placed. Patient on TPN. Potassium 2.7. Persistent operative site pain. Postoperative care managed as per surgery recommendations. White count down from 17.4-12.2. no overnight nausea vomiting , low-grade temperature at 99.7. good urine output. 2/3-patient doing well. No significant abdominal distention fever chills or telemetry events. Pain control adequate. On TPN. Good urine output. white count downtrending from 17.4-10.1. potassium improved to 4 from 2.7. iimproved tachycardia around 104. saturating on room air. Afebrile. Patient feels better than previous day. 12/28- 12/31- patient stable on TPN. Out of ICU. 01/01-multiple loose watery stool. C. difficile pending. Very sedated. reversed with flumazenil. recommend lowering benzodiazepine dose. 01/02- C. difficile positive. Started on vancomycin oral/IV Flagyl. Stage II decubitus pressure ulcers. Wound care consulted. Patient is significantly deconditioned and is high risk mortality. Patient would require long-term care for deconditioning from prolonged hospital stay along with aggressive wound care /nutrition supplements. 01/03- patient on regular diet along with TPN. discussed option of transfer to [facility] acute care unit for long-term rehabilitation. however patient adamantly refuses to go to LTAC. Patient has had prolonged hospital stay with deconditioning/need for TPN/associated with C. difficile/protein calorie malnutrition. Patient understands the complicated nature of his illness but wishes to continue treatment locally. no overnight fever chills nausea vomiting or concerns expressed by nursing staff. Ongoing physical therapy. improving diarrhea 01/04-patient advancing diet per surgery. no further recommendations from medical services. Continue existing treatment for pre-existing medical issues 01/05- patient doing well. Tolerating physical therapy. Awaiting LTAC transfer. On TPN/oral diet. Much improved mentation. Feels upbeat and participating in therapies 11/05- patient doing well. No overnight events. No concerns per staff. No fever chills nausea vomiting. Patient meeting goals as per physical therapy and may be able to transfer locally rehabilitation. 11/06- patient doing well no overnight events. Ambulating with assistance. Able to bear weight. Again no concerns per patient or staff. On TPN/diet. - Constitutional Vitals: Vital Signs Temp Pulse Resp BP Pulse Ox 97.7 F 105 H 22 113/68 99 01/07/17 08:00 01/07/17 08:00 01/07/17 08:00 01/07/17 08:00 01/07/17 08:00 Period Temp Pulse Resp BP Sys/Lerma Pulse Ox Last 24 Hr 97.5 F-98.3 F 88-113 18-24 97-130/55-71 97-99 Intake and Output 01/06/17 01/07/17 01/07/17 21:59 05:59 13:59 Intake Total 2523.1871 / 3.1871 500 / 500 560 / 560 Output Total 252 / 252 426 / 426 700 / 700 Balance 2271.1871 / 1.187 74 / 74 -140 / -140 Weight 129 lb 8 oz Intake & Output: Intake & Output 01/06/17 01/07/17 01/07/17 21:59 05:59 13:59 Intake Total 2523.1871 / 3.1871 500 / 500 560 / 560 Output Total 252 / 252 426 / 426 700 / 700 Balance 2271.1871 / 2270.1871 74 / 74 -140 / -140 Weight 129 lb 8 oz Intake: IV 3.1871 / 2523.1871 200 / 200 200 / 200 Calcium Gluconate 10 Meq 2072.1870 / 2072.1870 Magnesium Sulfate 8.12 Meq Potassium Phosphate 80 Meq Infuvite Adult 10 ml Selenium 60 Mcg Potassium Acetate 20 Meq Sodium Acetate 20 Meq In Clinimix 5%-20% Solution 2,000 ml @ 85 mls/hr IV DAILY@1600 [facility] Rx#: [id number] Sodium Chloride 0.9% 100 100 / 100 100 / 100 100 / 100 ml @ 100 mls/hr IV Q8 [facility] with Primaxin 500 mg Rx# :[id number] Sodium Chloride 0.9% 250 250 / 250 ml @ 250 mls/hr IV Q12H [facility] with Vancomycin 1,000 mg Rx#:[id number] Oral 300 / 300 360 / 360 Output: Void Amount 250 / 250 425 / 425 700 / 700 # of times incontinent of 2 / 2 1 / 1 urine Other: Percent of Meal Consumed 50% Feeding Ability Assist with Tray Set Up # Bowel Movements 1 General appearance: cooperative, no acute distress Exam: Ambulating with assistance Nonlabored breathing No anxiety Medical - PN: Obj Da - Labs CBC & Chem 7: 01/06/17 06:04 01/06/17 06:05 Labs: Abnormal Lab Results 01/06/17 01/06/17 01/05/17 06:05 06:04 06:03 RBC 3.19 L Hgb 9.1 L Hct 26.7 L RDW 20.6 H Lymph % (Auto) 15.4 L Lymph # 1.3 L Creatinine 0.5 L 0.4 L Uric Acid 1.5 L Calcium 8.3 L 8.3 L GGT 174 H Alkaline Phosphatase 154 H Total Protein 4.9 L Albumin 2.7 L Triglycerides 151 H 01/05/17 01/05/17 06:03 06:02 RBC 3.15 L Hgb 8.9 L Hct 26.1 L RDW 19.9 H Lymph % (Auto) Lymph # 1.3 L Creatinine 0.5 L Uric Acid 1.4 L Calcium 8.3 L GGT 181 H Alkaline Phosphatase 156 H Total Protein 4.9 L Albumin 2.7 L Triglycerides Meds: Medications Carbidopa/Levodopa (Sinemet 25/100) 2 tab PO QID [facility] Last Admin: 01/07/17 09:01 Dose: 2 tab Clotrimazole (Mycelex) 10 mg PO 5XD [facility] Last Admin: 01/07/17 09:00 Dose: 10 mg Dextrose (Dextrose 50%) 0 ml IV UD PRN PRN Reason: Hypoglycemia Diagnostic Test (Pha) (Accu-Chek) 1 each FS ACHS [facility] Last Admin: 01/07/17 06:59 Dose: 1 each Fentanyl (Duragesic) 100 mcg TD Q48H [facility] Last Admin: 01/07/17 10:22 Dose: 100 mcg Flumazenil (Romazicon) 0.2 mg IV Q1MIN PRN PRN Reason: BENZODIAZEPINE REVERSAL Last Admin: 01/01/17 11:55 Dose: 0.2 mg Gabapentin (Neurontin) 300 mg PO QID [facility] Last Admin: 01/07/17 09:01 Dose: 300 mg Heparin Sodium (Porcine) (Heparin) 5,000 unit SQ Q12 [facility] Last Admin: 01/07/17 09:00 Dose: 5,000 unit Heparin Sodium (Porcine) (Heparin Flush) 2 ml IV Q12 [facility] Last Admin: 01/07/17 09:01 Dose: 2 ml Hydromorphone HCl (Dilaudid) 2 mg IV Q2HP PRN PRN Reason: Pain Last Admin: 01/02/17 20:20 Dose: 1 mg Fat Emulsion Intravenous (Intralipid 20%) 250 mls @ 25 mls/hr IV MoWeFr@1600 [facility] Last Admin: 01/06/17 15:27 Dose: 25 mls/hr Imipenem/Cilastatin Sodium 500 (mg/ Sodium Chloride) 100 mls @ 100 mls/hr IV Q8 [facility] Last Infusion: 01/07/17 09:41 Dose: Infused Sodium Chloride (Sodium Chloride 0.9%) 1,000 mls @ 20 mls/hr IV .Q24H [facility] Last Admin: 01/06/17 11:00 Dose: 20 mls/hr Acetaminophen (Ofirmev) 1,000 mg in 100 mls @ 200 mls/hr IV Q6HP PRN PRN Reason: Pain Vancomycin HCl 1,000 mg/ (Sodium Chloride) 250 mls @ 250 mls/hr IV Q12H [facility] Last Admin: 01/07/17 10:22 Dose: 250 mls/hr Metronidazole (Flagyl) 500 mg in 100 mls @ 100 mls/hr IV Q6 [facility] Last Infusion: 01/07/17 07:00 Dose: Infused Calcium Gluconate 10 meq/Magnesium Sulfate 8.12 meq/Potassium Phosphate 80 meq/ Multivitamins/Minerals 10 ml/Selenium 60 mcg/ Potassium Acetate 20 meq/ Sodium Acetate 20 meq/ Amino Acids 2,073.1871 mls @ 85 mls/hr IV DAILY@1600 [facility] Last Admin: 01/06/17 17:16 Dose: 85 mls/hr Insulin Human Lispro (Humalog) 0 unit SQ ACHS [facility] PRN Reason: Protocol Last Admin: 01/07/17 07:07 Dose: Not Given Ketoconazole (Nizoral 2% Top Crm) 1 dose TOPICAL BID [facility] Last Admin: 01/07/17 09:02 Dose: 1 dose Levothyroxine Sodium (Synthroid) [facility] Last Admin: 01/07/17 06:58 Dose: 50 mcg Lorazepam (Ativan) 0.5 mg IV Q4-6HP PRN PRN Reason: ANXIETY/SEDATION Last Admin: 01/06/17 22:32 Dose: 0.5 mg Metoprolol Tartrate (Lopressor) 5 mg IV Q4HP PRN PRN Reason: Tachyarrhythmias Testosterone [ Androderm] 4 Mg Patch 4 dose TOPICAL QDAY [facility] Last Admin: 01/07/17 09:03 Dose: Not Given Pantoprazole Sodium (Protonix) 40 mg IV QAMAC [facility] Last Admin: 01/07/17 06:58 Dose: 40 mg Apomorphine (Apokyn) (10mg/Ml) 0.3 dose SC Q2HP PRN PRN Reason: Tremors Rotigotine [Neupro] (4 Mg Patch) 1 dose TOPICAL DAILY [facility] Last Admin: 01/07/17 09:03 Dose: 1 dose Rotigotine [Neupro] (8 Mg Patch) 1 dose TOPICAL DAILY [facility] Last Admin: 01/07/17 09:04 Dose: 1 dose Frovatriptan Succinate [Frova] 2. 5 Mg Tab 1 dose PO DAILYP PRN PRN Reason: Migraine Headache Lubiprostone [ Amitiza] 24 Mcg Capsule 1 dose PO BID [facility] Last Admin: 01/07/17 09:03 Dose: Not Given Mirabegron [ Myrbetriq] 50 Mg Tablet 1 dose PO DAILY@1900 [facility] Last Admin: 01/06/17 20:19 Dose: 1 dose Tadalafil [Cialis] 5 (Mg Tablet) 1 dose PO HS [facility] Last Admin: 01/06/17 20:23 Dose: Not Given Potassium Chloride (Kdur) 10 meq PO QAMCC [facility] Last Admin: 01/07/17 09:00 Dose: 10 meq Sodium Chloride (Saline Flush) 10 ml IV UD PRN PRN Reason: FLUSH Sodium Chloride (Saline Flush) 10 ml IV Q8 [facility] Last Admin: 01/07/17 06:59 Dose: Not Given Tamsulosin HCl (Flomax) 0.8 mg PO QDAY [facility] Last Admin: 01/07/17 08:59 Dose: 0.8 mg Vancomycin HCl (Vancomycin Per Pharmacy) 1 order IV UD [facility] Vancomycin HCl (Vancomycin Oral Shagufta) 250 mg PO QID [facility] Last Admin: 01/07/17 09:04 Dose: 2.5 ml Medical - PN: A/P - Time Spent With Patient Total time spent is greater than 50% in coordination of care (as documented) at patient's floor/unit and/or counseling patient: 15 - 24 minutes (1) Enterovesical fistula Status: Resolved Assessment and plan: * Enterovesical fistula with intraabdominal abscess-postop day 14. Hospital day 22, continue management per surgery. On imipenem * Nutrition-on TPN as per surgery. on diet as per surgery Hospitalist consult per medical issues as below * C. difficile enterocolitis- Continue vancomycin/Flagyl for total of 14 days. * Severe sepsis secondary to intra-abdominal abscess/C. difficile- resolved * Stage II decubitus ulcers- continue wound care Dr. Hamilton consulted * Parkinson's disease-levodopa/carbidopa/amantadine * History of migraine -continue home meds * Generalized anxiety disorder- mirtazapine * hypothyroidism- thyroxine * Hyperlipidemia- atorvastatin * BPH continue tamsulosin * Severe anemia-Status post transfusion. hemoglobin 9.1 * altered mental status- fully resolved * severe deconditioning-anticipate SNF transfer * hypokalemia-resolved plan * continue physical therapy/SNF transfer once coordinated * continue oral vancomycin. DC Flagyl * wound care per Dr. hamilton * pre-existing medical condition management as above * case management to arrange SNF transfer * discharge planning as per surgery recommendations Current Visit: No Medical - PN: Qual - Stroke Symptom Onset Unknown: No - VTE Deep Vein Thrombosis/Pulmonary Embolism Present on Admission: No
[2017-01-07] MEDS: 0.9 % SODIUM CHLORIDE 1,000 ML IV SCH (12:30)
[2017-01-07] MEDS: CALCIUM GLUCONATE IV SCH ×2 (14:00→16:14)
[2017-01-07] MEDS: [UNRECOGNIZED DRUG - OTHER] IV SCH ×2 (14:00→16:14)
[2017-01-07] MEDS: POTASSIUM PHOSPHATE IV SCH ×2 (14:00→16:14)
[2017-01-07] MEDS: MVI IV SCH ×2 (14:00→16:14)
[2017-01-07] MEDS: MAGNESIUM SULFATE IV SCH ×2 (14:00→16:14)
--- NOTE | 2017-01-07 15:49 | Surgical Pathology Report ---
HISTOLOGY SPECIMEN MICROSCOPIC DIAGNOSIS SPECIMEN A - SOFT TISSUE, SUBMITTED "BOWEL TISSUE", EXCISION: -- SPINDLE CELL (SARCOMATOID) CARCINOMA; SEE COMMENT. SPECIMEN B - BLADDER, BIOPSY: -- SPINDLE CELL (SARCOMATOID) CARCINOMA; SEE COMMENT. SPECIMEN C - CECUM, TERMINAL ILEUM, APPENDIX AND ADDITIONAL BOWEL SEGMENTS AND MESENTERY, EN-BLOCK RESECTION: -- SPINDLE CELL (SARCOMATOID) CARCINOMA, APPROXIMATELY 18.5 cm IN GREATEST DIMENSION, INVOLVING PREDOMINANTLY SMALL INTESTINAL MESENTERY; SEE COMMENT. -- SMALL INTESTINE WITH MULTIPLE GROSS PERFORATIONS. -- MALIGNANCY INVOLVES SEROSAL SURFACE OF MESENTERY. -- PROXIMAL AND DISTAL STAPLED MARGINS FREE OF TUMOR. -- APPENDIX WITH NO DIAGNOSTIC ALTERATIONS. -- NO METASTATIC MALIGNANCY IDENTIFIED IN THREE LYMPH NODES. 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 The current material shows an invasive poorly differentiated malignant neoplasm with spindle/sarcomatoid features which involves primarily the small bowel mesentery with extension to bladder wall and mucosa of multiple loops of small intestine at sites of perforation. The involved tissue spans approximately 18.5 cm and is associated with marked necrosis and fecal material. No in situ/precursor lesion is identified with the small intestinal or bladder mucosa. Immunohistochemical studies are performed and the neoplastic cells are positive for vimentin, pancytokeratin plus, CD10 and CD56. All additional studies, including those more specific for gastrointestinal stromal tumor (GIST), mesothelioma and melanoma, are negative (see Microscopic Description for complete details). Overall, the combined morphologic and immunophenotypic findings are most suggestive of a spindle cell (sarcomatoid) carcinoma. The case was forwarded to Dr. Mario Forrest ([facility]) for expert consultation with the hope that additional studies would better classify the neoplasm and/or suggest a possible primary site. Numerous additional studies were performed, including additional melanoma markers, assessment for the Ewings sarcoma EWSR1 rearrangement and multiple organ specific markers. The studies were largely negative with few positive studies confirming both mesenchymal and epithelial differentiation. All tested organ specific markers were negative. Overall, Dr. Forrest agrees that the findings are most consistent with a spindle cell (sarcomatoid) carcinoma. In the absence of organ specific marker expression, the primary site remains indeterminate. Please see attached consultation report for complete details. INTRAOPERATIVE CONSULTATION FROZEN SECTION DIAGNOSIS (Performed at [facility], [place], [place]) SOFT TISSUE, SUBMITTED "BOWEL TISSUE", EXCISION: -- POORLY DIFFERENTIATED MALIGNANT NEOPLASM WITH SARCOMATOID FEATURES. (DMT:sln) MICROSCOPIC DESCRIPTION The following immunohistochemical studies are performed on Block A1: Cell Population: Neoplastic cells. Vimentin: Positive. CD10: Positive. Pancytokeratin plus: Variably positive. CD31, CD34: Negative. S100: Negative. CD56: Variably positive. SM-MHC, HHF35, Desmin: Negative. ELVIN: Negative. Calretinin, WT-1: Negative. Melan-A: Negative. Interpretation: Compatible with spindle cell (sarcomatoid) carcinoma. Some of the tests reported here may not have been cleared or approved by the U.[place]. Food and Drug Administration (FDA). However, the FDA has determined that such clearance or approval is not necessary. Pursuant to the requirements of CLIA, this laboratory has established and verified the accuracy and precision of all tests, and additional information about these tests is available upon request. All technical controls are adequate. PROCEDURAL IMPRESSION Intestinovesical fistula. GROSS DESCRIPTION Specimen A: Received fresh labeled bowel tissue, are three fragments of brush-pink to zambrano-brown tissue, ranging in size 1.5 to 3 cm in greatest dimension. Each is inked black. Stove Mechanic sections are submitted for frozen section consultation and resubmitted as FSA. The remainder is entirely submitted in two cassettes. (DMT:sln) Specimen B: Received in formalin, labeled bladder, are three portions of brush-brown soft tissue with green stained surfaces. The largest is 10.5 x 2.8 x 2.5 cm. The second largest is 5.3 x 2.8 x 1.9 cm. The smallest is 3.9 x 2.1x 0.8 cm. The margins are inked black. Stove Mechanic sections are submitted as follows: B1-B4 - largest fragment; B5 - second largest fragment; B6 - smallest fragment. Specimen C: Received in formalin, labeled small bowel, is a complex portion of multiple segments of small intestine with associated mesentery, cecum and appendix. The central specimen has a green-brown dyed 18.5 x 8 cm area of matted mesentery/necrotic tissue with that communicate with multiple perforated segments of adjacent small intestine. The largest segment of small bowel is a 36 cm long, up to 2.5 cm in diameter portion of terminal ileum which connects to a 8.5 cm long, 6.2 in diameter portion of cecum and ascending colon. An unremarkable 6 cm long, 0.7 cm in diameter appendix is attached to the cecal wall. The proximal end of this segment of ileum communicates with the previously described brown-green matted area. In addition, within this segment of ileum, located 4 cm from the ileocecal valve is a 2.2 cm long transmural perforation which communicates with the matted area and 6 cm proximal to this perforation is a 3.2 cm long transmural defect which communicates with the matted area. The cecum is without defects/perforations. In addition to the large segment of ileum are two smaller segments of small intestine with ends that are hemorrhagic and roughened consistent with additional sites of perforation. The longer segment is 15 cm long and up to 3.3 cm in diameter and the shorter segment is 7 cm long and up to 2.2 cm in diameter. One end of the shorter segment is stapled. The lumen of each is filled with brush-brown mucoid material. The intestinal mucosa of each segment has the usual plicated pattern and no mucosal mass lesions are identified. The small intestinal wall is on average up to 0.6 cm thick. The portion of cecum has a minimal amount of mucoid material. The large intestinal mucosa is unremarkable and without mass lesions. The wall of the large intestine is on average 0.6 cm thick. Within the necrotic mass of fecal stained tissue is an approximately 5.5 x 4.3 x 3.5 cm brush-white possible mass. The soft tissue overlying the mass is inked black. Stove Mechanic sections are submitted as follows: C1 - proximal and distal margins of segment of cecum with attached long segment of terminal ileum; C2 - appendix; C3 - first described defect nearest ileocecal valve; C4 - second described defect in main segment; C5 - ends of second largest segment of small intestine; C6 - ends of smallest small intestine segment one end stapled, inked black and the other end open; C7-C12 - exhibit display representative cross sections of mass and matted area with necrotic tissue; C13 - one candidate lymph node, bisected; C14 - exhibit display representative sections of candidate lymph nodes. (DMT:doris) Electronically Signed by: Augie Johansen M.D.
--- NOTE | 2017-01-07 17:11 | General Surgery Progress Note ---
Subjective Patient reports: feels better, tolerating a regular diet, voiding w/o difficulty , flatus, bowel movement, diarrhea, afebrile Narrative: Note initiated : 01/07/17 at 5:09 pm Service Date, if different from initiated Date: [] Patient: Tripp Melo 66 y/o M admitted on 12/16/16 for Bowel Abscess, Bladder Fistula. Chief Complaint: [patient is doing extremely well. He has no new complaints. He has reachedmaximum benefit from inpatient treatment. He is agreeable to be transferred to the nursing care facility tomorrow] Objective Temp Pulse Resp BP Pulse Ox 98.8 F 98 H 18 118/68 98 01/07/17 15:52 01/07/17 15:52 01/07/17 15:52 01/07/17 15:52 01/07/17 15:52 - Additional Data Intake & Output - Last 24 hours: Intake & Output 01/05/17 01/06/17 01/07/17 01/08/17 05:59 05:59 05:59 05:59 Intake Total 3970.1871 / 3970.1871 2279 / 2279 4485.1871 / 4485.1871 3566 / 3566 Output Total 803 / 803 580 / 580 978 / 978 1002 / 1002 Balance 3167.1871 / 3167.1871 1699 / 1699 3507.1871 / 3507.1871 2564 / 2564 Weight 128 lb 128 lb 8 oz 129 lb 8 oz 129 lb 8 oz - Labs 01/06/17 06:04 01/06/17 06:05 Medical - PN: A/P - Time Spent With Patient Total time spent is greater than 50% in coordination of care (as documented) at patient's floor/unit and/or counseling patient: (1) Enterovesical fistula Status: Resolved Assessment and plan: patient is doing well and has essentially recovered from the surgery Current Visit: No (2) Dehydration Status: Resolved Current Visit: Yes (3) Hypokalemia due to loss of potassium Status: Resolved Current Visit: Yes (4) Iron deficiency anemia Status: Acute Current Visit: Yes (5) Anemia Status: Chronic Current Visit: No (6) Parkinson disease Status: Chronic Assessment and plan: patient is restarted on all of his medications for parkinsonism he shows major improvement every day since start of his oral medication Current Visit: No (7) Sleep apnea, obstructive Status: Chronic Current Visit: No (8) Clostridium difficile colitis Status: Acute Assessment and plan: continue present medication regimen Encouraged patient to interact with physical and occupational therapy anticipate discharge in a.m. Current Visit: Yes
[2017-01-07] MEDS: Tadalafil [Cialis] 5 MG Tablet PO SCH (21:39)
[2017-01-08] MEDS: IMIPENEM/CILASTATIN SODIUM 500 MG in 0.9 % SODIUM CHLORIDE 100 ML IV SCH ×3 (05:07→22:20)
[2017-01-08] MEDS: 0.9 % SODIUM CHLORIDE 10 ML SYRINGE IV SCH ×3 (05:08→20:57)
[2017-01-08] MEDS: PANTOPRAZOLE 40 MG VIAL IV SCH (07:25)
[2017-01-08] MEDS: LEVOTHYROXINE 100 MCG VIAL IV SCH (07:30)
[2017-01-08] MEDS: HEPARIN 5,000 UNIT/ML VIAL SQ SCH ×2 (08:30→20:54)
[2017-01-08] MEDS: VANCOMYCIN ORAL SOL 1,000 MG/10 ML BOTTLE PO SCH ×4 (09:00→20:54)
[2017-01-08] MEDS: KETOCONAZOLE 2% TOP CRM 15GM TUBE TOPICAL SCH ×2 (09:00→21:00)
[2017-01-08] MEDS: TAMSULOSIN 0.4 MG CAPSULE PO SCH (09:05)
[2017-01-08] MEDS: VANCOMYCIN 1,000 MG in 0.9 % SODIUM CHLORIDE 250 ML IV SCH ×2 (10:20→20:49)
[2017-01-08] MEDS: INSULIN LISPRO 1 UNIT/0.01 ML UNIT SQ SCH ×3 (10:22→23:03)
[2017-01-08] MEDS: CLOTRIMAZOLE 10 MG TROCHE PO SCH ×5 (10:23→20:56)
[2017-01-08] MEDS: CARBIDOPA/LEVODOPA 25/100 TABLET PO SCH ×4 (10:26→20:53)
[2017-01-08] MEDS: GABAPENTIN 300 MG CAPSULE PO SCH ×4 (10:28→20:53)
[2017-01-08] MEDS: ROTIGOTINE 4 MG TOPICAL SCH (10:29)
--- NOTE | 2017-01-08 10:29 | Discharge Summary ---
Providers - Providers Patient information: Note initiated : 01/08/17 at 10:26 am Service Date, if different from initiated Date: [] Patient: Tripp Melo 66 y/o M admitted on 12/16/16 for Bowel Abscess, Bladder Fistula. Chief Complaint: [] Date of admission: 01/16/17 Discharge date: 01/09/17 Attending physician: Jim Azul hospitalist Hospitalization Hospital course: 66-year-old male who was referred to the office for evaluation of the suspected enterovesical. He had a CT done which showed a very large small bowel abscess involving the distal bow with fistulization into the posterior wall of the bladder. The patient presented to the office extremely weakcomplaining of lower abdominal pain nausea and vomiting It was felt that he needed urgent admission and he was admitted directly from the office with suspected sepsis dehydration and anemia. His admission labs revealed a white count of 22,100, hemoglobin 6.6 , potassium 2.0, DUN 60, pre-albumen 10.2. The patient was admitted and immediately had replacement of his potassium and he was transfused 2 about 10. He was started on double antibiotics. Arrangements were made for TPN with lipids and this was started on 18 December and continued throughout his hospitalization until 05 January. After stabilization he was taken to the operating room on Friday. At the time of surgery an infiltrating malignant neoplasm of the small bowel and small bowel with erosion into the posterior wall of the bladder. 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 I did a small bowel r with right c with primary anastomosis and Dr. Taylor did partial cystectomy with primary closure The patient had a long history of constipation and had a prolonged postoperative ileus. He was continued on TPN until he developed good intestinal function. He was started on clear liquids on 01 January and has been on regular diet since 03 January there. TPN was discontinued on 05 January. Other medical problems revealed that he had a history of Lane sarcoma of the right femur in 1993 He also had melanoma of the s He has pro moderately severe parkinsonism and is on a multidrug regimen for this problem. Patient has gradually improved and is now stable enough for transfer to a rehabilitation center. He is back on all of his pre-admission medications. He did develop Clostridium difficile colitis and has been on IV Flagyl and by mouth vancomycin and is developing more solid stools at s time. He should be continued on that for 2 weeks. At this time he is off f all IV medications His PICC line will remain in place and he can be transferred with a PICC line in place for potential future use if needed. He is tolerating a regular diet. The patient has some diarrhea with incontinence which should improve as his C. difficile colitis resolves. He also has urinary urgency with incontinence which is due to his small bladder capacity. This should improve with time. The patient is stable at this time and can be transferred to the [facility] on 09 January 2017. 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 Secondary discharge diagnosis: Entero vesicle fistula with abscess formation Severe hypokalemia(2.0) Severe anemia(6.6) Severe protein calorie malnutrition parkinson"s syndrome Dehydration with renal failure Gastroesophageal reflux disease with esophagitis Obstructive sleep apnea Generalized anxiety disorder Clostridium difficile colitis Reason for admission: margo-vesicle fistula with abscess Procedures: right colon and distal small bowel resection with primary anastomosis Partial cystectomy Complications: none Exam Temp Pulse Resp BP Pulse Ox 97.7 F 99 H 16 131/86 98 01/08/17 07:58 01/08/17 07:58 01/08/17 07:58 01/08/17 07:58 01/08/17 07:58 - General physical appearance well developed, well nourished, no distress - Eyes PERRL, normal ocular movement - ENT normal pinna, normal nares, normal mucosa, no hearing loss, no congestion - Head Head exam IM: Present: atraumatic, normocephalic - Neck no masses, no bruits, trachea midline, no lymphadectomy, no venous distension - Cardiovascular Cardiovascular exam IM: Present: normal rate and rhythm, irregular rhythm, +S1, +S2 - Respiratory normal expansion, normal respiratory effort, clear to percussion, clear to auscultation - Abdomen Abdomen: Present: soft, non tender, bowel sounds, surgical scars (surgical incision is heale) Hernia: Present: none - Genitourinary Present: normal penis with no external lesions - Integumentary Present: no rash, no growths, no abnormal pigmentation - Neurologic Present: normal coordination, normal sensation, deep tendon reflexes ( hyperactive reflexes) - Musculoskeletal Present: other (unstable gait and posture due to advanced Parkinson's disease) - Psychiatric Present: oriented to time, oriented to person, oriented to place, speech is normal, memory intact Discharge Plan - Patient/Caregiver Discharge Instructions Activity: increase activity as tolerated Diet: Regular Diet (question sent a prescription) Prescriptions: Vancomycin Oral Shagufta 250 mg PO QID #60 bottle oxyCODONE HCL/ACETAMINOPHEN [Endocet 5-325 Tablet] 1 tab PO Q6-8HP PRN #100 tab PRN Reason: pain - Follow up Plan Disposition: Xfer SNF Prognosis: Fair Rehab Potential: Good I certify that the patient requires SNF services.: Yes Overall status at discharge: patient is not back to baseline Pending Studies Resuscitation Status Full Code Diet Regular Diet Start Angelica Jan 02 Lunch Carbidopa/Levodopa (Sinemet 25/100) 2 tab PO QID [facility] Last Admin: 01/07/17 21:36 Dose: 2 tab Admin: 01/07/17 17:14 Dose: 2 tab Admin: 01/07/17 14:08 Dose: 2 tab Admin: 01/07/17 09:01 Dose: 2 tab Admin: 01/06/17 20:20 Dose: 2 tab Admin: 01/06/17 18:10 Dose: 2 tab Admin: 01/06/17 15:24 Dose: 2 tab Admin: 01/06/17 09:51 Dose: 2 tab Admin: 01/05/17 20:35 Dose: 2 tab Admin: 01/05/17 17:21 Dose: 2 tab Admin: 01/05/17 13:26 Dose: 2 tab Admin: 01/05/17 09:22 Dose: 2 tab Admin: 01/04/17 20:55 Dose: 2 tab Admin: 01/04/17 17:31 Dose: 2 tab Admin: 01/04/17 13:49 Dose: 2 tab Admin: 01/04/17 10:00 Dose: 2 tab Admin: 01/03/17 22:15 Dose: 2 tab Admin: 01/03/17 17:27 Dose: 2 tab Admin: 01/03/17 15:31 Dose: 2 tab Admin: 01/03/17 08:50 Dose: 2 tab Admin: 01/02/17 20:28 Dose: 2 tab Admin: 01/02/17 16:55 Dose: 2 tab Admin: 01/02/17 14:16 Dose: 2 tab Admin: 01/02/17 09:04 Dose: 2 tab Admin: 01/01/17 21:57 Dose: 2 tab Clotrimazole (Mycelex) 10 mg PO 5XD [facility] Last Admin: 01/07/17 20:17 Dose: 10 mg Admin: 01/07/17 17:13 Dose: 10 mg Admin: 01/07/17 14:09 Dose: 10 mg Admin: 01/07/17 12:29 Dose: 10 mg Admin: 01/07/17 09:00 Dose: 10 mg Admin: 01/06/17 20:23 Dose: 10 mg Admin: 01/06/17 18:09 Dose: 10 mg Admin: 01/06/17 15:24 Dose: 10 mg Admin: 01/06/17 11:47 Dose: 10 mg Admin: 01/06/17 07:20 Dose: 10 mg Admin: 01/05/17 20:42 Dose: 10 mg Admin: 01/05/17 17:21 Dose: 10 mg Admin: 01/05/17 13:26 Dose: 10 mg Admin: 01/05/17 12:11 Dose: 10 mg Admin: 01/05/17 07:52 Dose: 10 mg Admin: 01/04/17 20:55 Dose: 10 mg Admin: 01/04/17 17:30 Dose: 10 mg Admin: 01/04/17 13:49 Dose: 10 mg Admin: 01/04/17 11:45 Dose: 10 mg Admin: 01/04/17 08:26 Dose: 10 mg Admin: 01/03/17 20:56 Dose: 10 mg Admin: 01/03/17 17:27 Dose: 10 mg Admin: 01/03/17 15:33 Dose: 10 mg Admin: 01/03/17 11:41 Dose: 10 mg Admin: 01/03/17 08:48 Dose: 10 mg Admin: 01/02/17 20:27 Dose: 10 mg Admin: 01/02/17 16:56 Dose: 10 mg Admin: 01/02/17 14:07 Dose: 10 mg Admin: 01/02/17 14:05 Dose: Not Given Admin: 01/02/17 09:03 Dose: 10 mg Admin: 01/01/17 21:57 Dose: 10 mg Admin: 01/01/17 17:28 Dose: 10 mg Admin: 01/01/17 16:03 Dose: 10 mg Admin: 01/01/17 12:50 Dose: 10 mg Admin: 01/01/17 07:56 Dose: 10 mg Admin: 12/31/16 20:29 Dose: 10 mg Admin: 12/31/16 17:47 Dose: 10 mg Admin: 12/31/16 14:26 Dose: 10 mg Diagnostic Test (Pha) (Accu-Chek) 1 each FS ACHS [facility] Last Admin: 01/07/17 20:26 Dose: 1 each Admin: 01/07/17 17:14 Dose: 1 each Admin: 01/07/17 12:29 Dose: 1 each Admin: 01/07/17 06:59 Dose: 1 each Admin: 01/06/17 20:35 Dose: 1 each Admin: 01/06/17 17:45 Dose: 1 each Admin: 01/06/17 11:48 Dose: 1 each Admin: 01/06/17 07:34 Dose: 1 each Admin: 01/05/17 20:49 Dose: 1 each Admin: 01/05/17 16:47 Dose: 1 each Admin: 01/05/17 11:29 Dose: 1 each Admin: 01/05/17 07:51 Dose: 1 each Admin: 01/04/17 21:08 Dose: 1 each Admin: 01/04/17 17:30 Dose: 1 each Admin: 01/04/17 11:45 Dose: 1 each Admin: 01/04/17 08:25 Dose: 1 each Admin: 01/03/17 21:28 Dose: 1 each Admin: 01/03/17 17:15 Dose: 1 each Admin: 01/03/17 12:19 Dose: 1 each Admin: 01/03/17 07:50 Dose: 1 each Admin: 01/02/17 20:40 Dose: 1 each Admin: 01/02/17 16:56 Dose: 1 each Fentanyl (Duragesic) 100 mcg TD Q48H [facility] Last Admin: 01/07/17 10:22 Dose: 100 mcg Admin: 01/05/17 09:22 Dose: 100 mcg Admin: 01/03/17 11:41 Dose: 100 mcg Admin: 01/01/17 12:50 Dose: 100 mcg Flumazenil (Romazicon) 0.2 mg IV Q1MIN PRN PRN Reason: BENZODIAZEPINE REVERSAL Last Admin: 01/01/17 11:55 Dose: 0.2 mg Gabapentin (Neurontin) 300 mg PO QID [facility] Last Admin: 01/07/17 21:36 Dose: 300 mg Admin: 01/07/17 17:13 Dose: 300 mg Admin: 01/07/17 13:10 Dose: 300 mg Admin: 01/07/17 09:01 Dose: 300 mg Admin: 01/06/17 20:20 Dose: 300 mg Admin: 01/06/17 18:09 Dose: 300 mg Admin: 01/06/17 15:23 Dose: 300 mg Admin: 01/06/17 09:49 Dose: 300 mg Admin: 01/05/17 20:35 Dose: 300 mg Admin: 01/05/17 17:21 Dose: 300 mg Admin: 01/05/17 13:26 Dose: 300 mg Admin: 01/05/17 09:22 Dose: 300 mg Admin: 01/04/17 20:55 Dose: 300 mg Admin: 01/04/17 17:30 Dose: 300 mg Admin: 01/04/17 13:49 Dose: 300 mg Admin: 01/04/17 10:00 Dose: 300 mg Admin: 01/03/17 22:16 Dose: 300 mg Admin: 01/03/17 17:26 Dose: 300 mg Admin: 01/03/17 15:31 Dose: 300 mg Admin: 01/03/17 08:49 Dose: 300 mg Admin: 01/02/17 20:27 Dose: 300 mg Admin: 01/02/17 16:55 Dose: 300 mg Admin: 01/02/17 14:16 Dose: 300 mg Admin: 01/02/17 09:30 Dose: 300 mg Admin: 01/01/17 21:57 Dose: 300 mg Heparin Sodium (Porcine) (Heparin) 5,000 unit SQ Q12 [facility] Last Admin: 01/07/17 21:36 Dose: 5,000 unit Admin: 01/07/17 09:00 Dose: 5,000 unit Admin: 01/06/17 20:21 Dose: 5,000 unit Admin: 01/06/17 09:50 Dose: 5,000 unit Admin: 01/05/17 20:37 Dose: 5,000 unit Admin: 01/05/17 09:23 Dose: 5,000 unit Admin: 01/04/17 20:57 Dose: 5,000 unit Admin: 01/04/17 10:01 Dose: 5,000 unit Admin: 01/03/17 22:15 Dose: 5,000 unit Admin: 01/03/17 08:48 Dose: 5,000 unit Admin: 01/02/17 20:25 Dose: 5,000 unit Admin: 01/02/17 09:02 Dose: 5,000 unit Admin: 01/01/17 21:57 Dose: 5,000 unit Admin: 01/01/17 11:26 Dose: 5,000 unit Admin: 12/31/16 20:27 Dose: 5,000 unit Heparin Sodium (Porcine) (Heparin Flush) 2 ml IV Q12 [facility] Last Admin: 01/08/17 10:20 Dose: 2 ml Admin: 01/07/17 23:22 Dose: 2 ml Admin: 01/07/17 21:37 Dose: 2 ml Admin: 01/07/17 09:01 Dose: 2 ml Admin: 01/07/17 01:38 Dose: 2 ml Admin: 01/06/17 09:50 Dose: 2 ml Admin: 01/05/17 20:43 Dose: 2 ml Admin: 01/05/17 09:23 Dose: 2 ml Admin: 01/04/17 21:06 Dose: 2 ml Admin: 01/04/17 10:02 Dose: 2 ml Admin: 01/03/17 23:47 Dose: 2 ml Admin: 01/03/17 22:28 Dose: Admin: 01/03/17 08:49 Dose: 2 ml Admin: 01/02/17 20:24 Dose: 2 ml Admin: 01/02/17 09:04 Dose: 2 ml Admin: 01/01/17 23:35 Dose: 2 ml Admin: 01/01/17 11:26 Dose: 2 ml Admin: 12/31/16 20:29 Dose: 2 ml Hydromorphone HCl (Dilaudid) 2 mg IV Q2HP PRN PRN Reason: Pain Last Admin: 01/02/17 20:20 Dose: 1 mg Admin: 01/02/17 05:36 Dose: 2 mg Fat Emulsion Intravenous (Intralipid 20%) 250 mls @ 25 mls/hr IV [id number] [facility] Last Admin: 01/06/17 15:27 Dose: 25 mls/hr Infusion: 01/04/17 03:14 Dose: 25 mls/hr Admin: 01/03/17 17:14 Dose: 25 mls/hr Infusion: 01/02/17 04:08 Dose: 25 mls/hr Admin: 01/01/17 18:08 Dose: 25 mls/hr Imipenem/Cilastatin Sodium 500 (mg/ Sodium Chloride) 100 mls @ 100 mls/hr IV Q8 [facility] Last Admin: 01/08/17 05:07 Dose: 100 mls/hr Infusion: 01/07/17 22:36 Dose: 100 mls/hr Admin: 01/07/17 21:36 Dose: 100 mls/hr Infusion: 01/07/17 17:15 Dose: 0 mls/hr Admin: 01/07/17 14:08 Dose: 100 mls/hr Infusion: 01/07/17 09:41 Dose: 0 mls/hr Admin: 01/07/17 06:58 Dose: 100 mls/hr Infusion: 01/06/17 23:27 Dose: 100 mls/hr Admin: 01/06/17 22:27 Dose: 100 mls/hr Infusion: 01/06/17 17:23 Dose: 100 mls/hr Admin: 01/06/17 16:23 Dose: 100 mls/hr Infusion: 01/06/17 07:58 Dose: 100 mls/hr Admin: 01/06/17 06:58 Dose: 100 mls/hr Infusion: 01/05/17 23:47 Dose: 100 mls/hr Admin: 01/05/17 22:47 Dose: 100 mls/hr Infusion: 01/05/17 14:30 Dose: 0 mls/hr Admin: 01/05/17 13:27 Dose: 100 mls/hr Infusion: 01/05/17 07:20 Dose: 100 mls/hr Admin: 01/05/17 06:20 Dose: 100 mls/hr Infusion: 01/04/17 23:40 Dose: 100 mls/hr Admin: 01/04/17 22:40 Dose: 100 mls/hr Infusion: 01/04/17 14:49 Dose: 100 mls/hr Admin: 01/04/17 13:49 Dose: 100 mls/hr Infusion: 01/04/17 06:20 Dose: 100 mls/hr Admin: 01/04/17 05:20 Dose: 100 mls/hr Infusion: 01/03/17 23:17 Dose: 100 mls/hr Admin: 01/03/17 22:17 Dose: 100 mls/hr Infusion: 01/03/17 16:40 Dose: 0 mls/hr Admin: 01/03/17 15:34 Dose: 100 mls/hr Infusion: 01/03/17 06:30 Dose: 0 mls/hr Admin: 01/03/17 05:32 Dose: 100 mls/hr Infusion: 01/02/17 23:58 Dose: 100 mls/hr Admin: 01/02/17 22:58 Dose: 100 mls/hr Infusion: 01/02/17 17:29 Dose: 0 mls/hr Admin: 01/02/17 15:20 Dose: 100 mls/hr Infusion: 01/02/17 07:02 Dose: 0 mls/hr Admin: 01/02/17 05:37 Dose: 100 mls/hr Infusion: 01/02/17 00:29 Dose: 0 mls/hr Admin: 01/01/17 23:29 Dose: 100 mls/hr Infusion: 01/01/17 16:25 Dose: 100 mls/hr Admin: 01/01/17 15:25 Dose: 100 mls/hr Infusion: 01/01/17 06:25 Dose: 100 mls/hr Admin: 01/01/17 05:25 Dose: 100 mls/hr Infusion: 12/31/16 23:50 Dose: 100 mls/hr Admin: 12/31/16 22:50 Dose: 100 mls/hr Infusion: 12/31/16 15:31 Dose: 100 mls/hr Admin: 12/31/16 14:31 Dose: 100 mls/hr Sodium Chloride (Sodium Chloride 0.9%) 1,000 mls @ 20 mls/hr IV .Q24H [facility] Last Admin: 01/07/17 12:30 Dose: Not Given Admin: 01/06/17 11:00 Dose: 20 mls/hr Infusion: 01/06/17 11:00 Dose: 20 mls/hr Admin: 01/05/17 13:24 Dose: 20 mls/hr Infusion: 01/05/17 13:24 Dose: 20 mls/hr Admin: 01/04/17 11:47 Dose: Not Given Admin: 01/04/17 03:26 Dose: 20 mls/hr Infusion: 01/04/17 03:26 Dose: 20 mls/hr Admin: 01/04/17 00:29 Dose: Admin: 01/02/17 14:26 Dose: 20 mls/hr Admin: 01/01/17 12:53 Dose: Not Given Admin: 12/31/16 14:30 Dose: Not Given Vancomycin HCl 1,000 mg/ (Sodium Chloride) 250 mls @ 250 mls/hr IV Q12H [facility] Last Admin: 01/08/17 10:20 Dose: 250 mls/hr Infusion: 01/07/17 21:17 Dose: 250 mls/hr Admin: 01/07/17 20:17 Dose: 250 mls/hr Infusion: 01/07/17 12:47 Dose: 0 mls/hr Admin: 01/07/17 10:22 Dose: 250 mls/hr Infusion: 01/06/17 21:32 Dose: 250 mls/hr Admin: 01/06/17 20:32 Dose: 250 mls/hr Infusion: 01/06/17 10:49 Dose: 250 mls/hr Admin: 01/06/17 09:49 Dose: 250 mls/hr Infusion: 01/05/17 21:38 Dose: 250 mls/hr Admin: 01/05/17 20:38 Dose: 250 mls/hr Infusion: 01/05/17 10:30 Dose: 0 mls/hr Admin: 01/05/17 09:24 Dose: 250 mls/hr Infusion: 01/04/17 21:58 Dose: 250 mls/hr Admin: 01/04/17 20:58 Dose: 250 mls/hr Infusion: 01/04/17 11:02 Dose: 250 mls/hr Admin: 01/04/17 10:02 Dose: 250 mls/hr Infusion: 01/03/17 21:55 Dose: 250 mls/hr Admin: 01/03/17 20:55 Dose: 250 mls/hr Infusion: 01/03/17 11:00 Dose: 0 mls/hr Admin: 01/03/17 10:00 Dose: 250 mls/hr Infusion: 01/02/17 21:30 Dose: 0 mls/hr Admin: 01/02/17 20:23 Dose: 250 mls/hr Infusion: 01/02/17 12:10 Dose: 0 mls/hr Admin: 01/02/17 11:04 Dose: 250 mls/hr Infusion: 01/01/17 23:00 Dose: 0 mls/hr Admin: 01/01/17 21:56 Dose: 250 mls/hr Infusion: 01/01/17 12:40 Dose: 250 mls/hr Admin: 01/01/17 11:40 Dose: 250 mls/hr Infusion: 12/31/16 21:28 Dose: 250 mls/hr Admin: 12/31/16 20:28 Dose: 250 mls/hr Insulin Human Lispro (Humalog) 0 unit SQ ACHS [facility] PRN Reason: Protocol Last Admin: 01/07/17 21:38 Dose: Admin: 01/07/17 17:14 Dose: Not Given Admin: 01/07/17 12:29 Dose: Not Given Admin: 01/07/17 07:07 Dose: Not Given Admin: 01/06/17 20:35 Dose: Not Given Admin: 01/06/17 17:45 Dose: Not Given Admin: 01/06/17 11:48 Dose: Not Given Admin: 01/06/17 07:34 Dose: Not Given Admin: 01/05/17 20:49 Dose: Not Given Admin: 01/05/17 16:47 Dose: Not Given Admin: 01/05/17 11:29 Dose: Not Given Admin: 01/05/17 07:51 Dose: Not Given Admin: 01/04/17 22:00 Dose: 2 unit Admin: 01/04/17 17:30 Dose: Not Given Admin: 01/04/17 11:46 Dose: Not Given Admin: 01/04/17 08:25 Dose: Not Given Admin: 01/03/17 22:28 Dose: Admin: 01/03/17 17:16 Dose: Not Given Admin: 01/03/17 12:19 Dose: Not Given Ketoconazole (Nizoral 2% Top Crm) 1 dose TOPICAL BID [facility] Last Admin: 01/07/17 21:38 Dose: 1 dose Admin: 01/07/17 09:02 Dose: 1 dose Admin: 01/06/17 20:24 Dose: 1 dose Admin: 01/06/17 10:09 Dose: 1 dose Admin: 01/05/17 22:47 Dose: 1 dose Admin: 01/05/17 09:25 Dose: 1 dose Admin: 01/04/17 21:12 Dose: 1 dose Admin: 01/04/17 11:42 Dose: 1 dose Admin: 01/03/17 22:27 Dose: 1 dose Admin: 01/03/17 11:25 Dose: 1 dose Admin: 01/02/17 22:58 Dose: 1 dose Levothyroxine Sodium (Synthroid) 50 mcg IV QAMAC [facility] Last Admin: 01/07/17 06:58 Dose: 50 mcg Admin: 01/06/17 07:19 Dose: 50 mcg Admin: 01/05/17 07:52 Dose: 50 mcg Admin: 01/04/17 08:26 Dose: 50 mcg Admin: 01/03/17 07:37 Dose: 50 mcg Admin: 01/02/17 07:12 Dose: 50 mcg Admin: 01/01/17 07:57 Dose: 50 mcg Lorazepam (Ativan) 0.5 mg IV Q4-6HP PRN PRN Reason: ANXIETY/SEDATION Last Admin: 01/06/17 22:32 Dose: 0.5 mg Admin: 01/06/17 02:31 Dose: 0.5 mg Admin: 01/05/17 22:43 Dose: 0.5 mg Admin: 01/04/17 22:00 Dose: 0.5 mg Testosterone [ Androderm] 4 Mg Patch 4 dose TOPICAL QDAY [facility] Last Admin: 01/07/17 09:03 Dose: Not Given Admin: 01/06/17 10:05 Dose: Not Given Admin: 01/05/17 09:26 Dose: Not Given Admin: 01/04/17 10:15 Dose: Not Given Admin: 01/03/17 10:30 Dose: Not Given Admin: 01/02/17 11:12 Dose: Not Given Admin: 01/01/17 13:27 Dose: Not Given Pantoprazole Sodium (Protonix) 40 mg IV QAMAC [facility] Last Admin: 01/07/17 06:58 Dose: 40 mg Admin: 01/06/17 07:19 Dose: 40 mg Admin: 01/05/17 07:52 Dose: 40 mg Admin: 01/04/17 08:25 Dose: 40 mg Admin: 01/03/17 07:38 Dose: 40 mg Admin: 01/02/17 07:15 Dose: 40 mg Admin: 01/01/17 07:57 Dose: 40 mg Rotigotine [Neupro] (4 Mg Patch) 1 dose TOPICAL DAILY [facility] Last Admin: 01/07/17 09:03 Dose: 1 dose Admin: 01/06/17 09:49 Dose: 1 dose Admin: 01/05/17 09:25 Dose: 1 dose Admin: 01/04/17 10:02 Dose: 1 dose Admin: 01/03/17 08:50 Dose: 1 dose Admin: 01/02/17 11:32 Dose: 1 dose Admin: 01/01/17 11:26 Dose: Not Given Rotigotine [Neupro] (8 Mg Patch) 1 dose TOPICAL DAILY [facility] Last Admin: 01/07/17 09:04 Dose: 1 dose Admin: 01/06/17 09:51 Dose: 1 dose Admin: 01/05/17 09:25 Dose: 1 dose Admin: 01/04/17 10:03 Dose: 1 dose Admin: 01/03/17 08:50 Dose: 1 dose Admin: 01/02/17 11:35 Dose: 1 dose Admin: 01/01/17 11:26 Dose: Not Given Lubiprostone [ Amitiza] 24 Mcg Capsule 1 dose PO BID [facility] Last Admin: 01/07/17 21:39 Dose: Admin: 01/07/17 09:03 Dose: Not Given Admin: 01/06/17 20:23 Dose: Not Given Admin: 01/06/17 10:09 Dose: Not Given Admin: 01/05/17 20:45 Dose: Not Given Admin: 01/05/17 09:26 Dose: Not Given Admin: 01/04/17 20:58 Dose: Not Given Admin: 01/04/17 10:15 Dose: Not Given Admin: 01/03/17 22:17 Dose: Admin: 01/03/17 10:31 Dose: Not Given Admin: 01/02/17 20:28 Dose: Not Given Admin: 01/02/17 14:24 Dose: Not Given Mirabegron [ Myrbetriq] 50 Mg Tablet 1 dose PO DAILY@1900 [facility] Last Admin: 01/07/17 19:20 Dose: 1 dose Admin: 01/06/17 20:19 Dose: 1 dose Admin: 01/05/17 20:34 Dose: 1 dose Admin: 01/04/17 19:30 Dose: Not Given Tadalafil [Cialis] 5 (Mg Tablet) 1 dose PO HS [facility] Last Admin: 01/07/17 21:39 Dose: Admin: 01/06/17 20:23 Dose: Not Given Admin: 01/05/17 20:45 Dose: Not Given Admin: 01/04/17 20:58 Dose: Not Given Potassium Chloride (Kdur) 10 meq PO QAC [facility] Last Admin: 01/07/17 09:00 Dose: 10 meq Admin: 01/06/17 07:19 Dose: 10 meq Admin: 01/05/17 07:52 Dose: 10 meq Admin: 01/04/17 08:26 Dose: 10 meq Admin: 01/03/17 08:48 Dose: 10 meq Admin: 01/02/17 09:03 Dose: 10 meq Admin: 01/01/17 07:56 Dose: 10 meq Sodium Chloride (Saline Flush) 10 ml IV Q8 [facility] Last Admin: 01/08/17 05:08 Dose: Not Given Admin: 01/07/17 23:22 Dose: 10 ml Admin: 01/07/17 21:40 Dose: 10 ml Admin: 01/07/17 14:09 Dose: 10 ml Admin: 01/07/17 06:59 Dose: Not Given Admin: 01/07/17 01:39 Dose: 10 ml Admin: 01/06/17 15:51 Dose: 10 ml Admin: 01/06/17 07:20 Dose: 10 ml Admin: 01/05/17 20:43 Dose: 10 ml Admin: 01/05/17 13:27 Dose: 10 ml Admin: 01/05/17 06:21 Dose: 10 ml Admin: 01/04/17 21:13 Dose: 10 ml Admin: 01/04/17 13:51 Dose: 10 ml Admin: 01/04/17 07:28 Dose: 10 ml Admin: 01/03/17 22:29 Dose: Not Given Admin: 01/03/17 15:35 Dose: 10 ml Admin: 01/03/17 07:23 Dose: 10 ml Admin: 01/02/17 20:30 Dose: 10 ml Admin: 01/02/17 14:19 Dose: 10 ml Admin: 01/02/17 05:38 Dose: 10 ml Admin: 01/01/17 22:31 Dose: Not Given Admin: 01/01/17 15:25 Dose: Not Given Admin: 01/01/17 05:26 Dose: 10 ml Admin: 12/31/16 20:29 Dose: 10 ml Admin: 12/31/16 14:31 Dose: Not Given Tamsulosin HCl (Flomax) 0.8 mg PO QDAY [facility] Last Admin: 01/07/17 08:59 Dose: 0.8 mg Admin: 01/06/17 09:49 Dose: 0.8 mg Admin: 01/05/17 09:22 Dose: 0.8 mg Admin: 01/04/17 10:00 Dose: 0.8 mg Admin: 01/03/17 08:48 Dose: 0.8 mg Admin: 01/02/17 09:02 Dose: 0.8 mg Admin: 01/01/17 11:24 Dose: Not Given Vancomycin HCl (Vancomycin Oral Shagufta) 250 mg PO QID [facility] Last Admin: 01/07/17 21:39 Dose: 2.5 ml Admin: 01/07/17 17:14 Dose: 2.5 ml Admin: 01/07/17 13:10 Dose: 2.5 ml Admin: 01/07/17 09:04 Dose: 2.5 ml Admin: 01/06/17 20:19 Dose: 2.5 ml Admin: 01/06/17 17:47 Dose: 2.5 ml Admin: 01/06/17 15:25 Dose: 2.5 ml Admin: 01/06/17 09:49 Dose: 2.5 ml Admin: 01/05/17 20:36 Dose: 2.5 ml Admin: 01/05/17 17:22 Dose: 2.5 ml Admin: 01/05/17 13:26 Dose: 2.5 ml Admin: 01/05/17 09:24 Dose: 2.5 ml Admin: 01/04/17 21:02 Dose: 2.5 ml Admin: 01/04/17 17:31 Dose: 2.5 ml Admin: 01/04/17 13:49 Dose: 2.5 ml Admin: 01/04/17 10:00 Dose: 2.5 ml Admin: 01/03/17 22:17 Dose: 2.5 ml Admin: 01/03/17 17:34 Dose: 2.5 ml Admin: 01/03/17 15:32 Dose: 2.5 ml Admin: 01/03/17 11:25 Dose: 2.5 ml Admin: 01/02/17 20:29 Dose: 2.5 ml Admin: 01/02/17 16:58 Dose: 2.5 ml Admin: 01/02/17 14:25 Dose: 2.5 ml Admin: 01/02/17 11:28 Dose: 2.5 ml Shift Summary 01/08/17 04:21 Shift Summary by rBennen Monroe Patient has been rather restless tonight, 2nd to going to a rehab facility later today. TPN tapered off last noc - took 50% dinner brought in by his last servando. He wears attends - occasionally incont of both bowel & bladder - LG incont B&B @ 0340 - also voided per urinal, & had small loose BM on BSC last servando. PICC (3) lumen to RT A/C - 2x ports flushed & Heparinized, with 1 port infusing NS @ TKO. Coccyx wound & ABD incision nearly healed. He has denied pain, or nausea. He is rather deconditioned - poor standing balance - he did get up & AMB out in kelly yesterday. HE has been sitting up in chair in for extended periods of time. He is pleasant, cooperative, & very friendly. Initialized on 01/08/17 04:21 - END OF NOTE
[2017-01-08] MEDS: ROTIGOTINE 8 MG TOPICAL SCH (10:30)
--- NOTE | 2017-01-08 12:02 | Internal Med Progress Note ---
Medical - PN: Subj Patient information: Note initiated : 01/08/17 at 12:02 pm Service Date, if different from initiated Date: [] Patient: Tripp Melo a 66 y/o M admitted on 12/16/16 for Bowel Abscess, Bladder Fistula. Chief Complaint: [] Interval history: 12/16- Mr. Melo is a 66 year old male who as admitted last night by Dr. Azul for small bowel-bladder fistula. 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 December 23: the patient is now status post small bowel resection and bladder repair. e is a bit groggy, and says he feels "rough", but denies significant pain currently. He denies current chest pain or trouble breathing. Abdomen feels a bit bloated. Apparently a malignant neoplasm was found at surgery, eroding through the small bowel into the bladder. 12/24- patient seen in room post operative day 1. No overnight events. NG tube draining bilious output. No telemetry events. No concerns per staff. Complains of significant abdominal pain around the incision site. However alert lucid and responding verbal commands. Foleys draining clear urine. On TPN. IV fluids lowered from 125 an hour to TKO. 12/25- patient feels depressed. Hold out NG tube last night. Complains of significant abdominal pain. On TPN. Liquid BM today. White count over 17, 000. On broad antibiotic coverage-imipenem. Surgery managing postop care. Continue management in ICU in light of worsening leukocytosis. reinsert NG tube if patient agrees. 12/26- NG tube could not be placed. Patient on TPN. Potassium 2.7. Persistent operative site pain. Postoperative care managed as per surgery recommendations. White count down from 17.4-12.2. no overnight nausea vomiting , low-grade temperature at 99.7. good urine output. 2/3-patient doing well. No significant abdominal distention fever chills or telemetry events. Pain control adequate. On TPN. Good urine output. white count downtrending from 17.4-10.1. potassium improved to 4 from 2.7. iimproved tachycardia around 104. saturating on room air. Afebrile. Patient feels better than previous day. 12/28- 12/31- patient stable on TPN. Out of ICU. 01/01-multiple loose watery stool. C. difficile pending. Very sedated. reversed with flumazenil. recommend lowering benzodiazepine dose. 01/02- C. difficile positive. Started on vancomycin oral/IV Flagyl. Stage II decubitus pressure ulcers. Wound care consulted. Patient is significantly deconditioned and is high risk mortality. Patient would require long-term care for deconditioning from prolonged hospital stay along with aggressive wound care /nutrition supplements. 01/03- patient on regular diet along with TPN. discussed option of transfer to [facility] acute care unit for long-term rehabilitation. however patient adamantly refuses to go to LTAC. Patient has had prolonged hospital stay with deconditioning/need for TPN/associated with C. difficile/protein calorie malnutrition. Patient understands the complicated nature of his illness but wishes to continue treatment locally. no overnight fever chills nausea vomiting or concerns expressed by nursing staff. Ongoing physical therapy. improving diarrhea 01/04-patient advancing diet per surgery. no further recommendations from medical services. Continue existing treatment for pre-existing medical issues 01/05- patient doing well. Tolerating physical therapy. Awaiting LTAC transfer. On TPN/oral diet. Much improved mentation. Feels upbeat and participating in therapies 01/06- patient doing well. No overnight events. No concerns per staff. No fever chills nausea vomiting. Patient meeting goals as per physical therapy and may be able to transfer locally rehabilitation. 01/07- patient doing well no overnight events. Ambulating with assistance. Able to bear weight. Again no concerns per patient or staff. On TPN/diet. 01/08 patient discharging as per urgery recommendations. Off antibiotics and TPN . Continue vancomycin for 2 weeks for C. difficile. - Constitutional Vitals: Vital Signs Temp Pulse Resp BP Pulse Ox 97.7 F 99 H 16 131/86 98 01/08/17 07:58 01/08/17 07:58 01/08/17 07:58 01/08/17 07:58 01/08/17 07:58 Period Temp Pulse Resp BP Sys/Lerma Pulse Ox Last 24 Hr 96.8 F-98.8 F 93-110 16-24 118-131/65-86 98-99 Intake and Output 01/07/17 01/08/17 01/08/17 21:59 05:59 13:59 Intake Total 3166 / 3166 100 / 100 100 / 100 Output Total 101 / 101 352 / 352 Balance 3065 / 3065 -252 / -252 100 / 100 Weight 129 lb 8 oz 133 lb Intake & Output: Intake & Output 01/07/17 01/08/17 01/08/17 21:59 05:59 13:59 Intake Total 3166 / 3166 100 / 100 100 / 100 Output Total 101 / 101 352 / 352 Balance 3065 / 3065 -252 / -252 100 / 100 Weight 129 lb 8 oz 133 lb Intake: IV 2206 / 2206 100 / 100 100 / 100 Calcium Gluconate 10 Meq 1856 / 1856 Magnesium Sulfate 8.12 Meq Potassium Phosphate 80 Meq Infuvite Adult 10 ml Selenium 60 Mcg Potassium Acetate 20 Meq Sodium Acetate 20 Meq In Clinimix 5%-20% Solution 2,000 ml @ 85 mls/hr IV DAILY@1600 [facility] Rx#: [id number] Sodium Chloride 0.9% 100 100 / 100 100 / 100 100 / 100 ml @ 100 mls/hr IV Q8 [facility] with Primaxin 500 mg Rx# :[id number] Sodium Chloride 0.9% 250 250 / 250 ml @ 250 mls/hr IV Q12H D[facility]WIN with Vancomycin 1,000 mg Rx#:[id number] Oral 960 / 960 0 / 0 Output: Void Amount 100 / 100 350 / 350 # of times incontinent of 1 / 1 2 / 2 urine Other: Meal Dinner Percent of Meal Consumed 50% Feeding Ability Independent # Voids 1 # Bowel Movements 1 General appearance: cooperative, no acute distress, thin Exam: alert oriented ambulating No lymphedema No anxiety Medical - PN: Obj Da - Labs CBC & Chem 7: 01/06/17 06:04 01/06/17 06:05 Labs: Abnormal Lab Results 01/06/17 01/06/17 06:05 06:04 RBC 3.19 L Hgb 9.1 L Hct 26.7 L RDW 20.6 H Lymph % (Auto) 15.4 L Lymph # 1.3 L Creatinine 0.5 L Uric Acid 1.5 L Calcium 8.3 L GGT 174 H Alkaline Phosphatase 154 H Total Protein 4.9 L Albumin 2.7 L Triglycerides 151 H Meds: Medications Carbidopa/Levodopa (Sinemet 25/100) 2 tab PO QID [facility] Last Admin: 01/08/17 10:26 Dose: 2 tab Clotrimazole (Mycelex) 10 mg PO 5XD [facility] Last Admin: 01/08/17 10:23 Dose: 10 mg Dextrose (Dextrose 50%) 0 ml IV UD PRN PRN Reason: Hypoglycemia Diagnostic Test (Pha) (Accu-Chek) 1 each FS ACHS [facility] Last Admin: 01/08/17 10:22 Dose: Not Given Fentanyl (Duragesic) 100 mcg TD Q48H [facility] Last Admin: 01/07/17 10:22 Dose: 100 mcg Flumazenil (Romazicon) 0.2 mg IV Q1MIN PRN PRN Reason: BENZODIAZEPINE REVERSAL Last Admin: 01/01/17 11:55 Dose: 0.2 mg Gabapentin (Neurontin) 300 mg PO QID [facility] Last Admin: 01/08/17 10:28 Dose: 300 mg Heparin Sodium (Porcine) (Heparin) 5,000 unit SQ Q12 [facility] Last Admin: 01/07/17 21:36 Dose: 5,000 unit Heparin Sodium (Porcine) (Heparin Flush) 2 ml IV Q12 [facility] Last Admin: 01/08/17 10:20 Dose: 2 ml Hydromorphone HCl (Dilaudid) 2 mg IV Q2HP PRN PRN Reason: Pain Last Admin: 01/02/17 20:20 Dose: 1 mg Imipenem/Cilastatin Sodium 500 (mg/ Sodium Chloride) 100 mls @ 100 mls/hr IV Q8 [facility] Last Infusion: 01/08/17 10:31 Dose: Infused Sodium Chloride (Sodium Chloride 0.9%) 1,000 mls @ 20 mls/hr IV .Q24H [facility] Last Admin: 01/07/17 12:30 Dose: Not Given Acetaminophen (Ofirmev) 1,000 mg in 100 mls @ 200 mls/hr IV Q6HP PRN PRN Reason: Pain Vancomycin HCl 1,000 mg/ (Sodium Chloride) 250 mls @ 250 mls/hr IV Q12H [facility] Last Admin: 01/08/17 10:20 Dose: 250 mls/hr Insulin Human Lispro (Humalog) 0 unit SQ ACHS [facility] PRN Reason: Protocol Last Admin: 01/08/17 10:22 Dose: Not Given Ketoconazole (Nizoral 2% Top Crm) 1 dose TOPICAL BID [facility] Last Admin: 01/07/17 21:38 Dose: 1 dose Levothyroxine Sodium [facility]throid) [facility] Last Admin: 01/08/17 07:30 Dose: 50 mcg Lorazepam (Ativan) 0.5 mg IV Q4-6HP PRN PRN Reason: ANXIETY/SEDATION Last Admin: 01/06/17 22:32 Dose: 0.5 mg Metoprolol Tartrate (Lopressor) 5 mg IV Q4HP PRN PRN Reason: Tachyarrhythmias Testosterone [ Androderm] 4 Mg Patch 4 dose TOPICAL QDAY [facility] Last Admin: 01/07/17 09:03 Dose: Not Given Pantoprazole Sodium (Protonix) [facility] Last Admin: 01/08/17 07:25 Dose: 40 mg Apomorphine (Apokyn) (10mg/Ml) 0.3 dose SC Q2HP PRN PRN Reason: Tremors Rotigotine [Neupro] (4 Mg Patch) 1 dose TOPICAL DAILY [facility] Last Admin: 01/08/17 10:29 Dose: 1 dose Rotigotine [Neupro] (8 Mg Patch) 1 dose TOPICAL DAILY [facility] Last Admin: 01/08/17 10:30 Dose: 1 dose Frovatriptan Succinate [Frova] 2. 5 Mg Tab 1 dose PO DAILYP PRN PRN Reason: Migraine Headache Lubiprostone [ Amitiza] 24 Mcg Capsule 1 dose PO BID [facility] Last Admin: 01/08/17 10:32 Dose: Not Given Mirabegron [ Myrbetriq] 50 Mg Tablet 1 dose PO DAILY@1900 [facility] Last Admin: 01/07/17 19:20 Dose: 1 dose Tadalafil [Cialis] 5 (Mg Tablet) 1 dose PO HS [facility] Last Admin: 01/07/17 21:39 Dose: Not Given Potassium Chloride (Kdur) 10 meq [facility] Last Admin: 01/07/17 09:00 Dose: 10 meq Sodium Chloride (Saline Flush) 10 ml IV UD PRN PRN Reason: FLUSH Sodium Chloride (Saline Flush) 10 ml IV Q8 [facility] Last Admin: 01/08/17 05:08 Dose: Not Given Tamsulosin HCl (Flomax) 0.8 mg PO QDAY [facility] Last Admin: 01/07/17 08:59 Dose: 0.8 mg Vancomycin HCl (Vancomycin Oral Shagufta) 250 mg PO QID [facility] Last Admin: 01/07/17 21:39 Dose: 2.5 ml Medical - PN: A/P - Time Spent With Patient Total time spent is greater than 50% in coordination of care (as documented) at patient's floor/unit and/or counseling patient: 15 - 24 minutes (1) Enterovesical fistula Status: Resolved Assessment and plan: * Enterovesical fistula with intraabdominal abscess-postop day 15. Hospital day 23, antibiotics discontinued by surgery. patient transferring for rehabilitation. * Nutrition- off TPN. On oral diet per surgery Hospitalist consult per medical issues as below * C. difficile enterocolitis- recommend continuing vancomycin/Flagyl for total of 14 days. * Severe sepsis secondary to intra-abdominal abscess/C. difficile- resolved * Stage II decubitus ulcers- managed as per Dr. Hamilton's recommendations * Parkinson's disease-levodopa/carbidopa/amantadine * History of migraine -no acute flare * Generalized anxiety disorder- stable on mirtazapine * hypothyroidism- thyroxine * Hyperlipidemia- atorvastatin * BPH continue tamsulosin * Severe anemia-Status post transfusion. hemoglobin 9.1 * altered mental status- fully resolved * severe deconditioning-anticipate SNF transfer * hypokalemia-resolved plan * discharge to SNF as per surgery * Recommend total 14 daysoral vancomycin * wound care to continue at rehabilitation as per Dr. hamilton's recommendation Current Visit: No Medical - PN: Qual - Stroke Symptom Onset Unknown: No - VTE Deep Vein Thrombosis/Pulmonary Embolism Present on Admission: No
[2017-01-08] MEDS: TESTOSTERONE 4 MG TOPICAL SCH (13:51)
[2017-01-08] MEDS: POTASSIUM CHLORIDE 10 MEQ TABLET PO SCH (15:19)
[2017-01-08] MEDS: Tadalafil [Cialis] 5 MG Tablet PO SCH (20:59)
[2017-01-08] MEDS: 0.9 % SODIUM CHLORIDE 1,000 ML IV SCH (22:24)
[2017-01-09] MEDS: LORazepam 2 MG/ML VIAL IV PRN (00:30)
[2017-01-09] MEDS: IMIPENEM/CILASTATIN SODIUM 500 MG in 0.9 % SODIUM CHLORIDE 100 ML IV SCH (05:43)
[2017-01-09] MEDS: PANTOPRAZOLE 40 MG VIAL IV SCH (06:56)
[2017-01-09] MEDS: LEVOTHYROXINE 100 MCG VIAL IV SCH (06:56)
[2017-01-09] MEDS: 0.9 % SODIUM CHLORIDE 10 ML SYRINGE IV SCH (06:57)
[2017-01-09] MEDS: ROTIGOTINE 8 MG TOPICAL SCH (08:30)
[2017-01-09] MEDS: VANCOMYCIN 1,000 MG in 0.9 % SODIUM CHLORIDE 250 ML IV SCH (08:30)
[2017-01-09] MEDS: ROTIGOTINE 4 MG TOPICAL SCH (08:30)
[2017-01-09] MEDS: CLOTRIMAZOLE 10 MG TROCHE PO SCH (08:31)
[2017-01-09] MEDS: POTASSIUM CHLORIDE 10 MEQ TABLET PO SCH (08:31)
[2017-01-09] MEDS: TAMSULOSIN 0.4 MG CAPSULE PO SCH (08:31)
[2017-01-09] MEDS: CARBIDOPA/LEVODOPA 25/100 TABLET PO SCH (08:31)
[2017-01-09] MEDS: GABAPENTIN 300 MG CAPSULE PO SCH (08:32)
[2017-01-09] MEDS: HEPARIN 5,000 UNIT/ML VIAL SQ SCH (08:32)
[2017-01-09] MEDS: TESTOSTERONE 4 MG TOPICAL SCH (08:33)
[2017-01-09] MEDS: KETOCONAZOLE 2% TOP CRM 15GM TUBE TOPICAL SCH (08:33)
[2017-01-09] MEDS: VANCOMYCIN ORAL SOL 1,000 MG/10 ML BOTTLE PO SCH (08:33)
[2017-01-09] MEDS ORDERED: FLU VACC QS2016-17 36MOS UP/PF 60 MCG/0.5 ML SYRINGE IM ONE (09:34)
[2017-01-09] MEDS ORDERED: PNEUMOCOCCAL 23-VAL P-SAC VAC 0.5 ML VIAL IM ONE (09:40)
[2017-01-09] MEDS: fentaNYL 100 MCG PATCH TD SCH (09:42)
--- NOTE | 2017-01-20 14:42 | Operative Note ---
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 POSTOPERATIVE DIAGNOSIS: Enterocutaneous enterovesical fistula. PROCEDURE: Cystotomy and closure. SURGEON: Jim Azul MD; Urological surgeon: Hebert Hawkins MD INDICATION: The patient is a 66-year-old gentleman who has been having a GI bleed recently. He was having recurrent infections and cystoscopy was performed which showed raquel stool in his bladder. Recently he has been in the hospital for evaluation and tune-up, and he presents now for surgery. Please see Dr. Azul's note for the bowel resection. 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 We were able to remove the entire mass and also around the bladder to make sure we had clear margins. Orifices were in their normal position. Orifices were not disturbed. I was then able to close the bladder in two layers using a #1 Vicryl. I was pleased with the overall appearance. This appeared to be a watertight closure. Dr. Azul then proceeded with the rest of the surgery. Please see his dictation. As of when I left the operating room the patient was stable and Dr. Azul was completing the operation. WilZ:ti Job ID: [id number] Doc ID: [id number] Hebert Hawkins MD
--- NOTE | 2017-01-20 15:35 | Echocardiogram Report ---
ECHOCARDIOGRAM: 2-D and M-mode echocardiography with cardiac Doppler and color flow imaging were performed with a [employer] MX. Indication is tachycardia. The study was technically suboptimal for anatomic reasons. A diagnostic M-mode tracing of the LV could not be obtained. Overall size of the four cardiac chambers appeared normal as did LV wall thickness. Systolic performance appeared vigorous. Estimated ejection fraction is 70%. The aortic root appeared mildly dilated. The aortic valve appeared trileaflet and normal. There was no evidence for aortic stenosis or aortic regurgitation by Doppler interrogation. The mitral and tricuspid valves appeared unremarkable. Doppler interrogation of LV inflow disclosed a fused signal. There was no evidence for mitral regurgitation. Pulmonary venous interrogation disclosed \\"d'' wave dominance suggesting possible elevated pulmonary wedge pressure. The pulmonic valve was not well visualized and could not be well interrogated. There was no evidence for tricuspid regurgitation. No intracardiac shunting was appreciated. There was no evidence for pericardial effusion. The IVC was narrow and showed normal respiratory aeration. Sinus rhythm, rate 88, was present. CONCLUSION:Technically suboptimal study for anatomic reasons. Mild aortic root dilatation. Possible elevated pulmonary wedge pressure. Since previous study 12/23/16, mild left-sided regurgitant lesions are not appreciated, though there are probably no major changes. (See accompanying M-mode and Doppler reports for quantitation.) ECHOCARDIOG ELLIOT M-MODE CALCULATIONS: HT: 66 WT: 127 BSA: 1.65 m2 NORMALS AORTA: AORTIC ROOT 3.5-4.0 2.0-3.7 cm LEFT ATRIUM 3.0 1.9-4.0 cm MITRAL VALVE: EXCURSION 2.4 1.9-2.7 cm EPSS 0.5 <0.5 cm LT VENTRICLE: LVID (ED) -- 3.5-5.7 cm LVID (ES) -- SEPTAL THICKNESS -- 0.6-1.1 cm SEPTAL EXCURSION -- 0.3-0.8 cm LVPW THICKNESS -- 0.6-1.1 cm LVPW EXCURSION -- 0.9-1.4 cm MINOR AXIS FS -- 25%-40% RT VENTRICLE: RVID (ED) -- 0.9-2.6 cm(up to 3cm if LLD) QUALITATIVE DOPPLER FLOW STUDIES MITRAL VALVE -- AORTIC VALVE -- TRICUSPID VALVE -- PULMONIC VALVE -- QUANTITATIVE DOPPLER FLOW STUDIES SAMPLE SITES VELOCITIES PEAK PRESSURE VALVE AREA and/or VALVE WINDOW (PEAK,M/SEC) DROP (GRADIENT) PRESSURE HALF-TIME MV (Diastole) 0.6 -- -- MV (Systole) -- -- -- AO (Diastole) -- -- -- AO (Systole) 1.1 -- -- TV (Systole) -- -- -- PV (Systole) -- -- -- PV (Diastole) -- LWG:ti Job ID: [id number] Doc ID: [id number] Bry Man MD
== END 2017-01-09 12:30 | DRG 329 ==
LOC: MEDSUR 10:54 → ICU 12-17 19:05 → MEDSUR 12-19 17:15 → ICU 12-23 11:39 → MEDSUR 12-31 12:03
PROVIDERS: ADMIT Family Medicine Adult Medicine; ATTEND Family Medicine Adult Medicine